=== PATIENT | male | born 1935 | race Caucasian/White ===

== ENCOUNTER → 2016-05-22 | Outpatient (CLI) | payer OTHER, MEDICARE ==
[~2016-05-22] MED LIST: ALL300 PO; APIX1TAB3 PO; ASPEC81 PO; BNC/40 PO; CTP1 PO; DOFE250C PO; FINA5TAB PO; GEMF600T3 PO; LEVO50TA PO; LPT/40 PO; MAGN400T6 PO; METO50TA7 PO; MULT-506 PO; MULTCAP7 PO; PANT1TAB48 PO; POTA10TA PO; TRIA37.5 PO
== END | disposition home or self-care (01) ==
LOC: C.LABFOXMH 09:20
PROVIDERS: ATTEND Internal Medicine
DX: M10.9 Gout, unspecified (principal)

== ENCOUNTER → 2016-05-28 | Outpatient (CLI) | payer OTHER, MEDICARE ==
[2016-05-28 09:21] LABS: BASO % 0.2 %; BASO ABS # 0.01 K/uL (0-0.2); COMPLETE YES; EOS % 2.4 %; IG% 0.3 %; LYMPH % 28.1 %; LYMPH ABS # 1.67 K/uL (1.2-3.4); MEAN CELL VOLUME 96.2 fL (80-100); MEAN CORPUSCULAR HEMOGLOBIN 32.2 pg (25-34); MEAN CORPUSCULAR HGB CONC 33.5 g/dl (32-36); MEAN PLATELET VOLUME 12.3 fL (7.4-10.4); PLATELET COUNT 202 K/uL (130-400); RED BLOOD COUNT 4.47 M/uL (4.7-6.1); WHITE BLOOD COUNT 5.94 K/uL (4.8-10.8)
[2016-05-28 09:27] LABS: ALT/SGPT 21 U/L (12-78); BLOOD UREA NITROGEN 48 mg/dl (7-18); BUN/CREATININE RATIO 21.8 (10-20); CALCIUM 8.7 mg/dl (8.5-10.1); CARBON DIOXIDE 18 mmol/L (21-32); CHLORIDE 112 mmol/L (98-107); GLUCOSE 90 mg/dl (70-99); POTASSIUM 5.8 mmol/L (3.5-5.1); SODIUM 141 mmol/L (136-145)
[2016-05-28 09:38] LABS: ALKALINE PHOSPHATASE 94 U/L (45-117); AST/SGOT 25 U/L (15-37); THYROID STIMULATING HORMONE 0.421 uIu/ml (0.300-4.500)
== END | disposition home or self-care (01) ==
LOC: C.LABFOXMH 08:39
PROVIDERS: ATTEND Nurse Practitioner Family
DX: R53.83 Other fatigue (principal); E03.9 Hypothyroidism, unspecified

== ENCOUNTER → 2016-08-09 | Outpatient (CLI) | payer OTHER, MEDICARE ==
[2016-08-09 08:32] LABS: ALT/SGPT 22 U/L (12-78); BLOOD UREA NITROGEN 42 mg/dl (7-18); BUN/CREATININE RATIO 19.9 (10-20); CALCIUM 8.7 mg/dl (8.5-10.1); CARBON DIOXIDE 25 mmol/L (21-32); CHLORIDE 108 mmol/L (98-107); CHOLESTEROL 151 mg/dl (0-200); GLUCOSE 93 mg/dl (70-99); POTASSIUM 5.1 mmol/L (3.5-5.1); SODIUM 141 mmol/L (136-145); TRIGLYCERIDES 106 mg/dl (0-150); VERY LOW DENSITY LIPOPROT CALC 21 mg/dl
[2016-08-09 08:35] LABS: ALB/GLOB RATIO 1.1 (0.9-2); ALKALINE PHOSPHATASE 101 U/L (45-117); AST/SGOT 21 U/L (15-37); CHOLESTEROL/HDL RATIO 3.1; HDL CHOLESTEROL 49 mg/dl; LDL CHOLESTEROL CALCULATED 81 mg/dl
== END ==
LOC: C.LABFOXMH 07:46
PROVIDERS: ATTEND Internal Medicine
DX: E78.00 Pure hypercholesterolemia, unspecified (principal)

== ENCOUNTER → 2016-09-20 | Outpatient (CLI) | payer OTHER, MEDICARE ==
[2016-09-20 12:40] LABS: HEMATOCRIT 49.8 % (42-52); MEAN CELL VOLUME 97.5 fL (80-100); MEAN CORPUSCULAR HEMOGLOBIN 32.5 pg (25-34); MEAN CORPUSCULAR HGB CONC 33.3 g/dl (32-36); PLATELET COUNT 205 K/uL (130-400); RED BLOOD COUNT 5.11 M/uL (4.7-6.1); WHITE BLOOD COUNT 4.22 K/uL (4.8-10.8)
[2016-09-20 12:48] LABS: URINE APPEARANCE CLEAR (CLEAR); URINE BILIRUBIN NEG (NEG); URINE COLOR YELLOW; URINE NITRITE NEG (NEG); URINE PH 5.5 (4.5-7.5); URINE SPECIFIC GRAVITY 1.017 (1.000-1.030); UROBILINOGEN NEG (NEG)
[2016-09-20 13:01] LABS: MANUAL MICROSCOPIC REQUIRED? NO; REVIEW REQ? NO
[2016-09-20 13:14] LABS: BLOOD UREA NITROGEN 60 mg/dl (7-18); CALCIUM 8.8 mg/dl (8.5-10.1); CARBON DIOXIDE 23 mmol/L (21-32); CHLORIDE 110 mmol/L (98-107); GLUCOSE 98 mg/dl (70-99); SODIUM 140 mmol/L (136-145)
[2016-09-20 13:15] LABS: PHOSPHORUS 4.3 mg/dl (2.5-4.9)
[2016-09-20 13:34] LABS: URINE PROTIEN/CREAT RATIO 1.5 (0-0.2); URINE TOTAL PROTEIN 168.7 mg/dl (0-11.9)
== END | disposition home or self-care (01) ==
LOC: C.LAB1850 11:16
PROVIDERS: ATTEND Internal Medicine Nephrology
DX: I49.3 Ventricular premature depolarization (principal); I12.9 Hypertensive chronic kidney disease with stage 1 through stage 4 chronic kidney disease, or unspecified chronic kidney disease; N18.3 Chronic kidney disease, stage 3 (moderate); R80.9 Proteinuria, unspecified; E55.9 Vitamin D deficiency, unspecified

== ENCOUNTER → 2016-10-09 | Outpatient (CLI) | payer OTHER, MEDICARE ==
[2016-10-09 09:54] LABS: BLOOD UREA NITROGEN 55 mg/dl (7-18); BUN/CREATININE RATIO 24.1 (10-20); CARBON DIOXIDE 22 mmol/L (21-32); CHLORIDE 112 mmol/L (98-107); GLUCOSE 92 mg/dl (70-99); POTASSIUM 5.3 mmol/L (3.5-5.1); SODIUM 142 mmol/L (136-145)
[2016-10-09 09:55] LABS: PHOSPHORUS 3.6 mg/dl (2.5-4.9)
[2016-10-09 10:10] LABS: CALCIUM 8.7 mg/dl (8.5-10.1)
== END | disposition home or self-care (01) ==
LOC: C.LAB1850 08:32
PROVIDERS: ATTEND Internal Medicine Nephrology
DX: N18.3 Chronic kidney disease, stage 3 (moderate) (principal); R80.9 Proteinuria, unspecified; E55.9 Vitamin D deficiency, unspecified; N17.9 Acute kidney failure, unspecified; E87.5 Hyperkalemia; E83.41 Hypermagnesemia

== ENCOUNTER → 2016-11-12 | Outpatient (CLI) | payer OTHER, MEDICARE ==
[2016-11-12 09:47] LABS: HEMATOCRIT 48.1 % (42-52); MEAN CELL VOLUME 97.2 fL (80-100); MEAN CORPUSCULAR HEMOGLOBIN 30.9 pg (25-34); MEAN CORPUSCULAR HGB CONC 31.8 g/dl (32-36); MEAN PLATELET VOLUME 11.5 fL (7.4-10.4); PLATELET COUNT 178 K/uL (130-400); RED BLOOD COUNT 4.95 M/uL (4.7-6.1); WHITE BLOOD COUNT 4.87 K/uL (4.8-10.8)
[2016-11-12 10:00] LABS: BLOOD UREA NITROGEN 27 mg/dl (7-18); BUN/CREATININE RATIO 13.3 (10-20); CALCIUM 8.8 mg/dl (8.5-10.1); CARBON DIOXIDE 27 mmol/L (21-32); CHLORIDE 110 mmol/L (98-107); GLUCOSE 96 mg/dl (70-99); PHOSPHORUS 3.2 mg/dl (2.5-4.9); POTASSIUM 4.5 mmol/L (3.5-5.1); SODIUM 144 mmol/L (136-145)
== END | disposition home or self-care (01) ==
LOC: C.LAB1850 07:33
PROVIDERS: ATTEND Internal Medicine Nephrology
DX: I12.9 Hypertensive chronic kidney disease with stage 1 through stage 4 chronic kidney disease, or unspecified chronic kidney disease (principal); N18.3 Chronic kidney disease, stage 3 (moderate); R80.9 Proteinuria, unspecified; E55.9 Vitamin D deficiency, unspecified; E83.41 Hypermagnesemia

== ENCOUNTER → 2017-05-22 | Outpatient (CLI) | payer OTHER, MEDICARE ==
[~2017-05-22] MED LIST changes: +PANT1TAB3 PO; -PANT1TAB48 PO
[2017-05-22 12:19] LABS: HEMATOCRIT 49.1 % (42-52); HEMOGLOBIN 16.2 g/dL (14.0-18.0); MEAN CELL VOLUME 95.5 fL (80-100); MEAN CORPUSCULAR HEMOGLOBIN 31.5 pg (25-34); MEAN PLATELET VOLUME 12.1 fL (7.4-10.4); PLATELET COUNT 159 K/uL (130-400); RED CELL DISTRIBUTION WIDTH CV 13.8 % (11.5-14.5); RED CELL DISTRIBUTION WIDTH SD 48.1 fL (36.4-46.3); WHITE BLOOD COUNT 6.38 K/uL (4.8-10.8)
[2017-05-22 13:44] LABS: ALBUMIN 3.2 gm/dl (3.4-5.0); ALT/SGPT 50 U/L (12-78); AST/SGOT 29 U/L (15-37); BLOOD UREA NITROGEN 44 mg/dl (7-18); CALCIUM 8.5 mg/dl (8.5-10.1); CARBON DIOXIDE 27 mmol/L (21-32); CHOLESTEROL 146 mg/dl (0-200); GLUCOSE 94 mg/dl (70-99); POTASSIUM 3.9 mmol/L (3.5-5.1); SODIUM 138 mmol/L (136-145)
[2017-05-22 13:55] LABS: ALKALINE PHOSPHATASE 96 U/L (45-117); LDL CHOLESTEROL CALCULATED 65 mg/dl; TOTAL PROTEIN 6.6 gm/dl (6.4-8.2)
== END | disposition home or self-care (01) ==
LOC: C.LAB1850 09:40
PROVIDERS: ATTEND Internal Medicine Nephrology
DX: E03.9 Hypothyroidism, unspecified (principal); E78.5 Hyperlipidemia, unspecified; I10 Essential (primary) hypertension; R80.9 Proteinuria, unspecified; E55.9 Vitamin D deficiency, unspecified; N17.9 Acute kidney failure, unspecified

== ENCOUNTER 2017-12-05 15:26 | Inpatient (IN) | payer OTHER, MEDICARE ==
[~2017-12-05] VITALS: Ht 172.7 cm; Wt 73.6 kg
[~2017-12-05 15:26] MED LIST changes: -GEMF600T3 PO; +GEMF600T5 PO; -METO50TA7 PO; +METO50TA8 PO
[2017-12-05] MEDS ORDERED: FENTANYL CITRATE INJ 50 MCG/1 ML 2 ML VIAL IV STA (15:38)
[2017-12-05 15:57] LABS: BASO % 0.2 %; BASO ABS # 0.01 K/uL (0-0.2); EOS % 2.8 %; EOS ABS # 0.17 K/uL (0-0.5); HEMATOCRIT 46.6 % (42-52); HEMOGLOBIN 15.7 g/dL (14.0-18.0); IG# 0.01 K/uL (0.00-0.02); LYMPH % 18.3 %; LYMPH ABS # 1.11 K/uL (1.2-3.4); MEAN CELL VOLUME 93.2 fL (80-100); MEAN CORPUSCULAR HEMOGLOBIN 31.4 pg (25-34); MEAN CORPUSCULAR HGB CONC 33.7 g/dl (32-36); MEAN PLATELET VOLUME 11.4 fL (7.4-10.4); MONO % 7.3 %; MONO ABS # 0.44 K/uL (0.11-0.59); NEUT % 71.2 %; NEUT ABS # 4.31 K/uL (1.4-6.5); PLATELET COUNT 145 K/uL (130-400); RED CELL DISTRIBUTION WIDTH CV 14.7 % (11.5-14.5); RED CELL DISTRIBUTION WIDTH SD 49.3 fL (36.4-46.3); WHITE BLOOD COUNT 6.05 K/uL (4.8-10.8)
--- NOTE | 2017-12-05 16:06 | DIAGNOSTIC IMAGING REPORT ---
CHEST ONE VIEW PORTABLE CLINICAL HISTORY: cp dyspnea COMPARISON STUDY: 02/21/2015 FINDINGS: The bones soft tissues and hemidiaphragms are normal. The cardiomediastinal silhouette is normal. The lungs are clear. The pulmonary vasculature is normal. Prominent bipolar cardiac pacemaker. IMPRESSION: Negative chest. The above report was generated using voice recognition software. It may contain grammatical, syntax or spelling errors. Electronically signed by: David Sánchez M.D. 12/05/2017 4:04 PM Dictated Date/Time: 12/05/2017 4:04 PM
[2017-12-05 16:13] LABS: CALCIUM 8.5 mg/dl (8.5-10.1); CREATININE 2.56 mg/dl (0.60-1.40); POTASSIUM 4.9 mmol/L (3.5-5.1)
[2017-12-05 16:52] LABS: INR 1.1 (0.9-1.1); PTT PATIENT 30.7 SECONDS (21.0-31.0)
--- NOTE | 2017-12-05 17:25 | EMERGENCY ROOM VISIT NOTE ---
History Report prepared by Aisha: Nash Longoria Under the Supervision of: Dr. Tiago Calvillo M.D. First contact with patient: 15:30 Chief Complaint: CHEST PAIN Stated Complaint: CHEST PAIN History of Present Illness The patient is a 82 year old male who presents to the Emergency Room with complaints of chest pressure beginning this past week. Nursing staff report that the patient is currently a resident at [facility]. They note that the patient has an upcoming stress test scheduled. The patient reports that he has had pressure in his chest this past week. He states that it worsened today while picking up 2 liter bottles at the grocery store about 1 hour ago at 2:30 PM. He states that he took an aspirin but was not given nitroglycerin and states he is not allowed to take it. He rates his current level of severity of chest pressure is 2/10. He denies associated shortness of breath, diaphoresis, lightheadedness, fever, or cough. He reports that his symptoms are worsened with exertion, noting walking in particular. The patient reports that he was woken at 4:30 AM today due to discomfort. He states that he is not on Viagra or similar medications but states that he cannot have nitroglycerin due to an interaction with 1 of his other meds. Source of History: patient, nursing staff Onset: this past week Position: chest Symptom Intensity: currently 2/10 Quality: pressure Modifying Factors (Worsening): exertion Associated Symptoms: No fevers, No diaphoresis, No cough, No SOB Review of Systems See HPI for pertinent positives & negatives. A total of 10 systems reviewed and were otherwise negative. Past Medical & Surgical Medical Problems: (1) AC MYOCARDIAL INFARCT,UNSPEC SITE,SUBSEQ EPISODE (2) AUTO IMPLANTABLE CARDIAC DEFIBRILLATOR IN SITU (3) BACTERIAL INFECTION DUE TO STAPHYLOCOCCUS AUREUS (4) CORONARY ATHEROSCLEROSIS OF [place] CORONARY VESSEL (5) HYPERLIPIDEMIA NEC/NOS (6) PAROX VENTRIC TACHYCARD (7) PERCUTANEOUS TRANSLUM CORON ANGIOPLASTY STATUS Family History No pertinent family history Social History Smoking Status: Never Smoker Marital Status: Housing Status: assisted living Occupation Status: retired Allergies Coded Allergies: Penicillins (Verified Allergy, Intermediate, HIVES. CAN TAKE CEFAZOLIN PER DR. LUCERO, 04/01/16) Peanut (Verified Allergy, Mild, SPOT SWELLING OF TONGUE, 04/01/16) Shrimp (Verified Allergy, Mild, WHOLE SWELLING OF TONGUE, 04/01/16) Ciprofloxacin (Unverified Allergy, Unknown, RASH, 04/01/16) Nitrofurantoin (Verified Allergy, Unknown, VOMITING, 04/01/16) Sulfamethoxazole w/Trimethoprim (Verified Allergy, Unknown, NAUSEA, ) Coffee (Verified Adverse Reaction, Mild, VERTIGO, 04/01/16) Corticosteroids (Verified Adverse Reaction, Mild, VOMITING, 04/01/16) Hydrocortisone (Verified Adverse Reaction, Mild, VOMITING, 04/01/16) Nitrates, Organic (Verified Adverse Reaction, Mild, VOMITING, 04/01/16) Quinolones (Verified Adverse Reaction, Mild, VOMITING, 04/01/16) Tetracycline (Verified Adverse Reaction, Mild, VOMITING, 04/01/16) Uncoded Allergies: BANDAIDS (Allergy, Unknown, ., 03/18/16) Physical Exam Vital Signs Date Time Temp Pulse Resp B/P (MAP) Pulse Ox O2 Delivery O2 Flow Rate FiO2 12/05/17 17:12 69 16 164/95 95 Room Air 12/05/17 16:25 75 12/05/17 15:32 97 Room Air 12/05/17 15:32 99 Room Air 12/05/17 15:32 36.6 67 18 153/94 97 Room Air Physical Exam Constitutional: Vital signs reviewed. Eyes: Pupils are equal round reactive to light. Conjunctiva are noninjected. ENT: Pharynx is clear without erythema or exudate. Mucous membranes are moist. Neck supple without meningeal signs. Respiratory: Clear to auscultation bilaterally. Breath sounds are equal bilaterally. Cardiovascular: Regular rate and rhythm. No rubs or gallops. GI: Soft, nondistended and nontender. Bowel sounds are present. Musculoskeletal: No peripheral edema. No lower extremity tenderness. Integumentary: No cyanosis. Neurological: The patient is awake and alert. No focal deficits. Psychiatric: Normal affect. Medical Decision & Procedures ER Provider Diagnostic Interpretation: Radiology results as stated below per my review and the radiologist's interpretation: CHEST ONE VIEW PORTABLE CLINICAL HISTORY: cp dyspnea COMPARISON STUDY: 02/21/2015 FINDINGS: The bones soft tissues and hemidiaphragms are normal. The cardiomediastinal silhouette is normal. The lungs are clear. The pulmonary vasculature is normal. Prominent bipolar cardiac pacemaker. IMPRESSION: Negative chest. The above report was generated using voice recognition software. It may contain grammatical, syntax or spelling errors. Electronically signed by: David Sánchez M.D. 12/05/2017 4:04 PM Laboratory Results 12/05/17 15:42 Red Blood Count 5.00, Mean Corpuscular Volume 93.2, Mean Corpuscular Hemoglobin 31.4, Mean Corpuscular Hemoglobin Concent 33.7, Mean Platelet Volume 11.4, Neutrophils (%) (Auto) 71.2, Lymphocytes (%) (Auto) 18.3, Monocytes (%) (Auto) 7.3, Eosinophils (%) (Auto) 2.8, Basophils (%) (Auto) 0.2, Neutrophils # (Auto) 4.31, Lymphocytes # (Auto) 1.11, Monocytes # (Auto) 0.44, Eosinophils # (Auto) 0.17, Basophils # (Auto) 0.01 12/05/17 15:42 Test 12/05/17 15:42 12/05/17 15:54 12/05/17 16:35 White Blood Count 6.05 K/uL (4.8-10.8) Red Blood Count 5.00 M/uL (4.7-6.1) Hemoglobin 15.7 g/dL (14.0-18.0) Hematocrit 46.6 % (42-52) Mean Corpuscular Volume 93.2 fL (80-100) Mean Corpuscular Hemoglobin 31.4 pg (25-34) Mean Corpuscular Hemoglobin Concent 33.7 g/dl (32-36) Platelet Count 145 K/uL (130-400) Mean Platelet Volume 11.4 fL (7.4-10.4) Neutrophils (%) (Auto) 71.2 % Lymphocytes (%) (Auto) 18.3 % Monocytes (%) (Auto) 7.3 % Eosinophils (%) (Auto) 2.8 % Basophils (%) (Auto) 0.2 % Neutrophils # (Auto) 4.31 K/uL (1.4-6.5) Lymphocytes # (Auto) 1.11 K/uL (1.2-3.4) Monocytes # (Auto) 0.44 K/uL (0.11-0.59) Eosinophils # (Auto) 0.17 K/uL (0-0.5) Basophils # (Auto) 0.01 K/uL (0-0.2) RDW Standard Deviation 49.3 fL (36.4-46.3) RDW Coefficient of Variation 14.7 % (11.5-14.5) Immature Granulocyte % (Auto) 0.2 % Immature Granulocyte # (Auto) 0.01 K/uL (0.00-0.02) Anion Gap 6.0 mmol/L (3-11) Est Creatinine Clear Calc Drug Dose 21.9 ml/min Estimated GFR () 26.1 Estimated GFR (Non- 22.6 BUN/Creatinine Ratio 20.8 (10-20) Calcium Level 8.5 mg/dl (8.5-10.1) Bedside Troponin I < 0.030 ng/ml (0-0.045) Prothrombin Time 11.1 SECONDS (9.0-12.0) Prothromb Time International Ratio 1.1 (0.9-1.1) Activated Partial Thromboplast Time 30.7 SECONDS (21.0-31.0) Partial Thromboplastin Ratio 1.2 Laboratory results as reviewed by me. Medications Administered Medications (Trade) Dose Ordered Sig/Lor Route Start Time Stop Time Status Last Admin Dose Admin Fentanyl Citrate (Fentanyl Inj) 50 mcg NOW STAT IV 12/05/17 15:38 12/05/17 15:39 DC 12/05/17 16:17 50 MCG ECG Per My Interpretation Indication: chest pain Rate (beats per minute): 60 Rhythm: other (Atrial paced rhythm) Findings: other (No ST elevation. No PVCs.) ED Course 153: The patient was evaluated in room A10. A complete history and physical exam was performed. 153: Ordered Fentanyl 50 mcg IV 1625: I updated with the patient. He states that his chest pain is relieved, but he feels woozy from the fentanyl he received. 1635: I spoke with Dr. Chaparro - [facility]ist. He will reevaluate the patient for hospitalization. Medical Decision This is a 89-year-old male who presents with exertional chest pain. Differential diagnosis includes unstable angina, HI, pneumonia, GERD, pleurisy. I did perform a limited focused review of portions of the patient's old chart on the electronic medical record. The patient has had no recent pertinent visits to this hospital. I did evaluate the patient as noted above. IV access was established. The patient was placed on a continuous postal clerk. I did order and personally review the patient's 12-lead EKG and chest x-ray as described above. This twelve-lead EKG demonstrates a paced rhythm. Chest x-ray does not show signs of pneumonia. I did order and review the patient's blood work as noted in the electronic medical record. Troponin is negative. His creatinine is at baseline. I did treat patient with fentanyl IV because of his concern for interactions with nitroglycerin. I did reassess the patient. He is feeling much better and his chest pain is resolved. I did recommend hospitalization for repeat cardiac enzymes and further evaluation. I did discuss case with hospitalist and high risk case manager. Medication Reconcilliation Current Medication List: was personally reviewed by me Blood Pressure Screening Patient's blood pressure: Elevated blood pressure Blood pressure disposition: Referred to PCP Consults Time Called: 1626 Consulting Physician: Dr. Krysta Downing [facility]ist Returned Call: [address] Krysta Downing [facility]ist. He will reevaluate the patient for hospitalization. Impression Primary Impression: Exertional chest pain Scribe Attestation The scribe's documentation has been prepared under my direct and personally reviewed by me in its entirety. I confirm that the note above accurately reflects all work, treatment, procedures, and medical decision making performed by me. Departure Information Dispostion Being Evaluated By Hospitalist Referrals Ky Morel M.D. (PCP) Patient Instructions My [facility]
[2017-12-05] MEDS ORDERED: DOFE250C PO (17:29)
[2017-12-05] MEDS ORDERED: CTP/1 PO (17:29)
[2017-12-05] MEDS ORDERED: PANT40TA PO (17:29)
[2017-12-05] MEDS ORDERED: MULT-506 PO (17:29)
[2017-12-05] MEDS ORDERED: MUPIOIN4 NAE ×2 (17:29)
[2017-12-05] MEDS ORDERED: ELQ25 PO (17:29)
[2017-12-05] MEDS ORDERED: ALL300 PO (17:29)
[2017-12-05] MEDS ORDERED: ATOR-24 PO (17:29)
[2017-12-05] MEDS ORDERED: LOSA1TAB38 PO (17:29)
[2017-12-05] MEDS ORDERED: FINA5TAB PO (17:29)
[2017-12-05] MEDS ORDERED: TRIA37.5 PO (17:29)
[2017-12-05] MEDS ORDERED: ERGO500037 PO (17:29)
[2017-12-05] MEDS ORDERED: TRIATAB3 PO (17:29)
[2017-12-05] MEDS ORDERED: ASPI81TA28 PO (17:29)
[2017-12-05] MEDS ORDERED: ESCI10TA17 PO (17:29)
[2017-12-05] MEDS ORDERED: METO50TA8 PO (17:29)
[2017-12-05] MEDS ORDERED: LEVO50TA6 PO (17:29)
[2017-12-05] MEDS ORDERED: ACETAMINOPHEN 325 MG TAB PO PRN (18:00)
[2017-12-05] MEDS ORDERED: ONDANSETRON INJ 2 MG/ML 2 ML VIAL IV PRN (18:00)
[2017-12-05] MEDS ORDERED: POLYETHYLENE (MIRALAX) 17 GM PACK PO PRN (18:00)
[2017-12-05] MEDS ORDERED: MAGNESIUM HYDROXIDE SUSP 30 ML UDC PO PRN (18:00)
[2017-12-05] MEDS ORDERED: ALUMINUM/MAGNESIUM/SIMETH (MAALOX MAX) 30 ML UDC PO PRN (18:00)
--- NOTE | 2017-12-05 18:17 | History and Physical ---
History & Physical Date & Time of Service: Dec 05, 2017 at 18:14 Chief Complaint: Chest Pain Primary Care Physician: Ky Morel M.D. History of Present Illness Source: patient, clinic records, hospital records, snf This is an 82 y/o male with a history of CAD s/p stent, CA, HTN, HLD, PAF, hypothyroidism, gout, Matias's esophagus, and RAHEEL who presented to the ED on 12/05 with worsening chest pain. The patient states he has been having exertional chest pain for the last few weeks that has been getting progressively worse. He states that he has also developed dyspnea on exertion but denies any shortness of breath at rest. He states in the last week, the pain has gotten noticeably worse and now occurs sometimes at rest. He states he woke up from sleep this morning around 0430 with a 5/10 sharp left chest pain, which is the worst chest pain he has had. He took an aspirin, and it felt better. He currently denies any chest pain. He denies any other associated symptoms with the pain. He feels generally more weak and fatigued in the last week. The patient has a history of CA in 2006, and [place] [facility] [place]. The patient denies fevers, chills, sweats, palpitations, claudication, cough, wheezing, nausea, vomiting, abdominal pain, dysuria, hematuria, urinary retention, paralysis, weakness, numbness and tingling. 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 Replaced 2015 d/t battery Family History Breast cancer Hypertension Stroke Social History Smoking Status: Never Smoker Smokeless Tobacco Use: No Alcohol Use: none Drug Use: none Marital Status: Housing status: lives with significant other, other (independent living at [facility]) Occupational Status: retired Immunizations History of Influenza Vaccine: Yes Influenza Vaccine Date: Feb 02, 2010 History of Tetanus Vaccine?: Yes History of Pneumococcal: Yes Pneumococcal Date: Feb 03, 2008 History of Hepatitis B Vaccine: No Allergies Coded Allergies: Penicillins (Verified Allergy, Intermediate, HIVES. CAN TAKE CEFAZOLIN PER DR. LUCERO, 12/05/17) Peanut (Verified Allergy, Mild, SPOT SWELLING OF TONGUE, 12/05/17) Shrimp (Verified Allergy, Mild, WHOLE SWELLING OF TONGUE, 12/05/17) Ciprofloxacin (Unverified Allergy, Unknown, RASH, 12/05/17) Nitrofurantoin (Verified Allergy, Unknown, VOMITING, 12/05/17) Sulfamethoxazole w/Trimethoprim (Verified Allergy, Unknown, NAUSEA, 12/05/17 ) Coffee (Verified Adverse Reaction, Mild, VERTIGO, 12/05/17) Corticosteroids (Verified Adverse Reaction, Mild, VOMITING, 12/05/17) Hydrocortisone (Verified Adverse Reaction, Mild, VOMITING, 12/05/17) Nitrates, Organic (Verified Adverse Reaction, Mild, VOMITING, 12/05/17) Quinolones (Verified Adverse Reaction, Mild, VOMITING, 12/05/17) Tetracycline (Verified Adverse Reaction, Mild, VOMITING, 12/05/17) Uncoded Allergies: BANDAIDS (Allergy, Unknown, ., 03/18/16) Home Medications Scheduled Allopurinol (Allopurinol), 300 MG PO DAILY Apixaban (Eliquis), 2.5 MG PO BID Aspirin (Aspirin Ec), 81 MG PO DAILY Atorvastatin (Lipitor), 40 MG PO DAILY Clonidine Hcl (Catapres), 0.5 TAB PO TID Ergocalciferol (Vitamin D 04474 Unit), 50,000 UNIT PO MONTHLY Escitalopram (Lexapro), 5 MG PO DAILY Finasteride (Proscar), 5 MG PO DAILY Levothyroxine Sodium (Levothyroxine Sodium), 50 MCG PO DAILY Losartan Potassium (Cozaar), 100 MG PO DAILY Metoprolol Succ (Toprol Xl) (Toprol-Xl), 50 MG PO BID Multivitamin (Multivitamin), 1 TAB PO DAILY Mupirocin Calcium (Bactroban Nasal), 1 APPLN EDGAR DAILY Pantoprazole (Protonix), 40 MG PO DAILY Triamterene/Hctz (Triamterene/Hctz 37.5-25MG), 0.5 TAB PO BID Scheduled PRN Triamterene/Hctz (Dyazide 37.5MG/25MG), 1 CAP PO DAILY PRN for EDEMA Review of Systems Constitutional: +Weak and fatigued. No fever, No chills, No sweats Eyes: No worsening of vision, No eye pain, No diplopia ENT: No hearing loss, No nasal symptoms, No trouble swallowing Respiratory: No cough, No wheezing, No shortness of breath at rest Cardiovascular: +Chest pain at rest and exertion. MALIN. No claudication, No palpitations Abdomen: No pain, No nausea, No vomiting Musculoskeletal: No joint pain, No muscle pain, No swelling Genitourinary - Male: No dysuria, No urinary retention, No hematuria Neurologic: No paralysis, No weakness, No numbness/tingling Integumentary: No rash, No itch, No color change Physical Exam Vital Signs Date Time Temp Pulse Resp B/P (MAP) Pulse Ox O2 Delivery O2 Flow Rate FiO2 12/05/17 17:12 69 16 164/95 95 Room Air 12/05/17 16:25 75 12/05/17 15:32 97 Room Air 12/05/17 15:32 99 Room Air 12/05/17 15:32 36.6 67 18 153/94 97 Room Air General appearance: Well-developed, well-nourished, no apparent distress Head: Normocephalic, atraumatic Eyes: Normal inspection, PERRL, EOMI ENT: Normal ENT inspection, hearing grossly normal, pharynx normal Neck: Supple, no JVD, trachea midline Respiratory/Chest: +Pacemaker right chest. Previous pacemaker scar left chest. Lungs clear to auscultation, normal breath sounds, no respiratory distress Cardiovascular: Regular rate & rhythm, no gallop, no murmur Abdomen/GI: Normal bowel sounds, non-tender, soft Extremities/Musculoskeletal: Normal inspection, no calf tenderness, no pedal edema Neurological/Psych: Alert, normal mood/affect, oriented x 3 Skin: Normal color, warm/dry, no rash Diagnostics Laboratory Results Results Past 24 Hours Test 12/05/17 15:42 12/05/17 15:54 12/05/17 16:35 Range/Units White Blood Count 6.05 4.8-10.8 K/uL Red Blood Count 5.00 4.7-6.1 M/uL Hemoglobin 15.7 14.0-18.0 g/dL Hematocrit 46.6 42-52 % Mean Corpuscular Volume 93.2 80-100 fL Mean Corpuscular Hemoglobin 31.4 25-34 pg Mean Corpuscular Hemoglobin Concent 33.7 32-36 g/dl Platelet Count 145 130-400 K/uL Mean Platelet Volume 11.4 7.4-10.4 fL Neutrophils (%) (Auto) 71.2 % Lymphocytes (%) (Auto) 18.3 % Monocytes (%) (Auto) 7.3 % Eosinophils (%) (Auto) 2.8 % Basophils (%) (Auto) 0.2 % Neutrophils # (Auto) 4.31 1.4-6.5 K/uL Lymphocytes # (Auto) 1.11 1.2-3.4 K/uL Monocytes # (Auto) 0.44 0.11-0.59 K/uL Eosinophils # (Auto) 0.17 0-0.5 K/uL Basophils # (Auto) 0.01 0-0.2 K/uL RDW Standard Deviation 49.3 36.4-46.3 fL RDW Coefficient of Variation 14.7 11.5-14.5 % Immature Granulocyte % (Auto) 0.2 % Immature Granulocyte # (Auto) 0.01 0.00-0.02 K/uL Sodium Level 137 136-145 mmol/L Potassium Level 4.9 3.5-5.1 mmol/L Chloride Level 106 98-107 mmol/L Carbon Dioxide Level 25 21-32 mmol/L Anion Gap 6.0 3-11 mmol/L Blood Urea Nitrogen 53 7-18 mg/dl Creatinine 2.56 0.60-1.40 mg/dl Est Creatinine Clear Calc Drug Dose 21.9 ml/min Estimated GFR () 26.1 Estimated GFR (Non- 22.6 BUN/Creatinine Ratio 20.8 10-20 Random Glucose 88 70-99 mg/dl Calcium Level 8.5 8.5-10.1 mg/dl Bedside Troponin I < 0.030 0-0.045 ng/ml Prothrombin Time 11.1 9.0-12.0 SECONDS Prothromb Time International Ratio 1.1 0.9-1.1 Activated Partial Thromboplast Time 30.7 21.0-31.0 SECONDS Partial Thromboplastin Ratio 1.2 Diagnostic Radiology Reviewed the following studies and agree with interpretation as follows: CHEST ONE VIEW PORTABLE CLINICAL HISTORY: cp dyspnea COMPARISON STUDY: 02/21/2015 FINDINGS: The bones soft tissues and hemidiaphragms are normal. The cardiomediastinal silhouette is normal. The lungs are clear. The pulmonary vasculature is normal. Prominent bipolar cardiac pacemaker. IMPRESSION: Negative chest. EKG Reviewed EKG and agree with interpretation as follows: 60 bpm, atrial paced rhythm, TWI inferior leads Impression Assessment and Plan 82 y/o male with a history of CAD s/p stent, CA, HTN, HLD, PAF, hypothyroidism, gout, Matias's esophagus, and RAHEEL who presented to the ED on 12/05 with worsening chest pain. Pt afebrile, VSS on arrival. EKG negative for ST elevation, possible TWI in inferior leads. Troponin negative. CXR no acute disease. Creatinine 2.56. Pt currently pain free. Chest pain, possible unstable angina, ACS r/o -Admit to telemetry for observation -Trend troponin q8h x 3, first trop negative -EKG q am and prn chest pain -Pt has outpatient stress test scheduled for 12/09 -Recent echo done 11/27 shows EF 50-55%. Basal inferior wall hypokinesis. Grade I diastolic dysfunction. Left atrium mildly dilated. Mild mitral regurgitation. Moderate tricuspid regurgitation. RVSP elevated at 30-40 mmHg. 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 -Creatinine 2.56 on admission, baseline 2.0-2.3 -Hold losartan, Dyazide for now -NSS at 75 cc/hr x 2L CAD, h/o CA, HTN, HLD--stable -Hold losartan due to ELIZABETH as above -Continue Toprol XL 50 mg PO BID, clonidine 0.05 mg PO TID, Lipitor 40 mg PO qd -Cover with hydralazine 10 mg IV q6h prn SBP >180 PAF--stable, currently paced -Continue Toprol, Eliquis 2.5 mg PO BID Hypothyroidism -Continue Synthroid 50 mcg PO qd Gout -Hold allopurinol for now Matias's esophagus -Continue Protonix 40 mg PO qd BPH -Continue Proscar 5 mg PO qd DVT prophylaxis -Hansa -ARIANNA brennan and SCDs Code Status -Level V, DO NOT RESUSCITATE Resuscitation Status VTE Prophylaxis Will order VTE Prophylaxis: Yes
[2017-12-05] MEDS ORDERED: HydrALAZINE HCL 20 MG/ML VIAL IV. PRN (18:45)
[2017-12-05 19:40] VITALS: BP 188/84; PULSE 84; TEMP 36.7; O2SAT 95; Ht 172.7 cm; Wt 73.6 kg
[2017-12-05] MEDS: SODIUM CHLORIDE 0.9% 1000ML 1,000 ML IV SCH (20:45)
[2017-12-05] MEDS ORDERED: IV FLUIDS COMPLETED PRN (21:00)
[2017-12-05] MEDS: APIXABAN 2.5 MG TAB PO SCH (21:21)
[2017-12-05] MEDS: METOPROLOL SUCC 50MG EXT REL TAB PO SCH (21:21)
[2017-12-05] MEDS: CLONIDINE HCL 0.1 MG TAB PO SCH (21:22)
[2017-12-05 23:25] VITALS: PULSE 57; O2SAT 97
[2017-12-06] VITALS (7 sets, daily range): BP systolic 99–173; BP diastolic 56–93; PULSE 44–62; TEMP 36.3–36.9; O2SAT 93–98
[2017-12-06] MEDS: LEVOTHYROXINE 50 MCG TAB PO SCH (06:03)
[2017-12-06 08:00] LABS: HEMATOCRIT 44.7 % (42-52); MEAN CELL VOLUME 93.3 fL (80-100); MEAN CORPUSCULAR HEMOGLOBIN 31.3 pg (25-34); MEAN CORPUSCULAR HGB CONC 33.6 g/dl (32-36); MEAN PLATELET VOLUME 11.6 fL (7.4-10.4); PLATELET COUNT 141 K/uL (130-400); RED CELL DISTRIBUTION WIDTH CV 14.6 % (11.5-14.5); RED CELL DISTRIBUTION WIDTH SD 49.4 fL (36.4-46.3); WHITE BLOOD COUNT 5.94 K/uL (4.8-10.8)
[2017-12-06 08:39] LABS: CALCIUM 8.5 mg/dl (8.5-10.1); CREATININE 2.53 mg/dl (0.60-1.40); POTASSIUM 4.8 mmol/L (3.5-5.1)
[2017-12-06] MEDS ORDERED: ALLOPURINOL 300 MG TAB PO SCH (09:00)
[2017-12-06] MEDS: SODIUM CHLORIDE 0.9% 1000ML 1,000 ML IV SCH (09:20)
[2017-12-06] MEDS: ESCITALOPRAM OXALATE 10 MG TAB PO SCH (10:00)
[2017-12-06] MEDS ORDERED: NURSING VERBAL MED ORDER ONE (10:00)
[2017-12-06] MEDS: ATORVASTATIN 40 MG TAB PO SCH (10:00)
[2017-12-06] MEDS: FINASTERIDE 5 MG TAB PO SCH (10:01)
[2017-12-06] MEDS: PANTOprazole SOD 40 MG TAB PO SCH (10:01)
[2017-12-06] MEDS: METOPROLOL SUCC 50MG EXT REL TAB PO SCH ×2 (10:01→20:28)
[2017-12-06] MEDS: MULTIVITAMIN TAB PO SCH (10:01)
[2017-12-06] MEDS: APIXABAN 2.5 MG TAB PO SCH ×2 (10:01→20:24)
[2017-12-06] MEDS: ASPIRIN 81 MG ECTAB PO SCH (10:01)
[2017-12-06] MEDS: CLONIDINE HCL 0.1 MG TAB PO SCH ×3 (10:01→20:24)
--- NOTE | 2017-12-06 10:07 | Cardiology Consultation ---
Cardiology Consultation Date of Consultation: Dec 06, 2017. Requesting Physician: Dr. Haskins Reason for Consultation: Chest pain Pt evaluation today including: conversation w/ patient, conversation w/ family , physical exam, lab review, review of studies, review of inpatient medication list History of Present Illness This is a 82-year-old man with complex past cardiac history including coronary artery disease (status post IWMI and RCA stent I believe at [facility] in 2006), he had an ICD implantation on the left side which required extraction followed by reimplantation on the right side in 2006 (after lead infection). That device needed replacement due to battery depletion which was performed on 10/26/2015 using the original leads. He has long-standing paroxysmal atrial fibrillation. He is on Tikosyn for paroxysmal atrial fibrillation, he is generally unaware of the arrhythmia but we have been monitoring for it. He has continued to have episodes on monitoring but nothing that he has felt. Due to increased frequency and duration of the arrhythmia we did start Eliquis on 03/20/2015. He then developed more recently (around the summer 2017) some dyspnea on exertion and at his visit November 26, 2017 was noted to have very frequent ventricular ectopy. Pacemaker evaluation did not detect arrhythmia since was quite slow but he was having runs of a ventricular rhythm at a rate of about 110 bpm. He was relatively unaware of it (he had no palpitations) but it was worrisome. I had him walk around the hallway, after sitting down the rhythm was no longer present. He did not seem to have much trouble with exertion walking around the hallway. At that time he is not having exertional chest discomfort. I therefore placed a Holter monitor which showed very frequent ventricular ectopy but nothing rapid, and an echocardiogram which showed mild left ventricular dysfunction which appeared relatively stable. He presents now with chest discomfort. We have been evaluating dyspnea on exertion, which we thought might be arrhythmic in nature, but he now reports that he has been having exertional chest tightness as well and then developed rest chest discomfort. The most severe episode he had was a very sharp discomfort in his chest which occurred while lifting up bottles in the grocery store, but this only lasted about a minute. After admission during the night he had several episodes of substernal chest discomfort lasting minutes and resolving. He does not have palpitations but has continued to have his arrhythmia. He was scheduled for a stress test coming week, that was to be a stress echo. Today he is continuing to have episodes of chest discomfort, these occurred during the night and were relatively brief but worrisome. Cardiac enzymes have been negative. Past Medical/Surgical History (1) CORONARY ATHEROSCLEROSIS OF [place] CORONARY VESSEL (2) HYPERLIPIDEMIA NEC/NOS (3) PAROX VENTRIC TACHYCARD (4) PERCUTANEOUS TRANSLUM CORON ANGIOPLASTY STATUS Family History Breast cancer Hypertension Stroke Social History Smoking Status: Never Smoker History of Alcohol Use: No Review of Systems Constitutional: No fever, No weight loss, No weakness Respiratory: No cough, No wheezing, No shortness of breath, No dyspnea on exertion Cardiac: + see HPI, + chest pain, No orthopnea, No PND, No edema, No palpitations Abdomen: No pain, No nausea, No vomiting, No diarrhea, No GI bleeding Male : No urinary frequency, No nocturia more than once/night, No slowing stream, No sexual dysfunction Neurologic: No paralysis, No weakness, No numbness/tingling, No balance problems Heme: No abnormal bleeding/bruising, No clotting problems Endo: No fatigue Skin: No problem reported All Other Systems: Reviewed and Negative Allergies Coded Allergies: Penicillins (Verified Allergy, Intermediate, HIVES. CAN TAKE CEFAZOLIN PER DR. LUCERO, 12/05/17) Peanut (Verified Allergy, Mild, SPOT SWELLING OF TONGUE, 12/05/17) Shrimp (Verified Allergy, Mild, WHOLE SWELLING OF TONGUE, 12/05/17) Ciprofloxacin (Unverified Allergy, Unknown, RASH, 12/05/17) Nitrofurantoin (Verified Allergy, Unknown, VOMITING, 12/05/17) Sulfamethoxazole w/Trimethoprim (Verified Allergy, Unknown, NAUSEA, 12/05/17 ) Coffee (Verified Adverse Reaction, Mild, VERTIGO, 12/05/17) Corticosteroids (Verified Adverse Reaction, Mild, VOMITING, 12/05/17) Hydrocortisone (Verified Adverse Reaction, Mild, VOMITING, 12/05/17) Nitrates, Organic (Verified Adverse Reaction, Mild, VOMITING, 12/05/17) Quinolones (Verified Adverse Reaction, Mild, VOMITING, 12/05/17) Tetracycline (Verified Adverse Reaction, Mild, VOMITING, 12/05/17) Uncoded Allergies: BANDAIDS (Allergy, Unknown, ., 03/18/16) Medications Current Inpatient Medications Medications (Trade) Dose Ordered Sig/Lor Route Start Time Stop Time Status Last Admin Dose Admin Acetaminophen (Tylenol Tab) 650 mg Q4H PRN PO 12/05/17 18:00 01/04/18 17:59 Al Hydrox/Mg Hydrox/Simethicone (Maalox Max Susp) 15 ml Q4H PRN PO 12/05/17 18:00 01/04/18 17:59 Magnesium Hydroxide (Milk Of Magnesia Susp) 30 ml Q12H PRN PO 12/05/17 18:00 01/04/18 17:59 Ondansetron HCl (Zofran Inj) 4 mg Q6H PRN IV 12/05/17 18:00 01/04/18 17:59 Polyethylene (Miralax Powder Packet) 17 gm DAILY PRN PO 12/05/17 18:00 01/04/18 17:59 Apixaban (Eliquis Tab) 2.5 mg BID PO 12/05/17 21:00 01/04/18 20:59 12/05/17 21:21 2.5 MG Aspirin (Ecotrin Tab) 81 mg DAILY PO 12/06/17 09:00 01/05/18 08:59 Atorvastatin Calcium (Lipitor Tab) 40 mg DAILY PO 12/06/17 09:00 01/05/18 08:59 Clonidine HCl (Catapres Tab) 0.05 mg TID PO 12/05/17 21:00 01/04/18 20:59 12/05/17 21:22 0.05 MG Escitalopram Oxalate (Lexapro Tab) 5 mg DAILY PO 12/06/17 09:00 01/05/18 08:59 Finasteride (Proscar Tab) 5 mg DAILY PO 12/06/17 09:00 01/05/18 08:59 Levothyroxine Sodium (Synthroid Tab) 50 mcg DAILYBB PO 12/06/17 06:00 01/05/18 06:59 12/06/17 06:03 50 MCG Metoprolol Succinate (Toprol Xl Tab) 50 mg BID PO 12/05/17 21:00 01/04/18 20:59 12/05/17 21:21 50 MG Multivitamins (Multivitamin Tab) 1 tab DAILY PO 12/06/17 09:00 01/05/18 08:59 Pantoprazole Sodium (Protonix Tab) 40 mg DAILY PO 12/06/17 09:00 01/05/18 08:59 Hydralazine HCl (HydrALAZINE INJ) 10 mg Q6H PRN IV. 12/05/17 18:45 01/04/18 18:44 Sodium Chloride 1,000 ml @ 75 mls/hr [id number] IV 12/05/17 20:00 12/06/17 22:39 12/05/17 20:45 75 MLS/HR Miscellaneous (Iv Fluids Completed) 1 ea PRN PRN N/A 12/05/17 21:00 12/05/18 20:59 Miscellaneous Information (Nursing Verbal Med Order) 1 ea ONE ONCE N/A 12/06/17 10:00 12/06/17 10:01 UNV Physical Exam Vital Signs Past 12 Hours Date Time Temp Pulse Resp B/P (MAP) Pulse Ox O2 Delivery O2 Flow Rate FiO2 12/06/17 06:57 36.5 52 16 160/83 (108) 97 Room Air 12/06/17 03:45 36.9 62 16 167/93 (117) 98 BiPAP 12/06/17 00:33 36.5 46 18 173/84 (113) 98 12/06/17 00:00 Room Air 12/05/17 23:25 57 97 Constitutional: General Apperance: heathly-appearing Level of Distress: NAD Psychiatric: Mental Status: active & alert Head: normocephalic Eyes: EOM: EOMI ENMT: normal ENT inspection, hearing grossly normal Neck: supple, no masses Lungs: Respiratory effort: no dyspnea, good air movement Auscultation: breath sounds normal, no wheezing Cardiovascular: Heart Auscultation: RRR, no murmurs, no rubs, no gallops Peripheral Pulses: Bruits: none appreciated Abdomen: Bowel Sounds: normal Inspection & Palpation: soft, no tenderness, guarding & rebound, no masses Musculoskeletal: normal strength (5/5 throughout) Extremities: no edema Neurologic: Cranial Nerves: grossly intact Sensation: grossly intact Data Laboratory Results: Last 24 Hours Test 12/05/17 15:42 12/05/17 15:54 12/05/17 16:35 12/06/17 00:14 White Blood Count 6.05 K/uL Red Blood Count 5.00 M/uL Hemoglobin 15.7 g/dL Hematocrit 46.6 % Mean Corpuscular Volume 93.2 fL Mean Corpuscular Hemoglobin 31.4 pg Mean Corpuscular Hemoglobin Concent 33.7 g/dl Platelet Count 145 K/uL Mean Platelet Volume 11.4 fL Neutrophils (%) (Auto) 71.2 % Lymphocytes (%) (Auto) 18.3 % Monocytes (%) (Auto) 7.3 % Eosinophils (%) (Auto) 2.8 % Basophils (%) (Auto) 0.2 % Neutrophils # (Auto) 4.31 K/uL Lymphocytes # (Auto) 1.11 K/uL Monocytes # (Auto) 0.44 K/uL Eosinophils # (Auto) 0.17 K/uL Basophils # (Auto) 0.01 K/uL RDW Standard Deviation 49.3 fL RDW Coefficient of Variation 14.7 % Immature Granulocyte % (Auto) 0.2 % Immature Granulocyte # (Auto) 0.01 K/uL Sodium Level 137 mmol/L Potassium Level 4.9 mmol/L Chloride Level 106 mmol/L Carbon Dioxide Level 25 mmol/L Anion Gap 6.0 mmol/L Blood Urea Nitrogen 53 mg/dl Creatinine 2.56 mg/dl Est Creatinine Clear Calc Drug Dose 21.9 ml/min Estimated GFR () 26.1 Estimated GFR (Non- 22.6 BUN/Creatinine Ratio 20.8 Random Glucose 88 mg/dl Calcium Level 8.5 mg/dl Bedside Troponin I < 0.030 ng/ml Prothrombin Time 11.1 SECONDS Prothromb Time International Ratio 1.1 Activated Partial Thromboplast Time 30.7 SECONDS Partial Thromboplastin Ratio 1.2 Troponin I < 0.015 ng/ml Test 12/06/17 07:50 White Blood Count 5.94 K/uL Red Blood Count 4.79 M/uL Hemoglobin 15.0 g/dL Hematocrit 44.7 % Mean Corpuscular Volume 93.3 fL Mean Corpuscular Hemoglobin 31.3 pg Mean Corpuscular Hemoglobin Concent 33.6 g/dl RDW Standard Deviation 49.4 fL RDW Coefficient of Variation 14.6 % Platelet Count 141 K/uL Mean Platelet Volume 11.6 fL Sodium Level 140 mmol/L Potassium Level 4.8 mmol/L Chloride Level 108 mmol/L Carbon Dioxide Level 26 mmol/L Anion Gap 5.0 mmol/L Blood Urea Nitrogen 50 mg/dl Creatinine 2.53 mg/dl Est Creatinine Clear Calc Drug Dose 22.1 ml/min Estimated GFR () 26.5 Estimated GFR (Non- 22.9 BUN/Creatinine Ratio 19.8 Random Glucose 88 mg/dl Calcium Level 8.5 mg/dl Troponin I < 0.015 ng/ml Triglycerides Level 187 mg/dl Cholesterol Level 146 mg/dl HDL Cholesterol 33 mg/dl LDL Cholesterol, Calculated 76 mg/dl VLDL Cholesterol, Calculated 37 mg/dl Cholesterol/HDL Ratio 4.4 Imaging: Chest x-ray is unremarkable EKG: Sinus rhythm with frequent PVCs Telemetry reviewed: Sinus rhythm with very frequent ventricular ectopy Assessment & Plan #1. Chest discomfort: We have been following him in the office for dyspnea on exertion but he has also developed an arrhythmia which could be part of the issue, however he tells me that he has also been having exertional chest discomfort. He is little bit vague about that, the worst episode he had was chest pain but was involved with lifting heavy bottles, and that only lasted about a minute and that may have been a different cause but it could be related. He did of the discomfort during the night after admission. His enzymes are negative, his electrocardiogram does not show acute injury. With his history of known coronary artery disease, uncertain cause of his recent dyspnea on exertion, recent onset of ventricular arrhythmias of uncertain cause as well as now exertional and rest chest discomfort I think we should proceed to catheterization and not stress testing. He is agreeable to stay in the hospital until Friday for a catheterization. #2. Paroxysmal atrial fibrillation: He has had occasional episodes of atrial fibrillation and was on Tikosyn, however with the ventricular ectopy I advised him to discontinue that. #3. Anticoagulation: He should remain on anticoagulation, he is on reduced dose Eliquis and should continue it over the long run. #4. Wide-complex tachycardia: He continues to have some episodes of this wide- complex tachycardia and is unclear whether he has symptoms related to it or not. We do need to continue to observe this rhythm but I have not specifically addressed it, ablation is possible but perhaps not indicated unless it is causing his symptoms. #5. Dyspnea on exertion: His dyspnea on exertion could be due to his ventricular arrhythmia, although I'm not sure it correlates very well, or could be an anginal equivalent. By echocardiography he has stable mild left ventricular dysfunction which does not explain it. #6. Chronic kidney disease: He has chronic kidney disease with a creatinine that runs in the mid twos, that appears stable this admission and is probably not too high risk for diagnostic catheterization. Thank you for allowing me to participate in his care.
[2017-12-06] MEDS: NITROGLYCERIN 2% OINTMENT 30GM TUBE EXT SCH ×3 (11:14→22:04)
--- NOTE | 2017-12-06 11:39 | Hospitalist Progress Note ---
Hospitalist Progress Note Date of Service Dec 06, 2017. Subjective Pt evaluation today including: conversation w/ patient, conversation w/ family ( at bedside), physical exam, chart review, lab review, review of inpatient medication list Pain: None PO Intake: Tolerating PO diet Voiding: no voiding problems Patient reports feeling well. He states he did have some intermittent chest pain last night but this has since resolved. He denies any palpitations or shortness of breath. The patient denies fevers, chills, sweats, palpitations, claudication, cough, wheezing, shortness of breath, nausea, vomiting, abdominal pain, dysuria, hematuria, urinary retention, paralysis, weakness, numbness and tingling. Additional Comments: See HPI for pertinent positives and negatives. All other systems reviewed and negative. Objective Vital Signs Date Time Temp Pulse Resp B/P (MAP) Pulse Ox O2 Delivery O2 Flow Rate FiO2 12/06/17 06:57 36.5 52 16 160/83 (108) 97 Room Air 12/06/17 03:45 36.9 62 16 167/93 (117) 98 BiPAP 12/06/17 00:33 36.5 46 18 173/84 (113) 98 12/06/17 00:00 Room Air 12/05/17 23:25 57 97 12/05/17 19:40 36.7 84 18 188/84 95 Room Air 12/05/17 19:04 63 18 173/103 98 Room Air 12/05/17 17:12 69 16 164/95 95 Room Air 12/05/17 16:25 75 12/05/17 15:32 97 Room Air 12/05/17 15:32 99 Room Air 12/05/17 15:32 36.6 67 18 153/94 97 Room Air Physical Exam Notes: General appearance: Well-developed, well-nourished, no apparent distress Head: Normocephalic, atraumatic Eyes: Normal inspection, PERRL, EOMI ENT: Normal ENT inspection, hearing grossly normal, pharynx normal Neck: Supple, no JVD, trachea midline Respiratory/Chest: +Pacemaker right chest. Previous pacemaker scar left chest. Lungs clear to auscultation, normal breath sounds, no respiratory distress Cardiovascular: Regular rate & rhythm, no gallop, no murmur Abdomen/GI: Normal bowel sounds, non-tender, soft Extremities/Musculoskeletal: Normal inspection, no calf tenderness, no pedal edema Neurological/Psych: Alert, normal mood/affect, oriented x 3 Skin: Normal color, warm/dry, no rash Laboratory Results Last 24 Hours Test 12/05/17 15:42 12/05/17 15:54 12/05/17 16:35 12/06/17 00:14 White Blood Count 6.05 K/uL Red Blood Count 5.00 M/uL Hemoglobin 15.7 g/dL Hematocrit 46.6 % Mean Corpuscular Volume 93.2 fL Mean Corpuscular Hemoglobin 31.4 pg Mean Corpuscular Hemoglobin Concent 33.7 g/dl Platelet Count 145 K/uL Mean Platelet Volume 11.4 fL Neutrophils (%) (Auto) 71.2 % Lymphocytes (%) (Auto) 18.3 % Monocytes (%) (Auto) 7.3 % Eosinophils (%) (Auto) 2.8 % Basophils (%) (Auto) 0.2 % Neutrophils # (Auto) 4.31 K/uL Lymphocytes # (Auto) 1.11 K/uL Monocytes # (Auto) 0.44 K/uL Eosinophils # (Auto) 0.17 K/uL Basophils # (Auto) 0.01 K/uL RDW Standard Deviation 49.3 fL RDW Coefficient of Variation 14.7 % Immature Granulocyte % (Auto) 0.2 % Immature Granulocyte # (Auto) 0.01 K/uL Sodium Level 137 mmol/L Potassium Level 4.9 mmol/L Chloride Level 106 mmol/L Carbon Dioxide Level 25 mmol/L Anion Gap 6.0 mmol/L Blood Urea Nitrogen 53 mg/dl Creatinine 2.56 mg/dl Est Creatinine Clear Calc Drug Dose 21.9 ml/min Estimated GFR () 26.1 Estimated GFR (Non- 22.6 BUN/Creatinine Ratio 20.8 Random Glucose 88 mg/dl Calcium Level 8.5 mg/dl Bedside Troponin I < 0.030 ng/ml Prothrombin Time 11.1 SECONDS Prothromb Time International Ratio 1.1 Activated Partial Thromboplast Time 30.7 SECONDS Partial Thromboplastin Ratio 1.2 Troponin I < 0.015 ng/ml Test 12/06/17 07:50 White Blood Count 5.94 K/uL Red Blood Count 4.79 M/uL Hemoglobin 15.0 g/dL Hematocrit 44.7 % Mean Corpuscular Volume 93.3 fL Mean Corpuscular Hemoglobin 31.3 pg Mean Corpuscular Hemoglobin Concent 33.6 g/dl RDW Standard Deviation 49.4 fL RDW Coefficient of Variation 14.6 % Platelet Count 141 K/uL Mean Platelet Volume 11.6 fL Sodium Level 140 mmol/L Potassium Level 4.8 mmol/L Chloride Level 108 mmol/L Carbon Dioxide Level 26 mmol/L Anion Gap 5.0 mmol/L Blood Urea Nitrogen 50 mg/dl Creatinine 2.53 mg/dl Est Creatinine Clear Calc Drug Dose 22.1 ml/min Estimated GFR () 26.5 Estimated GFR (Non- 22.9 BUN/Creatinine Ratio 19.8 Random Glucose 88 mg/dl Calcium Level 8.5 mg/dl Troponin I < 0.015 ng/ml Triglycerides Level 187 mg/dl Cholesterol Level 146 mg/dl HDL Cholesterol 33 mg/dl LDL Cholesterol, Calculated 76 mg/dl VLDL Cholesterol, Calculated 37 mg/dl Cholesterol/HDL Ratio 4.4 Assessment and Plan 82 y/o male with a history of CAD s/p stent, [place], HTN, HLD, PAF, hypothyroidism, gout, Matias's esophagus, and RAHEEL who presented to the ED on 12/05 with worsening chest pain. Pt afebrile, VSS on arrival. EKG negative for ST elevation, possible TWI in inferior leads. Troponin negative. CXR no acute disease. Creatinine 2.56. Pt currently pain free. Chest pain, possible unstable angina, ACS r/o--improving -Admit to telemetry, changed from obs to full admission. Pt in paced rhythm overnight, at times in a-fib -Troponin negative x 3 -EKG q am and prn chest pain -Recent echo done 11/27 shows EF 50-55%. Basal inferior wall hypokinesis. Grade I diastolic dysfunction. Left atrium mildly dilated. Mild mitral regurgitation. Moderate tricuspid regurgitation. RVSP elevated at 30-40 mmHg. -Consult cardiology, appreciate recs: Will opt for cardiac cath rather than stress testing. Plan for cath on Friday. -Continue ASA, Toprol, Lipitor -Nitro paste q6h per cardiology. 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 May have new baseline CAD, h/o [place], HTN, HLD--stable -Hold losartan due to ELIZABETH as above -Continue Toprol XL 50 mg PO BID, clonidine 0.05 mg PO TID, Lipitor 40 mg PO qd -Cover with hydralazine 10 mg IV q6h prn SBP >180 PAF--stable, currently paced -Continue Toprol, Eliquis 2.5 mg PO BID Hypothyroidism -Continue Synthroid 50 mcg PO qd Gout -Hold allopurinol for now Matias's esophagus -Continue Protonix 40 mg PO qd BPH -Continue Proscar 5 mg PO qd DVT prophylaxis -Eliquis -ARIANNA brennan and SCDs Code Status -Level V, DO NOT RESUSCITATE Dispo -Change to full admit, will observe on tele until cardiac cath scheduled Friday
[2017-12-07] VITALS (7 sets, daily range): BP systolic 115–158; BP diastolic 66–87; PULSE 47–85; TEMP 36.3–36.9; O2SAT 94–97
[2017-12-07] MEDS: LEVOTHYROXINE 50 MCG TAB PO SCH (05:42)
[2017-12-07] MEDS: NITROGLYCERIN 2% OINTMENT 30GM TUBE EXT SCH ×4 (05:42→22:28)
[2017-12-07 06:48] LABS: HEMATOCRIT 43.6 % (42-52); HEMOGLOBIN 14.5 g/dL (14.0-18.0); MEAN CELL VOLUME 93.8 fL (80-100); MEAN CORPUSCULAR HEMOGLOBIN 31.2 pg (25-34); MEAN CORPUSCULAR HGB CONC 33.3 g/dl (32-36); MEAN PLATELET VOLUME 11.6 fL (7.4-10.4); PLATELET COUNT 136 K/uL (130-400); RED CELL DISTRIBUTION WIDTH CV 14.4 % (11.5-14.5); RED CELL DISTRIBUTION WIDTH SD 48.7 fL (36.4-46.3); WHITE BLOOD COUNT 7.59 K/uL (4.8-10.8)
[2017-12-07 07:15] LABS: CALCIUM 8.1 mg/dl (8.5-10.1); CREATININE 2.56 mg/dl (0.60-1.40); POTASSIUM 4.4 mmol/L (3.5-5.1)
[2017-12-07] MEDS: ESCITALOPRAM OXALATE 10 MG TAB PO SCH (09:01)
[2017-12-07] MEDS: CLONIDINE HCL 0.1 MG TAB PO SCH ×3 (09:01→20:19)
[2017-12-07] MEDS: MULTIVITAMIN TAB PO SCH (09:01)
[2017-12-07] MEDS: ASPIRIN 81 MG ECTAB PO SCH (09:01)
[2017-12-07] MEDS: METOPROLOL SUCC 50MG EXT REL TAB PO SCH ×2 (09:01→20:19)
[2017-12-07] MEDS: FINASTERIDE 5 MG TAB PO SCH (09:01)
[2017-12-07] MEDS: PANTOprazole SOD 40 MG TAB PO SCH (09:01)
[2017-12-07] MEDS: ATORVASTATIN 40 MG TAB PO SCH (09:01)
--- NOTE | 2017-12-07 09:14 | Hospitalist Progress Note ---
Hospitalist Progress Note Date of Service Dec 07, 2017. Subjective Pt evaluation today including: conversation w/ patient, physical exam, chart review, lab review, review of studies, review of inpatient medication list Pain: None PO Intake: Tolerating PO diet Voiding: no voiding problems Patient reports feeling well currently. He states he did have some intermittent sharp chest pains overnight but denies any chest pain at this time. He states he at times develops tingling in his hand with the chest pain and the tingling resolves with the pain. He does complain of dyspnea on exertion with even the slightest activity, but denies SOB at rest. The patient denies fevers, chills, sweats, palpitations, claudication, cough, wheezing, nausea, vomiting, abdominal pain, dysuria, hematuria, urinary retention, paralysis, weakness. Additional Comments: See HPI for pertinent positives and negatives. All other systems reviewed and negative. Objective Vital Signs Date Time Temp Pulse Resp B/P (MAP) Pulse Ox O2 Delivery O2 Flow Rate FiO2 12/07/17 07:10 36.5 50 18 158/84 (108) 94 CPAP 12/07/17 05:00 36.5 85 18 152/79 (103) 96 CPAP 12/06/17 23:48 36.5 48 18 108/56 (73) 94 CPAP 12/06/17 22:28 44 97 12/06/17 20:00 Room Air 12/06/17 15:01 36.6 54 19 99/62 (74) 93 Room Air 12/06/17 11:50 36.3 52 18 148/89 (108) 96 Room Air Physical Exam Notes: General appearance: Well-developed, well-nourished, no apparent distress Head: Normocephalic, atraumatic Eyes: Normal inspection, PERRL, EOMI ENT: Normal ENT inspection, hearing grossly normal, pharynx normal Neck: Supple, no JVD, trachea midline Respiratory/Chest: +Pacemaker right chest. Previous pacemaker scar left chest. Lungs clear to auscultation, normal breath sounds, no respiratory distress Cardiovascular: Regular rate & rhythm, no gallop, no murmur Abdomen/GI: Normal bowel sounds, non-tender, soft Extremities/Musculoskeletal: Normal inspection, no calf tenderness, no pedal edema Neurological/Psych: Alert, normal mood/affect, oriented x 3 Skin: Normal color, warm/dry, no rash Laboratory Results Last 24 Hours Test 12/07/17 06:23 White Blood Count 7.59 K/uL Red Blood Count 4.65 M/uL Hemoglobin 14.5 g/dL Hematocrit 43.6 % Mean Corpuscular Volume 93.8 fL Mean Corpuscular Hemoglobin 31.2 pg Mean Corpuscular Hemoglobin Concent 33.3 g/dl RDW Standard Deviation 48.7 fL RDW Coefficient of Variation 14.4 % Platelet Count 136 K/uL Mean Platelet Volume 11.6 fL Sodium Level 139 mmol/L Potassium Level 4.4 mmol/L Chloride Level 107 mmol/L Carbon Dioxide Level 26 mmol/L Anion Gap 5.0 mmol/L Blood Urea Nitrogen 57 mg/dl Creatinine 2.56 mg/dl Est Creatinine Clear Calc Drug Dose 21.9 ml/min Estimated GFR () 26.1 Estimated GFR (Non- 22.6 BUN/Creatinine Ratio 22.4 Random Glucose 91 mg/dl Calcium Level 8.1 mg/dl Assessment and Plan 82 y/o male with a history of CAD s/p stent, [place], HTN, HLD, PAF, hypothyroidism, gout, Matias's esophagus, and RAHEEL who presented to the ED on 12/05 with worsening chest pain. Pt afebrile, VSS on arrival. EKG negative for ST elevation, possible TWI in inferior leads. Troponin negative. CXR no acute disease. Creatinine 2.56. Pt currently pain free. Chest pain, possible unstable angina, ACS r/o--improving -Admit to telemetry, changed from obs to full admission. Pt in paced rhythm overnight, at times in a-fib -Troponin negative x 3 -EKG q am and prn chest pain -Recent echo done 11/27 shows EF 50-55%. Basal inferior wall hypokinesis. Grade I diastolic dysfunction. Left atrium mildly dilated. Mild mitral regurgitation. Moderate tricuspid regurgitation. RVSP elevated at 30-40 mmHg. -Consult cardiology, appreciate recs: Will opt for cardiac cath rather than stress testing. Plan for cath on Friday. -Continue ASA, Toprol, Lipitor -Nitro paste q6h per cardiology. Pt states he was told nitro interacts with one of his meds, but he does not appear to be on such a med per his list [id number]. Pt tolerating nitro Possible ELIZABETH on CKD stage III-IV -Creatinine 2.56 on 12/07, stable from previous. May represent new baseline/CKD stage IV -Baseline creatinine had been 2.0-2.3 -Hold losartan, Dyazide, allopurinol -Received NSS at 75 cc/hr x 2L -Will need IVF post cath due to dye CAD, h/o [place], HTN, HLD--stable -Hold losartan due to ELIZABETH as above -Continue Toprol XL 50 mg PO BID, clonidine 0.05 mg PO TID, Lipitor 40 mg PO qd -Cover with hydralazine 10 mg IV q6h prn SBP >180 PAF--stable, currently paced -Continue Toprol -Hold Eliquis for cath tomorrow Hypothyroidism -Continue Synthroid 50 mcg PO qd Gout -Hold allopurinol for now Matias's esophagus -Continue Protonix 40 mg PO qd BPH -Continue Proscar 5 mg PO qd DVT prophylaxis -Hold chemical ppx for cath tomorrow -ARIANNA brennan and Luz Code Status -Level V, DO NOT RESUSCITATE Dispo -Change to full admit, will observe on tele until cardiac cath scheduled Friday
--- NOTE | 2017-12-07 12:56 | Cardiology Follow-Up ---
Subjective Date of Service: Dec 07, 2017. Pt evaluation today including: conversation w/ patient, conversation w/ family , physical exam, lab review, review of inpatient medication list History of Present Illness This is a 82-year-old man with complex past cardiac history including coronary artery disease (status post IWMI and RCA stent I believe at [facility] in 2006), he had an ICD implantation on the left side which required extraction followed by reimplantation on the right side in 2006 (after lead infection). That device needed replacement due to battery depletion which was performed on 10/26/2015 using the original leads. He has long-standing paroxysmal atrial fibrillation. He is on Tikosyn for paroxysmal atrial fibrillation, he is generally unaware of the arrhythmia but we have been monitoring for it. He has continued to have episodes on monitoring but nothing that he has felt. Due to increased frequency and duration of the arrhythmia we did start Eliquis on 03/20/2015. He then developed more recently (around the summer 2017) some dyspnea on exertion and at his visit November 26, 2017 was noted to have very frequent ventricular ectopy. Pacemaker evaluation did not detect arrhythmia since was quite slow but he was having runs of a ventricular rhythm at a rate of about 110 bpm. He was relatively unaware of it (he had no palpitations) but it was worrisome. I had him walk around the hallway, after sitting down the rhythm was no longer present. He did not seem to have much trouble with exertion walking around the hallway. At that time he is not having exertional chest discomfort. I therefore placed a Holter monitor which showed very frequent ventricular ectopy but nothing rapid, and an echocardiogram which showed mild left ventricular dysfunction which appeared relatively stable. He presents now with chest discomfort. We have been evaluating dyspnea on exertion, which we thought might be arrhythmic in nature, but he now reports that he has been having exertional chest tightness as well and then developed rest chest discomfort. The most severe episode he had was a very sharp discomfort in his chest which occurred while lifting up bottles in the grocery store, but this only lasted about a minute. After admission during the night he had several episodes of substernal chest discomfort lasting minutes and resolving. He does not have palpitations but has continued to have his arrhythmia. He was scheduled for a stress test coming week, that was to be a stress echo. With ongoing intermittent chest discomfort I added nitroglycerin to his regimen yesterday. Today he is feeling better, but seem to have any more chest discomfort with addition of nitroglycerin. Cardiac enzymes were negative but he did not have one today. Social History Smoking Status: Never Smoker History of Alcohol Use: No Review of Systems Respiratory: No cough, No wheezing, No shortness of breath, No dyspnea on exertion Cardiac: + see HPI, + chest pain, No orthopnea, No PND, No edema, No palpitations Medications Cardiovascular: Item Value Date Time Nitroglycerin 0.5 inch 12/06/17 1015 (Nitroglycerin Q6H/EXT 12/07/17 0542 2% Oint) Aspirin 81 mg 12/06/17 0900 (Ecotrin Tab) DAILY/PO 12/07/17 09 Atorvastatin 40 mg 12/06/17 0900 Calcium DAILY/PO 12/07/17 09 (Lipitor Tab) Clonidine HCl 0.05 mg 12/05/17 2100 (Catapres Tab) TID/PO 12/07/17 09 Metoprolol 50 mg 12/05/17 2100 Succinate BID/PO 12/07/17 09 (Toprol Xl Tab) Objective Vital Signs Past 12 Hours Date Time Temp Pulse Resp B/P (MAP) Pulse Ox O2 Delivery O2 Flow Rate FiO2 12/07/17 12:00 36.9 55 16 115/66 (82) 97 Room Air 12/07/17 08:00 Room Air 12/07/17 07:10 36.5 50 18 158/84 (108) 94 CPAP 12/07/17 05:00 36.5 85 18 152/79 (103) 96 CPAP Last Recorded Weight-Kilograms: 72.600 Physical Exam Constitutional: General Apperance: heathly-appearing Level of Distress: NAD Lungs: Respiratory effort: no dyspnea, good air movement Auscultation: breath sounds normal, no wheezing Cardiovascular: Heart Auscultation: RRR, no murmurs, no rubs, no gallops Peripheral Pulses: Bruits: none appreciated Extremities: no edema Data Laboratory Results: Last 24 Hours Test 12/07/17 06:23 White Blood Count 7.59 K/uL Red Blood Count 4.65 M/uL Hemoglobin 14.5 g/dL Hematocrit 43.6 % Mean Corpuscular Volume 93.8 fL Mean Corpuscular Hemoglobin 31.2 pg Mean Corpuscular Hemoglobin Concent 33.3 g/dl RDW Standard Deviation 48.7 fL RDW Coefficient of Variation 14.4 % Platelet Count 136 K/uL Mean Platelet Volume 11.6 fL Sodium Level 139 mmol/L Potassium Level 4.4 mmol/L Chloride Level 107 mmol/L Carbon Dioxide Level 26 mmol/L Anion Gap 5.0 mmol/L Blood Urea Nitrogen 57 mg/dl Creatinine 2.56 mg/dl Est Creatinine Clear Calc Drug Dose 21.9 ml/min Estimated GFR () 26.1 Estimated GFR (Non- 22.6 BUN/Creatinine Ratio 22.4 Random Glucose 91 mg/dl Calcium Level 8.1 mg/dl Telemetry reviewed: Predominantly sinus rhythm with frequent ventricular premature beats Assessment and Plan #1. Chest discomfort: We have been following him in the office for dyspnea on exertion but he has also developed an arrhythmia which could be part of the issue, however he tells me that he has also been having exertional chest discomfort. He is little bit vague about that, the worst episode he had was chest pain but was involved with lifting heavy bottles, and that only lasted about a minute and that may have been a different cause but it could be related. He did of the discomfort during the night after admission which seems improved with topical nitroglycerin. His enzymes are negative, his electrocardiogram does not show acute injury. With his history of known coronary artery disease, uncertain cause of his recent dyspnea on exertion, recent onset of ventricular arrhythmias of uncertain cause as well as now exertional and rest chest discomfort I think we should proceed to catheterization and not stress testing. He is agreeable to stay in the hospital for a catheterization which I will schedule for tomorrow. #2. Paroxysmal atrial fibrillation: He has had occasional episodes of atrial fibrillation and was on Tikosyn, however with the ventricular ectopy I advised him to discontinue that and he is currently not on it. #3. Anticoagulation: He should remain on anticoagulation over long-run, he is on reduced dose Eliquis and should continue it over the long run but I agree with discontinuing it now in preparation for catheterization.. #4. Wide-complex tachycardia: He continues to have some episodes of this wide- complex tachycardia and is unclear whether he has symptoms related to it or not. We do need to continue to observe this rhythm but I have not specifically addressed it, ablation is possible but perhaps not indicated unless it is causing his symptoms. #5. Dyspnea on exertion: His dyspnea on exertion could be due to his ventricular arrhythmia, although I'm not sure it correlates very well, or could be an anginal equivalent. By echocardiography he has stable mild left ventricular dysfunction which does not explain it. #6. Chronic kidney disease: He has chronic kidney disease with a creatinine that runs in the mid twos, that appears stable this admission and is probably not too high risk for diagnostic catheterization. Thank you for allowing me to participate in his care.
[2017-12-08] VITALS (13 sets, daily range): BP systolic 128–167; BP diastolic 63–92; PULSE 53–92; TEMP 36.3–36.8; O2SAT 92–97
[2017-12-08] MEDS: NITROGLYCERIN 2% OINTMENT 30GM TUBE EXT SCH ×3 (04:36→17:03)
[2017-12-08] MEDS: LEVOTHYROXINE 50 MCG TAB PO SCH (05:50)
[2017-12-08 07:16] LABS: HEMATOCRIT 43.8 % (42-52); HEMOGLOBIN 14.6 g/dL (14.0-18.0); MEAN CELL VOLUME 93.4 fL (80-100); MEAN CORPUSCULAR HEMOGLOBIN 31.1 pg (25-34); MEAN CORPUSCULAR HGB CONC 33.3 g/dl (32-36); MEAN PLATELET VOLUME 11.9 fL (7.4-10.4); NUCLEATED RED BLOOD CELL ABS 0.02 K/uL (0-0); PLATELET COUNT 134 K/uL (130-400); RED CELL DISTRIBUTION WIDTH CV 14.6 % (11.5-14.5); WHITE BLOOD COUNT 6.33 K/uL (4.8-10.8)
[2017-12-08 07:49] LABS: CALCIUM 8.1 mg/dl (8.5-10.1); CREATININE 2.5 mg/dl (0.60-1.40); POTASSIUM 4.4 mmol/L (3.5-5.1)
[2017-12-08] MEDS: CLONIDINE HCL 0.1 MG TAB PO SCH ×3 (07:52→20:20)
[2017-12-08] MEDS: METOPROLOL SUCC 50MG EXT REL TAB PO SCH ×2 (07:52→20:24)
[2017-12-08] MEDS: PANTOprazole SOD 40 MG TAB PO SCH (07:52)
[2017-12-08] MEDS: ATORVASTATIN 40 MG TAB PO SCH (07:52)
[2017-12-08] MEDS: MULTIVITAMIN TAB PO SCH (07:52)
[2017-12-08] MEDS: ASPIRIN 81 MG ECTAB PO SCH (07:53)
[2017-12-08] MEDS: FINASTERIDE 5 MG TAB PO SCH (07:53)
[2017-12-08] MEDS: ESCITALOPRAM OXALATE 10 MG TAB PO SCH (07:53)
[2017-12-08] MEDS ORDERED: SODIUM CHLORIDE 0.9% 1000ML 1,000 ML IV SCH (09:00)
[2017-12-08] MEDS: SODIUM CHLORIDE 0.9% 1000ML 1,000 ML IV SCH ×2 (10:40→18:44)
--- NOTE | 2017-12-08 13:43 | Pre Sedation Assessment ---
Pre Sedation Assessment General Date of Sedation: Dec 08, 2017. Vital Signs Past 12 Hours Date Time Temp Pulse Resp B/P (MAP) Pulse Ox O2 Delivery O2 Flow Rate FiO2 12/08/17 12:34 36.8 64 18 150/87 (108) 92 12/08/17 08:04 Room Air 12/08/17 06:51 36.5 53 18 155/86 (109) 95 CPAP 12/08/17 04:32 167/92 (117) 12/08/17 04:20 36.5 92 18 95 CPAP Review Cardiovascular: regular rate, rhythm Lungs: lungs clear Pre-Sedation Airway Assessment Smoking Status: Never Smoker Oral Cavity: WNL Mallampati Classification: Class III ASA Classification: Class III NPO Status Date of Last Intake of Fluids: Dec 07, 2017 Time of Last Intake of Fluids: 18:00 Date of Last Intake of Solids: Dec 07, 2017 Time of Last Intake of Solids: 18:00 Procedure Planning Contraindications for Sedation: None Current Medications Reviewed: Yes Notes The planned sedation has been discussed with the patient. Informed Consent was obtained. I have identified the patient, determined the appropriateness of sedation and have assessed the patient immediately prior to the procedure. All medicine(s) and interventions are by my order.
[2017-12-08] MEDS ORDERED: FENTANYL CITRATE INJ 50 MCG/1 ML 2 ML VIAL ONE (13:53)
[2017-12-08] MEDS ORDERED: NiCARDipine HCL INJ 2.5 MG/ML 10 ML AMP ONE (13:53)
[2017-12-08] MEDS ORDERED: HEPARIN SOD (PORCINE) 1000 UNIT/ML 10 ML VIAL ONE (13:53)
[2017-12-08] MEDS ORDERED: MIDAZOLAM HCL 1 MG/ML 2ML VIAL ONE (13:53)
[2017-12-08] MEDS ORDERED: NITROGLYCERIN/D5W 100MCG/ML 20ML SYR ONE (13:53)
--- NOTE | 2017-12-08 14:09 | Hospitalist Progress Note ---
Hospitalist Progress Note Date of Service Dec 08, 2017. (Gemma Marti ., KAROLINA) Subjective Pt evaluation today including: conversation w/ patient, physical exam, chart review, lab review, review of studies, review of inpatient medication list Voiding: no voiding problems Mr. Vivas did have chest pain over the night that woke him up from sleep. He mainly has chest pain with exertion which does make him sob but no diaphoresis or nausea. He does get lightheaded and experiences palpitations with the chest pain. The pain is stabbing and is on one or the other side of his chest but does not radiate ROS Constitutional: no chills, aches, sweats or fever Respiratory: no sob,cough, sputum, or wheezing Cardiac: see HPI GI: no abdominal pain, nausea, vomiting, diarrhea or constipation : no dysuria or hesitancy Extremities: no joint pain or weakness Skin: no rash All other systems reviewed and negative (Gemma Marti CRNP) Medications Medications Administered Medications (Trade) Dose Ordered Sig/Lor Route Start Time Stop Time Status Last Admin Dose Admin Fentanyl Citrate (Fentanyl Inj) 50 mcg NOW STAT IV 12/05/17 15:38 12/05/17 15:39 DC 12/05/17 16:17 50 MCG Apixaban (Eliquis Tab) 2.5 mg BID PO 12/05/17 21:00 01/04/18 20:59 Future Hold 12/06/17 20:24 2.5 MG Aspirin (Ecotrin Tab) 81 mg DAILY PO 12/06/17 09:00 01/05/18 08:59 12/08/17 07:53 81 MG Atorvastatin Calcium (Lipitor Tab) 40 mg DAILY PO 12/06/17 09:00 01/05/18 08:59 12/08/17 07:52 40 MG Clonidine HCl (Catapres Tab) 0.05 mg TID PO 12/05/17 21:00 01/04/18 20:59 12/08/17 07:52 0.05 MG Escitalopram Oxalate (Lexapro Tab) 5 mg DAILY PO 12/06/17 09:00 01/05/18 08:59 12/08/17 07:53 5 MG Finasteride (Proscar Tab) 5 mg DAILY PO 12/06/17 09:00 9/3/18 08:59 12/08/17 07:53 5 MG Levothyroxine Sodium (Synthroid Tab) 50 mcg DAILYBB PO 12/06/17 06:00 01/05/18 06:59 12/08/17 05:50 50 MCG Metoprolol Succinate (Toprol Xl Tab) 50 mg BID PO 12/05/17 21:00 01/04/18 20:59 12/08/17 07:52 50 MG Multivitamins (Multivitamin Tab) 1 tab DAILY PO 12/06/17 09:00 01/05/18 08:59 12/08/17 07:52 1 TAB Pantoprazole Sodium (Protonix Tab) 40 mg DAILY PO 12/06/17 09:00 01/05/18 08:59 12/08/17 07:52 40 MG Sodium Chloride 1,000 ml @ 75 mls/hr [id number] IV 12/05/17 20:00 12/06/17 22:39 DC 12/05/17 20:45 75 MLS/HR Nitroglycerin (Nitroglycerin 2% Oint) 0.5 inch Q6H EXT 12/06/17 10:15 01/05/18 10:14 12/08/17 10:31 0.5 INCH Sodium Chloride 1,000 ml @ 75 mls/hr [id number] IV 12/08/17 09:00 01/07/18 08:59 12/08/17 08:59 75 MLS/HR Sodium Chloride 1,000 ml @ 150 mls/hr [id number] IV 12/08/17 10:30 01/07/18 10:29 12/08/17 10:40 150 MLS/HR (Gemma Marti, KAROLINA) Objective Vital Signs Date Time Temp Pulse Resp B/P (MAP) Pulse Ox O2 Delivery O2 Flow Rate FiO2 12/08/17 12:34 36.8 64 18 150/87 (108) 92 12/08/17 08:04 Room Air 12/08/17 06:51 36.5 53 18 155/86 (109) 95 CPAP 12/08/17 04:32 167/92 (117) 12/08/17 04:20 36.5 92 18 95 CPAP 12/07/17 22:04 59 96 12/07/17 20:00 Room Air 12/07/17 19:53 36.5 47 20 144/74 (97) 96 Room Air 12/07/17 16:03 36.3 53 20 153/87 (109) 96 Room Air (Gemma Marti CRNP) Physical Exam Notes: General: no distress Eyes: normal inspection, PERLL Respiratory: chest non tender, clear to auscultation, normal breath sounds, no respiratory distress, no accessory muscle use Cardiac: regular rate and rhythm, no rub or gallop, no murmur, no edema, no jvd GI/: active bowel sounds, no abd pain or tenderness, soft, non distended Extremities: normal range of motion, normal strength, non tender Neuro/Psych: alert and oriented x 3, normal mood and affect Skin: normal color, dry (Gemma Marti CRNP) Laboratory Results Last 24 Hours Test 12/08/17 06:48 White Blood Count 6.33 K/uL Red Blood Count 4.69 M/uL Hemoglobin 14.6 g/dL Hematocrit 43.8 % Mean Corpuscular Volume 93.4 fL Mean Corpuscular Hemoglobin 31.1 pg Mean Corpuscular Hemoglobin Concent 33.3 g/dl RDW Standard Deviation 49.0 fL RDW Coefficient of Variation 14.6 % Platelet Count 134 K/uL Mean Platelet Volume 11.9 fL Nucleated RBC Absolute Count (auto) 0.02 K/uL Nucleated Red Blood Cells % 0.3 % Sodium Level 137 mmol/L Potassium Level 4.4 mmol/L Chloride Level 107 mmol/L Carbon Dioxide Level 25 mmol/L Anion Gap 5.0 mmol/L Blood Urea Nitrogen 54 mg/dl Creatinine 2.50 mg/dl Est Creatinine Clear Calc Drug Dose 22.4 ml/min Estimated GFR () 26.9 Estimated GFR (Non- 23.2 BUN/Creatinine Ratio 21.4 Random Glucose 91 mg/dl Calcium Level 8.1 mg/dl (Gemma Marti CRNP) Assessment and Plan 82 y/o male here for chest pain Chest pain, possible unstable angina, ACS r/o--improving -Troponin negative x 3 -EKG q am and prn chest pain -Recent echo done 11/27 shows EF 50-55%. Basal inferior wall hypokinesis. Grade I diastolic dysfunction. Left atrium mildly dilated. Mild mitral regurgitation. Moderate tricuspid regurgitation. RVSP elevated at 30-40 mmHg. -Consult cardiology, appreciate recs: Will opt for cardiac cath rather than stress testing. Plan for cath today -Continue ASA, Toprol, Lipitor -Nitro paste q6h per cardiology - tolerating well CKD stage III-IV -Creatinine 2.5, stable from previous. May represent new baseline/CKD stage IV -Baseline creatinine had been 2.0-2.3 -Hold losartan, Dyazide, allopurinol - Gentle IVF in preparation for cath - NSS @ 75 ml/hr CAD, h/o OK, HTN, HLD--stable -Hold losartan as above -Continue Toprol XL 50 mg PO BID, clonidine 0.05 mg PO TID, Lipitor 40 mg PO qd -Cover with hydralazine 10 mg IV q6h prn SBP >180 PAF--stable, currently paced -Continue Toprol -Hold Eliquis for cath - restart post cath Hypothyroidism -Continue Synthroid 50 mcg PO qd Gout -continue to hold allopurinol for now Matias's esophagus -Continue Protonix 40 mg PO qd BPH -Continue Proscar 5 mg PO qd DVT prophylaxis -Hold chemical ppx for cath today - restart Eliquis post cath -ARIANNA brennan and SCDs Code Status -Level V, DO NOT RESUSCITATE (Gemma Marti ., RU[employer]OUND[employer] MIXER) DOCUMENT REVIEW ATTORNEY Physician Supervision Note: I discussed with Gemma Marti NP and agree with findings and plan as documented in the note. Any exceptions or clarifications are listed here: None Patient lives heart cath with no significant occlusions were moderate coronary disease seen. Recommendations for wood floor layer to maximize medical therapy and if symptoms persist consider perfusion imaging. Will change to long-acting nitrate from nitroglycerin ointment until his symptoms are clinically with ambulation in the unit Documented By: Tiago Fuller (Tiago Fuller M.D.)
--- NOTE | 2017-12-08 15:09 | Post Sedation Assessment ---
Post Sedation Assessment General Date of Sedation Dec 08, 2017. Vital Signs: Vital Signs Past 12 Hours Date Time Temp Pulse Resp B/P (MAP) Pulse Ox O2 Delivery O2 Flow Rate FiO2 12/08/17 14:50 Room Air 12/08/17 14:44 60 16 143/86 (105) 97 Room Air 12/08/17 12:34 36.8 64 18 150/87 (108) 92 12/08/17 08:04 Room Air 12/08/17 06:51 36.5 53 18 155/86 (109) 95 CPAP 12/08/17 04:32 167/92 (117) 12/08/17 04:20 36.5 92 18 95 CPAP Post Procedure Recovery Score Activity: (2) Moves 4 extremities * Respiration: (2) Deep breath/cough Circulation: (2) +/-20% PreAnes Value Consciousness: (2) Fully Awake Oxygen Saturation: (2) > 92% On Room Air Post Anesthesia Score: 10 Discharge Sedation Level of Care: Fast Track Phase II Post Sedation Plan On clinical assessment, the patient appears to have tolerated the sedation without complications. Patient is recovering as anticipated. Patient will continue to be monitored by nursing and may be discharged when sedation discharge criteria are met per below protocol. Upon Completions of procedure and additional 15 minutes continue every 5 minute vital signs and the P.A.R. score; then discharge to a Phase I or Fast Track to Phase II per the following guidelines: * Discharge Patient to appropriate Phase II area if PAR is 8 or greater or return to pre- procedure baseline. The post - procedure orders will be as directed. * If PAR score is less than 8 or not return to pre-procedure baseline then patient will follow Phase I monitoring till PAR is reached for Phase II. The Phase I may be done in procedure room or may call to secure a Phase I area. * If naloxone or flumazenil are used for reversal, hold in Phase I for an additional 60 -120 minutes before discharge to Phase II. Please call the Sedation Physician to re-evaluate and complete post-note for discharge to Phase II area. Do NOT discharge from procedure sedation or Phase 1 until post- sedation evaluation note is complete by procedure /sedation MD Sedation Discharge Instructions to be given to the patient at discharge to home.
--- NOTE | 2017-12-08 15:09 | Cardiac Catheterization ---
Procedure Note Procedure Date Dec 08, 2017. Pre-Procedure Diagnosis Angina AUC Score 7 Post-Procedure Diagnosis Moderate CAD (Moderate to severe CAD) Procedure(s) Performed Coronary Angiography, Left Heart Cath Land Use Planner Dr. Cai Reducer(s) Carlos Estimated Blood Loss < 25 ml Medication(s) Fentanyl, Heparin, Nicardipine, Versed, Lidocaine 1% Summary of Findings Coronary angiography: 1. Left main coronary artery: Calcifications noted within the LMCA. Distal LM CA 20%. 2. Left anterior descending: The LAD is a medium to large caliber vessel proximally and then continues on as a medium caliber vessel. Proximal LAD is calcified. Long stenotic proximal LAD 60-70% involving the ostium of D1, D2, and D3. Distal LAD 50-70% stenosis at the bifurcation of D4. HOLLIE 3 flow. D3 proximal 100%. Distal D3 fills via [id number] collaterals. 3. Circumflex: The circumflex is a large caliber vessel. Mid circumflex 40-50% . Distal circumflex 20-30%. Small OM1. Medium caliber OM2 with proximal 30-40 %. Small to medium OM3. 4. Right coronary artery: The RCA is dominant. Large caliber RCA. Proximal RCA 40-50%. Mid RCA stent with 30-40% in stent restenoses. Distal RCA 50% near the ostium of PDA and PL. Mid PDA 60-70%. HOLLIE 3 flow. Left heart catheterization: 1. Left ventriculography was not performed. 2. No aortic stenosis. 3. Normal LVEDP; 12 mm of mercury. Sedation start time: 2:12 p.m. Sedation end time: 2:44 p.m. Procedural details: 1. Coronary angiography was performed via the right radial artery without known complication. 2. 6 Pakistani JL 3.5 diagnostic catheter used to selectively engage the LMCA. 3. 6 Pakistani 3DRC diagnostic catheter used to selectively engage the RCA. Impression: 1. Moderate to severe CAD involving the LAD and PDA. 2. Occluded D3, fills distally via [id number] collaterals. 3. Otherwise, nonobstructive CAD. 4. Normal LVEDP. 5. No significant aortic stenosis. Plan: 1. Optimize medical therapy. 2. Consider noninvasive ischemic evaluation. 3. If he continues to have symptoms concerning for angina, could consider further invasive evaluation. No further invasive evaluation was performed today to help conserve contrast given his underlying renal disease. Hemodynamics Rest Ao: 152/77 Final Ao: 162/85 LV: 161/9/12 Recommendations Medical therapy and/or Counseling Specimens None Radiation Exposure (mGy) 1022 mGy. Fluoro time 8.5 min Contrast (mls) 45 ml visipaque Procedural Complication(s) None Disposition PCU ACC Data Cardiac Status Clinical evaluation leading to the procedure CAD Presntation: Stable angina Anginal Classification: CCS III Heart Failure: No Cardiogenic Shock w/in 24Hrs: No Cardiac Arrest w/in 24Hrs: No Imaging studies past 6 months: Yes (echo) Stress studies past 6 months: No Standard Exercise Stress Test: No Stress Echocardiogram: No Stress Testing w/SPECT MPI: No Cardiac CTA: No Coronary Anatomy Dominant: Right Left Main (% Stenosis): Distal (20%) LAD (% Stenosis): Proximal (60-70%), Distal (50-70%) D1 (% Stenosis): Normal D2 (% Stenosis): Normal D3 (% Stenosis): Proximal (100%. Fills via left to left collaterals.) Circumflex (% Stenosis): Mid (40-50%), Distal (20-30%) OM1 (% Stenosis): Normal OM2 (% Stenosis): Proximal (30-40%) OM3 (% Stenosis): Normal RCA (% Stenosis): Proximal (40-50%), Mid (in-stent 30-40% restenosis), Distal ( 50%) R PDA (% Stenosis): Mid (60-70%) R PL1 (% Stenosis): Normal Left Ventricular Angiography EF (%): n/a Diagnostic Physician's Name: Curt Cai MD Status: Elective Closure Device Percutaneous Entry Location: Radial Closure Device: Radial Band Recommendations: Medical therapy and/or Counseling
[2017-12-08] MEDS ORDERED: SODIUM CHLORIDE 0.9% 1000ML 250 ML IV PRN (15:10)
--- NOTE | 2017-12-08 15:10 | Consultant Recommendations ---
Parimutuel Cashier Recommendations Date of Service Dec 08, 2017. Parimutuel Cashier Recommendations ACTIVITY RECOMMENDATIONS: Excess manipulation of the wrist should be avoided for the next 24-48 hours. * No lifting over 2 pounds (approximately a 1/2 gallon of milk) with the utilized arm for 24 hours. * No strenuous activity such as bowling or tennis for 3 days. * Keep the site of the procedure covered with a bandage for 24 hours. *You may shower the day after the procedure. Do not take a tub bath or submerge the puncture site in water for the next 3 days. *Do not operate any motorized equipment for 3 days. SPECIAL CARE INSTRUCTIONS: The site may be slightly bruised and sore following your procedure. Should any of the following occur, contact the Dr. who performed your procedure. 1. Redness/inflammation, swelling, chills, or fever, or colored drainage at procedure site within 3-7 days after your procedure. 2. Coldness, discoloration, ongoing numbness, severe pain, or swelling. Expect mild tingling of hand and tenderness at the puncture site for up to three days. If this persists beyond three days, or other symptoms develop, notify the Dr. who performed your procedure. BLEEDING: If the procedure site on your wrist begins to bleed, do not panic 1. Place 1 or 2 fingers firmly just slightly above the insertion site to stop the bleeding. You may be able to feel your pulse as you hold pressure. 2. Lift your finger after 5 minutes to see if the bleeding has stopped. 3. Once the bleeding has stopped, gently wipe the wrist area clean with a bandage. * If the bleeding from your wrist does not stop after 10 minutes, or if there is a large amount of bleeding or spurting, call 911 (do not drive yourself to the hospital). SKIN IRRITATION: * You may experience some redness and/or swelling in the area where radiation was administered. If any skin irritation occurs, please contact your family physician. FOLLOW UP VISIT: Keep any scheduled doctor appointments.
[2017-12-09] VITALS (9 sets, daily range): BP systolic 122–159; BP diastolic 71–93; PULSE 57–86; TEMP 36.3–37; O2SAT 93–97
[2017-12-09] MEDS: LEVOTHYROXINE 50 MCG TAB PO SCH (05:51)
[2017-12-09 08:08] LABS: HEMOGLOBIN 15.1 g/dL (14.0-18.0); MEAN CELL VOLUME 93.6 fL (80-100); MEAN CORPUSCULAR HEMOGLOBIN 32.1 pg (25-34); MEAN CORPUSCULAR HGB CONC 34.3 g/dl (32-36); MEAN PLATELET VOLUME 11.8 fL (7.4-10.4); PLATELET COUNT 142 K/uL (130-400); RED CELL DISTRIBUTION WIDTH CV 14.4 % (11.5-14.5); WHITE BLOOD COUNT 6.66 K/uL (4.8-10.8)
[2017-12-09 08:29] LABS: CALCIUM 8.2 mg/dl (8.5-10.1); CREATININE 2.42 mg/dl (0.60-1.40)
[2017-12-09] MEDS: ASPIRIN 81 MG ECTAB PO SCH (09:11)
[2017-12-09] MEDS: CLONIDINE HCL 0.1 MG TAB PO SCH ×3 (09:11→21:27)
[2017-12-09] MEDS: METOPROLOL SUCC 50MG EXT REL TAB PO SCH ×2 (09:12→21:26)
[2017-12-09] MEDS: PANTOprazole SOD 40 MG TAB PO SCH (09:12)
[2017-12-09] MEDS: ESCITALOPRAM OXALATE 10 MG TAB PO SCH (09:12)
[2017-12-09] MEDS: ATORVASTATIN 40 MG TAB PO SCH (09:12)
[2017-12-09] MEDS: FINASTERIDE 5 MG TAB PO SCH (09:12)
[2017-12-09] MEDS: MULTIVITAMIN TAB PO SCH (09:12)
[2017-12-09] MEDS: NITROGLYCERIN 0.4 MG/HR PATCH TD SCH (09:13)
--- NOTE | 2017-12-09 13:01 | Hospitalist Progress Note ---
Hospitalist Progress Note Date of Service Dec 09, 2017. (Gemma Marti ., KAROLINA) Subjective Pt evaluation today including: conversation w/ patient, physical exam, chart review, lab review, review of inpatient medication list Voiding: no voiding problems Mr. Vivas continues to have symptoms intermittently of chest pain both at rest and with exertion. He is also sob at times. He is currently without symptoms, sitting bedside. ROS Constitutional: no chills, aches, sweats or fever Respiratory: no cough, sputum, or wheezing Cardiac: see HPI GI: no abdominal pain, nausea, vomiting, diarrhea or constipation : no dysuria or hesitancy Extremities: no joint pain or weakness Skin: no rash All other systems reviewed and negative (Gemma Marti CRNP) Medications Medications Administered Medications (Trade) Dose Ordered Sig/Lor Route Start Time Stop Time Status Last Admin Dose Admin Fentanyl Citrate (Fentanyl Inj) 50 mcg NOW STAT IV 12/05/17 15:38 12/05/17 15:39 DC 12/05/17 16:17 50 MCG Apixaban (Eliquis Tab) 2.5 mg BID PO 12/05/17 21:00 01/04/18 20:59 Future Hold 12/06/17 20:24 2.5 MG Aspirin (Ecotrin Tab) 81 mg DAILY PO 12/06/17 09:00 01/05/18 08:59 12/09/17 09:11 81 MG Atorvastatin Calcium (Lipitor Tab) 40 mg DAILY PO 12/06/17 09:00 01/05/18 08:59 12/09/17 09:12 40 MG Clonidine HCl (Catapres Tab) 0.05 mg TID PO 12/05/17 21:00 01/04/18 20:59 12/09/17 09:11 0.05 MG Escitalopram Oxalate (Lexapro Tab) 5 mg DAILY PO 12/06/17 09:00 01/05/18 08:59 12/09/17 09:12 5 MG Finasteride (Proscar Tab) 5 mg DAILY PO 12/06/17 09:00 01/05/18 08:59 12/09/17 09:12 5 MG Levothyroxine Sodium (Synthroid Tab) 50 mcg DAILYBB PO 12/06/17 06:00 01/05/18 06:59 12/09/17 05:51 50 MCG Metoprolol Succinate (Toprol Xl Tab) 50 mg BID PO 12/05/17 21:00 01/04/18 20:59 12/09/17 09:12 50 MG Multivitamins (Multivitamin Tab) 1 tab DAILY PO 12/06/17 09:00 01/05/18 08:59 12/09/17 09:12 1 TAB Pantoprazole Sodium (Protonix Tab) 40 mg DAILY PO 12/06/17 09:00 01/05/18 08:59 12/09/17 09:12 40 MG Sodium Chloride 1,000 ml @ 75 mls/hr [id number] IV 12/05/17 20:00 12/06/17 22:39 DC 12/05/17 20:45 75 MLS/HR Nitroglycerin (Nitroglycerin 2% Oint) 0.5 inch Q6H EXT 12/06/17 10:15 12/08/17 19:07 DC 12/08/17 17:03 0.5 INCH Sodium Chloride 1,000 ml @ 75 mls/hr [id number] IV 12/08/17 09:00 12/08/17 15:12 DC 12/08/17 08:59 75 MLS/HR Sodium Chloride 1,000 ml @ 150 mls/hr [id number] IV 12/08/17 10:30 12/08/17 19:00 DC 12/08/17 18:44 150 MLS/HR Nitroglycerin (Nitro-Dur 0.4 Mg/Hr Patch) 1 patch QAM TD 12/09/17 09:00 01/08/18 08:59 12/09/17 09:13 1 PATCH (Gemma Marti CRNP) Objective Vital Signs Date Time Temp Pulse Resp B/P (MAP) Pulse Ox O2 Delivery O2 Flow Rate FiO2 12/09/17 11:34 36.8 57 18 156/91 (112) 97 12/09/17 06:23 36.8 60 18 149/75 (99) 96 CPAP 12/09/17 04:42 60 95 12/09/17 02:37 36.5 60 18 150/86 (107) 96 CPAP 12/09/17 02:03 77 93 12/08/17 23:26 36.6 63 16 156/86 (109) 96 CPAP 12/08/17 22:06 74 94 12/08/17 20:05 36.3 60 18 146/84 (104) 96 Room Air 12/08/17 20:00 Room Air 12/08/17 17:00 70 128/76 (93) 12/08/17 16:20 36.8 73 18 145/63 (90) 97 Room Air 12/08/17 15:54 36.6 61 20 139/81 (100) 95 Room Air 12/08/17 15:53 74 135/66 (89) 97 Room Air 12/08/17 15:35 36.8 66 18 142/78 (99) 96 Room Air 12/08/17 15:23 36.8 62 18 138/80 (99) 96 Room Air 12/08/17 15:01 67 16 144/88 (106) 96 Room Air 12/08/17 14:50 Room Air 12/08/17 14:44 60 16 143/86 (105) 97 Room Air (eGmma Marti CRNP) Physical Exam Notes: General: no distress Eyes: normal inspection, PERLL Respiratory: chest non tender, clear to auscultation, normal breath sounds, no respiratory distress, no accessory muscle use Cardiac: regular rate and rhythm, no rub or gallop, no murmur, no edema, no jvd GI/: active bowel sounds, no abd pain or tenderness, soft, non distended Extremities: normal range of motion, normal strength, non tender Neuro/Psych: alert and oriented x 3, normal mood and affect Skin: normal color, dry (Gemma Marti CRNP) Laboratory Results Last 24 Hours Test 12/09/17 07:45 12/09/17 07:46 Sodium Level 140 mmol/L Potassium Level 4.0 mmol/L Chloride Level 107 mmol/L Carbon Dioxide Level 25 mmol/L Anion Gap 8.0 mmol/L Blood Urea Nitrogen 50 mg/dl Creatinine 2.42 mg/dl Est Creatinine Clear Calc Drug Dose 23.2 ml/min Estimated GFR () 28.0 Estimated GFR (Non- 24.1 BUN/Creatinine Ratio 20.7 Random Glucose 81 mg/dl Calcium Level 8.2 mg/dl White Blood Count 6.66 K/uL Red Blood Count 4.70 M/uL Hemoglobin 15.1 g/dL Hematocrit 44.0 % Mean Corpuscular Volume 93.6 fL Mean Corpuscular Hemoglobin 32.1 pg Mean Corpuscular Hemoglobin Concent 34.3 g/dl RDW Standard Deviation 49.0 fL RDW Coefficient of Variation 14.4 % Platelet Count 142 K/uL Mean Platelet Volume 11.8 fL (Gemma Marti CRNP) Assessment and Plan 82 y/o male here for chest pain Chest pain, possible unstable angina, ACS r/o--improving -Troponin negative x 3 -EKG q am and prn chest pain -Recent echo done 11/27 shows EF 50-55%. Basal inferior wall hypokinesis. Grade I diastolic dysfunction. Left atrium mildly dilated. Mild mitral regurgitation. Moderate tricuspid regurgitation. RVSP elevated at 30-40 mmHg. -Consult cardiology - status post diagnostic cath yesterday, will have nuclear stress and possible stenting after -Continue ASA, Toprol, Lipitor -Nitro paste q6h per cardiology - tolerating well CKD stage III-IV -Creatinine 2.42, stable from previous. May represent new baseline/CKD stage IV -Baseline creatinine had been 2.0-2.3 - Hold losartan, Dyazide, allopurinol CAD, h/o MS, HTN, HLD--stable -Hold losartan as above -Continue Toprol XL 50 mg PO BID, clonidine 0.05 mg PO TID, Lipitor 40 mg PO qd -Cover with hydralazine 10 mg IV q6h prn SBP >180 PAF--stable, currently paced -Continue Toprol -Hold Eliquis for cath - restart post cath Hypothyroidism -Continue Synthroid 50 mcg PO qd Gout -continue to hold allopurinol for now Matias's esophagus -Continue Protonix 40 mg PO qd BPH -Continue Proscar 5 mg PO qd DVT prophylaxis -Continue to hold Eliquis for possible stenting tomorrow -ARIANNA brennan and SCDs Code Status -Level V, DO NOT RESUSCITATE (Gemma Marti CRNP) ALLIGATOR TRAPPER Physician Supervision Note: I interviewed and examined the patient. Discussed with Gemma Marti ALLIGATOR TRAPPER and agree with findings and plan as documented in the note. Any exceptions or clarifications are listed here: None Medical management was pursued however claims customer service representative consider doing perfusion testing to see if is any at risk myocardium this will be scheduled to be done over the next 1-2 days Documented By: Tiago Fuller (Tiago Fuller M.D.)
--- NOTE | 2017-12-09 15:39 | Cardiology Follow-Up ---
Subjective Date of Service: Dec 09, 2017. Pt evaluation today including: conversation w/ patient, physical exam, lab review, review of studies, review of inpatient medication list, conversation w/ attending History of Present Illness This is a 82-year-old man with complex past cardiac history including coronary artery disease (status post IWMI and RCA stent I believe at [facility] in 2006), he had an ICD implantation on the left side which required extraction followed by reimplantation on the right side in 2006 (after lead infection). That device needed replacement due to battery depletion which was performed on 10/26/2015 using the original leads. He has long-standing paroxysmal atrial fibrillation. He is on Tikosyn for paroxysmal atrial fibrillation, he is generally unaware of the arrhythmia but we have been monitoring for it. He has continued to have episodes on monitoring but nothing that he has felt. Due to increased frequency and duration of the arrhythmia we did start Eliquis on 03/20/2015. He then developed more recently (around the summer 2017) some dyspnea on exertion and at his visit November 26, 2017 was noted to have very frequent ventricular ectopy. Pacemaker evaluation did not detect arrhythmia since was quite slow but he was having runs of a ventricular rhythm at a rate of about 110 bpm. He was relatively unaware of it (he had no palpitations) but it was worrisome. I had him walk around the hallway, after sitting down the rhythm was no longer present. He did not seem to have much trouble with exertion walking around the hallway. At that time he is not having exertional chest discomfort. I therefore placed a Holter monitor which showed very frequent ventricular ectopy but nothing rapid, and an echocardiogram which showed mild left ventricular dysfunction which appeared relatively stable. He presents now with chest discomfort. We have been evaluating dyspnea on exertion, which we thought might be arrhythmic in nature, but he now reports that he has been having exertional chest tightness as well and then developed rest chest discomfort. The most severe episode he had was a very sharp discomfort in his chest which occurred while lifting up bottles in the grocery store, but this only lasted about a minute. After admission during the night he had several episodes of substernal chest discomfort lasting minutes and resolving. He does not have palpitations but has continued to have his arrhythmia. He was scheduled for a stress test coming week, that was to be a stress echo. With ongoing uncertainty as to the cause of his chest discomfort a catheterization was performed on December 08, 2017. That showed some disease, but nothing critical to explain resting angina. The lesions that he does have are of uncertain significance but could perhaps explain his dyspnea on exertion. He has not had any palpitations, not been aware of his arrhythmia. Social History Smoking Status: Never Smoker History of Alcohol Use: No Review of Systems Respiratory: No cough, No wheezing, No shortness of breath, No dyspnea on exertion Cardiac: + see HPI, + chest pain, No orthopnea, No PND, No edema, No palpitations Medications Cardiovascular: Item Value Date Time Miscellaneous 1 ea 12/09/172099 (Remove DAILY@21/N/A Nitro-Dur Patch) Nitroglycerin 1 patch 12/09/17899 (Nitro-Dur 0.4 QAM/TD 12/09/17 0913 Mg/Hr Patch) Aspirin 81 mg 12/06/17899 (Ecotrin Tab) DAILY/PO 12/09/17 0911 Atorvastatin 40 mg 12/06/17899 Calcium DAILY/PO 12/09/17911 (Lipitor Tab) Clonidine HCl 0.05 mg 12/05/172099 (Catapres Tab) TID/PO 12/09/17 1421 Metoprolol 50 mg 12/05/17 2100 Succinate BID/PO 12/09/17911 (Toprol Xl Tab) Objective Vital Signs Past 12 Hours Date Time Temp Pulse Resp B/P (MAP) Pulse Ox O2 Delivery O2 Flow Rate FiO2 12/09/17 15:13 37.0 86 18 146/83 (104) 95 12/09/17 11:34 36.8 57 18 156/91 (112) 97 12/09/17 08:00 Room Air 12/09/17 06:23 36.8 60 18 149/75 (99) 96 CPAP 12/09/17 04:42 60 95 Last Recorded Weight-Kilograms: 73.500 Intake & Output 8-Hour Column 12/09/17 12/10/17 12/10/17 16:00 00:00 08:00 Intake Total 475 ml Output Total 600 ml Balance -125 ml 24-Hour Column 12/10/17 08:00 Intake Total 475 ml Output Total 600 ml Balance -125 ml Physical Exam Constitutional: General Apperance: heathly-appearing Level of Distress: NAD Lungs: Respiratory effort: no dyspnea, good air movement Auscultation: breath sounds normal, no wheezing Cardiovascular: Heart Auscultation: RRR, no murmurs, no rubs, no gallops Peripheral Pulses: Bruits: none appreciated Extremities: no edema Data Laboratory Results: Last 24 Hours Test 12/09/17 07:45 12/09/17 07:46 Sodium Level 140 mmol/L Potassium Level 4.0 mmol/L Chloride Level 107 mmol/L Carbon Dioxide Level 25 mmol/L Anion Gap 8.0 mmol/L Blood Urea Nitrogen 50 mg/dl Creatinine 2.42 mg/dl Est Creatinine Clear Calc Drug Dose 23.2 ml/min Estimated GFR () 28.0 Estimated GFR (Non- 24.1 BUN/Creatinine Ratio 20.7 Random Glucose 81 mg/dl Calcium Level 8.2 mg/dl White Blood Count 6.66 K/uL Red Blood Count 4.70 M/uL Hemoglobin 15.1 g/dL Hematocrit 44.0 % Mean Corpuscular Volume 93.6 fL Mean Corpuscular Hemoglobin 32.1 pg Mean Corpuscular Hemoglobin Concent 34.3 g/dl RDW Standard Deviation 49.0 fL RDW Coefficient of Variation 14.4 % Platelet Count 142 K/uL Mean Platelet Volume 11.8 fL Telemetry reviewed: Sinus rhythm with premature ventricular beats, sometimes quite frequent. Frequent atrial pacing. Assessment and Plan #1. Chest discomfort: He continues to have intermittent rest chest pain, his description is suggestive of angina however this really does not fit with his coronary angiogram. I suspect this chest pain is noncardiac in nature. #2. Paroxysmal atrial fibrillation: He has had occasional episodes of atrial fibrillation and was on Tikosyn, however with the ventricular ectopy I advised him to discontinue that. He has had no further atrial fibrillation. #3. Anticoagulation: He should remain on anticoagulatio over the long run, however until we decide whether he will need an intervention I would hold it. #4. Wide-complex tachycardia: He continues to have some episodes of this wide- complex tachycardia and is unclear whether he has symptoms related to it or not. We do need to continue to observe this rhythm but I have not specifically addressed it, ablation is possible but perhaps not indicated unless it is causing his symptoms. #5. Dyspnea on exertion: His dyspnea on exertion could be due to his ventricular arrhythmia, although I'm not sure it correlates very well, or could be an anginal equivalent. By echocardiography he has stable mild left ventricular dysfunction which does not explain it. This is an anginal equivalent it could be due to stenosis of his LAD or PDA. I am going to arrange a nuclear stress test (I would like to do it as a treadmill so I can tell whether his symptoms are rhythm related). Significant ischemia may help identify a cause of these symptoms. Conference #6. Chronic kidney disease: He has chronic kidney disease with a creatinine that runs in the mid twos, his creatinine did not change with his catheterization yesterday. Thank you for allowing me to participate in his care.
[2017-12-10] VITALS (8 sets, daily range): BP systolic 131–161; BP diastolic 74–90; PULSE 59–95; TEMP 36.3–36.8; O2SAT 92–98
[2017-12-10] MEDS: LEVOTHYROXINE 50 MCG TAB PO SCH (06:14)
[2017-12-10] MEDS: ESCITALOPRAM OXALATE 10 MG TAB PO SCH (08:02)
[2017-12-10] MEDS: CLONIDINE HCL 0.1 MG TAB PO SCH ×3 (08:03→20:38)
[2017-12-10] MEDS: FINASTERIDE 5 MG TAB PO SCH (08:03)
[2017-12-10] MEDS: ATORVASTATIN 40 MG TAB PO SCH (08:03)
[2017-12-10] MEDS: PANTOprazole SOD 40 MG TAB PO SCH (08:03)
[2017-12-10] MEDS: ASPIRIN 81 MG ECTAB PO SCH (08:04)
[2017-12-10 08:43] LABS: CALCIUM 8.2 mg/dl (8.5-10.1); CREATININE 2.48 mg/dl (0.60-1.40); POTASSIUM 4.1 mmol/L (3.5-5.1)
[2017-12-10] MEDS: NITROGLYCERIN 0.4 MG/HR PATCH TD SCH (09:00)
[2017-12-10] MEDS: MULTIVITAMIN TAB PO SCH (09:00)
[2017-12-10] MEDS: METOPROLOL SUCC 50MG EXT REL TAB PO SCH ×2 (09:00→20:38)
--- NOTE | 2017-12-10 12:25 | Hospitalist Progress Note ---
Hospitalist Progress Note Date of Service Dec 10, 2017. (Gemma Marti CRNP) Subjective Pt evaluation today including: conversation w/ patient, physical exam, chart review, lab review, review of inpatient medication list Voiding: no voiding problems Mr. Vivas did have two episodes of chest pain while at rest over the night. No other associated symptoms. NPO for nuc stress today ROS Constitutional: no chills, aches, sweats or fever Respiratory: no sob,cough, sputum, or wheezing Cardiac: no palpitations, edema, orthopnea or lightheadedness GI: no abdominal pain, nausea, vomiting, diarrhea or constipation : no dysuria or hesitancy Extremities: no joint pain or weakness Skin: no rash All other systems reviewed and negative (Gemma Marti CRNP) Medications Medications Administered Medications (Trade) Dose Ordered Sig/Lor Route Start Time Stop Time Status Last Admin Dose Admin Fentanyl Citrate (Fentanyl Inj) 50 mcg NOW STAT IV 12/05/17 15:38 12/05/17 15:39 DC 12/05/17 16:17 50 MCG Apixaban (Eliquis Tab) 2.5 mg BID PO 12/05/17 21:00 01/04/18 20:59 Future Hold 12/06/17 20:24 2.5 MG Aspirin (Ecotrin Tab) 81 mg DAILY PO 12/06/17 09:00 01/05/18 08:59 12/10/17 08:04 81 MG Atorvastatin Calcium (Lipitor Tab) 40 mg DAILY PO 12/06/17 09:00 01/05/18 08:59 12/10/17 08:03 40 MG Clonidine HCl (Catapres Tab) 0.05 mg TID PO 12/05/17 21:00 01/04/18 20:59 12/10/17 08:03 0.05 MG Escitalopram Oxalate (Lexapro Tab) 5 mg DAILY PO 12/06/17 09:00 01/05/18 08:59 12/10/17 08:02 5 MG Finasteride (Proscar Tab) 5 mg DAILY PO 12/06/17 09:00 01/05/18 08:59 12/10/17 08:03 5 MG Levothyroxine Sodium (Synthroid Tab) 50 mcg DAILYBB PO 12/06/17 06:00 01/05/18 06:59 12/10/17 06:14 50 MCG Metoprolol Succinate (Toprol Xl Tab) 50 mg BID PO 12/05/17 21:00 01/04/18 20:59 12/09/17 21:26 50 MG Multivitamins (Multivitamin Tab) 1 tab DAILY PO 12/06/17 09:00 01/05/18 08:59 12/09/17 09:12 1 TAB Pantoprazole Sodium (Protonix Tab) 40 mg DAILY PO 12/06/17 09:00 01/05/18 08:59 12/10/17 08:03 40 MG Sodium Chloride 1,000 ml @ 75 mls/hr [id number] IV 12/05/17 20:00 12/06/17 22:39 DC 12/05/17 20:45 75 MLS/HR Nitroglycerin (Nitroglycerin 2% Oint) 0.5 inch Q6H EXT 12/06/17 10:15 12/08/17 19:07 DC 12/08/17 17:03 0.5 INCH Sodium Chloride 1,000 ml @ 75 mls/hr [id number] IV 12/08/17 09:00 12/08/17 15:12 DC 12/08/17 08:59 75 MLS/HR Sodium Chloride 1,000 ml @ 150 mls/hr [id number] IV 12/08/17 10:30 12/08/17 19:00 DC 12/08/17 18:44 150 MLS/HR Nitroglycerin (Nitro-Dur 0.4 Mg/Hr Patch) 1 patch QAM TD 12/09/17 09:00 01/08/18 08:59 12/09/17 09:13 1 PATCH Miscellaneous (Remove Nitro-Dur Patch) 1 ea DAILY@21 N/A 12/09/17 21:00 01/08/18 20:59 12/09/17 21:27 1 EA (Gemma Marti CRNP) Objective Vital Signs Date Time Temp Pulse Resp B/P (MAP) Pulse Ox O2 Delivery O2 Flow Rate FiO2 12/10/17 11:38 36.4 63 19 160/88 (112) 96 Room Air 12/10/17 08:00 Room Air 12/10/17 07:05 36.8 59 18 159/90 (113) 97 CPAP 12/10/17 05:12 63 94 12/10/17 03:49 36.8 62 18 138/74 (95) 96 Room Air 12/10/17 02:38 74 92 12/10/17 00:01 CPAP 12/09/17 23:09 36.5 73 18 159/93 (115) 97 CPAP 12/09/17 22:31 83 96 12/09/17 19:32 36.3 82 18 122/71 (88) 96 Room Air 12/09/17 17:27 Room Air 12/09/17 15:13 37.0 86 18 146/83 (104) 95 (Gemma aMrti CRNP) Physical Exam Notes: General: no distress Eyes: normal inspection, PERLL Respiratory: chest non tender, clear to auscultation, normal breath sounds, no respiratory distress, no accessory muscle use Cardiac: regular rate and rhythm, no rub or gallop, no murmur, no edema, no jvd GI/: active bowel sounds, no abd pain or tenderness, soft, non distended Extremities: normal range of motion, normal strength, non tender Neuro/Psych: alert and oriented x 3, normal mood and affect Skin: normal color, dry (Gemma Marti CRNP) Laboratory Results Last 24 Hours Test 12/10/17 07:54 Sodium Level 139 mmol/L Potassium Level 4.1 mmol/L Chloride Level 107 mmol/L Carbon Dioxide Level 26 mmol/L Anion Gap 6.0 mmol/L Blood Urea Nitrogen 53 mg/dl Creatinine 2.48 mg/dl Est Creatinine Clear Calc Drug Dose 22.6 ml/min Estimated GFR () 27.2 Estimated GFR (Non- 23.4 BUN/Creatinine Ratio 21.2 Random Glucose 88 mg/dl Calcium Level 8.2 mg/dl (Gemma Marti CRNP) Assessment and Plan 82 y/o male here for chest pain Chest pain, possible unstable angina, ACS r/o--improving -Troponin negative x 3 -EKG q am and prn chest pain -Recent echo done 11/27 shows EF 50-55%. Basal inferior wall hypokinesis. Grade I diastolic dysfunction. Left atrium mildly dilated. Mild mitral regurgitation. Moderate tricuspid regurgitation. RVSP elevated at 30-40 mmHg. -Consult cardiology - status post diagnostic cath 12/08, will have nuclear stress and possible stenting after -Continue ASA, Toprol, Lipitor -Nitro paste q6h changed to Nitro-dur patch CKD stage III-IV -Creatinine 2.48, stable from previous. May represent new baseline/CKD stage IV -Baseline creatinine had been 2.0-2.3 - Hold losartan, Dyazide, allopurinol CAD, h/o DC, HTN, HLD--stable -Hold losartan as above -Continue Toprol XL 50 mg PO BID, clonidine 0.05 mg PO TID, Lipitor 40 mg PO qd -Cover with hydralazine 10 mg IV q6h prn SBP >180 PAF--stable, currently paced -Continue Toprol -Hold Eliquis for possible intervention after stress Hypothyroidism -Continue Synthroid 50 mcg PO qd Gout -continue to hold allopurinol for now Matias's esophagus -Continue Protonix 40 mg PO qd BPH -Continue Proscar 5 mg PO qd DVT prophylaxis -Continue to hold Eliquis for possible stenting -ARIANNA hose and SCDs Code Status -Level V, DO NOT RESUSCITATE (Gemma Marti, KAROLINA) KENNEL HELPER Physician Supervision Note: I discussed with Gemma Marti KENNEL HELPER and agree with findings and plan as documented in the note. Any exceptions or clarifications are listed here: None Patient completing perfusion study to determine if there is any ischemia Documented By: Tiago Fuller (Tiago Fuller M.D.)
--- NOTE | 2017-12-10 17:55 | Cardiology Follow-Up ---
Subjective Date of Service: Dec 10, 2017. Pt evaluation today including: conversation w/ patient, physical exam, lab review, review of studies, review of inpatient medication list History of Present Illness This is a 82-year-old man with complex past cardiac history including coronary artery disease (status post IWMI and RCA stent I believe at [facility] in 2006), he had an ICD implantation on the left side which required extraction followed by reimplantation on the right side in 2006 (after lead infection). That device needed replacement due to battery depletion which was performed on 10/26/2015 using the original leads. He has long-standing paroxysmal atrial fibrillation. He is on Tikosyn for paroxysmal atrial fibrillation, he is generally unaware of the arrhythmia but we have been monitoring for it. He has continued to have episodes on monitoring but nothing that he has felt. Due to increased frequency and duration of the arrhythmia we did start Eliquis on 03/20/2015. He then developed more recently (around the summer 2017) some dyspnea on exertion and at his visit November 26, 2017 was noted to have very frequent ventricular ectopy. Pacemaker evaluation did not detect arrhythmia since was quite slow but he was having runs of a ventricular rhythm at a rate of about 110 bpm. He was relatively unaware of it (he had no palpitations) but it was worrisome. I had him walk around the hallway, after sitting down the rhythm was no longer present. He did not seem to have much trouble with exertion walking around the hallway. At that time he is not having exertional chest discomfort. I therefore placed a Holter monitor which showed very frequent ventricular ectopy but nothing rapid, and an echocardiogram which showed mild left ventricular dysfunction which appeared relatively stable. He presents now with chest discomfort. We have been evaluating dyspnea on exertion, which we thought might be arrhythmic in nature, but he now reports that he has been having exertional chest tightness as well and then developed rest chest discomfort. The most severe episode he had was a very sharp discomfort in his chest which occurred while lifting up bottles in the grocery store, but this only lasted about a minute. After admission during the night he had several episodes of substernal chest discomfort lasting minutes and resolving. He does not have palpitations but has continued to have his arrhythmia. He was scheduled for a stress test coming week, that was to be a stress echo. With ongoing uncertainty as to the cause of his chest discomfort a catheterization was performed on December 08, 2017. That showed some disease, but nothing critical to explain resting angina. The lesions that he does have are of uncertain significance but could perhaps explain his dyspnea on exertion. He is therefore in the midst of a nuclear stress test to see whether he has active ischemia. This morning he was feeling relatively well, he did have some fleeting discomfort during the night and noted that his blood pressure was up from holding his blood pressure medications. Social History Smoking Status: Never Smoker History of Alcohol Use: No Review of Systems Respiratory: No cough, No wheezing, No shortness of breath, No dyspnea on exertion Cardiac: + see HPI, + chest pain, No orthopnea, No PND, No edema, No palpitations Medications Cardiovascular: Item Value Date Time Nitroglycerin 1 patch 12/09/17 0900 (Nitro-Dur 0.4 QAM/TD Mg/Hr Patch) Aspirin 81 mg 12/06/17 0900 (Ecotrin Tab) DAILY/PO 12/10/17 0804 Atorvastatin 40 mg 12/06/17 0900 Calcium DAILY/PO 12/10/17 0803 (Lipitor Tab) Clonidine HCl 0.05 mg 12/05/17 2100 (Catapres Tab) TID/PO 12/10/17 1423 Metoprolol 50 mg 12/05/17 2100 Succinate BID/PO (Toprol Xl Tab) Hydralazine HCl 10 mg 12/05/17 1845 (HydrALAZINE INJ) Q6H PRN/IV. Objective Vital Signs Past 12 Hours Date Time Temp Pulse Resp B/P (MAP) Pulse Ox O2 Delivery O2 Flow Rate FiO2 12/10/17 16:02 36.5 62 20 160/81 (107) 98 Room Air 12/10/17 16:00 Room Air 12/10/17 14:21 36.3 95 16 161/86 (111) 96 Room Air 12/10/17 11:38 36.4 63 19 160/88 (112) 96 Room Air 12/10/17 08:00 Room Air 12/10/17 07:05 36.8 59 18 159/90 (113) 97 CPAP Last Recorded Weight-Kilograms: 75.100 Physical Exam Constitutional: General Apperance: heathly-appearing Level of Distress: NAD Lungs: Respiratory effort: no dyspnea, good air movement Auscultation: breath sounds normal, no wheezing Cardiovascular: Heart Auscultation: RRR, no murmurs, no rubs, no gallops Peripheral Pulses: Bruits: none appreciated Extremities: no edema Data Laboratory Results: Last 24 Hours Test 12/10/17 07:54 Sodium Level 139 mmol/L Potassium Level 4.1 mmol/L Chloride Level 107 mmol/L Carbon Dioxide Level 26 mmol/L Anion Gap 6.0 mmol/L Blood Urea Nitrogen 53 mg/dl Creatinine 2.48 mg/dl Est Creatinine Clear Calc Drug Dose 22.6 ml/min Estimated GFR () 27.2 Estimated GFR (Non- 23.4 BUN/Creatinine Ratio 21.2 Random Glucose 88 mg/dl Calcium Level 8.2 mg/dl Telemetry reviewed: Sinus rhythm, frequent premature ventricular beats Assessment and Plan #1. Chest discomfort: He continues to have intermittent rest chest pain, his description is suggestive of angina however this really does not fit with his coronary angiogram. I suspect this chest pain is noncardiac in nature. #2. Paroxysmal atrial fibrillation: He has had occasional episodes of atrial fibrillation and was on Tikosyn, however with the ventricular ectopy I advised him to discontinue that. He has had no further atrial fibrillation. #3. Anticoagulation: He should remain on anticoagulation over the long run, however until we decide whether he will need an intervention I would hold it. #4. Wide-complex tachycardia: He continues to have some episodes of this wide- complex tachycardia and is unclear whether he has symptoms related to it or not. We do need to continue to observe this rhythm but I have not specifically addressed it, ablation is possible but perhaps not indicated unless it is causing his symptoms. #5. Dyspnea on exertion: His dyspnea on exertion could be due to his ventricular arrhythmia, although I'm not sure it correlates very well, or could be an anginal equivalent. By echocardiography he has stable mild left ventricular dysfunction which does not explain it. This is an anginal equivalent it could be due to stenosis of his LAD or PDA. A nuclear stress test is in process. Significant ischemia may help identify a cause of these symptoms. #6. Chronic kidney disease: He has chronic kidney disease with a creatinine that runs in the mid twos, his creatinine did not change with his catheterization. Thank you for allowing me to participate in his care.
--- NOTE | 2017-12-10 23:31 | Myocardial Perfusion Study ---
Myocardial Perfusion Study Rpt Myocardial Perfusion Study Rpt Date of Service Two day study spanning 12/09/2017 and 12/10/2017. Myocardial Perfusion Study Rpt Procedure: 1. Myocardial perfusion study performed in multiple views/images 2. Exercise treadmill stress ECG Indications: 1. Chest pain 2. CAD 3. Dyspnea with exertion Consent: Informed written consent was obtained prior to the procedure. Ordering physician: Dr. Funes Procedural details: For the stress portion of the study, 23.1 mCi of technetium 99m Cardiolite, injected at 1:15 p.m. on 12/10/2017. Fifteen minutes following the injection, imaging of the heart was performed in multiple projections. For the rest portion of the study, 23.6 mCi technetium 99m Cardiolite was injected intravenously at 12:15 p.m. on 12/09/2017. 1 hour following the injection, imaging of the heart was performed in the same projections. Exercise stress ECG: Via standard Akash protocol, patient exercised a total of 2 minutes and 50 seconds, attaining 3 METS. Exercise was terminated secondary to weak legs, dyspnea, and near-syncope. In recovery, he developed tingling hands and chest discomfort. The chest discomfort spontaneously resolve quickly. Resting ECG demonstrated: Sinus rhythm with PVCs. Nonspecific T-wave abnormality. 75 bpm. Maximum heart rate: 105 bpm Resting blood pressure: 164/84 mmHg Maximum blood pressure: 198/80 mmHg Maximal, age-predicted heart rate: 75 % Significant ST changes: None Arrhythmia: Frequent PVCs Symptoms: Dyspnea, leg weakness, near syncope, tingling hands, and chest discomfort Findings: Rotating raw imaging demonstrated no significant lung uptake. There is no significant motion artifact. Heart size appeared normal. Myocardial perfusion demonstrated a small area of mildly reduced uptake involving the basal inferior , basal inferoseptal, basal inferolateral wall segments which appeared to be fixed in post stress and rest imaging, with minimal reversibility involving the basal inferoseptum. Ejection fraction: 40 % Wall motion: Mild global hypokinesis. No significant transient ischemic dilation. Impression: 1. Abnormal myocardial perfusion study suggesting small RCA infarct with ashtyn- infarct ischemia involving the basal inferoseptum. 2. Nondiagnostic exercise ECG as target heart rate was not attained. 3. Poor exercise tolerance. 4. Mildly to moderately reduced left ventricular systolic function. EF 40% with mild global hypokinesis. Gated images may have been difficult secondary to frequent ectopy. 5. Exertional dyspnea, leg weakness, hand tingling, near-syncope, and chest discomfort were reported. 6. Exercise was performed without morning dose of beta-veronica therapy. 7. Appropriate blood pressure response to exercise.
[2017-12-11] VITALS: BP 156/85; PULSE 64; TEMP 36.7; O2SAT 98
[2017-12-11 04:33] VITALS: BP 169/94; PULSE 60; TEMP 36.6; O2SAT 97
[2017-12-11] MEDS: LEVOTHYROXINE 50 MCG TAB PO SCH (06:18)
[2017-12-11 07:28] VITALS: PULSE 67; O2SAT 97
[2017-12-11 07:46] VITALS: BP 173/90; PULSE 67; TEMP 36.6; O2SAT 97
[2017-12-11] MEDS: ATORVASTATIN 40 MG TAB PO SCH (08:15)
[2017-12-11] MEDS: METOPROLOL SUCC 50MG EXT REL TAB PO SCH (08:15)
[2017-12-11] MEDS: PANTOprazole SOD 40 MG TAB PO SCH (08:15)
[2017-12-11] MEDS: MULTIVITAMIN TAB PO SCH (08:15)
[2017-12-11] MEDS: CLONIDINE HCL 0.1 MG TAB PO SCH (08:16)
[2017-12-11] MEDS: ESCITALOPRAM OXALATE 10 MG TAB PO SCH (08:16)
[2017-12-11] MEDS: ASPIRIN 81 MG ECTAB PO SCH (08:16)
[2017-12-11] MEDS: FINASTERIDE 5 MG TAB PO SCH (08:17)
[2017-12-11 09:00] LABS: CALCIUM 8.2 mg/dl (8.5-10.1); CREATININE 2.29 mg/dl (0.60-1.40)
[2017-12-11] MEDS ORDERED: TRIAMTERENE/HCTZ 37.5/25MG CAP PO ONE (10:30)
[2017-12-11] MEDS ORDERED: LOSARTAN POTASSIUM 50 MG TAB PO ONE (10:30)
--- NOTE | 2017-12-11 10:59 | Discharge Instructions ---
Discharge Instructions Date of Service Dec 11, 2017. Admission Reason for Admission: Chest Pain Discharge Discharge Diagnosis / Problem: Chest pain Discharge Goals Goal(s): Diagnostic testing Activity Recommendations Activity Limitations: resume your previous activity Exercise/Sports Limitations: gradually increase as tolerated . Instructions / Follow-Up Instructions / Follow-Up Please follow up with your primary care provider within about a week. Current Hospital Diet Patient's current hospital diet: AHA Diet (Heart Healthy) Discharge Diet Recommended Diet: AHA Diet (Heart Healthy) Procedures Procedures Performed: Myocardial perfusion study Heart catheterization Chest Xray Pending Studies Studies pending at discharge: no Laboratory Results Lipid Panel Test 12/06/17 07:50 Range/Units Triglycerides Level 187 H 0-150 mg/dl Cholesterol Level 146 0-200 mg/dl HDL Cholesterol 33 mg/dl Cholesterol/HDL Ratio 4.4 LDL Cholesterol, Calculated 76 mg/dl Medical Emergencies . Who to Call and When: Medical Emergencies: If at any time you feel your situation is an emergency, please call 911 immediately. . Non-Emergent Contact Non-Emergency issues call your: Primary Care Provider Call Non-Emergent contact if: you have any medication questions . . "Provider Documentation" section prepared by Gemma Marti. . [employer] Recommendations [employer] Recommendations: ACTIVITY RECOMMENDATIONS: Excess manipulation of the wrist should be avoided for the next 24-48 hours. * No lifting over 2 pounds (approximately a 1/2 gallon of milk) with the utilized arm for 24 hours. * No strenuous activity such as bowling or tennis for 3 days. * Keep the site of the procedure covered with a bandage for 24 hours. *You may shower the day after the procedure. Do not take a tub bath or submerge the puncture site in water for the next 3 days. *Do not operate any motorized equipment for 3 days. SPECIAL CARE INSTRUCTIONS: The site may be slightly bruised and sore following your procedure. Should any of the following occur, contact the DrRoyer who performed your procedure. 1. Redness/inflammation, swelling, chills, or fever, or colored drainage at procedure site within 3-7 days after your procedure. 2. Coldness, discoloration, ongoing numbness, severe pain, or swelling. Expect mild tingling of hand and tenderness at the puncture site for up to three days. If this persists beyond three days, or other symptoms develop, notify the Dr. who performed your procedure. BLEEDING: If the procedure site on your wrist begins to bleed, do not panic 1. Place 1 or 2 fingers firmly just slightly above the insertion site to stop the bleeding. You may be able to feel your pulse as you hold pressure. 2. Lift your finger after 5 minutes to see if the bleeding has stopped. 3. Once the bleeding has stopped, gently wipe the wrist area clean with a bandage. * If the bleeding from your wrist does not stop after 10 minutes, or if there is a large amount of bleeding or spurting, call 911 ([address] drive yourself to the hospital). SKIN IRRITATION: * You may experience some redness and/or swelling in the area where radiation was administered. If any skin irritation occurs, please contact your family physician. FOLLOW UP VISIT: Keep any scheduled doctor appointments.
--- NOTE | 2017-12-11 11:04 | Discharge Summary ---
Discharge Summary Date of Service Dec 11, 2017. Discharge Summary Admission Date: Dec 06, 2017 at 11:33 Discharge Date: Dec 11, 2017 Discharge Disposition: Personal care Principal Diagnosis: chest pain Problems/Secondary Diagnoses: CKD stage III-IV, CAD, h/o VA, HTN, HLD, PAF, Hypothyroidism, Gout, Matias's esophagus, BPH Immunizations: Have You Had Influenza Vaccine: Yes Influenza Vaccine Date: Feb 02, 2010 History of Tetanus Vaccine?: Yes History of Pneumococcal: Yes Pneumococcal Date: Feb 03, 2008 History of Hepatitis B Vaccine: No Procedures: Myocardial Perfusion Study Rpt Date of Service Two day study spanning 12/09/2017 and 12/10/2017. Myocardial Perfusion Study Rpt Procedure: 1. Myocardial perfusion study performed in multiple views/images 2. Exercise treadmill stress ECG Indications: 1. Chest pain 2. CAD 3. Dyspnea with exertion Consent: Informed written consent was obtained prior to the procedure. Ordering physician: Dr. Funes Procedural details: For the stress portion of the study, 23.1 mCi of technetium 99m Cardiolite, injected at 1:15 p.m. on 12/10/2017. Fifteen minutes following the injection, imaging of the heart was performed in multiple projections. For the rest portion of the study, 23.6 mCi technetium 99m Cardiolite was injected intravenously at 12:15 p.m. on 12/09/2017. 1 hour following the injection, imaging of the heart was performed in the same projections. Exercise stress ECG: Via standard Akash protocol, patient exercised a total of 2 minutes and 50 seconds, attaining 3 METS. Exercise was terminated secondary to weak legs, dyspnea, and near-syncope. In recovery, he developed tingling hands and chest discomfort. The chest discomfort spontaneously resolve quickly. Resting ECG demonstrated: Sinus rhythm with PVCs. Nonspecific T-wave abnormality. 75 bpm. Maximum heart rate: 105 bpm Resting blood pressure: 164/84 mmHg Maximum blood pressure: 198/80 mmHg Maximal, age-predicted heart rate: 75 % Significant ST changes: None Arrhythmia: Frequent PVCs Symptoms: Dyspnea, leg weakness, near syncope, tingling hands, and chest discomfort Findings: Rotating raw imaging demonstrated no significant lung uptake. There is no significant motion artifact. Heart size appeared normal. Myocardial perfusion demonstrated a small area of mildly reduced uptake involving the basal inferior , basal inferoseptal, basal inferolateral wall segments which appeared to be fixed in post stress and rest imaging, with minimal reversibility involving the basal inferoseptum. Ejection fraction: 40 % Wall motion: Mild global hypokinesis. No significant transient ischemic dilation. Impression: 1. Abnormal myocardial perfusion study suggesting small RCA infarct with ashtyn- infarct ischemia involving the basal inferoseptum. 2. Nondiagnostic exercise ECG as target heart rate was not attained. 3. Poor exercise tolerance. 4. Mildly to moderately reduced left ventricular systolic function. EF 40% with mild global hypokinesis. Gated images may have been difficult secondary to frequent ectopy. 5. Exertional dyspnea, leg weakness, hand tingling, near-syncope, and chest discomfort were reported. 6. Exercise was performed without morning dose of beta-veronica therapy. 7. Appropriate blood pressure response to exercise. Procedure Date Dec 08, 2017. Pre-Procedure Diagnosis Angina AUC Score 7 Post-Procedure Diagnosis Moderate CAD (Moderate to severe CAD) Procedure(s) Performed Coronary Angiography, Left Heart Cath [employer] Manager Dr. Cai Trust Manager Assistant(s) Carlos Estimated Blood Loss < 25 ml Medication(s) Fentanyl, Heparin, Nicardipine, Versed, Lidocaine 1% Summary of Findings Coronary angiography: 1. Left main coronary artery: Calcifications noted within the LMCA. Distal LM CA 20%. 2. Left anterior descending: The LAD is a medium to large caliber vessel proximally and then continues on as a medium caliber vessel. Proximal LAD is calcified. Long stenotic proximal LAD 60-70% involving the ostium of D1, D2, and D3. Distal LAD 50-70% stenosis at the bifurcation of D4. HOLLIE 3 flow. D3 proximal 100%. Distal D3 fills via [id number] collaterals. 3. Circumflex: The circumflex is a large caliber vessel. Mid circumflex 40-50% . Distal circumflex 20-30%. Small OM1. Medium caliber OM2 with proximal 30-40 %. Small to medium OM3. 4. Right coronary artery: The RCA is dominant. Large caliber RCA. Proximal RCA 40-50%. Mid RCA stent with 30-40% in stent restenoses. Distal RCA 50% near the ostium of PDA and PL. Mid PDA 60-70%. HOLLIE 3 flow. Left heart catheterization: 1. Left ventriculography was not performed. 2. No aortic stenosis. 3. Normal LVEDP; 12 mm of mercury. Sedation start time: 2:12 p.m. Sedation end time: 2:44 p.m. Procedural details: 1. Coronary angiography was performed via the right radial artery without known complication. 2. 6 [place] JL 3.5 diagnostic catheter used to selectively engage the LMCA. 3. 6 [place] 3DRC diagnostic catheter used to selectively engage the RCA. Impression: 1. Moderate to severe CAD involving the LAD and PDA. 2. Occluded D3, fills distally via [id number] collaterals. 3. Otherwise, nonobstructive CAD. 4. Normal LVEDP. 5. No significant aortic stenosis. Plan: 1. Optimize medical therapy. 2. Consider noninvasive ischemic evaluation. 3. If he continues to have symptoms concerning for angina, could consider further invasive evaluation. No further invasive evaluation was performed today to help conserve contrast given his underlying renal disease. Hemodynamics Rest Ao: 152/77 Final Ao: 162/85 LV: 161/9/12 Recommendations Medical therapy and/or Counseling Specimens None Radiation Exposure (mGy) 1022 mGy. Fluoro time 8.5 min Contrast (mls) 45 ml visipaque Procedural Complication(s) None Disposition PCU ACC Data Cardiac Status Clinical evaluation leading to the procedure CAD Presntation: Stable angina Anginal Classification: CCS III Heart Failure: No Cardiogenic Shock w/in 24Hrs: No Cardiac Arrest w/in 24Hrs: No Imaging studies past 6 months: Yes (echo) Stress studies past 6 months: No Standard Exercise Stress Test: No Stress Echocardiogram: No Stress Testing w/SPECT MPI: No Cardiac CTA: No Coronary Anatomy Dominant: Right Left Main (% Stenosis): Distal (20%) LAD (% Stenosis): Proximal (60-70%), Distal (50-70%) D1 (% Stenosis): Normal D2 (% Stenosis): Normal D3 (% Stenosis): Proximal (100%. Fills via left to left collaterals.) Circumflex (% Stenosis): Mid (40-50%), Distal (20-30%) OM1 (% Stenosis): Normal OM2 (% Stenosis): Proximal (30-40%) OM3 (% Stenosis): Normal RCA (% Stenosis): Proximal (40-50%), Mid (in-stent 30-40% restenosis), Distal ( 50%) R PDA (% Stenosis): Mid (60-70%) R PL1 (% Stenosis): Normal Left Ventricular Angiography EF (%): n/a Diagnostic Physician's Name: Curt Cai MD Status: Elective Closure Device Percutaneous Entry Location: Radial Closure Device: Radial Band Recommendations: Medical therapy and/or Counseling <Electronically signed by Curt Cai M.D.> Signed: 12/08/17 1232 Consultations: Dr. Blanco from cardiology Medication Reconciliation Continued Medications: Allopurinol (Allopurinol) 300 Mg Tab 300 MG PO DAILY Apixaban (Eliquis) 2.5 Mg Tab 2.5 MG PO BID Aspirin (Aspirin Ec) 81 Mg Tab 81 MG PO DAILY Atorvastatin (Lipitor) 40 Mg Tab 40 MG PO DAILY Clonidine Hcl (Catapres) 0.1 Mg Tab 0.5 TAB PO TID Ergocalciferol (Vitamin D 11972 Unit) 50,000 Unit Cap 32850 UNIT PO MONTHLY Escitalopram (Lexapro) 10 Mg Tab 5 MG PO DAILY HALF OF A 10 MG TABLET DAILY Finasteride (Proscar) 5 Mg Tab 5 MG PO DAILY Levothyroxine Sodium (Levothyroxine Sodium) 50 Mcg Tab 50 MCG PO DAILY Losartan Potassium (Cozaar) 100 Mg Tab 100 MG PO DAILY Metoprolol Succ (Toprol Xl) (Toprol-Xl) 50 Mg Tabcr 50 MG PO BID Multivitamin (Multivitamin) Tab 1 TAB PO DAILY Mupirocin Calcium (Bactroban Nasal) 2 % Oin 1 APPLN EDGAR DAILY Pantoprazole (Protonix) 40 Mg Tab 40 MG PO DAILY Triamterene/Hctz (Dyazide 37.5MG/25MG) Cap 1 CAP PO DAILY PRN for EDEMA Triamterene/Hctz (Triamterene/Hctz 37.5-25MG) 1 Tab Tab 0.5 TAB PO BID Discharge Exam ROS Constitutional: no chills, aches, sweats or fever Respiratory: no sob,cough, sputum, or wheezing Cardiac: no chest pain, palpitations, edema, orthopnea or lightheadedness GI: no abdominal pain, nausea, vomiting, diarrhea or constipation : no dysuria or hesitancy Extremities: bilateral leg weakness with exertion - patient says this is ongoing for 30 years or so. He had an extensive workup including muscle biopsies when it initially started happening. He does note some worsening over the last few months. He denies any back pain or numbness and tingling. Skin: no rash All other systems reviewed and negative General: no distress Eyes: normal inspection, PERLL Respiratory: chest non tender, clear to auscultation, normal breath sounds, no respiratory distress, no accessory muscle use Cardiac: regular rate and rhythm, no rub or gallop, no murmur, no edema, no jvd , palpable bilateral pedal pulses GI/: active bowel sounds, no abd pain or tenderness, soft, non distended Extremities: normal range of motion, normal strength, non tender Neuro/Psych: alert and oriented x 3, normal mood and affect Skin: normal color, dry Hospital Course This is an 82 y/o male with a history of CAD s/p stent, VA, HTN, HLD, PAF, hypothyroidism, gout, Matias's esophagus, and RAHEEL who presented to the ED on 12/05 with worsening chest pain. The patient had been having exertional chest pain for the last few weeks that has been getting progressively worse. He had also developed dyspnea on exertion but denied any shortness of breath at rest. He stated in the last week, the pain had gotten noticeably worse and now occurs sometimes at rest. He stated he woke up from sleep the morning of arrival around 0430 with a 5/10 sharp left chest pain, which is the worst chest pain he has had. He took an aspirin, and it felt better. He denied any other associated symptoms with the pain. The patient has a history of VA in 2006, and he had an RCA stent placed at [facility] [place] [facility] at that time. Chest pain -Troponin negative x 3 -Recent echo done 11/27 shows EF 50-55%. Basal inferior wall hypokinesis. Grade I diastolic dysfunction. Left atrium mildly dilated. Mild mitral regurgitation. Moderate tricuspid regurgitation. RVSP elevated at 30-40 mmHg. -Consult cardiology - status post diagnostic cath 12/08, nuclear stress test as above. Dr. Blanco did not feel there was any indication for stenting and discussed with patient and also felt patient was ok for discharge from a cardiac stand point -Continue ASA, Toprol, Lipitor - initially nitro dur patch but will discontinue as it does not seem to be having much effect CKD stage III-IV -Creatinine 2.29 -Baseline creatinine had been 2.0-2.3 - restart losartan, Dyazide, allopurinol CAD, h/o VA, HTN, HLD--stable -Continue Toprol XL 50 mg PO BID, clonidine 0.05 mg PO TID, Lipitor 40 mg PO qd , losartan -Cover with hydralazine 10 mg IV q6h prn SBP >180 PAF--stable, currently paced -Continue Toprol -restart Eliquis as no indication for procedure Hypothyroidism -Continue Synthroid 50 mcg PO qd Gout - restart allopurinol Matias's esophagus -Continue Protonix 40 mg PO qd BPH -Continue Proscar 5 mg PO qd 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 Any exceptions or clarifications are listed here: None This patient was cleared by cardiology for discharge to home with close outpatient follow-up does not feel that his initial discomfort is cardiac related at this time Documented By: Tiago Fuller Total Time Spent: Greater than 30 minutes This includes examination of the patient, discharge planning, medication reconciliation, and communication with other providers. Discharge Instructions Please refer to the electronic Patient Visit Report (Discharge Instructions) for additional information. Follow-Up [facility] Cardiology December 20 PCP within a week Additional Copies To Ladarius Martínez
[2017-12-11 11:40] VITALS: BP 147/72; PULSE 58; TEMP 36.4; O2SAT 97
[2017-12-11 12:05] VITALS: BP 147/72; PULSE 58; TEMP 36.4; O2SAT 97
--- NOTE | 2017-12-11 21:35 | Cardiology Follow-Up ---
Subjective Date of Service: Dec 11, 2017. History of Present Illness This is a 82-year-old man with complex past cardiac history including coronary artery disease (status post IWMI and RCA stent I believe at [facility] in 2006), he had an ICD implantation on the left side which required extraction followed by reimplantation on the right side in 2006 (after lead infection). That device needed replacement due to battery depletion which was performed on 10/26/2015 using the original leads. He has long-standing paroxysmal atrial fibrillation. He is on Tikosyn for paroxysmal atrial fibrillation, he is generally unaware of the arrhythmia but we have been monitoring for it. He has continued to have episodes on monitoring but nothing that he has felt. Due to increased frequency and duration of the arrhythmia we did start Eliquis on 03/20/2015. He then developed more recently (around the summer 2017) some dyspnea on exertion and at his visit November 26, 2017 was noted to have very frequent ventricular ectopy. Pacemaker evaluation did not detect arrhythmia since was quite slow but he was having runs of a ventricular rhythm at a rate of about 110 bpm. He was relatively unaware of it (he had no palpitations) but it was worrisome. I had him walk around the hallway, after sitting down the rhythm was no longer present. He did not seem to have much trouble with exertion walking around the hallway. At that time he is not having exertional chest discomfort. I therefore placed a Holter monitor which showed very frequent ventricular ectopy but nothing rapid, and an echocardiogram which showed mild left ventricular dysfunction which appeared relatively stable. He presents now with chest discomfort. We have been evaluating dyspnea on exertion, which we thought might be arrhythmic in nature, but he now reports that he has been having exertional chest tightness as well and then developed rest chest discomfort. The most severe episode he had was a very sharp discomfort in his chest which occurred while lifting up bottles in the grocery store, but this only lasted about a minute. After admission during the night he had several episodes of substernal chest discomfort lasting minutes and resolving. He does not have palpitations but has continued to have his arrhythmia. He was scheduled for a stress test coming week, that was to be a stress echo. With ongoing uncertainty as to the cause of his chest discomfort a catheterization was performed on December 08, 2017. That showed some disease, but nothing critical to explain resting angina. The lesions that he does have are of uncertain significance but could perhaps explain his dyspnea on exertion. He is therefore in the midst of a nuclear stress test to see whether he has active ischemia. This morning he was feeling relatively well, he did have some fleeting discomfort during the night and noted that his blood pressure was up from holding his blood pressure medications. Social History Smoking Status: Never Smoker History of Alcohol Use: No Review of Systems Respiratory: No cough, No wheezing, No shortness of breath, No dyspnea on exertion Cardiac: + see HPI, + chest pain, No orthopnea, No PND, No edema, No palpitations Objective Vital Signs Past 12 Hours Date Time Temp Pulse Resp B/P (MAP) Pulse Ox O2 Delivery O2 Flow Rate FiO2 12/11/17 12:05 36.4 58 18 97 Room Air 12/11/17 11:40 36.4 58 18 147/72 (97) 97 Room Air Last Recorded Weight-Kilograms: 73.600 Physical Exam Constitutional: General Apperance: heathly-appearing Level of Distress: NAD Lungs: Respiratory effort: no dyspnea, good air movement Auscultation: breath sounds normal, no wheezing Cardiovascular: Heart Auscultation: RRR, no murmurs, no rubs, no gallops Peripheral Pulses: Bruits: none appreciated Extremities: no edema Data Laboratory Results: Last 24 Hours Test 12/11/17 07:54 Sodium Level 139 mmol/L Potassium Level 4.0 mmol/L Chloride Level 109 mmol/L Carbon Dioxide Level 24 mmol/L Anion Gap 6.0 mmol/L Blood Urea Nitrogen 53 mg/dl Creatinine 2.29 mg/dl Est Creatinine Clear Calc Drug Dose 24.5 ml/min Estimated GFR () 29.9 Estimated GFR (Non- 25.8 BUN/Creatinine Ratio 23.3 Random Glucose 94 mg/dl Calcium Level 8.2 mg/dl Imaging: EKG: Telemetry reviewed: Assessment and Plan #1. Chest discomfort: He continues to have intermittent rest chest pain, his description is suggestive of angina however this really does not fit with his coronary angiogram. I suspect this chest pain is noncardiac in nature. #2. Paroxysmal atrial fibrillation: He has had occasional episodes of atrial fibrillation and was on Tikosyn, however with the ventricular ectopy I advised him to discontinue that. He has had no further atrial fibrillation. #3. Anticoagulation: He should remain on anticoagulation over the long run, however until we decide whether he will need an intervention I would hold it. #4. Wide-complex tachycardia: He continues to have some episodes of this wide- complex tachycardia and is unclear whether he has symptoms related to it or not. We do need to continue to observe this rhythm but I have not specifically addressed it, ablation is possible but perhaps not indicated unless it is causing his symptoms. #5. Dyspnea on exertion: His dyspnea on exertion could be due to his ventricular arrhythmia, although I'm not sure it correlates very well, or could be an anginal equivalent. By echocardiography he has stable mild left ventricular dysfunction which does not explain it. This is an anginal equivalent it could be due to stenosis of his LAD or PDA. A nuclear stress test is in process. Significant ischemia may help identify a cause of these symptoms. #6. Chronic kidney disease: He has chronic kidney disease with a creatinine that runs in the mid twos, his creatinine did not change with his catheterization. Thank you for allowing me to participate in his care.
[2017-12-12] MEDS ORDERED: LOSARTAN POTASSIUM 50 MG TAB PO SCH (09:00)
[2017-12-12] MEDS ORDERED: TRIAMTERENE/HCTZ 37.5/25MG CAP PO PRN (09:00)
== END 2017-12-11 12:45 | DRG 287 ==
LOC: EDBD 15:26 → C.EDA 15:27 → C.2T 18:08 → ENRESERV 18:58 → C.2T 12-06 01:03 → OBSVTOIN 12-06 11:33
PROVIDERS: ADMIT Hospitalist; ATTEND Nurse Practitioner Family
PROC: B211YZZ Fluoroscopy of Multiple Coronary Arteries using Other Contrast (ICD-10-PCS; principal; 2017-12-08 14:04)
PROC: 4A023N7 Measurement of Cardiac Sampling and Pressure, Left Heart, Percutaneous Approach (ICD-10-PCS; principal; 2017-12-08 14:04)
DX: R07.89 Other chest pain (principal); N17.9 Acute kidney failure, unspecified; I12.9 Hypertensive chronic kidney disease with stage 1 through stage 4 chronic kidney disease, or unspecified chronic kidney disease; N18.4 Chronic kidney disease, stage 4 (severe); I25.10 Atherosclerotic heart disease of native coronary artery without angina pectoris; I25.2 Old myocardial infarction; E78.5 Hyperlipidemia, unspecified; I48.0 Paroxysmal atrial fibrillation; E03.9 Hypothyroidism, unspecified; G47.33 Obstructive sleep apnea (adult) (pediatric); M10.9 Gout, unspecified; N40.0 Benign prostatic hyperplasia without lower urinary tract symptoms; Z66 Do not resuscitate; Z79.02 Long term (current) use of antithrombotics/antiplatelets; Z79.82 Long term (current) use of aspirin; Z79.899 Other long term (current) drug therapy; Z95.0 Presence of cardiac pacemaker; Z95.5 Presence of coronary angioplasty implant and graft; Z88.0 Allergy status to penicillin

== ENCOUNTER 2019-03-10 17:12 | Inpatient (IN) ==
[2019-03-10] MEDS ORDERED: ONDANSETRON INJ 2 MG/ML 2 ML VIAL IV STA (17:30)
[2019-03-10] MEDS ORDERED: SODIUM CHLORIDE 0.9% 1000ML 1,000 ML IV SCH (17:30)
--- NOTE | 2019-03-10 17:58 | XRay Report ---
XR chest 1V portable HISTORY: 83 years-old Male weakness acute weakness COMPARISON: Chest radiographs 12/22/2018 TECHNIQUE: Portable AP view of the chest FINDINGS: Cardiac silhouette is mildly enlarged, unchanged. Right pectoral pacer/ICD redemonstrated with leads appearing intact. There is no pneumothorax. There is suggestion of bilateral trace pleural effusions. Minimal bibasilar opacities. No overt pulmonary edema. Degenerative changes of the shoulders and spi ne. IMPRESSION: 1. Mild cardiomegaly without acute process. 2. Trace pleural effusions with right greater than left bibasilar opacities suggestive of atelectasis . The above report was generated using voice recognition software. It may contain grammatical, syntax o r spelling errors. Electronically signed by: Bang Murphy M.D. 03/10/2019 5:57 PM
[2019-03-10 18:02] LABS: Basophils # (auto) 0.01 K/uL (0-0.2); Basophils % (auto) 0.1 %; Eosinophils # (auto) 0.11 K/uL (0-0.5); Eosinophils % (auto) 1.6 %; Hematocrit (blood only) 48.3 % (42-52); Hemoglobin 15.9 g/dL (14.0-18.0); Immature Granulocytes # (auto) 0.02 K/uL (0.00-0.02); Immature Granulocytes % (auto) 0.3 %; Lymphocytes % (auto) 14.9 %; Mean Corpuscular Hemoglobin 31.5 pg (25-34); Mean Corpuscular Hgb Conc 32.9 g/dL (32-36); Mean Corpuscular Volume 95.6 fL (80-100); Mean Platelet Volume 11.6 fL (7.4-10.4); Monocytes % (auto) 8.9 %; Neutrophils # (auto) 4.97 K/uL (1.4-6.5); Neutrophils % (auto) 74.2 %; Platelet Count 133 K/uL (130-400); RDW Standard Deviation 55.6 fL (36.4-46.3); Red Blood Count 5.05 M/uL (4.7-6.1); White Blood Count 6.71 K/uL (4.8-10.8)
[2019-03-10 18:18] LABS: Albumin Level 2.8 gm/dl (3.4-5.0); BUN Creatinine Ratio 17.6 (10-20); Est GFR (African American) 23.9; Est GFR (Non-African American) 20.6; Potassium 3.9 mmol/L (3.5-5.1)
[2019-03-10 18:29] LABS: Albumin Globulin Ratio 0.8 (0.9-2); Bilirubin,Total 0.9 mg/dl (0.2-1); Creatine Kinase MB 3.5 ng/ml (0.5-3.6); Globulin 3.5 gm/dl (2.5-4.0); Thyroid Stimulating Hormone 1.37 uIu/ml (0.300-4.500); Total Protein 6.3 gm/dl (6.4-8.2); Troponin I 0.036 ng/ml (0-0.045)
--- NOTE | 2019-03-10 20:40 | Emergency Department Note ---
Entered by Lluvia Swan acting as a scribe for History of Present Illness General Chief complaint: Nausea Stated complaint: NAUSEA Time Seen by Provider: 03/10/19 17:18 Source: patient History of Present Illness Provider complaint: Vomiting Onset (ago): hour(s) 1 Location: abdomen Relieved By: + none Exacerbated By: + none Associated symptoms: + nausea/vomiting and + other (Lightheaded); no chest pain The patient is a 83 year old male who presents to the Emergency Room with complaints of vomiting that began 1 hour ago while he was working out. The patient states the symptoms are not relieved nor exacerbated by anything specific. The patient reports experiencing nausea and lightheadedness but denies any chest pain. The patient mentioned that he just finished cardiac rehab last week for a heart attack he had in September. Home Medications Home Medications Medication Instructions Recorded Confirmed Type Eliquis 2.5 mg PO BID 09/17/18 03/10/19 History levothyroxine 50 mcg PO QAM 09/17/18 03/10/19 History metoprolol succinate 200 mg PO QAM 09/17/18 03/10/19 History multivitamin 1 tab PO QAM 09/17/18 03/10/19 History clopidogrel 75 mg PO QAM #30 tab 09/25/18 03/10/19 Rx tamsulosin 0.4 mg PO HS #30 cap 09/25/18 03/10/19 Rx isosorbide mononitrate ER 30 mg 30 mg PO DAILY 12/09/18 03/10/19 History tablet,extended release 24 hr sacubitril 24 mg-valsartan 26 mg 1 tab PO BID 12/09/18 03/10/19 History tablet allopurinol 100 mg tablet 100 mg PO DAILY 12/30/18 03/10/19 History atorvastatin 80 mg tablet 80 mg PO DAILY 12/30/18 03/10/19 History escitalopram 5 mg tablet 5 mg PO DAILY 12/30/18 03/10/19 History magnesium oxide 400 mg (241.3 mg 400 mg PO DAILY tab 12/30/18 03/10/19 History magnesium) tablet torsemide 10 mg tablet 15 mg PO DAILY tab 12/30/18 03/10/19 History vit C,T-Rh-vhbpy-lutein-zeaxan 1 cap PO BID 12/30/18 03/10/19 History ergocalciferol (vitamin D2) 50,000 50,000 unit PO MONTHLY #3 cap 02/19/19 03/10/19 Rx unit capsule Allergies Allergy/AdvReac Type Severity Reaction Status Date / Time Penicillins Allergy Intermediate HIVES. CAN Verified 02/10/19 10:[address] LUCERO peanut Allergy Mild SPOT Verified 02/10/19 10:59 SWELLING OF TONGUE shrimp Allergy Mild WHOLE Verified 02/10/19 10:59 SWELLING OF TONGUE Bactrim Allergy Unknown NAUSEA Verified 12/05/17 17:29 Cipro Allergy Unknown RASH Unverified 12/05/17 17:29 ciprofloxacin Allergy Unknown RASH Unverified 02/10/19 10:59 nitrofurantoin Allergy Unknown VOMITING Verified 02/10/19 10:59 sulfamethoxazole Allergy Unknown NAUSEA Verified 02/10/19 10:59 trimethoprim Allergy Unknown NAUSEA Verified 02/10/19 10:59 coffee (Coffea arabica) AdvReac Mild VERTIGO Verified 02/10/19 10:59 Corticosteroids AdvReac Mild VOMITING Verified 02/10/19 10:59 (Glucocorticoids) hydrocortisone AdvReac Mild VOMITING Verified 02/10/19 10:59 Nitrate Analogues AdvReac Mild VOMITING Verified 02/10/19 10:59 Quinolones AdvReac Mild VOMITING Verified 02/10/19 10:59 tetracycline AdvReac Mild VOMITING Verified 02/10/19 10:59 BANDAIDS Allergy Unknown . Uncoded 02/10/19 10:59 Past Med/Surg History Medical History Vitamin D deficiency SNHL (sensorineural hearing loss) Prurigo nodularis Proteinuria (Chronic) Preop examination Obstructive sleep apnea Neoplasm of uncertain behavior of skin Hypermagnesemia Hyperkalemia Hiatal hernia Gout, joint Gastroesophageal reflux Folliculitis Dyspnea on exertion Chronic anticoagulation Cellulitis of arm (Chronic) Matias's esophagus Arthralgia of multiple sites Actinic keratosis Chronic kidney disease, stage IV (severe) (Chronic) Biventricular ICD (implantable cardioverter-defibrillator) in place Gout BPH (benign prostatic hyperplasia) (Chronic) Hypertension (Chronic) Paroxysmal atrial fibrillation Cardiomyopathy (Chronic) CAD (coronary artery disease), [place] coronary artery History of pacemaker Hyperlipidemia Hypertension Myocardial infarction Surgical History S/P percutaneous transluminal angioplasty (SEATING [employer]TAIN) with stent placement 2007 - RCA 09/18/2018 - 2 EBONY to LAD History of coronary artery stent placement Family History Unknown Heart disease Hypertension Social History Preferred Language: Macedonian Communication Ability: Effective City Administrator Required: No Beliefs That Will Affect Care: None Current Living Situation: Other Current Living Situation Comment: [facility]- Independent living current occupation: retired Feels Safe at Home: Yes Smoking Status: Never smoker Second Hand Exposure: No ; Hx Alcohol Use: No Hx Substance Use: No Review of Systems See HPI for pertinent positives & negatives. and A total of 10 systems reviewed and were otherwise negative Physical Exam Vital Signs Vital Signs - 24 hr 03/11/19 23:39 03/12/19 03:44 03/12/19 07:10 Temperature 36.4 C L 36.4 C L 36.4 C L Temperature Source Oral Oral Oral Pulse Rate Pulse Rate [Apical] 81 86 Pulse Rate [Finger] 88 Respiratory Rate 17 17 19 Respiratory Effort / Characteristics Respiratory Depth Respiratory Pattern Blood Pressure [Left Arm] 126/99 117/87 Blood Pressure [Right Arm] 145/109 H Blood Pressure Mean [Left Arm] 108 97 Blood Pressure Mean [Right Arm] 121 Blood Pressure Position [Left Arm] Lying Lying Blood Pressure Position [Right Arm] Sitting Pulse Oximetry 94 92 97 Oxygen Delivery Method Room Air Room Air Room Air 03/12/19 08:00 03/12/19 08:12 Temperature Temperature Source Pulse Rate 87 Pulse Rate [Apical] Pulse Rate [Finger] 88 Respiratory Rate Respiratory Effort / Characteristics Non-Labored Spontaneous Respiratory Depth Normal Respiratory Pattern Regular Blood Pressure [Left Arm] 135/99 Blood Pressure [Right Arm] Blood Pressure Mean [Left Arm] 111 Blood Pressure Mean [Right Arm] Blood Pressure Position [Left Arm] Blood Pressure Position [Right Arm] Pulse Oximetry Oxygen Delivery Method Room Air GENERAL: Awake, alert, well-appearing, in no acute distress HENT: Normocephalic, atraumatic. Oropharynx unremarkable. EYES: Normal conjunctiva. Sclera non-icteric. NECK: Supple. No nuchal rigidity. FROM. No JVD. RESPIRATORY: Clear to auscultation. CARDIAC: Regular rate, normal rhythm. Extremities warm and well perfused. Pulses equal. ABDOMEN: Soft, non-distended. No tenderness to palpation. No rebound or guarding. No masses. RECTAL: Deferred. MUSCULOSKELETAL: Chest examination reveals no tenderness. The back is symmetrical on inspection without obvious abnormality. There is no CVA tenderness to palpation. No joint edema. LOWER EXTREMITIES: Calves are equal size bilaterally and non-tender. No edema. No discoloration. NEURO: Normal sensorium. No sensory or motor deficits noted. SKIN: No rash or jaundice noted. Course 1720: Past medical records reviewed. The patient was evaluated in room A12B. A complete history and physical exam was performed. Administered Medications Discontinued Medications Allopurinol (Zyloprim) 100 mg PO DAILY UCHE Stop: 04/10/19 08:59 Last Admin: 03/12/19 08:15 Dose: 100 mg Documented by: [id number] Admin: 03/11/19 07:54 Dose: 100 mg Documented by: [id number] Apixaban (Eliquis) 2.5 mg PO BID UCHE Stop: 04/09/19 21:02 Last Admin: 03/12/19 08:14 Dose: 2.5 mg Documented by: [id number] Admin: 03/11/19 20:18 Dose: 2.5 mg Documented by: [id number] Admin: 03/11/19 07:51 Dose: 2.5 mg Documented by: [id number] Admin: 03/10/19 22:10 Dose: 2.5 mg Documented by: [id number] Atorvastatin Calcium (Lipitor) 80 mg PO DAILY UCHE Stop: 04/10/19 08:59 Last Admin: 03/12/19 08:15 Dose: 80 mg Documented by: [id number] Admin: 03/11/19 07:54 Dose: 80 mg Documented by: [id number] Clopidogrel Bisulfate (Plavix) 75 mg PO QAM UCHE Stop: 04/10/19 08:59 Last Admin: 03/12/19 08:15 Dose: 75 mg Documented by: [id number] Admin: 03/11/19 07:53 Dose: 75 mg Documented by: [id number] Escitalopram Oxalate (Lexapro Tab) 5 mg PO DAILY UCHE Stop: 04/10/19 08:59 Last Admin: 03/12/19 08:14 Dose: 5 mg Documented by: [id number] Admin: 03/11/19 07:54 Dose: 5 mg Documented by: [id number] Sodium Chloride (Nss 1000ml) 1,000 mls @ 999 mls/hr IV .[id number] UCHE Stop: 03/10/19 18:30 Last Infusion: 03/10/19 19:03 Dose: 0 mls/hr Documented by: [id number] Admin: 03/10/19 17:59 Dose: 999 mls/hr Documented by: [id number] Sodium Chloride (Nss 1000ml) 1,000 mls @ 80 mls/hr IV .[id number] UCHE Stop: 04/10/19 00:44 Last Admin: 03/12/19 09:08 Dose: Not Given Documented by: [id number] Infusion: 03/12/19 07:30 Dose: 0 mls/hr Documented by: [id number] Admin: 03/11/19 20:17 Dose: 80 mls/hr Documented by: [id number] Infusion: 03/11/19 20:17 Dose: 80 mls/hr Documented by: [id number] Infusion: 03/11/19 09:30 Dose: 80 mls/hr Documented by: [id number] Admin: 03/11/19 09:30 Dose: 125 mls/hr Documented by: [id number] Infusion: 03/11/19 09:30 Dose: 125 mls/hr Documented by: [id number] Admin: 03/11/19 01:46 Dose: 125 mls/hr Documented by: [id number] Isosorbide Mononitrate (Imdur Extended Rel) 30 mg PO DAILY UCHE Stop: 04/10/19 08:59 Last Admin: 03/12/19 08:14 Dose: 30 mg Documented by: [id number] Admin: 03/11/19 07:55 Dose: 30 mg Documented by: [id number] Levothyroxine Sodium (Synthroid) 50 mcg PO DAILYBB UCHE Stop: 04/10/19 06:29 Last Admin: 03/12/19 06:13 Dose: 50 mcg Documented by: [id number] Admin: 03/11/19 06:18 Dose: 50 mcg Documented by: [id number] Magnesium Oxide (Mag-Ox) 400 mg PO DAILY UCHE Stop: 04/10/19 08:59 Last Admin: 03/12/19 08:14 Dose: 400 mg Documented by: [id number] Admin: 03/11/19 07:53 Dose: 400 mg Documented by: [id number] Metoprolol Succinate (Toprol Xl) 200 mg PO QAM UCHE Stop: 04/10/19 08:59 Last Admin: 03/12/19 08:15 Dose: 200 mg Documented by: [id number] Admin: 03/11/19 07:55 Dose: 200 mg Documented by: [id number] Multivitamins (Multivitamin Tab) 1 tab PO QAM UCHE Stop: 04/10/19 08:59 Last Admin: 03/12/19 08:15 Dose: 1 tab Documented by: [id number] Admin: 03/11/19 07:52 Dose: 1 tab Documented by: [id number] Multivitamins/Minerals (Multivitamin W/ Minerals Tab) 1 tab PO DAILY UCHE Stop: 04/10/19 08:59 Last Admin: 03/12/19 08:15 Dose: 1 tab Documented by: [id number] Admin: 03/11/19 07:51 Dose: 1 tab Documented by: [id number] Ondansetron HCl (Zofran) 4 mg IV NOW STA Stop: 03/10/19 17:31 Last Admin: 03/10/19 17:59 Dose: 4 mg Documented by: [id number] Pantoprazole Sodium (Protonix) 40 mg PO QAM UCHE Stop: 04/10/19 08:59 Last Admin: 03/11/19 07:53 Dose: 40 mg Documented by: [id number] Sacubitril/Valsartan (Entresto 24/26mg) 1 tab PO BID UCHE Stop: 04/10/19 08:59 Last Admin: 03/12/19 08:13 Dose: 1 tab Documented by: [id number] Admin: 03/11/19 20:18 Dose: 1 tab Documented by: [id number] Admin: 03/11/19 07:52 Dose: 1 tab Documented by: [id number] Tamsulosin HCl (Flomax) 0.4 mg PO HS UCHE Stop: 04/09/19 21:02 Last Admin: 03/11/19 20:18 Dose: 0.4 mg Documented by: [id number] Admin: 03/10/19 22:10 Dose: 0.4 mg Documented by: [id number] Torsemide (Demadex) 15 mg PO DAILY UCHE Stop: 04/10/19 08:59 Last Admin: 03/12/19 08:14 Dose: 15 mg Documented by: [id number] Admin: 03/11/19 08:09 Dose: Not Given Documented by: [id number] Medical Decision Making Differential Diagnosis Differential Diagnosis includes but is not limited to dehydration, stroke, an emia, hypoglycemia, hyponatremia, hypernatremia, urinary tract infection, pneumonia, bronchitis, sepsis, gastroenteritis, additional abdominal pathology, metabolic abnormalities and infections. Medical Records Attestation: I reviewed the patient's medical records. Home Medications Current Medication List: was personally reviewed by me Laboratory Data Attestation: I reviewed the patient's lab results. Result diagrams: 03/11/19 02:16 03/12/19 05:55 Lab Results 03/10/19 03/10/19 03/10/19 Range/Units 17:49 17:49 19:03 WBC 6.71 (4.8-10.8) K/uL RBC 5.05 (4.7-6.1) M/uL Hgb 15.9 (14.0-18.0) g/dL Hct 48.3 (42-52) % MCV 95.6 (80-100) fL MCH 31.5 (25-34) pg MCHC 32.9 (32-36) g/dL RDW Std Deviation 55.6 H (36.4-46.3) fL RDW Coeff of Shelly 16.0 H (11.5-14.5) % Plt Count 133 (130-400) K/uL MPV 11.6 H (7.4-10.4) fL Immature Gran % (Auto) 0.3 % Neut % (Auto) 74.2 % Lymph % (Auto) 14.9 % [place] % (Auto) 8.9 % Eos % (Auto) 1.6 % Baso % (Auto) 0.1 % Immature Gran # (Auto) 0.02 (0.00-0.02) K/uL Neut # (Auto) 4.97 (1.4-6.5) K/uL Lymph # (Auto) 1.00 L (1.2-3.4) K/uL [place] # (Auto) 0.60 H (0.11-0.59) K/uL Eos # (Auto) 0.11 (0-0.5) K/uL Baso # (Auto) 0.01 (0-0.2) K/uL Sodium 141 (136-145) mmol/L Potassium 3.9 (3.5-5.1) mmol/L Chloride 106 (98-107) mmol/L Carbon Dioxide 28 (21-32) mmol/L Anion Gap 7.0 (3-11) BUN 48 H (7-18) mg/dl Creatinine 2.74 H (0.6-1.4) mg/dl Est Cr Clr Drug Dosing 20.0 ml/min Est GFR ( Amer) 23.9 Est GFR (Non-Af Amer) 20.6 BUN/Creatinine Ratio 17.6 (10-20) Glucose 97 (70-99) mg/dl Calcium 9.0 (8.5-10.1) mg/dl Magnesium (1.8-2.4) mg/dl Total Bilirubin 0.9 (0.2-1) mg/dl AST 46 H (15-37) U/L ALT 105 H (12-78) U/L Alkaline Phosphatase 147 H (45-117) U/L Total Creatine Kinase 145 (39-308) U/L CK-MB (CK-2) 3.5 (0.5-3.6) ng/ml CK/CKMB % Calc 2.4 (0-3.0) Troponin I 0.036 0.034 (0-0.045) ng/ml NT-Pro-B Natriuret Pep (0-1800) pg/ml Total Protein 6.3 L (6.4-8.2) gm/dl Albumin 2.8 L (3.4-5.0) gm/dl Globulin 3.5 (2.5-4.0) gm/dl Albumin/Globulin Ratio 0.8 L (0.9-2) Triglycerides (0-150) mg/dl Cholesterol (0-200) mg/dl LDL Cholesterol, Calc mg/dl VLDL Cholesterol, Calc mg/dl HDL Cholesterol mg/dl Cholesterol/HDL Ratio TSH 1.370 (0.300-4.500) uIu/ml Urine Color Urine Appearance (Clear) Urine pH (4.5-7.5) Ur Specific [place] (1.000-1.030) Urine Protein (Negative) Urine Glucose (UA) (Negative) Urine Ketones (Negative) Urine Blood (Negative) Urine Nitrite (Negative) Urine Bilirubin (Negative) Urine Urobilinogen (Negative) Ur Leukocyte Esterase (Negative) Urine WBC (Auto) (0-5) /hpf Urine RBC (Auto) (0-4) /hpf U Hyaline Cast (Auto) (0-5) /lpf U Epithel Cells (Auto) (0-5) /lpf Urine Bacteria (Auto) (Negative) 03/11/19 03/11/19 03/11/19 Range/Units 00:15 02:16 02:16 WBC 5.38 (4.8-10.8) K/uL RBC 4.83 (4.7-6.1) M/uL Hgb 15.4 (14.0-18.0) g/dL Hct 46.3 (42-52) % MCV 95.9 (80-100) fL MCH 31.9 (25-34) pg MCHC 33.3 (32-36) g/dL RDW Std Deviation 55.9 H (36.4-46.3) fL RDW Coeff of Shelly 16.0 H (11.5-14.5) % Plt Count 114 L (130-400) K/uL MPV 11.9 H (7.4-10.4) fL Immature Gran % (Auto) % Neut % (Auto) % Lymph % (Auto) % [place] % (Auto) % Eos % (Auto) % Baso % (Auto) % Immature Gran # (Auto) (0.00-0.02) K/uL Neut # (Auto) (1.4-6.5) K/uL Lymph # (Auto) (1.2-3.4) K/uL [place] # (Auto) (0.11-0.59) K/uL Eos # (Auto) (0-0.5) K/uL Baso # (Auto) (0-0.2) K/uL Sodium 140 (136-145) mmol/L Potassium 4.0 (3.5-5.1) mmol/L Chloride 108 H (98-107) mmol/L Carbon Dioxide 26 (21-32) mmol/L Anion Gap 6.0 (3-11) BUN 44 H (7-18) mg/dl Creatinine 2.41 H D (0.6-1.4) mg/dl Est Cr Clr Drug Dosing 22.1 ml/min Est GFR ( Amer) 27.9 Est GFR (Non-Af Amer) 24.1 BUN/Creatinine Ratio 18.4 (10-20) Glucose 97 (70-99) mg/dl Calcium 8.3 L (8.5-10.1) mg/dl Magnesium (1.8-2.4) mg/dl Total Bilirubin (0.2-1) mg/dl AST (15-37) U/L ALT (12-78) U/L Alkaline Phosphatase (45-117) U/L Total Creatine Kinase (39-308) U/L CK-MB (CK-2) (0.5-3.6) ng/ml CK/CKMB % Calc (0-3.0) Troponin I 0.022 (0-0.045) ng/ml NT-Pro-B Natriuret Pep (0-1800) pg/ml Total Protein (6.4-8.2) gm/dl Albumin (3.4-5.0) gm/dl Globulin (2.5-4.0) gm/dl Albumin/Globulin Ratio (0.9-2) Triglycerides (0-150) mg/dl Cholesterol (0-200) mg/dl LDL Cholesterol, Calc mg/dl VLDL Cholesterol, Calc mg/dl HDL Cholesterol mg/dl Cholesterol/HDL Ratio TSH (0.300-4.500) uIu/ml Urine Color Yellow Urine Appearance Clear (Clear) Urine pH 6.5 (4.5-7.5) Ur Specific [place] 1.013 (1.000-1.030) Urine Protein 3+ H (Negative) Urine Glucose (UA) Negative (Negative) Urine Ketones Negative (Negative) Urine Blood Trace H (Negative) Urine Nitrite Negative (Negative) Urine Bilirubin Negative (Negative) Urine Urobilinogen Negative (Negative) Ur Leukocyte Esterase Negative (Negative) Urine WBC (Auto) 1-5 (0-5) /hpf Urine RBC (Auto) 0-4 (0-4) /hpf U Hyaline Cast (Auto) 5-10 H (0-5) /lpf U Epithel Cells (Auto) 5-10 H (0-5) /lpf Urine Bacteria (Auto) Negative (Negative) 03/11/19 03/11/19 03/12/19 Range/Units 10:04 14:08 05:55 WBC (4.8-10.8) K/uL RBC (4.7-6.1) M/uL Hgb (14.0-18.0) g/dL Hct (42-52) % MCV (80-100) fL MCH (25-34) pg MCHC (32-36) g/dL RDW Std Deviation (36.4-46.3) fL RDW Coeff of Shelly (11.5-14.5) % Plt Count (130-400) K/uL MPV (7.4-10.4) fL Immature Gran % (Auto) % Neut % (Auto) % Lymph % (Auto) % [place] % (Auto) % Eos % (Auto) % Baso % (Auto) % Immature Gran # (Auto) (0.00-0.02) K/uL Neut # (Auto) (1.4-6.5) K/uL Lymph # (Auto) (1.2-3.4) K/uL [place] # (Auto) (0.11-0.59) K/uL Eos # (Auto) (0-0.5) K/uL Baso # (Auto) (0-0.2) K/uL Sodium 143 (136-145) mmol/L Potassium 4.5 (3.5-5.1) mmol/L Chloride 112 H (98-107) mmol/L Carbon Dioxide 27 (21-32) mmol/L Anion Gap 4.0 (3-11) BUN 41 H (7-18) mg/dl Creatinine 2.40 H (0.6-1.4) mg/dl Est Cr Clr Drug Dosing 22.2 ml/min Est GFR ( Amer) 28.1 Est GFR (Non-Af Amer) 24.2 BUN/Creatinine Ratio 17.3 (10-20) Glucose 80 (70-99) mg/dl Calcium 8.0 L (8.5-10.1) mg/dl Magnesium 1.8 (1.8-2.4) mg/dl Total Bilirubin 0.9 (0.2-1) mg/dl AST 32 (15-37) U/L ALT 75 (12-78) U/L Alkaline Phosphatase 123 H (45-117) U/L Total Creatine Kinase (39-308) U/L CK-MB (CK-2) (0.5-3.6) ng/ml CK/CKMB % Calc (0-3.0) Troponin I 0.016 (0-0.045) ng/ml NT-Pro-B Natriuret Pep 6277 H (0-1800) pg/ml Total Protein 5.3 L (6.4-8.2) gm/dl Albumin 2.2 L (3.4-5.0) gm/dl Globulin 3.1 (2.5-4.0) gm/dl Albumin/Globulin Ratio 0.7 L (0.9-2) Triglycerides 117 (0-150) mg/dl Cholesterol 92 (0-200) mg/dl LDL Cholesterol, Calc 38 mg/dl VLDL Cholesterol, Calc 23 mg/dl HDL Cholesterol 31 mg/dl Cholesterol/HDL Ratio 3 TSH (0.300-4.500) uIu/ml Urine Color Urine Appearance (Clear) Urine pH (4.5-7.5) Ur Specific [place] (1.000-1.030) Urine Protein (Negative) Urine Glucose (UA) (Negative) Urine Ketones (Negative) Urine Blood (Negative) Urine Nitrite (Negative) Urine Bilirubin (Negative) Urine Urobilinogen (Negative) Ur Leukocyte Esterase (Negative) Urine WBC (Auto) (0-5) /hpf Urine RBC (Auto) (0-4) /hpf U Hyaline Cast (Auto) (0-5) /lpf U Epithel Cells (Auto) (0-5) /lpf Urine Bacteria (Auto) (Negative) Imaging Data Radiologist's Impression: Radiology results as stated below per my review and the radiologist's interpretation: XR chest 1V portable HISTORY: 83 years-old Male weakness acute weakness COMPARISON: Chest radiographs 12/22/2018 TECHNIQUE: Portable AP view of the chest FINDINGS: Cardiac silhouette is mildly enlarged, unchanged. Right pectoral pacer/ICD redemonstrated with leads appearing intact. There is no pneumothorax. There is suggestion of bilateral trace pleural effusions. Minimal bibasilar opacities. No overt pulmonary edema. Degenerative changes of the shoulders and spine. IMPRESSION: 1. Mild cardiomegaly without acute process. 2. Trace pleural effusions with right greater than left bibasilar opacities suggestive of atelectasis. The above report was generated using voice recognition software. It may contain grammatical, syntax or spelling errors. Electronically signed by: Bang Murphy M.D. 03/10/2019 5:57 PM ECG Data Attestation: I personally reviewed and interpreted this ECG as follows: Indication: + other (Nausea) Rate (beats per minute): 88 Rhythm: + atrial flutter (3-1 AV Conduction) ECG Intervals/blocks: + Prolonged QT ECG ST segments: + Normal ST segments ECG Findings: + Other (QTC 469) Comparison ECG Date: from (10/09/2018) Change: no significant change Blood Pressure Blood Pressure Findings: Elevated blood pressure Blood Pressure Disposition: Referred to patients primary care provider MDM Narrative This is an 83-year-old male who presents emergency department complaining of vomiting during cardiac rehab today. Patient recently had stents placed. His EKG and serial troponins were performed here in the emergency department. I gave the patient the option of going home however he would like to be admitted. He was given normal saline bolus as well as Zofran. Repeat examination revealed improvement in the patient's symptoms. Patient was in agreement with the treatment plan. I did discuss the case with the hospitalist service who agreed to admit the patient. Impression & Plan Vomiting, Vasovagal near syncope, Coronary artery disease Discharge Plan Visit Data *Final* Discharge Date/Time: 03/10/19 20:50 Chief Complaint: Nausea Stated Complaint: NAUSEA ED Provider: Donell Barnes Discharge Problem: Vomiting, Vasovagal near syncope, Coronary artery disease Patient Disposition: Admitted As Inpatient Condition: Good Discharge Instructions Interventions: ED Discharge Assessment Last Done: 03/10/19 20:50 The scribe's documentation has been prepared under my direction and personally reviewed by me in its entirety. I confirm that the note above accurately reflects all work, treatment, procedures, and medical decision making performed by me.
[2019-03-10] MEDS ORDERED: ACETAMINOPHEN 325 MG TAB PO PRN (21:03)
[2019-03-10] MEDS ORDERED: ONDANSETRON INJ 2 MG/ML 2 ML VIAL IV PRN (21:03)
[2019-03-10] MEDS ORDERED: NITROGLYCERIN SL 0.4 MG/TAB TAB SL PRN (21:03)
[2019-03-10] MEDS ORDERED: CEROVITE ADV FORMULA TAB PO SCH (21:03)
--- NOTE | 2019-03-10 21:15 | History & Physical Report ---
Date of Service March 10, 2019 Assessment & Plan (1) Vasovagal near syncope: OBS alarm security or surveillance monitor serial trops orthostatic vitals (2) CAD (coronary artery disease), [place] coronary artery: continue Plavix. (3) Paroxysmal atrial fibrillation: Continue Eliquis and metoprolol. (4) Hypertension: Continue sacubitril (5) Chronic kidney disease, stage IV (severe): baseline creat appears to be 2.4. He is 2.7 at this time. I will give IVF overnight and re-check in the am. (6) Gastroesophageal reflux: Continue pantoprazole. (7) Hypothyroidism: Continue levothyroxine (8) Dyslipidemia: Continue atorvastatin (9) BPH (benign prostatic hyperplasia): (10) Gout: Continue allopurinol. History of Present Illness 83 y/o male presented to the ED with episode of lightheadedness and vomiting that occurred while he was working out. He did not lose consciousness but felt that he was close. He did not have any chest pain or SOB. No cough, F/C, diarrhea, or recent illness. He had completed cardiac rehab the previous week, which he has been doing since hospital discharge in September 2018 due to [place]. As I saw the patient he is feeling back to baseline. No lightheadedness or nausea. In fact he is hungry. Primary Care Provider: Mauricio Durand Allergies Allergy/AdvReac Type Severity Reaction Status Date / Time Penicillins Allergy Intermediate HIVES. CAN Verified 02/10/19 10:[address] LUCERO peanut Allergy Mild SPOT Verified 02/10/19 10:59 SWELLING OF TONGUE shrimp Allergy Mild WHOLE Verified 02/10/19 10:59 SWELLING OF TONGUE Bactrim Allergy Unknown NAUSEA Verified 12/05/17 17:29 Cipro Allergy Unknown RASH Unverified 12/05/17 17:29 ciprofloxacin Allergy Unknown RASH Unverified 02/10/19 10:59 nitrofurantoin Allergy Unknown VOMITING Verified 02/10/19 10:59 sulfamethoxazole Allergy Unknown NAUSEA Verified 02/10/19 10:59 trimethoprim Allergy Unknown NAUSEA Verified 02/10/19 10:59 coffee (Coffea arabica) AdvReac Mild VERTIGO Verified 02/10/19 10:59 Corticosteroids AdvReac Mild VOMITING Verified 02/10/19 10:59 (Glucocorticoids) hydrocortisone AdvReac Mild VOMITING Verified 02/10/19 10:59 Nitrate Analogues AdvReac Mild VOMITING Verified 02/10/19 10:59 Quinolones AdvReac Mild VOMITING Verified 02/10/19 10:59 tetracycline AdvReac Mild VOMITING Verified 02/10/19 10:59 BANDAIDS Allergy Unknown . Uncoded 02/10/19 10:59 Home Medications Home Medications Medication Instructions Recorded Confirmed Type Eliquis 2.5 mg PO BID 09/17/18 03/10/19 History levothyroxine 50 mcg PO QAM 09/17/18 03/10/19 History metoprolol succinate 200 mg PO QAM 09/17/18 03/10/19 History multivitamin 1 tab PO QAM 09/17/18 03/10/19 History pantoprazole 40 mg PO QAM 09/17/18 03/10/19 History clopidogrel 75 mg PO QAM #30 tab 09/25/18 03/10/19 Rx tamsulosin 0.4 mg PO HS #30 cap 09/25/18 03/10/19 Rx isosorbide mononitrate ER 30 mg 30 mg PO DAILY 12/09/18 03/10/19 History tablet,extended release 24 hr sacubitril 24 mg-valsartan 26 mg 1 tab PO BID 12/09/18 03/10/19 History tablet allopurinol 100 mg tablet 100 mg PO DAILY 12/30/18 03/10/19 History atorvastatin 80 mg tablet 80 mg PO DAILY 12/30/18 03/10/19 History escitalopram 5 mg tablet 5 mg PO DAILY 12/30/18 03/10/19 History magnesium oxide 400 mg (241.3 mg 400 mg PO DAILY tab 12/30/18 03/10/19 History magnesium) tablet torsemide 10 mg tablet 15 mg PO DAILY tab 12/30/18 03/10/19 History vit C,Y-Qt-fkkqj-lutein-zeaxan 1 cap PO BID 12/30/18 03/10/19 History ergocalciferol (vitamin D2) 50,000 50,000 unit PO MONTHLY #3 cap 02/19/19 03/10/19 Rx unit capsule Past Med/Surg History Medical History Vitamin D deficiency SNHL (sensorineural hearing loss) Prurigo nodularis Proteinuria (Chronic) Preop examination Obstructive sleep apnea Neoplasm of uncertain behavior of skin Hypermagnesemia Hyperkalemia Hiatal hernia Gout, joint Gastroesophageal reflux Folliculitis Dyspnea on exertion Chronic anticoagulation Cellulitis of arm (Chronic) Matias's esophagus Arthralgia of multiple sites Actinic keratosis Chronic kidney disease, stage IV (severe) (Chronic) Biventricular ICD (implantable cardioverter-defibrillator) in place Gout BPH (benign prostatic hyperplasia) (Chronic) Hypertension (Chronic) Paroxysmal atrial fibrillation Cardiomyopathy (Chronic) CAD (coronary artery disease), [place] coronary artery History of pacemaker Hyperlipidemia Hypertension Myocardial infarction Surgical History S/P percutaneous 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) with stent 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 2006 - RCA 09/18/2018 - 2 EBONY to LAD History of coronary artery stent placement Family History Unknown Heart disease Hypertension Social History Preferred Language: Estonian Communication Ability: Effective Agricultural Services Director Required: No Beliefs That Will Affect Care: None Current Living Situation: Other Current Living Situation Comment: [facility]- Independent living current occupation: retired Other Information That Helps Us Care for You: No Feels Safe at Home: Yes Safety Concerns: Feels Safe At This Time Smoking Status: Never smoker Second Hand Exposure: No ; Hx Alcohol Use: No Hx Substance Use: No Review of Systems Review of Systems: Constitutional- no fever; no weight loss Eyes- no acute visual changes ENT- no sinus drainage; no pharyngitis Pulmonary- no cough, no wheezing, no shortness of breath Cardiac- no chest pain, no palpitations, no orthopnea, no dependent edema GI- As in HPI - no dysuria, no hematuria Musculoskeletal- no arthralgias, no myalgias Derm- no rashes, no new skin lesions. Hematologic- no unusual bruising, no unusual bleeding Lymphatics- no adenopathy Endocrine- no polyuria or polydipsia; no heat or cold intolerance Neuro- no headaches, no focal neurologic symptoms Psych- no anxiety, no depression Physical Exam Physical Exam: General- adult male , NAD Head- atraumatic Eyes- PERRL, EOMI, anicteric ENT- oropharynx clear Neck- supple, no JVD, no adenopathy, no thyromegaly. Lungs- CTA b/l no R/R/W Heart- regular rhythm; no murmur, no gallop, no rub appreciated Abdomen- normal bowel sounds, soft, nontender. Extremities- no pretibial edema, no calf tenderness; peripheral pulses intact Neuro- alert, oriented x 3; PERRL, EOMI; no facial palsy; superintendent sales II-XII intact, Non-focal. Skin- warm & dry Results & Data Vital Signs (Past 12 Hours) Vital Signs Temp Pulse Resp BP Pulse Ox 03/10/19 20:00 85 12 137/99 95 03/10/19 19:01 88 19 95 03/10/19 19:00 88 12 122/88 97 03/10/19 18:50 86 15 92 03/10/19 18:40 89 15 93 03/10/19 18:30 88 18 95 03/10/19 18:20 85 17 92 03/10/19 18:10 85 16 91 03/10/19 18:00 84 12 122/87 94 03/10/19 17:50 88 20 97 03/10/19 17:40 91 H 16 97 03/10/19 17:35 36.4 C L 82 20 135/87 98 03/10/19 17:30 91 H 13 99 03/10/19 17:23 87 12 99 03/10/19 17:19 87 13 135/97 100 Laboratory Results Laboratory Results WBC 6.71 K/uL (4.8-10.8) 03/10/19 17:49 RBC 5.05 M/uL (4.7-6.1) 03/10/19 17:49 Hgb 15.9 g/dL (14.0-18.0) 03/10/19 17:49 Hct 48.3 % (42-52) 03/10/19 17:49 MCV 95.6 fL (80-100) 03/10/19 17:49 MCH 31.5 pg (25-34) 03/10/19 17:49 MCHC 32.9 g/dL (32-36) 03/10/19 17:49 RDW Std Deviation 55.6 fL (36.4-46.3) H 03/10/19 17:49 RDW Coeff of Shelly 16.0 % (11.5-14.5) H 03/10/19 17:49 Plt Count 133 K/uL (130-400) 03/10/19 17:49 MPV 11.6 fL (7.4-10.4) H 03/10/19 17:49 Immature Gran % (Auto) 0.3 % 03/10/19 17:49 Neut % (Auto) 74.2 % 03/10/19 17:49 Lymph % (Auto) 14.9 % 03/10/19 17:49 Atlantic % (Auto) 8.9 % 03/10/19 17:49 Eos % (Auto) 1.6 % 03/10/19 17:49 Baso % (Auto) 0.1 % 03/10/19 17:49 Immature Gran # (Auto) 0.02 K/uL (0.00-0.02) 03/10/19 17:49 Neut # (Auto) 4.97 K/uL (1.4-6.5) 03/10/19 17:49 Lymph # (Auto) 1.00 K/uL (1.2-3.4) L 03/10/19 17:49 Atlantic # (Auto) 0.60 K/uL (0.11-0.59) H 03/10/19 17:49 Eos # (Auto) 0.11 K/uL (0-0.5) 03/10/19 17:49 Baso # (Auto) 0.01 K/uL (0-0.2) 03/10/19 17:49 Sodium 141 mmol/L (136-145) 03/10/19 17:49 Potassium 3.9 mmol/L (3.5-5.1) 03/10/19 17:49 Chloride 106 mmol/L (98-107) 03/10/19 17:49 Carbon Dioxide 28 mmol/L (21-32) 03/10/19 17:49 Anion Gap 7.0 (3-11) 03/10/19 17:49 BUN 48 mg/dl (7-18) H 03/10/19 17:49 Creatinine 2.74 mg/dl (0.6-1.4) H 03/10/19 17:49 Est Cr Clr Drug Dosing 20.0 ml/min 03/10/19 17:49 Est GFR ( Amer) 23.9 03/10/19 17:49 Est GFR (Non-Af Amer) 20.6 03/10/19 17:49 BUN/Creatinine Ratio 17.6 (10-20) 03/10/19 17:49 Glucose 97 mg/dl (70-99) 03/10/19 17:49 Calcium 9.0 mg/dl (8.5-10.1) 03/10/19 17:49 Total Bilirubin 0.9 mg/dl (0.2-1) 03/10/19 17:49 AST 46 U/L (15-37) H 03/10/19 17:49 ALT 105 U/L (12-78) H 03/10/19 17:49 Alkaline Phosphatase 147 U/L (45-117) H 03/10/19 17:49 Total Creatine Kinase 145 U/L (39-308) 03/10/19 17:49 CK-MB (CK-2) 3.5 ng/ml (0.5-3.6) 03/10/19 17:49 CK/CKMB % Calc 2.4 (0-3.0) 03/10/19 17:49 Troponin I 0.034 ng/ml (0-0.045) 03/10/19 19:03 Total Protein 6.3 gm/dl (6.4-8.2) L 03/10/19 17:49 Albumin 2.8 gm/dl (3.4-5.0) L 03/10/19 17:49 Globulin 3.5 gm/dl (2.5-4.0) 03/10/19 17:49 Albumin/Globulin Ratio 0.8 (0.9-2) L 03/10/19 17:49 TSH 1.370 uIu/ml (0.300-4.500) 03/10/19 17:49 Code Status & VTE Plan VTE Prophylaxis Plan VTE Prophylaxis will be ordered: Yes PG Care Time/CCT Total # of Minutes Spent Total Time Spent: 60 Total Time Spent with Patient: Total time spent is greater than 50% in coordination of care (as documented) at patient's floor/unit and/or counseling patient:
[2019-03-10] MEDS: APIXABAN 2.5 MG TAB PO SCH (22:10)
[2019-03-10] MEDS: TAMSULOSIN HCL 0.4 MG CAP PO SCH (22:10)
[2019-03-11 00:34] LABS: Appearance Urine Clear (Clear); Bacteria Urine Automated Negative (Negative); Bilirubin Urine Negative (Negative); Blood Urine Trace (Negative); Color Urine Yellow; Glucose Urine UA Negative (Negative); Ketones Urine Negative (Negative); Leukocyte Esterase Urine Negative (Negative); Nitrite Urine Negative (Negative); Protein Urine 3+ (Negative); RBC Urine Automated 0-4 /hpf (0-4); Specific Gravity Urine 1.013 (1.000-1.030); Urobilinogen Urine Negative (Negative); pH Urine 6.5 (4.5-7.5)
[2019-03-11] MEDS: SODIUM CHLORIDE 0.9% 1000ML 1,000 ML IV SCH ×3 (01:46→20:17)
[2019-03-11 02:29] LABS: Hematocrit (blood only) 46.3 % (42-52); Hemoglobin 15.4 g/dL (14.0-18.0); Mean Corpuscular Hemoglobin 31.9 pg (25-34); Mean Corpuscular Hgb Conc 33.3 g/dL (32-36); Mean Corpuscular Volume 95.9 fL (80-100); Mean Platelet Volume 11.9 fL (7.4-10.4); Platelet Count 114 K/uL (130-400); RDW Standard Deviation 55.9 fL (36.4-46.3); Red Blood Count 4.83 M/uL (4.7-6.1); White Blood Count 5.38 K/uL (4.8-10.8)
[2019-03-11 02:46] LABS: BUN Creatinine Ratio 18.4 (10-20); Calcium 8.3 mg/dl (8.5-10.1); Creatinine Clr Calc Pharmacy 22.1 ml/min; Est GFR (African American) 27.9; Est GFR (Non-African American) 24.1
[2019-03-11 02:50] LABS: Troponin I 0.022 ng/ml (0-0.045)
[2019-03-11] MEDS: LEVOTHYROXINE SODIUM 50 MCG TABLET PO SCH (06:18)
[2019-03-11] MEDS: CEROVITE ADV FORMULA TAB PO SCH (07:51)
[2019-03-11] MEDS: APIXABAN 2.5 MG TAB PO SCH ×2 (07:51→20:18)
[2019-03-11] MEDS: MULTIVITAMIN TAB PO SCH (07:52)
[2019-03-11] MEDS: SACUBITRIL-VALSARTAN 24-26 MG TAB PO SCH ×2 (07:52→20:18)
[2019-03-11] MEDS: TORSEMIDE 10 MG TAB PO SCH ×2 (07:52→08:09)
[2019-03-11] MEDS: CLOPIDOGREL BISULFATE 75 MG TAB PO SCH (07:53)
[2019-03-11] MEDS: MAGNESIUM OXIDE 400 MG TAB PO SCH (07:53)
[2019-03-11] MEDS: ATORVASTATIN 40 MG TAB PO SCH (07:54)
[2019-03-11] MEDS: ALLOPURINOL 100 MG TAB PO SCH (07:54)
[2019-03-11] MEDS: ESCITALOPRAM OXALATE 10 MG TAB PO SCH (07:54)
[2019-03-11] MEDS: METOPROLOL SUCC 50MG EXT REL TAB PO SCH (07:55)
[2019-03-11] MEDS: ISOSORBIDE MONO EXTENDED REL 30 MG TABCR PO SCH (07:55)
[2019-03-11] MEDS ORDERED: PANTOprazole 40 MG TAB PO SCH (09:00)
--- NOTE | 2019-03-11 14:00 | Hospitalist Progress Note ---
Date of Service March 11, 2019 Assessment & Plan (1) Vasovagal near syncope: Admit to in PCU on telemetry for near syncope continue telemetry monitor telemetry monitor serial trops negative orthostatic vitals Awaiting for [employer] event marketing representative to interrogate patient's pacemaker. Continue Eliquis for anticoagulation and DVT prophylaxis. Consider consulting cardiology Patient is full code (2) CAD (coronary artery disease), upper [place] coronary artery: continue Plavix. (3) Paroxysmal atrial fibrillation: Continue Eliquis and metoprolol. (4) Hypertension: Continue sacubitril, hold torsemide 15mg tablet p.o. daily to acute to chronic kidney insufficiency. Continue metoprolol succinate 200 mg p.o. every morning. Continue isosorbide mononitrate 30 mg tablet extended release p.o. daily. (5) Chronic kidney disease, stage IV (severe): Acute to chronic CKD stage IV. Baseline creatinine appears to be 2.4. He is 2.7 at this time. Patient advised to hold Protonix for several days. Patient would need to discuss with his on site coordinator and inside sales account executive about continuation of Protonix in the light of having moderately-severely decreased kidney function. Continue with gentle fluid hydration normal saline at 80 cc/h for 1 L. Pending BNP. Watch for volume overload. Avoid nephrotoxic agents (6) Gastroesophageal reflux: Hold pantoprazole due to moderately-severely decreased kidney function. (7) Hypothyroidism: Continue levothyroxine, TSH normal. (8) Dyslipidemia: Continue atorvastatin (9) BPH (benign prostatic hyperplasia): Stable, tamsulosin 0.4 mg p.o. nightly Present on Admission?: Yes (10) Gout: Continue allopurinol. (11) Coronary artery disease: Continue clopidogrel 75 mg p.o. every morning Present on Admission?: Yes (12) Congestive heart failure: Patient has systolic congestive heart failure. Does not appear to be volume overloaded. Patient appears to be dry. Strict in and out Daily weight Holding torsemide today due to acute chronic kidney insufficiency and will restart tomorrow. Watch for volume overload. Monitor electrolytes. Magnesium pending and BNP pending. Present on Admission?: Yes Subjective Patient seen and examined at the bedside. Patient does not complain of nausea and vomiting diarrhea more and he is afebrile. Patient reports not having any chest pain. Patient is a resident of [facility]. He reports that yesterday during his exercise program he started to feel nausea and vomited once after which he was brought by EMS to the emergency room. Patient just recently completed cardiac rehabilitation for NSTEMI myocardial infarction. Patient was concerned that he has it again. Patient is status post coronary artery disease RCA PCI in 2006 and has cardiomyopathy with a dual-chamber ICD [employer]. The event marketing representative of [employer] is on his way to inte rrogate patient pacemaker. It was noted yesterday that patient was in a flutter upon arrival to the hospital. Serial troponin were done and all of which are negative. Patient reports no chest pain at this time. Patient denies fever chills, abdominal pain frequency urgency. Patient takes all of his meds. On February 03 patient had echocardiogram done which showed mild to moderately reduced left ventricular systolic function. With mild to moderate global hypokinesis of the left ventricle. Ejection fraction 35 to 40%. There is a mild to moderate mitral regurgitation. And the right ventricular systolic pressure is elevated to 30 to 40 mmHg. When study compared to November 27, 2017 it was visible diminishing left ventricular systolic function. Review of Systems Review of Systems: All systems reviewed & are unremarkable except as noted in HPI & below Physical Exam Constitutional: WD/WN, vitals as above well developed Eyes: PERRL, conjunctivae normal, anicteric sclerae ENMT: external ear and nose normal, oropharynx normal Neck: trachea midline, no thyromegaly Respiratory: normal respiratory effort, lungs clear to auscultation Cardiovascular: Heart Sounds: normal S1, normal S2 and + murmur Palpation: + palpable S3 Vessels: dorsalis pedis pulses present Gastrointestinal (Abdomen): normal bowel sounds, soft, nontender, no hepatosplenomegaly Musculoskeletal: no cyanosis or clubbing, extremities motor strength 5/5 Skin: no rashes, warm and dry Neurologic: patellar DTR's 2+ bilat, sensation intact Genitourinary: no testicular masses, no penis abnormality Lymphatic: no cervical or axillary lymphadenopathy Results & Data Vital Signs (Past 12 Hours) Vital Signs Temp Pulse Pulse Resp BP Pulse Ox 03/11/19 11:45 36.6 C 88 30 H 129/90 95 03/11/19 08:00 90 03/11/19 04:24 36.6 C 86 17 128/86 90 03/11/19 02:16 87 PG Care Time/CCT Total # of Minutes Spent Total Time Spent with Patient: Total time spent is greater than 50% in coordination of care (as documented) at patient's floor/unit and/or counseling patient:
[2019-03-11] MEDS: TAMSULOSIN HCL 0.4 MG CAP PO SCH (20:18)
[2019-03-12] MEDS: LEVOTHYROXINE SODIUM 50 MCG TABLET PO SCH (06:13)
[2019-03-12 06:49] LABS: Albumin Level 2.2 gm/dl (3.4-5.0); BUN Creatinine Ratio 17.3 (10-20); Creatinine Clr Calc Pharmacy 22.2 ml/min; Est GFR (African American) 28.1; Est GFR (Non-African American) 24.2; Magnesium 1.8 mg/dl (1.8-2.4); Potassium 4.5 mmol/L (3.5-5.1)
[2019-03-12 06:54] LABS: Albumin Globulin Ratio 0.7 (0.9-2); Bilirubin,Total 0.9 mg/dl (0.2-1); Globulin 3.1 gm/dl (2.5-4.0); Total Protein 5.3 gm/dl (6.4-8.2)
[2019-03-12] MEDS: SACUBITRIL-VALSARTAN 24-26 MG TAB PO SCH (08:13)
[2019-03-12] MEDS: MAGNESIUM OXIDE 400 MG TAB PO SCH (08:14)
[2019-03-12] MEDS: APIXABAN 2.5 MG TAB PO SCH (08:14)
[2019-03-12] MEDS: ISOSORBIDE MONO EXTENDED REL 30 MG TABCR PO SCH (08:14)
[2019-03-12] MEDS: TORSEMIDE 10 MG TAB PO SCH (08:14)
[2019-03-12] MEDS: ESCITALOPRAM OXALATE 10 MG TAB PO SCH (08:14)
[2019-03-12] MEDS: ATORVASTATIN 40 MG TAB PO SCH (08:15)
[2019-03-12] MEDS: CLOPIDOGREL BISULFATE 75 MG TAB PO SCH (08:15)
[2019-03-12] MEDS: MULTIVITAMIN TAB PO SCH (08:15)
[2019-03-12] MEDS: CEROVITE ADV FORMULA TAB PO SCH (08:15)
[2019-03-12] MEDS: METOPROLOL SUCC 50MG EXT REL TAB PO SCH (08:15)
[2019-03-12] MEDS: ALLOPURINOL 100 MG TAB PO SCH (08:15)
[2019-03-12] MEDS: SODIUM CHLORIDE 0.9% 1000ML 1,000 ML IV SCH (09:08)
--- NOTE | 2019-03-12 13:02 | Hospitalist Progress Note ---
Date of Service March 12, 2019 Assessment & Plan (1) Vasovagal near syncope: Pt is requesting to be discharged home. He is doing much better today. His pacemaker was interrogated and there were no issues found there. Continue Eliquis for anticoagulation -ARoyer gomes's Patient will follow up with miner helper early next week and office machine technician -next week. Pt agrees. Patient is full code (2) CAD (coronary artery disease), k[place] coronary artery: continue Plavix. (3) Paroxysmal atrial fibrillation: Continue Eliquis and metoprolol. (4) Hypertension: Continue sacubitril, torsemide 15mg tablet p.o. daily to acute to chronic kidney insufficiency. Continue metoprolol succinate 200 mg p.o. every morning. Continue isosorbide mononitrate 30 mg tablet extended release p.o. daily. (5) Chronic kidney disease, stage IV (severe): Acute to chronic CKD stage IV. Patient is back to his baseline creatinine of 2.4 . Patient would need to discuss with his roving inspector and office machine technician about continuation of Protonix in the light of having moderately-severely decreased kidney function. Good p.o. intake. IV fluids discontinued BNP chronically elevated 6277, but better in comparison to 7396 from 12/22/2018. Continues euvolemic Avoid nephrotoxic agents (6) Gastroesophageal reflux: Hold pantoprazole due to moderately-severely decreased kidney function. Patient is recommended to discuss continuation of this medication with his office machine technician and GI. While patient renal function is not solely decreased because of pantoprazole it could be considered as a contributing factor. (7) Hypothyroidism: Continue levothyroxine, TSH normal. (8) Dyslipidemia: Continue atorvastatin (9) BPH (benign prostatic hyperplasia): Stable, tamsulosin 0.4 mg p.o. nightly (10) Gout: Continue allopurinol. (11) Coronary artery disease: Continue clopidogrel 75 mg p.o. every morning (12) Congestive heart failure: Patient has systolic congestive heart failure. Does not appear to be volume overloaded. Patient appears to be dry. Strict in and out Daily weight Continue torsemide home dose Watch for volume overload. Monitor electrolytes. Subjective Patient seen and examined at the bedside. Patient feels much better today. He reports no chest pain no shortness of breath no episodes of syncope or near syncope. He is pacemaker was interrogated yesterday and no issues were found. The case was discussed with Dr. Schwarz and he will see the patient early next week in his office as well. Patient is afebrile. He states he wants to go back to his [facility] assisted living. He is also going to follow-up with Dr. Gonsalez office machine technician next week as well. Follow-up with PCP within a 7 days. Patient supposed to continue his current medical treatment. Only medication that is going to be on hold at this point is pantoprazole due to patient decreased renal function. Patient was encouraged to discuss pantoprazole with Dr. Gonsalez. Patient denies fever chills, abdominal pain frequency urgency. Review of Systems Review of Systems: All systems reviewed & are unremarkable except as noted in HPI & below Physical Exam Constitutional: WD/WN, vitals as above well developed Eyes: PERRL, conjunctivae normal, anicteric sclerae ENMT: external ear and nose normal, oropharynx normal Neck: trachea midline, no thyromegaly Respiratory: normal respiratory effort, lungs clear to auscultation Cardiovascular: Heart Sounds: normal S1, normal S2 and + murmur Palpation: + palpable S3 Vessels: dorsalis pedis pulses present Gastrointestinal (Abdomen): normal bowel sounds, soft, nontender, no hepatosplenomegaly Musculoskeletal: no cyanosis or clubbing, extremities motor strength 5/5 Skin: no rashes, warm and dry Neurologic: patellar DTR's 2+ bilat, sensation intact Genitourinary: no testicular masses, no penis abnormality Lymphatic: no cervical or axillary lymphadenopathy Results & Data Vital Signs (Past 12 Hours) Vital Signs Temp Pulse Pulse Pulse Resp BP BP 03/12/19 11:21 36.3 C L 88 18 138/101 H 128/106 H 03/12/19 08:12 88 135/99 03/12/19 08:00 87 03/12/19 07:10 36.4 C L 88 19 145/109 H 03/12/19 03:44 36.4 C L 86 17 117/87 Pulse Ox 03/12/19 11:21 94 03/12/19 08:12 03/12/19 08:00 03/12/19 07:10 97 03/12/19 03:44 92 PG Care Time/CCT Total # of Minutes Spent Total Time Spent with Patient: Total time spent is greater than 50% in coordination of care (as documented) at patient's floor/unit and/or counseling patient:
--- NOTE | 2019-03-12 13:16 | Discharge Summary ---
Date of Service March 12, 2019 Admission HPI Per Admitting Provider 83 y/o male presented to the ED with episode of lightheadedness and vomiting that occurred while he was working out. He did not lose consciousness but felt that he was close. He did not have any chest pain or SOB. No cough, F/C, diarrhea, or recent illness. He had completed cardiac rehab the previous week, which he has been doing since hospital discharge in September 2018 due to OK. As I saw the patient he is feeling back to baseline. No lightheadedness or nausea. In fact he is hungry. Primary Care Provider: Mauricio [facility] Admission Exam Per Admitting Provider General- adult male , NAD Head- atraumatic Eyes- PERRL, EOMI, anicteric ENT- oropharynx clear Neck- supple, no JVD, no adenopathy, no thyromegaly. Lungs- CTA b/l no R/R/W Heart- regular rhythm; no murmur, no gallop, no rub appreciated Abdomen- normal bowel sounds, soft, nontender. Extremities- no pretibial edema, no calf tenderness; peripheral pulses intact Neuro- alert, oriented x 3; PERRL, EOMI; no facial palsy; kennel helper II-XII intact, Non-focal. Skin- warm & dry Principal Diagnosis near syncope Discharge Exam Constitutional WD/WN, vitals as above well developed Eyes PERRL, conjunctivae normal, anicteric sclerae ENMT external ear and nose normal, oropharynx normal Neck trachea midline, no thyromegaly Respiratory normal respiratory effort, lungs clear to auscultation Cardiovascular Heart Sounds: normal S1, normal S2 and + murmur Palpation: + palpable S3 Vessels: dorsalis pedis pulses present Gastrointestinal (Abdomen) normal bowel sounds, soft, nontender, no hepatosplenomegaly Musculoskeletal no cyanosis or clubbing, extremities motor strength 5/5 Skin no rashes, warm and dry Neurologic patellar DTR's 2+ bilat, sensation intact Genitourinary no testicular masses, no penis abnormality Lymphatic no cervical or axillary lymphadenopathy Discharge Data Allergies Allergy/AdvReac Type Severity Reaction Status Date / Time Penicillins Allergy Intermediate HIVES. CAN Verified 02/10/19 10:[address] LUCERO peanut Allergy Mild SPOT Verified 02/10/19 10:59 SWELLING OF TONGUE shrimp Allergy Mild WHOLE Verified 02/10/19 10:59 SWELLING OF TONGUE Bactrim Allergy Unknown NAUSEA Verified 12/05/17 17:29 Cipro Allergy Unknown RASH Unverified 12/05/17 17:29 ciprofloxacin Allergy Unknown RASH Unverified 02/10/19 10:59 nitrofurantoin Allergy Unknown VOMITING Verified 02/10/19 10:59 sulfamethoxazole Allergy Unknown NAUSEA Verified 02/10/19 10:59 trimethoprim Allergy Unknown NAUSEA Verified 02/10/19 10:59 coffee (Coffea arabica) AdvReac Mild VERTIGO Verified 02/10/19 10:59 Corticosteroids AdvReac Mild VOMITING Verified 02/10/19 10:59 (Glucocorticoids) hydrocortisone AdvReac Mild VOMITING Verified 02/10/19 10:59 Nitrate Analogues AdvReac Mild VOMITING Verified 02/10/19 10:59 Quinolones AdvReac Mild VOMITING Verified 02/10/19 10:59 tetracycline AdvReac Mild VOMITING Verified 02/10/19 10:59 BANDAIDS Allergy Unknown . Uncoded 02/10/19 10:59 Consultations 03/10/19 19:38 ED Decision to Admit Stat Hospital Course (1) Vasovagal near syncope: Pt is requesting to be discharged home. He is doing much better today. His pacemaker was interrogated and there were no issues found there. Continue Eliquis for anticoagulation -ARoyer gomes's Patient will follow up with delivery recruiter early next week and tobacco classer -next week. Pt agrees. Patient is full code (2) CAD (coronary artery disease), [place] coronary artery: continue Plavix. (3) Paroxysmal atrial fibrillation: Continue Eliquis and metoprolol. (4) Hypertension: Continue sacubitril, torsemide 15mg tablet p.o. daily to acute to chronic kidney insufficiency. Continue metoprolol succinate 200 mg p.o. every morning. Continue isosorbide mononitrate 30 mg tablet extended release p.o. daily. (5) Chronic kidney disease, stage IV (severe): Acute to chronic CKD stage IV. Patient is back to his baseline creatinine of 2.4 . Patient would need to discuss with his tile inspector and tobacco classer about continuation of Protonix in the light of having moderately-severely decreased kidney function. Good p.o. intake. IV fluids discontinued BNP chronically elevated 6277, but better in comparison to 7396 from 12/22/2018. Continues euvolemic Avoid nephrotoxic agents (6) Gastroesophageal reflux: Hold pantoprazole due to moderately-severely decreased kidney function. Patient is recommended to discuss continuation of this medication with his tobacco classer and GI. While patient renal function is not solely decreased because of pantoprazole it could be considered as a contributing factor. (7) Hypothyroidism: Continue levothyroxine, TSH normal. (8) Dyslipidemia: Continue atorvastatin (9) BPH (benign prostatic hyperplasia): Stable, tamsulosin 0.4 mg p.o. nightly (10) Gout: Continue allopurinol. (11) Coronary artery disease: Continue clopidogrel 75 mg p.o. every morning (12) Congestive heart failure: Patient has systolic congestive heart failure. Does not appear to be volume overloaded. Patient appears to be dry. Strict in and out Daily weight Continue torsemide home dose Watch for volume overload. Monitor electrolytes. Total Time Total Time Spent Total Time Spent (In Minutes): none Discharge Plan Discharge Items Patient Disposition: Home - Self-Care Reason For Visit: NEAR SYNCOPE WHILE AT CARDIAC REHAB Discharge Diagnosis: Vasovagal reflex Condition on Discharge: Good Health Concerns: progressive kidney function decline Activity: As commented below Lifting: Gradually increase as tolerated Non-emergency contact: Primary Care Provider, Organic Chemist and Artistic Associate Call non-emergency contact if: you have any medication questions, your symptoms worsen, your pain is not controlled, your pain is worsening, your pain is unusual for you, your pain is concerning for you, you have a fever and your temperature is above 101 Follow-up/Referrals: Mauricio Durand [Primary Care Provider] - Ky Morel MD [Family Provider] - (Please, follow up with Dr. Morel. *A nurse from his office will call you to arrange the appointment. If you have any questions, call his office at [phone].) Diet: Heart Healthy and Low Sodium (2gm) Fluids: 1200ml (5 cups) Addtl Attending Provider Instructions: Please follow up with your PCP next week Follow up with cardiology early next week-Dr. Funes Follow up with nephrology next week- We are holding your Pantoprazole. Please discuss with your tobacco classer weather or not he recommends continuation of medication or not. Pending Studies at Discharge: No Stand-Alone Forms: My [facility], Smoking Cessation Medications and DC Order Prescriptions: Continued ergocalciferol (vitamin D2) [Vitamin D2] 50,000 unit capsule 50,000 unit PO MONTHLY Qty: 3 RF: 1 Entresto 24-26 mg tablet 1 tab PO BID RF: 0 isosorbide mononitrate 30 mg tablet extended release 24 hr 30 mg PO DAILY RF: 0 torsemide 10 mg tablet 15 mg PO DAILY RF: 0 allopurinol 100 mg tablet 100 mg PO DAILY RF: 0 atorvastatin 80 mg tablet 80 mg PO DAILY RF: 0 escitalopram oxalate 5 mg tablet 5 mg PO DAILY RF: 0 magnesium oxide [MagOx] 400 mg (241.3 mg magnesium) tablet 400 mg PO DAILY RF: 0 vit C,D-Za-azwnf-lutein-zeaxan 1 cap PO BID RF: 0 metoprolol succinate 200 mg tablet extended release 24 hr 200 mg PO QAM RF: 0 levothyroxine 50 mcg tablet 50 mcg PO QAM RF: 0 Eliquis 2.5 mg tablet 2.5 mg PO BID RF: 0 multivitamin Tablet 1 tab PO QAM RF: 0 clopidogrel 75 mg Tablet 75 mg PO QAM Qty: 30 RF: 0 tamsulosin 0.4 mg Capsule 0.4 mg PO HS Qty: 30 RF: 0 Discontinued pantoprazole 40 mg tablet,delayed release (DR/EC) 40 mg PO QAM RF: 0 Discharge Orders: Discharge Order (Routine); Ordered 03/12/19 Ordered By: Dusty Mcguire Admission Data Admit Date/Time: 03/12/19 08:46 Attending Provider: Dusty Mcguire Admit Provider: Prabhakar Foster Primary Care Provider: Mauricio Durand Other Providers: Prabhakar Foster
== END 2019-03-12 16:20 | DRG 312 ==
LOC: 2E 17:12 → ED 17:12 → SUATTDRO 20:02 → 2E 20:50

== ENCOUNTER 2019-06-22 15:06 | Inpatient (IN) ==
[2019-06-22] MEDS ORDERED: ALBUT/IPRATROP 3MG/0.5MG NEB 3 ML VIAL NEB STA (15:10)
--- NOTE | 2019-06-22 15:24 | XRay Report ---
SINGLE VIEW CHEST CLINICAL HISTORY: Sepsis. FINDINGS: An AP, portable, upright chest radiograph is compared to study dated 03/10/2019. A 2-lead ca rdiac AICD is unchanged in position and partially obscures the right lower chest. The heart is enlarg ed noting atherosclerotic calcification of the thoracic aorta. There is pulmonary vascular congestion . There are small pleural effusions with bibasilar consolidation. No pneumothorax is seen. The skelet al structures are osteopenic. The bony thorax is grossly intact. IMPRESSION: 1. Cardiomegaly and AICD with evidence of congestive failure. 2. Layering pleural effusions with bibasilar consolidation. This likely represents atelectasis. Clini al correlation will be required. ACT 112: Negative or not required by law. Electronically signed by: Isaiah Jay M.D. 06/22/2019 3:22 PM
--- NOTE | 2019-06-22 16:04 | Emergency Department Note ---
Entered by Mehdi Santoro acting as a scribe for Shivam Corona DO History of Present Illness General Chief complaint: Shortness of Breath/Dyspnea Stated complaint: SOB Time Seen by Provider: 06/22/19 15:07 Source: patient and EMS History of Present Illness Onset (ago): day(s) ( few days ago) Location: chest Pain Consistency: + constant Quality: + other (SOB) Associated symptoms: + other (Positive for nausea and vomiting. Negative for fever, CP, leg swelling, abdominal distention, and abdominal pain.) The patient is an 83 year old male who presents to the emergency department with complaints of constant SOB beginning a few days ago. Per EMS, the patient is from [facility]. He states that the patient has been SOB for a few days. He notes that the patient was diagnosed with pneumonia, and he reports that the patient started Rocephin last night. He states that the patient was hypoxic when EMS arrived. The patient also complains of nausea and vomiting earlier today. He denies any fever, CP, leg swelling, abdominal distention, and abdominal pain. He notes that he has not taken any Tylenol. Home Medications Home Medications Medication Instructions Recorded Confirmed Type Eliquis 2.5 mg PO BID 09/17/18 06/22/19 History levothyroxine 50 mcg PO QAM 09/17/18 06/22/19 History metoprolol succinate 200 mg PO QAM 09/17/18 06/22/19 History clopidogrel 75 mg PO QAM #30 tab 09/25/18 06/22/19 Rx isosorbide mononitrate 30 mg 60 mg PO HS 12/09/18 06/22/19 History tablet,extended release 24 hr allopurinol 100 mg tablet 100 mg PO QAM 12/30/18 06/22/19 History magnesium oxide 400 mg (241.3 mg 400 mg PO QAM tab 12/30/18 06/22/19 History magnesium) tablet acetaminophen 325 mg tablet 650 mg PO Q4H PRN tab MDD 3000 MG 03/22/19 06/22/19 History APAP/24 HOURS Benefiber Clear SF (dextrin) 1 g PO BID 05/14/19 06/22/19 History docusate sodium [Colace] 100 mg PO QAM 05/14/19 06/22/19 History magnesium hydroxide [Milk of 30 ml PO Q48H PRN 05/14/19 06/22/19 History Magnesia] ondansetron HCl 4 mg tablet 4 mg PO Q6H PRN 05/27/19 06/22/19 History CPAP Machine #1 ea 06/14/19 06/17/19 Rx atorvastatin 80 mg tablet 20 mg PO QAM tab 06/14/19 06/22/19 History escitalopram oxalate 5 mg tablet 2.5 mg PO QAM 06/17/19 06/22/19 History sodium chloride 0.65 % nasal spray 1 sprays INTRANASAL DIRECTED PRN 06/17/19 06/22/19 History aerosol triamcinolone acetonide 0.1 % 1 appln TOP Q12H PRN 06/17/19 06/22/19 History topical cream bisacodyl [Dulcolax (bisacodyl)] 10 mg NJ Q48H PRN 06/22/19 06/22/19 History mirtazapine 7.5 mg PO HS 06/22/19 06/22/19 History oxymetazoline [Afrin Sinus 2 spray INTRANASAL DIRECTED PRN 06/22/19 06/22/19 History (oxymetazoline)] sacubitril-valsartan [Entresto] 1 tab PO BID 06/22/19 06/22/19 History sodium chloride-aloe vera [Adel 1 spray INTRANASAL TID PRN 06/22/19 06/22/19 History Saline Gel] sodium phosphates [Fleet Enema] 118 ml NJ Q72H PRN 06/22/19 06/22/19 History Allergies Allergy/AdvReac Type Severity Reaction Status Date / Time Penicillins Allergy Intermediate HIVES. CAN Verified 06/17/19 13:[address] LUCERO peanut Allergy Mild SPOT Verified 06/17/19 13:35 SWELLING OF TONGUE shrimp Allergy Mild WHOLE Verified 06/17/19 13:35 SWELLING OF TONGUE Bactrim Allergy Unknown NAUSEA Verified 12/05/17 17:29 Cipro Allergy Unknown RASH Unverified 12/05/17 17:29 ciprofloxacin Allergy Unknown RASH Verified 06/17/19 13:35 nitrofurantoin Allergy Unknown VOMITING Verified 06/17/19 13:35 sulfamethoxazole Allergy Unknown NAUSEA Verified 06/17/19 13:35 trimethoprim Allergy Unknown NAUSEA Verified 06/17/19 13:35 coffee (Coffea arabica) AdvReac Mild VERTIGO Verified 06/17/19 13:35 Corticosteroids AdvReac Mild VOMITING Verified 06/17/19 13:35 (Glucocorticoids) hydrocortisone AdvReac Mild VOMITING Verified 06/17/19 13:35 Nitrate Analogues AdvReac Mild VOMITING Verified 06/17/19 13:35 Quinolones AdvReac Mild VOMITING Verified 06/17/19 13:35 tetracycline AdvReac Mild VOMITING Verified 06/17/19 13:35 BANDAIDS Allergy Unknown . 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 Pulmonary HTN Syncope Surgical History (Updated 06/14/19 @ 11:16 by Sumaya Bagley PA-C) Biventricular ICD (implantable cardioverter-defibrillator) in place History of cholecystectomy History of pacemaker History of transurethral resection of prostate S/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 and A total of 10 systems reviewed and were otherwise negative Physical Exam Vital Signs Vital Signs - 24 hr 06/22/19 15:12 06/22/19 15:15 06/22/19 15:35 Temperature 36.3 C L Temperature Source Oral Pulse Rate 82 85 Pulse Rate [Apical] 80 Pulse Rate from SpO2 Sensor 85 Respiratory Rate 20 18 18 Respiratory Effort / Characteristics Spontaneous Blood Pressure 130/95 130/95 Blood Pressure Mean 113 106 Pulse Oximetry 91 92 91 Oxygen Delivery Method Room Air Room Air Sepsis Recent Fever Within 48 Hours No Sepsis New/Unexplained Change in Mental Status No Sepsis Action Taken by Nursing No Action Required 06/22/19 16:31 06/22/19 16:37 06/22/19 16:38 Temperature Temperature Source Pulse Rate 79 Pulse Rate [Apical] Pulse Rate from SpO2 Sensor 82 Respiratory Rate 15 Respiratory Effort / Characteristics Blood Pressure 157/99 H Blood Pressure Mean 109 Pulse Oximetry 92 92 91 Oxygen Delivery Method Room Air Room Air Room Air Sepsis Recent Fever Within 48 Hours Sepsis New/Unexplained Change in Mental Status Sepsis Action Taken by Nursing 06/22/19 17:00 06/22/19 17:30 06/22/19 18:00 Temperature Temperature Source Pulse Rate 89 84 74 Pulse Rate [Apical] Pulse Rate from SpO2 Sensor 83 81 Respiratory Rate 18 19 17 Respiratory Effort / Characteristics Blood Pressure 124/98 122/93 122/97 Blood Pressure Mean 109 98 110 Pulse Oximetry 91 91 99 Oxygen Delivery Method Room Air Sepsis Recent Fever Within 48 Hours Sepsis New/Unexplained Change in Mental Status Sepsis Action Taken by Nursing 06/22/19 18:30 06/22/19 18:31 Temperature Temperature Source Pulse Rate 87 78 Pulse Rate [Apical] Pulse Rate from SpO2 Sensor 91 H 79 Respiratory Rate 18 9 L Respiratory Effort / Characteristics Blood Pressure 124/105 H Blood Pressure Mean 109 Pulse Oximetry 97 98 Oxygen Delivery Method Sepsis Recent Fever Within 48 Hours Sepsis New/Unexplained Change in Mental Status Sepsis Action Taken by Nursing GENERAL: The patient is awake and alert. He is somewhat anxious appearing but overall comfortable. EYES: The conjunctivae are clear. The pupils are round and reactive. EARS, NOSE, MOUTH AND THROAT: The nose is without any evidence of any deformity. Mucous membranes are moist. Tongue is midline. NECK: The neck is nontender and supple. RESPIRATORY: Diminished breath sounds are noted at the right base. There is no tachypnea or conversational dyspnea. CARDIOVASCULAR: Regular rate and rhythm noted there no murmurs rubs or gallops normal S1 normal S2. GASTROINTESTINAL: The abdomen is soft. Abdomen is nontender. MUSCULOSKELETAL/EXTREMITIES: There is no evidence of gross deformity full range of motion is noted in the hips and shoulders. SKIN: Pedal edema was noted bilaterally. NEUROLOGIC: Patient is awake alert and oriented x3. Course Course 1509: The patient was evaluated in room B2. A complete history and physical exam was performed. 164: I reevaluated and updated the patient. 1653: Upon reevaluation, the patient is stable. I discussed the findings and the treatment plan with the patient. He expresses agreement and understanding. I spoke with Dr. Sheehan of the [facility]. The patient will be evaluated for further management. Consultations Consultation #1: I reviewed the patient's case with Dr. Sheehan - Hospitalist, [facility] – [place], [place]. The patient will evaluate the patient for further management. Time: 16:53 Administered Medications Discontinued Medications Albuterol (Duoneb) 3 ml NEB NOW STA Stop: 06/22/19 15:11 Last Admin: 06/22/19 15:35 Dose: 3 ml Documented by: [id number] Ceftriaxone Sodium (Rocephin) 1,000 mg in 50 mls @ 100 mls/hr IV NOW STA Stop: 06/22/19 17:06 Last Infusion: 06/22/19 17:27 Dose: 0 mls/hr Documented by: [id number] Admin: 06/22/19 16:57 Dose: 100 mls/hr Documented by: [id number] Sodium Chloride (Nss 1000ml) 500 mls @ 999 mls/hr IV .Q31M ONE Stop: 06/22/19 17:23 Last Infusion: 06/22/19 17:28 Dose: 0 mls/hr Documented by: [id number] Admin: 06/22/19 16:57 Dose: 999 mls/hr Documented by: [id number] Medical Decision Making Differential Diagnosis Differential diagnoses includes but is not limited to pneumonia, bronchitis, COPD/Asthma exacerbation, pneumothorax, pulmonary embolism, congestive heart failure, acute coronary syndrome Medical Records Attestation: I reviewed the patient's medical records. Home Medications Current Medication List: was personally reviewed by me Laboratory Data Attestation: I reviewed the patient's lab results. Result diagrams: 06/22/19 16:07 06/22/19 16:07 Lab Results 06/22/19 06/22/19 06/22/19 Range/Units 15:45 16:07 16:07 WBC 6.08 (4.8-10.8) K/uL RBC 4.69 L (4.7-6.1) M/uL Hgb 15.1 (14.0-18.0) g/dL Hct 46.0 (42-52) % MCV 98.1 (80-100) fL MCH 32.2 (25-34) pg MCHC 32.8 (32-36) g/dL RDW Std Deviation 63.5 H (36.4-46.3) fL RDW Coeff of Shelly 19.0 H (11.5-14.5) % Plt Count 199 (130-400) K/uL MPV 11.5 H (7.4-10.4) fL Immature Gran % (Auto) 0.2 % Neut % (Auto) 61.7 % Lymph % (Auto) 26.8 % Lyon % (Auto) 9.7 % Eos % (Auto) 1.3 % Baso % (Auto) 0.3 % Immature Gran # (Auto) 0.01 (0.00-0.02) K/uL Neut # (Auto) 3.75 (1.4-6.5) K/uL Lymph # (Auto) 1.63 (1.2-3.4) K/uL Lyon # (Auto) 0.59 (0.11-0.59) K/uL Eos # (Auto) 0.08 (0-0.5) K/uL Baso # (Auto) 0.02 (0-0.2) K/uL Absolute Nucleated RBC 0.17 H (0-0) K/uL Nucleated RBC % (auto) 2.7 % Polychromasia 1+ Anisocytosis Present Ovalocytes 1+ Echinocytes 2+ PT 12.7 H (9.0-12.0) Seconds INR 1.3 H (0.9-1.1) APTT 26.7 (21.0-31.0) Seconds PTT Ratio 1.0 VBG pH (7.36-7.41) VBG pCO2 (38-50) mmHg VBG pO2 mmHg VBG HCO3 mmol/L VBG O2 Saturation % VBG Base Excess mEq/L Barometric Pressure mm/Hg Sodium (136-145) mmol/L Potassium (3.5-5.1) mmol/L Chloride (98-107) mmol/L Carbon Dioxide (21-32) mmol/L Anion Gap (3-11) BUN (7-18) mg/dl Creatinine (0.6-1.4) mg/dl Est Cr Clr Drug Dosing Est GFR ( Amer) Est GFR (Non-Af Amer) BUN/Creatinine Ratio (10-20) Glucose (70-99) mg/dl Lactate (0.4-2.0) mmol/L Calcium (8.5-10.1) mg/dl Magnesium (1.8-2.4) mg/dl Total Bilirubin (0.2-1) mg/dl AST (15-37) U/L ALT (12-78) U/L Alkaline Phosphatase (45-117) U/L Troponin I (0-0.045) ng/ml NT-Pro-B Natriuret Pep (0-1800) pg/ml Total Protein (6.4-8.2) gm/dl Albumin (3.4-5.0) gm/dl Globulin (2.5-4.0) gm/dl Albumin/Globulin Ratio (0.9-2) Procalcitonin (0-0.5) ng/ml Influenza Type A (PCR) Neg for Influ A (Neg) Influenza Type B (PCR) Neg for Influ B (Neg) 06/22/19 06/22/19 06/22/19 Range/Units 16:07 16:07 16:07 WBC (4.8-10.8) K/uL RBC (4.7-6.1) M/uL Hgb (14.0-18.0) g/dL Hct (42-52) % MCV (80-100) fL MCH (25-34) pg MCHC (32-36) g/dL RDW Std Deviation (36.4-46.3) fL RDW Coeff of Shelly (11.5-14.5) % Plt Count (130-400) K/uL MPV (7.4-10.4) fL Immature Gran % (Auto) % Neut % (Auto) % Lymph % (Auto) % Lyon % (Auto) % Eos % (Auto) % Baso % (Auto) % Immature Gran # (Auto) (0.00-0.02) K/uL Neut # (Auto) (1.4-6.5) K/uL Lymph # (Auto) (1.2-3.4) K/uL Lyon # (Auto) (0.11-0.59) K/uL Eos # (Auto) (0-0.5) K/uL Baso # (Auto) (0-0.2) K/uL Absolute Nucleated RBC (0-0) K/uL Nucleated RBC % (auto) % Polychromasia Anisocytosis Ovalocytes Echinocytes PT (9.0-12.0) Seconds INR (0.9-1.1) APTT (21.0-31.0) Seconds PTT Ratio VBG pH (7.36-7.41) VBG pCO2 (38-50) mmHg VBG pO2 mmHg VBG HCO3 mmol/L VBG O2 Saturation % VBG Base Excess mEq/L Barometric Pressure mm/Hg Sodium 138 (136-145) mmol/L Potassium 5.2 H D (3.5-5.1) mmol/L Chloride 101 (98-107) mmol/L Carbon Dioxide 30 (21-32) mmol/L Anion Gap 7.0 (3-11) BUN 65 H (7-18) mg/dl Creatinine 3.03 H D (0.6-1.4) mg/dl Est Cr Clr Drug Dosing Not Reportable Est GFR ( Amer) 21.2 Est GFR (Non-Af Amer) 18.3 BUN/Creatinine Ratio 21.6 H (10-20) Glucose 122 H (70-99) mg/dl Lactate 3.1 H* (0.4-2.0) mmol/L Calcium 9.2 (8.5-10.1) mg/dl Magnesium 2.8 H (1.8-2.4) mg/dl Total Bilirubin 0.6 (0.2-1) mg/dl AST 48 H (15-37) U/L ALT 100 H (12-78) U/L Alkaline Phosphatase 215 H (45-117) U/L Troponin I 0.037 (0-0.045) ng/ml NT-Pro-B Natriuret Pep (0-1800) pg/ml Total Protein 6.6 (6.4-8.2) gm/dl Albumin 2.1 L (3.4-5.0) gm/dl Globulin 4.5 H (2.5-4.0) gm/dl Albumin/Globulin Ratio 0.5 L (0.9-2) Procalcitonin 0.27 (0-0.5) ng/ml Influenza Type A (PCR) (Neg) Influenza Type B (PCR) (Neg) 06/22/19 06/22/19 06/22/19 Range/Units 16:07 17:02 18:00 WBC (4.8-10.8) K/uL RBC (4.7-6.1) M/uL Hgb (14.0-18.0) g/dL Hct (42-52) % MCV (80-100) fL MCH (25-34) pg MCHC (32-36) g/dL RDW Std Deviation (36.4-46.3) fL RDW Coeff of Shelly (11.5-14.5) % Plt Count (130-400) K/uL MPV (7.4-10.4) fL Immature Gran % (Auto) % Neut % (Auto) % Lymph % (Auto) % Lyon % (Auto) % Eos % (Auto) % Baso % (Auto) % Immature Gran # (Auto) (0.00-0.02) K/uL Neut # (Auto) (1.4-6.5) K/uL Lymph # (Auto) (1.2-3.4) K/uL Lyon # (Auto) (0.11-0.59) K/uL Eos # (Auto) (0-0.5) K/uL Baso # (Auto) (0-0.2) K/uL Absolute Nucleated RBC (0-0) K/uL Nucleated RBC % (auto) % Polychromasia Anisocytosis Ovalocytes Echinocytes PT (9.0-12.0) Seconds INR (0.9-1.1) APTT (21.0-31.0) Seconds PTT Ratio VBG pH 7.33 L (7.36-7.41) VBG pCO2 60 H (38-50) mmHg VBG pO2 21 mmHg VBG HCO3 31 mmol/L VBG O2 Saturation < 60.0 % VBG Base Excess 2.7 mEq/L Barometric Pressure 731.4 mm/Hg Sodium (136-145) mmol/L Potassium (3.5-5.1) mmol/L Chloride (98-107) mmol/L Carbon Dioxide (21-32) mmol/L Anion Gap (3-11) BUN (7-18) mg/dl Creatinine (0.6-1.4) mg/dl Est Cr Clr Drug Dosing Est GFR ( Amer) Est GFR (Non-Af Amer) BUN/Creatinine Ratio (10-20) Glucose (70-99) mg/dl Lactate 3.5 H* (0.4-2.0) mmol/L Calcium (8.5-10.1) mg/dl Magnesium (1.8-2.4) mg/dl Total Bilirubin (0.2-1) mg/dl AST (15-37) U/L ALT (12-78) U/L Alkaline Phosphatase (45-117) U/L Troponin I (0-0.045) ng/ml NT-Pro-B Natriuret Pep 01545 H (0-1800) pg/ml Total Protein (6.4-8.2) gm/dl Albumin (3.4-5.0) gm/dl Globulin (2.5-4.0) gm/dl Albumin/Globulin Ratio (0.9-2) Procalcitonin (0-0.5) ng/ml Influenza Type A (PCR) (Neg) Influenza Type B (PCR) (Neg) Imaging Data Radiologist's Impression: Radiology results as stated below per my review and the radiologist's interpretation: SINGLE VIEW CHEST FINDINGS: An AP, portable, upright chest radiograph is compared to study dated 03/10/2019. A 2-lead cardiac AICD is unchanged in position and partially obscures the right lower chest. The heart is enlarged noting atherosclerotic calcification of the thoracic aorta. There is pulmonary vascular congestion. There are small pleural effusions with bibasilar consolidation. No pneumothorax is seen. The skeletal structures are osteopenic. The bony thorax is grossly intact. IMPRESSION: 1. Cardiomegaly and AICD with evidence of congestive failure. 2. Layering pleural effusions with bibasilar consolidation. This likely represents atelectasis. Clinical correlation will be required. ACT 112: Negative or not required by law. Electronically signed by: Isaiah Jay M.D. 06/22/2019 3:22 PM ECG Data Attestation: I personally reviewed and interpreted this ECG as follows: Indication: + SOB/dyspnea Rate (beats per minute): 81 Rhythm: + atrial fibrillation ECG Intervals/blocks: + Right Bundle branch block ECG Findings: + PVCs Comparison ECG Date: from (03/11/2019) Change: no significant change Additional Comments: Paced beats noted. Blood Pressure Blood Pressure Findings: Elevated blood pressure Blood Pressure Disposition: further management by hospitalist SUPA Narrative The patient is an 83-year-old male who presented to the emergency department for difficulty breathing. Currently the patient does take Eliquis for irregular heartbeat. The patient did have hypoxia which was borderline in the emergency department. He does not normally wear oxygen. He has been having problems with epistaxis. The patient's outpatient provider did start the patient on IM antibiotics for presumed pneumonia noted on chest x-ray however it is difficult to determine if this is truly an infectious process versus volume overload. The patient was found to have a bump in his creatinine compared to previous. I discussed the patient's laboratory and radiographic studies with him. He was treated with IV antibiotics. I discussed his case with the on-call [facility] hospitalist group. They have agreed to evaluate the patient in the emergency department for further management and disposition. I do feel the patient may require further inpatient work-up to determine the true cause of his difficulty breathing. Impression & Plan Pneumonia, Acute kidney injury, Pleural effusion Discharge Plan Visit Data Chief Complaint: Shortness of Breath/Dyspnea Stated Complaint: SOB ED Provider: Shivam Corona Discharge Problem: Pneumonia, Acute kidney injury, Pleural effusion Patient Disposition: Being Evaluated by Hospitalist Forms Stand Alone Forms: [facility] Prescriptions Prescriptions: No Action acetaminophen 325 mg tablet 650 mg PO Q4H MDD 3000 MG APAP/24 HOURS PRN (Reason: Fever Or Pain) RF: 0 ondansetron HCl [Zofran] 4 mg tablet 4 mg PO Q6H PRN (Reason: Nausea) RF: 0 sodium chloride [Saline Nasal Mist] 0.65 % aerosol,spray 1 sprays intranasal DIRECTED PRN (Reason: Dry Mucosa) RF: 0 triamcinolone acetonide 0.1 % cream 1 appln TOP Q12H PRN (Reason: Rash) RF: 0 isosorbide mononitrate 30 mg tablet extended release 24 hr 60 mg PO HS RF: 0 allopurinol 100 mg tablet 100 mg PO QAM RF: 0 magnesium oxide [MagOx] 400 mg (241.3 mg magnesium) tablet 400 mg PO QAM RF: 0 atorvastatin 80 mg tablet 20 mg PO QAM RF: 0 escitalopram oxalate 5 mg tablet 2.5 mg PO QAM RF: 0 (DME) CPAP Machine Misc See Rx Instructions .ROUTE .MEDSUPPLY Qty: 1 RF: 0 metoprolol succinate 200 mg tablet extended release 24 hr 200 mg PO QAM RF: 0 levothyroxine 50 mcg tablet 50 mcg PO QAM RF: 0 Eliquis 2.5 mg tablet 2.5 mg PO BID RF: 0 clopidogrel 75 mg Tablet 75 mg PO QAM Qty: 30 RF: 0 magnesium hydroxide [Milk of Magnesia] 400 mg/5 mL Suspension 30 ml PO Q48H PRN (Reason: Constipation) RF: 0 docusate sodium [Colace] 100 mg Capsule 100 mg PO QAM RF: 0 Benefiber Clear SF (dextrin) 3 gram/3.5 gram Powder In Packet 1 g PO BID RF: 0 oxymetazoline [Afrin Sinus (oxymetazoline)] 0.05 % [place],Non-Aerosol 2 spray INTRANASAL DIRECTED PRN (Reason: Nose Bleed(s)) RF: 0 mirtazapine 7.5 mg tablet 7.5 mg PO HS RF: 0 Adel Saline Gel [place],Non-Aerosol 1 spray INTRANASAL TID PRN (Reason: Nasal Dryness) RF: 0 Entresto 24-26 mg tablet 1 tab PO BID RF: 0 bisacodyl [Dulcolax (bisacodyl)] 10 mg Suppository 10 mg NJ Q48H PRN (Reason: Constipation) RF: 0 Fleet Enema 19-7 gram/118 mL Enema 118 ml NJ Q72H PRN (Reason: Constipation) RF: 0 Referrals Referrals: Mauricio Durand [Primary Care Provider] - Discharge Problem: Pneumonia Qualifiers: Pneumonia type: due to unspecified organism Laterality: right Lung location: lower lobe of lung Qualified Code(s): J18.9 - Pneumonia, unspecified organism The scribe's documentation has been prepared under my direction and personally reviewed by me in its entirety. I confirm that the note above accurately reflects all work, treatment, procedures, and medical decision making performed by me.
[2019-06-22 16:18] LABS: Basophils # (auto) 0.02 K/uL (0-0.2); Basophils % (auto) 0.3 %; Eosinophils # (auto) 0.08 K/uL (0-0.5); Eosinophils % (auto) 1.3 %; Hemoglobin 15.1 g/dL (14.0-18.0); Immature Granulocytes # (auto) 0.01 K/uL (0.00-0.02); Immature Granulocytes % (auto) 0.2 %; Lymphocytes # (auto) 1.63 K/uL (1.2-3.4); Lymphocytes % (auto) 26.8 %; Mean Corpuscular Hemoglobin 32.2 pg (25-34); Mean Corpuscular Hgb Conc 32.8 g/dL (32-36); Mean Corpuscular Volume 98.1 fL (80-100); Mean Platelet Volume 11.5 fL (7.4-10.4); Monocytes # (auto) 0.59 K/uL (0.11-0.59); Monocytes % (auto) 9.7 %; Neutrophils # (auto) 3.75 K/uL (1.4-6.5); Neutrophils % (auto) 61.7 %; Nucleated RBC # (auto) 0.17 K/uL (0-0); Nucleated RBC % (auto) 2.7 %; Platelet Count 199 K/uL (130-400); RDW Standard Deviation 63.5 fL (36.4-46.3); Red Blood Count 4.69 M/uL (4.7-6.1); White Blood Count 6.08 K/uL (4.8-10.8)
[2019-06-22 16:32] LABS: INR 1.3 (0.9-1.1); Partial Thromboplastin Time 26.7 Seconds (21.0-31.0); Prothrombin Time 12.7 Seconds (9.0-12.0)
[2019-06-22 16:36] LABS: Albumin Level 2.1 gm/dl (3.4-5.0); BUN Creatinine Ratio 21.6 (10-20); Blood Urea Nitrogen 65 mg/dl (7-18); Calcium 9.2 mg/dl (8.5-10.1); Carbon Dioxide 30 mmol/L (21-32); Chloride 101 mmol/L (98-107); Est GFR (African American) 21.2; Est GFR (Non-African American) 18.3; Glucose 122 mg/dl (70-99); Magnesium 2.8 mg/dl (1.8-2.4); Potassium 5.2 mmol/L (3.5-5.1); Sodium 138 mmol/L (136-145)
[2019-06-22] MEDS ORDERED: cefTRIAXone SODIUM 1,000 MG/50 ML BAG IV STA (16:37)
[2019-06-22 16:39] LABS: Influenza A virus by PCR Neg for Influ A (Neg); Influenza B virus by PCR Neg for Influ B (Neg)
[2019-06-22 16:46] LABS: Alanine Aminotransferase 100 U/L (12-78); Albumin Globulin Ratio 0.5 (0.9-2); Alkaline Phosphatase 215 U/L (45-117); Aspartate Aminotransferase 48 U/L (15-37); Bilirubin,Total 0.6 mg/dl (0.2-1); Globulin 4.5 gm/dl (2.5-4.0); Total Protein 6.6 gm/dl (6.4-8.2); Troponin I 0.037 ng/ml (0-0.045)
[2019-06-22] MEDS ORDERED: SODIUM CHLORIDE 0.9% 1000ML 500 ML IV ONE (16:53)
[2019-06-22 16:57] LABS: Anisocytosis Present; Echinocytes 2+; Ovalocytes 1+; Polychromasia 1+
[2019-06-22 17:19] LABS: Base Excess VBG 2.7 mEq/L; HCO3 VBG 31 mmol/L; PCO2 VBG 60 mmHg (38-50); PO2 VBG 21 mmHg; pH VBG 7.33 (7.36-7.41)
[2019-06-22 17:21] LABS: Oxygen Saturation VBG < 60.0 %
[2019-06-22] MEDS ORDERED: SODIUM CHLORIDE 0.65% NA SOLN 45 ML (OCEAN) PRN (19:56)
[2019-06-22] MEDS ORDERED: MAGNESIUM HYDROXIDE SUSP 30 ML UDC PO PRN (19:56)
[2019-06-22] MEDS ORDERED: bisacodyL 10 MG SUPP PR PRN (19:56)
[2019-06-22] MEDS ORDERED: SOD PHOSPHATE/SOD BIPHOSPHATE ENEMA 132 ML BTL PR PRN (19:56)
[2019-06-22] MEDS ORDERED: SODIUM CHLORIDE ALOE VERA INTNAS PRN (19:56)
[2019-06-22] MEDS ORDERED: [UNRECOGNIZED DRUG - OTHER] INTNAS PRN (19:56)
[2019-06-22] MEDS ORDERED: ACETAMINOPHEN 325 MG TAB PO PRN (19:56)
[2019-06-22] MEDS ORDERED: TRIAMCINOLONE ACET 0.1% CR 15 GM TUBE TOP PRN (19:56)
[2019-06-22] MEDS ORDERED: WHEAT DEXTRIN PO SCH (21:00)
[2019-06-22] MEDS: ALBUMIN 25% 50 ML IV SCH ×2 (21:06→21:53)
[2019-06-22] MEDS: APIXABAN 2.5 MG TAB PO SCH (21:20)
[2019-06-22] MEDS: MIRTAZAPINE TAB 15 MG TAB PO SCH (21:49)
[2019-06-22] MEDS: ISOSORBIDE MONO EXTENDED REL 60 MG TABCR PO SCH (21:49)
[2019-06-22] MEDS: SACUBITRIL-VALSARTAN 24-26 MG TAB PO SCH (21:49)
--- NOTE | 2019-06-22 22:10 | History & Physical Report ---
Date of Service June 22, 2019 Assessment & Plan (1) Pneumonia: 83-year-old male with multiple medical problems presenting with ill feeling, nausea, vomiting prior to arrival. Now resolved. He is afebrile, hemodynamically stable, nontoxic in appearance. Chest x-ray with bilateral pleural effusions, possible bibasilar consolidations. -Admit to medical floor with telemetry monitoring Empirically antibiotics for possible CAPceftriaxone and doxycycline -Repeat chest x-ray in a.m. -Supplemental oxygen as needed Present on Admission?: Yes (2) Congestive heart failure: Patient with CAD status post inferior wall OH, ischemic cardiomyopathy status post dual-chamber AICD placement. 2D echocardiogram performed on 02/03/2019 with mild to moderate reduction in EF, global hypokinesis of the LV with EF =35 to 40%. Also with moderate MR, moderate TR. Patient appears to be intravascularly depleted at present. He has laboratory evidence of hypoperfusion to include elevated lactate of 3.1 and increase in BUN/creatinine. Also with mild abnormalities of liver studies. Patient also with some evidence of decompensated failure to include bilateral pleural effusions and elevated proBNP. Volume status difficult to ascertain. Administer albumin x2 bottles -repeat labs and lactate after albumin given Continue heart failure medications, Entresto, metoprolol, Imdur Chest x-ray in a.m. 2D echo in a.m. Present on Admission?: Yes (3) Acute kidney injury: Patient with CKD, has mild elevation of BUN and creatinine today. Possibly secondary to volume depletion and hypoperfusion. He received normal saline x500 mL in the ER. Administering 25% albumin x2 bottles as above. -Continue to monitor BUN/creatinine/electrolytes/urine output Avoid nephrotoxic agents Renal dosing were needed Present on Admission?: Yes (4) Pleural effusion: Patient with bilateral pleural effusions. Presently with no respiratory distress at present. Repeat chest x-ray in the morning Continue to monitor respiratory status -Consider thoracic surgery evaluation Present on Admission?: Yes (5) Epistaxis: Patient with bloody nose prior to arrival. Has mild nosebleed now. He is applying pressure with the tissue. No airway compromise. Hold Eliquis If epistaxis continues will place nasal tamponade device -Continue to monitor CBC (6) Hypothyroidism: Chronic. Stable. Continue Synthroid Present on Admission?: Yes (7) Dyslipidemia: Chronic. Stable. Continue atorvastatin Present on Admission?: Yes (8) Coronary artery disease: Patient with longstanding history of CAD status post multiple stents. Ischemic cardiomyopathy, biventricular AICD in place. Presently denies chest pain. Troponin is detectable although below the upper limit of normal. Patient has baseline detectable troponin. EKG with no acute ischemic changes, atrial flutter is present Continue Plavix, atorvastatin Continue Entresto Present on Admission?: Yes (9) Gout: . Stable. Continue allopurinol Present on Admission?: Yes (10) Hypertension: Blood pressure stable Continue metoprolol Continue Entresto Continue to monitor Present on Admission?: Yes (11) Paroxysmal atrial fibrillation: Patient presently in atrial flutter with variable AV block. Rate controlled at 89 bpm. Uncertain if patient's atrial flutter is contributing to his overall symptoms. He did not tolerate atrial fibrillation in the past and presented with dizziness and presyncope. Holding Eliquis due to epistaxis as above Continue metoprolol Present on Admission?: Yes (12) Cardiomyopathy: As above, fluid status difficult to evaluate. Clinically appears dry and shows laboratory evidence of hypoperfusion. Doubt that this picture represents cardiogenic shock. Patient's EF =40% and recent echo Check 2D echo Albumin as above with repeat labs following Continue heart failure meds Present on Admission?: Yes History of Present Illness Chief Complaint: nausea Primary Care Provider: [facility] L[facility]pez Vivas is an 83yo C male presenting with nausea and feeling ill. He has history significant for CAD with inferior OH in 2006, subsequent NSTEMI with stent placement, ICM, HLP. He reports feeling sick for the last 3 months with chronic nausea. He was started on Amiodarone in March due to symptomatic AF. His nausea was thought to be secondary to his Amiodarone. Medication subsequently discontinued with improvement in nausea. Last night he had severe nausea with dry heaving from 03:00 - 05:00. He also had a bloody nose and some SOB. He denies cough/palpitations/CP. Denies fevers/chills/sweats. He reports feeling quite ill now. Er Course: Ceftriaxone, Albuterol, NSS x 500mL Allergies Allergy/AdvReac Type Severity Reaction Status Date / Time Penicillins Allergy Intermediate HIVES. CAN Verified 06/17/19 13:[address] LUCERO peanut Allergy Mild SPOT Verified 06/17/19 13:35 SWELLING OF TONGUE shrimp Allergy Mild WHOLE Verified 06/17/19 13:35 SWELLING OF TONGUE Bactrim Allergy Unknown NAUSEA Verified 12/05/17 17:29 Cipro Allergy Unknown RASH Unverified 12/05/17 17:29 ciprofloxacin Allergy Unknown RASH Verified 06/17/19 13:35 nitrofurantoin Allergy Unknown VOMITING Verified 06/17/19 13:35 sulfamethoxazole Allergy Unknown NAUSEA Verified 06/17/19 13:35 trimethoprim Allergy Unknown NAUSEA Verified 06/17/19 13:35 coffee (Coffea arabica) AdvReac Mild VERTIGO Verified 06/17/19 13:35 Corticosteroids AdvReac Mild VOMITING Verified 06/17/19 13:35 (Glucocorticoids) hydrocortisone AdvReac Mild VOMITING Verified 06/17/19 13:35 Nitrate Analogues AdvReac Mild VOMITING Verified 06/17/19 13:35 Quinolones AdvReac Mild VOMITING Verified 06/17/19 13:35 tetracycline AdvReac Mild VOMITING Verified 06/17/19 13:35 BANDAIDS Allergy Unknown . Uncoded 06/17/19 13:35 Home Medications Home Medications Medication Instructions Recorded Confirmed Type Eliquis 2.5 mg PO BID 09/17/18 06/22/19 History levothyroxine 50 mcg PO QAM 09/17/18 06/22/19 History metoprolol succinate 200 mg PO QAM 09/17/18 06/22/19 History clopidogrel 75 mg PO QAM #30 tab 09/25/18 06/22/19 Rx isosorbide mononitrate 30 mg 60 mg PO HS 12/09/18 06/22/19 History tablet,extended release 24 hr allopurinol 100 mg tablet 100 mg PO QAM 12/30/18 06/22/19 History magnesium oxide 400 mg (241.3 mg 400 mg PO QAM tab 12/30/18 06/22/19 History magnesium) tablet acetaminophen 325 mg tablet 650 mg PO Q4H PRN tab MDD 3000 MG 03/22/19 06/22/19 History APAP/24 HOURS Benefiber Clear SF (dextrin) 1 g PO BID 05/14/19 06/22/19 History docusate sodium [Colace] 100 mg PO QAM 05/14/19 06/22/19 History magnesium hydroxide [Milk of 30 ml PO Q48H PRN 05/14/19 06/22/19 History Magnesia] ondansetron HCl 4 mg tablet 4 mg PO Q6H PRN 05/27/19 06/22/19 History CPAP Machine #1 ea 06/14/19 06/17/19 Rx atorvastatin 80 mg tablet 20 mg PO QAM tab 06/14/19 06/22/19 History escitalopram oxalate 5 mg tablet 2.5 mg PO QAM 06/17/19 06/22/19 History sodium chloride 0.65 % nasal spray 1 sprays INTRANASAL DIRECTED PRN 06/17/19 06/22/19 History aerosol triamcinolone acetonide 0.1 % 1 appln TOP Q12H PRN 06/17/19 06/22/19 History topical cream bisacodyl [Dulcolax (bisacodyl)] 10 mg ND Q48H PRN 06/22/19 06/22/19 History mirtazapine 7.5 mg PO HS 06/22/19 06/22/19 History oxymetazoline [Afrin Sinus 2 spray INTRANASAL DIRECTED PRN 06/22/19 06/22/19 History (oxymetazoline)] sacubitril-valsartan [Entresto] 1 tab PO BID 06/22/19 06/22/19 History sodium chloride-aloe vera [[place] 1 spray INTRANASAL TID PRN 06/22/19 06/22/19 History Saline Gel] sodium phosphates [Fleet Enema] 118 ml ND Q72H PRN 06/22/19 06/22/19 History Past Med/Surg History Medical History (Updated 06/22/19 @ 22:34 by Concetta Sheehan DO) Acute coronary syndrome Acute kidney injury Cellulitis of arm (Inactive) Epistaxis Essential tremor Folliculitis History of migraine Hyperlipidemia Macular degeneration Major depressive disorder Myocardial infarction 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 Pulmonary HTN Syncope Surgical History (Updated 06/14/19 @ 11:16 by Sumaya Bagley PA-C) Biventricular ICD (implantable cardioverter-defibrillator) in place History of cholecystectomy History of pacemaker History of transurethral resection of prostate S/P percutaneous transluminal angioplasty ([employer]) with stent placement 2006 - RCA 09/18/2018 - 2 EBONY to LAD Social History Preferred Language: Lithuanian Communication Ability: Effective 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 Beliefs That Will Affect Care: None Current Living Situation: [facility] Current Living Situation Comment: [facility] current occupation: retired Other Information That Helps Us Care for You: No Feels Safe at Home: Yes Safety Concerns: Feels Safe At This Time Smoking Status: Never smoker Second Hand Exposure: No ; Hx Alcohol Use: No Hx Substance Use: No Review of Systems Review of Systems: All systems reviewed & are unremarkable except as noted in HPI & below Physical Exam Physical Exam: General: patient resting comfortably, NAD, non-toxic in appearance, AA&O x 4 Skin: warm, dry, intact, no rashes or lesions HEENT: NC/AT, PERRL, EOMI, anicteric sclera, conjunctiva without injection, external ear normal to inspection and nontender, nares patent, moist mucus membranes, dentition intact, no oropharyngeal lesions, neck supple, trachea midline, no LAD, no thyromegaly, no JVD Heart: +S1/S2, irregularly irregular, 3/6 AILYN at 2nd right ICS, no rubs/gallops Lungs: equal air entry bilaterally, no rales/rhonchi/wheezes Abd: +BS, soft, NT/ND, no masses/organomegaly/ascites Ext: cool, 2+ pulses in UE/LE bilaterally, no clubbing/cyanosis or edema Neuro: nonfocal, patient AA&O x 4, speech intact, no facial droop, moving all extremities on command with equal strength 5/5 Results & Data Vital Signs (Past 12 Hours) Vital Signs Temp Pulse Pulse Resp BP Pulse Ox 06/22/19 21:22 34.8 C L 92 H 20 95 06/22/19 18:31 78 9 L 98 06/22/19 18:30 87 18 124/105 H 97 06/22/19 18:00 74 17 122/97 99 06/22/19 17:30 84 19 122/93 91 06/22/19 17:00 89 18 124/98 91 06/22/19 16:38 91 06/22/19 16:37 92 06/22/19 16:31 79 15 157/99 H 92 06/22/19 15:35 80 18 91 06/22/19 15:15 36.3 C L 85 18 130/95 92 06/22/19 15:12 82 20 130/95 91 Laboratory Results Lab Results 06/22/19 06/22/19 06/22/19 Range/Units 15:45 16:07 16:07 WBC 6.08 (4.8-10.8) K/uL RBC 4.69 L (4.7-6.1) M/uL Hgb 15.1 (14.0-18.0) g/dL Hct 46.0 (42-52) % MCV 98.1 (80-100) fL MCH 32.2 (25-34) pg MCHC 32.8 (32-36) g/dL RDW Std Deviation 63.5 H (36.4-46.3) fL RDW Coeff of Shelly 19.0 H (11.5-14.5) % Plt Count 199 (130-400) K/uL MPV 11.5 H (7.4-10.4) fL Immature Gran % (Auto) 0.2 % Neut % (Auto) 61.7 % Lymph % (Auto) 26.8 % [place] % (Auto) 9.7 % Eos % (Auto) 1.3 % Baso % (Auto) 0.3 % Immature Gran # (Auto) 0.01 (0.00-0.02) K/uL Neut # (Auto) 3.75 (1.4-6.5) K/uL Lymph # (Auto) 1.63 (1.2-3.4) K/uL [place] # (Auto) 0.59 (0.11-0.59) K/uL Eos # (Auto) 0.08 (0-0.5) K/uL Baso # (Auto) 0.02 (0-0.2) K/uL Absolute Nucleated RBC 0.17 H (0-0) K/uL Nucleated RBC % (auto) 2.7 % Polychromasia 1+ Anisocytosis Present Ovalocytes 1+ Echinocytes 2+ PT 12.7 H (9.0-12.0) Seconds INR 1.3 H (0.9-1.1) APTT 26.7 (21.0-31.0) Seconds PTT Ratio 1.0 VBG pH (7.36-7.41) VBG pCO2 (38-50) mmHg VBG pO2 mmHg VBG HCO3 mmol/L VBG O2 Saturation % VBG Base Excess mEq/L Barometric Pressure mm/Hg Sodium (136-145) mmol/L Potassium (3.5-5.1) mmol/L Chloride (98-107) mmol/L Carbon Dioxide (21-32) mmol/L Anion Gap (3-11) BUN (7-18) mg/dl Creatinine (0.6-1.4) mg/dl Est Cr Clr Drug Dosing Est GFR ( Amer) Est GFR (Non-Af Amer) BUN/Creatinine Ratio (10-20) Glucose (70-99) mg/dl Lactate (0.4-2.0) mmol/L Calcium (8.5-10.1) mg/dl Magnesium (1.8-2.4) mg/dl Total Bilirubin (0.2-1) mg/dl AST (15-37) U/L ALT (12-78) U/L Alkaline Phosphatase (45-117) U/L Troponin I (0-0.045) ng/ml NT-Pro-B Natriuret Pep (0-1800) pg/ml Total Protein (6.4-8.2) gm/dl Albumin (3.4-5.0) gm/dl Globulin (2.5-4.0) gm/dl Albumin/Globulin Ratio (0.9-2) Procalcitonin (0-0.5) ng/ml Influenza Type A (PCR) Neg for Influ A (Neg) Influenza Type B (PCR) Neg for Influ B (Neg) 06/22/19 06/22/19 06/22/19 Range/Units 16:07 16:07 16:07 WBC (4.8-10.8) K/uL RBC (4.7-6.1) M/uL Hgb (14.0-18.0) g/dL Hct (42-52) % MCV (80-100) fL MCH (25-34) pg MCHC (32-36) g/dL RDW Std Deviation (36.4-46.3) fL RDW Coeff of Shelly (11.5-14.5) % Plt Count (130-400) K/uL MPV (7.4-10.4) fL Immature Gran % (Auto) % Neut % (Auto) % Lymph % (Auto) % [place] % (Auto) % Eos % (Auto) % Baso % (Auto) % Immature Gran # (Auto) (0.00-0.02) K/uL Neut # (Auto) (1.4-6.5) K/uL Lymph # (Auto) (1.2-3.4) K/uL [place] # (Auto) (0.11-0.59) K/uL Eos # (Auto) (0-0.5) K/uL Baso # (Auto) (0-0.2) K/uL Absolute Nucleated RBC (0-0) K/uL Nucleated RBC % (auto) % Polychromasia Anisocytosis Ovalocytes Echinocytes PT (9.0-12.0) Seconds INR (0.9-1.1) APTT (21.0-31.0) Seconds PTT Ratio VBG pH (7.36-7.41) VBG pCO2 (38-50) mmHg VBG pO2 mmHg VBG HCO3 mmol/L VBG O2 Saturation % VBG Base Excess mEq/L Barometric Pressure mm/Hg Sodium 138 (136-145) mmol/L Potassium 5.2 H D (3.5-5.1) mmol/L Chloride 101 (98-107) mmol/L Carbon Dioxide 30 (21-32) mmol/L Anion Gap 7.0 (3-11) BUN 65 H (7-18) mg/dl Creatinine 3.03 H D (0.6-1.4) mg/dl Est Cr Clr Drug Dosing Not Reportable Est GFR ( Amer) 21.2 Est GFR (Non-Af Amer) 18.3 BUN/Creatinine Ratio 21.6 H (10-20) Glucose 122 H (70-99) mg/dl Lactate 3.1 H* (0.4-2.0) mmol/L Calcium 9.2 (8.5-10.1) mg/dl Magnesium 2.8 H (1.8-2.4) mg/dl Total Bilirubin 0.6 (0.2-1) mg/dl AST 48 H (15-37) U/L ALT 100 H (12-78) U/L Alkaline Phosphatase 215 H (45-117) U/L Troponin I 0.037 (0-0.045) ng/ml NT-Pro-B Natriuret Pep (0-1800) pg/ml Total Protein 6.6 (6.4-8.2) gm/dl Albumin 2.1 L (3.4-5.0) gm/dl Globulin 4.5 H (2.5-4.0) gm/dl Albumin/Globulin Ratio 0.5 L (0.9-2) Procalcitonin 0.27 (0-0.5) ng/ml Influenza Type A (PCR) (Neg) Influenza Type B (PCR) (Neg) 06/22/19 06/22/19 06/22/19 Range/Units 16:07 17:02 18:00 WBC (4.8-10.8) K/uL RBC (4.7-6.1) M/uL Hgb (14.0-18.0) g/dL Hct (42-52) % MCV (80-100) fL MCH (25-34) pg MCHC (32-36) g/dL RDW Std Deviation (36.4-46.3) fL RDW Coeff of Shelly (11.5-14.5) % Plt Count (130-400) K/uL MPV (7.4-10.4) fL Immature Gran % (Auto) % Neut % (Auto) % Lymph % (Auto) % [place] % (Auto) % Eos % (Auto) % Baso % (Auto) % Immature Gran # (Auto) (0.00-0.02) K/uL Neut # (Auto) (1.4-6.5) K/uL Lymph # (Auto) (1.2-3.4) K/uL [place] # (Auto) (0.11-0.59) K/uL Eos # (Auto) (0-0.5) K/uL Baso # (Auto) (0-0.2) K/uL Absolute Nucleated RBC (0-0) K/uL Nucleated RBC % (auto) % Polychromasia Anisocytosis Ovalocytes Echinocytes PT (9.0-12.0) Seconds INR (0.9-1.1) APTT (21.0-31.0) Seconds PTT Ratio VBG pH 7.33 L (7.36-7.41) VBG pCO2 60 H (38-50) mmHg VBG pO2 21 mmHg VBG HCO3 31 mmol/L VBG O2 Saturation < 60.0 % VBG Base Excess 2.7 mEq/L Barometric Pressure 731.4 mm/Hg Sodium (136-145) mmol/L Potassium (3.5-5.1) mmol/L Chloride (98-107) mmol/L Carbon Dioxide (21-32) mmol/L Anion Gap (3-11) BUN (7-18) mg/dl Creatinine (0.6-1.4) mg/dl Est Cr Clr Drug Dosing Est GFR ( Amer) Est GFR (Non-Af Amer) BUN/Creatinine Ratio (10-20) Glucose (70-99) mg/dl Lactate 3.5 H* (0.4-2.0) mmol/L Calcium (8.5-10.1) mg/dl Magnesium (1.8-2.4) mg/dl Total Bilirubin (0.2-1) mg/dl AST (15-37) U/L ALT (12-78) U/L Alkaline Phosphatase (45-117) U/L Troponin I (0-0.045) ng/ml NT-Pro-B Natriuret Pep 36450 H (0-1800) pg/ml Total Protein (6.4-8.2) gm/dl Albumin (3.4-5.0) gm/dl Globulin (2.5-4.0) gm/dl Albumin/Globulin Ratio (0.9-2) Procalcitonin (0-0.5) ng/ml Influenza Type A (PCR) (Neg) Influenza Type B (PCR) (Neg) Diagnostic Findings SINGLE VIEW CHEST CLINICAL HISTORY: Sepsis. FINDINGS: An AP, portable, upright chest radiograph is compared to study dated 03/10/2019. A 2-lead cardiac AICD is unchanged in position and partially obscures the right lower chest. The heart is enlarged noting atherosclerotic calcification of the thoracic aorta. There is pulmonary vascular congestion. There are small pleural effusions with bibasilar consolidation. No pneumothorax is seen. The skeletal structures are osteopenic. The bony thorax is grossly intact. IMPRESSION: 1. Cardiomegaly and AICD with evidence of congestive failure. 2. Layering pleural effusions with bibasilar consolidation. This likely represents atelectasis. Clinical correlation will be required. ACT 112: Negative or not required by law. Electronically signed by: Isaiah Jay M.D. 06/22/2019 3:22 PM Dictated: 06/22/19 1521 Transcribed: 06/22/19 1521 ECG Additional Comments: Study shows atrial flutter at rate of 81 bpm with variable AV block, left axis deviation, QRS = 146, QTc = 525, right bundle branch block present. No acute ischemic changes Code Status & VTE Plan Code Status DNR/DNI per discussion with patient VTE Prophylaxis Plan VTE Prophylaxis will be ordered: Yes PG Care Time/CCT Total # of Minutes Spent Total Time Spent with Patient: Total time spent is greater than 50% in coordination of care (as documented) at patient's floor/unit and/or counseling patient: Coding Level of Care Code 19608 Initial Inpt Care Lvl 3 Diagnoses Pneumonia J18.9 Laterality: right Lung location: lower lobe of lung Pneumonia type: due to unspecified organism Congestive heart failure I50.23 Heart failure type: systolic Heart failure chronicity: acute on chronic Acute kidney injury N17.9 Pleural effusion J90 Epistaxis R04.0 Hypothyroidism E03.9 Hypothyroidism type: unspecified Dyslipidemia E78.5 Coronary artery disease I25.10 Associated angina: angina presence unspecified Coronary Disease-Associated Artery/Lesion type: unspecified vessel or lesion type [place] vs. transplanted heart: unspecified whether [place] or transplanted heart Gout M10.9 Gout site: unspecified site Gout etiology: unspecified cause Chronicity: unspecified Hypertension I10 Hypertension type: essential hypertension Paroxysmal atrial fibrillation I48.0 Cardiomyopathy I25.5 Cardiomyopathy type: ischemic (1) Hypothyroidism Hypothyroidism type: unspecified Qualified Code(s): E03.9 - Hypothyroidism, unspecified (2) Coronary artery disease Associated angina: angina presence unspecified Coronary Disease-Associated Artery/Lesion type: unspecified vessel or lesion type [place] vs. transplanted heart: unspecified whether [place] or transplanted heart Qualified Code(s): I25.10 - Atherosclerotic heart disease of [place] coronary artery without angina pectoris (3) Congestive heart failure Heart failure type: systolic Heart failure chronicity: acute on chronic Qualified Code(s): I50.23 - Acute on chronic systolic (congestive) heart failure (4) Gout Gout site: unspecified site Gout etiology: unspecified cause Chronicity: unspecified Qualified Code(s): M10.9 - Gout, unspecified (5) Hypertension Hypertension type: essential hypertension Qualified Code(s): I10 - Essential (primary) hypertension (6) Cardiomyopathy Cardiomyopathy type: ischemic Qualified Code(s): I25.5 - Ischemic cardiomyopathy (7) Pneumonia Laterality: right Lung location: lower lobe of lung Pneumonia type: due to unspecified organism Qualified Code(s): J18.9 - Pneumonia, unspecified organism
--- NOTE | 2019-06-22 22:21 | Electrocardiogram Report ---
Test Reason : Blood Pressure : / mmHG Vent. Rate : 081 BPM Atrial Rate : 197 BPM P-R Int : 000 ms QRS Dur : 146 ms QT Int : 452 ms P-R-T Axes : 000 -39 -19 degrees QTc Int : 525 ms Atrial flutter with variable A-V block Left axis deviation Right bundle branch block Possible Septal infarct , age undetermined Inferior infarct Abnormal ECG When compared with ECG of 11-MAR-2019 14:44, Right bundle branch block is now Present Confirmed by Curt Cai ([id number]) on 06/22/2019 10:21:38 PM Referred By: Confirmed By:Curt Cai
[2019-06-22 22:26] LABS: BUN Creatinine Ratio 21.5 (10-20); Calcium 9.3 mg/dl (8.5-10.1); Creatinine Clr Calc Pharmacy 17.6 ml/min; Est GFR (African American) 21.2; Est GFR (Non-African American) 18.3; Potassium 5.3 mmol/L (3.5-5.1)
[2019-06-22] MEDS ORDERED: SODIUM CHLORIDE 0.9% 500 ML IV SCH (22:45)
[2019-06-22] MEDS: DOXYCYCLINE HYCLATE 100 MG in DEXTROSE 5% 100 ML IV SCH (22:56)
[2019-06-23] MEDS: LEVOTHYROXINE SODIUM 50 MCG TABLET PO SCH (06:15)
--- NOTE | 2019-06-23 08:06 | XRay Report ---
XR chest 2V PA/lateral CLINICAL HISTORY: 83 years-old Male presenting with PNA. TECHNIQUE: PA and lateral views of the chest were obtained. COMPARISON: 06/22/2019. FINDINGS: Right subclavian implanted cardiac defibrillator with leads to the right atrium and right ventricular apex. Atherosclerosis of the aortic arch. Cardiac silhouette enlarged. Mild pulmonary vascular promi nence. Extensive bibasilar opacities with limited aeration of the lung bases. Small to moderate bilat eral pleural effusions. No pneumothorax. Degenerative changes of the thoracic spine. Cholecystectomy clips noted. IMPRESSION: 1. Extensive bibasilar opacities, slightly decreased from prior exam. Underlying infection or aspira tion not excluded though this could represent extensive atelectasis 2. Layering bilateral pleural effusions. 3. Cardiomegaly with volume overload. ACT 112: Negative or not required by law. Electronically signed by: Ted Leon M.D. 06/23/2019 8:04 AM
[2019-06-23] MEDS: DOXYCYCLINE HYCLATE 100 MG in DEXTROSE 5% 100 ML IV SCH ×2 (08:37→21:27)
[2019-06-23] MEDS: SACUBITRIL-VALSARTAN 24-26 MG TAB PO SCH ×2 (08:38→21:29)
[2019-06-23] MEDS: allopurinoL 100 MG TAB PO SCH (08:38)
[2019-06-23] MEDS: ATORVASTATIN 20 MG TAB PO SCH (08:38)
[2019-06-23] MEDS: DOCUSATE SODIUM 100 MG CAP PO SCH (08:39)
[2019-06-23] MEDS: ESCITALOPRAM OXALATE ORAL SOLN 5 MG/5 ML PO SCH (08:39)
[2019-06-23] MEDS: METOPROLOL SUCC 50MG EXT REL TAB PO SCH (08:39)
[2019-06-23] MEDS: CLOPIDOGREL BISULFATE 75 MG TAB PO SCH (08:39)
[2019-06-23] MEDS: MAGNESIUM OXIDE 400 MG TAB PO SCH (08:40)
[2019-06-23] MEDS: APIXABAN 2.5 MG TAB PO SCH (08:43)
[2019-06-23 08:57] LABS: Hematocrit (blood only) 44.4 % (42-52); Hemoglobin 14.6 g/dL (14.0-18.0); Mean Corpuscular Hemoglobin 32.4 pg (25-34); Mean Corpuscular Hgb Conc 32.9 g/dL (32-36); Mean Corpuscular Volume 98.4 fL (80-100); Mean Platelet Volume 11.6 fL (7.4-10.4); Nucleated RBC # (auto) 0.23 K/uL (0-0); Nucleated RBC % (auto) 3.7 %; Platelet Count 181 K/uL (130-400); RDW Coefficient of Variation 19.1 % (11.5-14.5); Red Blood Count 4.51 M/uL (4.7-6.1)
[2019-06-23 09:24] LABS: BUN Creatinine Ratio 23.1 (10-20); Calcium 8.7 mg/dl (8.5-10.1); Creatinine Clr Calc Pharmacy 17.8 ml/min; Est GFR (African American) 21.5; Est GFR (Non-African American) 18.6; Potassium 5.2 mmol/L (3.5-5.1)
--- NOTE | 2019-06-23 10:25 | XCELERA ---
[id number] \\[id number]\[id number]
--- NOTE | 2019-06-23 10:40 | Cardiology Consultation ---
Date of Consultation June 23, 2019 Assessment & Plan (1) Paroxysmal atrial flutter: (2) Paroxysmal atrial fibrillation: (3) Cardiomyopathy: (4) Cardiac defibrillator in place: (5) CAD (coronary artery disease), [place] coronary artery: (6) Congestive heart failure: Mr. Vivas is an 83-year-old male with a history of CAD s/p Inferior [place]/RCA Stent 2006, Ischemic Cardiomyopathy s/p Dual Chamber AICD Placement (initial placement complicated by lead infection), Hypertension, Dyslipidemia, Paroxysmal Atrial Fibrillation, Paroxysmal Ventricular Tachycardia, CKD, and an NSTEMI 09/17/2018 s/p EBONY x 2 in Proximal to Mid LAD which was complicated by Reduced LV Systolic Function (LVEF is now 35% to 40% Echo 02/03/2019) -- who was admitted with SOB, MALIN, and a 6 pound weight gain consistent with CHF with a Pro-BNP > 28,000 pg/ml and pleural effusions / pulmonary edema. Patient's defibrillator was interrogated by a [employer] account development representative on 03/10/2019 -- who told the patient that he is always in atrial fibrillation now. Patient was seen by me on 03/22/2019 and continued to have heart failure symptoms and his LV systolic function had decreased -- and the only new variable was the presence of atrial flutter and atrial fibrillation. Therefore I started him on on Amiodarone for his atrial fibrillation/atrial flutter. Repeat EKG done by Mauricio Durand showed he was back in regular rhythm / AV sequentially paced rhythm as of 06/11/2019. Patient continued to have problems with persistent nausea, vomiting, and poor appetite from 03/10/2019 through the first week of June 2019. During the course of GI symptoms -- several of his medications were discontinued including Amiodarone, Entresto, and his Torsemide. There is some question as to whether or not the Amiodarone was contributing N/V -- as patient's GI symptoms pre-dated the use of Amiodarone and patient also had esophageal candidiasis demonstrated on his EGD. Patient is currently in Atrial Flutter with variable AV conduction (V-rates in the 80's and 90's on telemetry) and has evidence of CHF on physical exam, CXR, and laboratories. Patient does not tolerate A-Fib or A-Flutter despite his V- rate being controlled. Recommend the following: -- IV Lasix 80 mg x 1 dose. -- Toprol XL 200 mg daily. -- Entresto 24-26 mg b.i.d.. -- Imdur 60 mg daily. -- Eliquis 2.5 mg b.i.d.. -- Consider restarting Amiodarone vs upgrading to a Bi-V AICD +/- AV Node ablation. I will discuss with Dr. Funes. -- Monitor daily BMP. -- Monitor I&O's and body weights. We will continue to follow. Supervising Physician Co-Signing Physician Notes Andriy Funes MD Patient seen and examined. Case reviewed with Slava Carter. Agree with above, he has a lot of reasons to feel poorly and I agree with restarting his heart f ailure medications in hopes of improving his left ventricular function. We may also need to address his arrhythmia, that would require medications and conversion or potentially AV block and device upgrade. Either is associated with some potential difficulty. History of Present Illness Attending Physician: Андрей Bradley MD History of Present Illness Mr. Vivas is an 83-year-old male with a history of CAD s/p Inferior [place]/RCA Stent 2006, Ischemic Cardiomyopathy s/p Dual Chamber AICD Placement (initial placement complicated by lead infection), Hypertension, Dyslipidemia, Paroxysmal Atrial Fibrillation, Paroxysmal Ventricular Tachycardia, CKD, and an NSTEMI 09/17/2018 s/p EBONY x 2 in Proximal to Mid LAD which was complicated by Reduced LV Systolic Function (LVEF is now 35% to 40% Echo 02/03/2019). Following his NSTEMI in September 2018 -- patient was doing quite well from a cardiac standpoint, he participated in Cardiac Rehab through March 2019, and his exercise tolerance was gradually improving as well. On 03/10/2019 patient was exercising at Cardiac Rehab he developed Nausea and Vomiting followed by Lightheadedness/Near Syncope. This appeared to have been an episode of Vasovagal Near-Syncope due to his underlying nausea and vomiting. His device w as interrogated by a [employer] account development representative 03/10/2019 and patient did NOT have any evidence of device malfunction, ventricular arrhythmias, nor did he receive any therapies from his AICD -- but he was told that "he was always in atrial fibrillation at that point". His EKG showed Atrial Flutter. Please note that there are a couple of rhythm strips that show an atrially paced rhythm as l ate as March 01, 2019. He also had atrially paced rhythms and normal sinus rhythms back in September 2018. Patient had ongoing A-Fib and A-Flutter, ongoing heart failure symptoms, and decreased LV systolic function and has not returned to his [place] baseline since the first week of March 2019 -- and the only variable was the presence of atrial flutter and atrial fibrillation. I saw the patient on 03/22/2019 at which time he was still in atrial flutter and still quite symptomatic. Therefore I started him on Amiodarone 03/22/2019 for his atrial fibrillation/atrial flutter. Repeat EKG done by Mauricio Durand showed he was back in regular rhythm / AV sequentially paced rhythm as of 06/11/2019. Unfortunately, patient continued to have problems with persistent nausea, vomiting, and poor appetite from 03/10/2019 through the first week of June 2019. During the course of GI symptoms -- several of his medications were discontinued including Amiodarone, Entresto, and his diuretic. There is some question as to whether or not the Amiodarone was contributing N/V -- as patient's GI symptoms pre-dated the use of Amiodarone. He was seen by Dr. Naidu for GI evaluation of his N/V in May 2019 and underwent an EGD which was consistent with esophageal candidiasis and a large hiatal hernia. Patient states that 3 to 4 days prior to admission he developed MAILN followed by SOB with minimal activity. He has gained approximately 6 pounds over the past week which likely represents fluid retention, although he may be adding some body mass since his N/V are better and he is eating more. He specifically denies any exertional chest pain, heaviness, tightness, pressure, discomfort, or any angina pectoris. He denies any palpitations, syncope, or any further near syncope. He has not had any discharges from his defibrillator. Allergies Allergy/AdvReac Type Severity Reaction Status Date / Time Penicillins Allergy Intermediate HIVES. CAN Verified 06/17/19 13:[address] LUCERO peanut Allergy Mild SPOT Verified 06/17/19 13:35 SWELLING OF TONGUE shrimp Allergy Mild WHOLE Verified 06/17/19 13:35 SWELLING OF TONGUE Bactrim Allergy Unknown NAUSEA Verified 12/05/17 17:29 Cipro Allergy Unknown RASH Unverified 12/05/17 17:29 ciprofloxacin Allergy Unknown RASH Verified 06/17/19 13:35 coffee (Coffea arabica) AdvReac Mild VERTIGO Verified 06/17/19 13:35 Corticosteroids AdvReac Mild VOMITING Verified 06/17/19 13:35 (Glucocorticoids) hydrocortisone AdvReac Mild VOMITING Verified 06/17/19 13:35 Nitrate Analogues AdvReac Mild VOMITING Verified 06/17/19 13:35 Quinolones AdvReac Mild VOMITING Verified 06/17/19 13:35 tetracycline AdvReac Mild VOMITING Verified 06/17/19 13:35 nitrofurantoin AdvReac Unknown VOMITING Verified 06/23/19 11:00 sulfamethoxazole AdvReac Unknown NAUSEA Verified 06/23/19 11:00 trimethoprim AdvReac Unknown NAUSEA Verified 06/23/19 11:00 BANDAIDS Allergy Unknown . Uncoded 06/17/19 13:35 Home Medications Home Medications Medication Instructions Recorded Confirmed Type Eliquis 2.5 mg PO BID 09/17/18 06/22/19 History levothyroxine 50 mcg PO QAM 09/17/18 06/22/19 History metoprolol succinate 200 mg PO QAM 09/17/18 06/22/19 History clopidogrel 75 mg PO QAM #30 tab 09/25/18 06/22/19 Rx isosorbide mononitrate 30 mg 60 mg PO HS 12/09/18 06/22/19 History tablet,extended release 24 hr allopurinol 100 mg tablet 100 mg PO QAM 12/30/18 06/22/19 History magnesium oxide 400 mg (241.3 mg 400 mg PO QAM tab 12/30/18 06/22/19 History magnesium) tablet acetaminophen 325 mg tablet 650 mg PO Q4H PRN tab MDD 3000 MG 03/22/19 06/22/19 History APAP/24 HOURS Benefiber Clear SF (dextrin) 1 g PO BID 05/14/19 06/22/19 History docusate sodium [Colace] 100 mg PO QAM 05/14/19 06/22/19 History magnesium hydroxide [Milk of 30 ml PO Q48H PRN 05/14/19 06/22/19 History Magnesia] ondansetron HCl 4 mg tablet 4 mg PO Q6H PRN 05/27/19 06/22/19 History CPAP Machine #1 ea 06/14/19 06/17/19 Rx atorvastatin 80 mg tablet 20 mg PO QAM tab 06/14/19 06/22/19 History escitalopram oxalate 5 mg tablet 2.5 mg PO QAM 06/17/19 06/22/19 History sodium chloride 0.65 % nasal spray 1 sprays INTRANASAL DIRECTED PRN 06/17/19 06/22/19 History aerosol triamcinolone acetonide 0.1 % 1 appln TOP Q12H PRN 06/17/19 06/22/19 History topical cream bisacodyl [Dulcolax (bisacodyl)] 10 mg [place] Q48H PRN 06/22/19 06/22/19 History mirtazapine 7.5 mg PO HS 06/22/19 06/22/19 History oxymetazoline [Afrin Sinus 2 spray INTRANASAL DIRECTED PRN 06/22/19 06/22/19 History (oxymetazoline)] sacubitril-valsartan [Entresto] 1 tab PO BID 06/22/19 06/22/19 History sodium chloride-aloe vera [[place] 1 spray INTRANASAL TID PRN 06/22/19 06/22/19 History Saline Gel] sodium phosphates [Fleet Enema] 118 ml [place] Q72H PRN 06/22/19 06/22/19 History Patient History Medical History Acute coronary syndrome Acute kidney injury Cellulitis of arm (Inactive) Epistaxis Essential tremor Folliculitis History of migraine Hyperlipidemia Macular degeneration Major depressive disorder Myocardial infarction 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 Pulmonary HTN Syncope Surgical History Biventricular ICD (implantable cardioverter-defibrillator) in place History of cholecystectomy History of pacemaker History of transurethral resection of prostate S/P percutaneous transluminal angioplasty ([employer]) with stent placement 2006 - RCA 09/18/2018 - 2 EBONY to LAD Family History Unknown Heart disease Hypertension Social History Preferred Language: Peruvian Communication Ability: Effective Service Officer Required: No Beliefs That Will Affect Care: None marital status: / Current Living Situation: Intermediate Current Living Situation Comment: [facility] current occupation: retired Other Information That Helps Us Care for You: No Feels Safe at Home: Yes Safety Concerns: Feels Safe At This Time Smoking Status: Never smoker Second Hand Exposure: No ; Hx Alcohol Use: No Hx Substance Use: No Physical Exam Physical Exam: GENERAL: Patient in no acute distress. HEENT: Head is atraumatic, normocephalic. EOM's intact. Facies symmetric. No perioral cyanosis. NECK: No JVD. JVP is mildly elevated. Carotid upstrokes are + 2 bilaterally. No bruits are noted. CHEST/LUNGS: Absent breath sounds in bilateral bases. CVS: S1 and S2 are slightly irregular with a grade 2/6 apical holosystolic murmur. No obvious diastolic murmurs. No gallops or rubs. PMI is nondisplaced. No lifts, heaves, or thrills. No abdominal aortic or renal bruits. ABDOMINAL EXAM: Bowel sounds are present. No masses, organomegaly, or tenderness. EXTREMITIES: No clubbing or cyanosis. No edema. Intact posterior tibial and radial pulses bilaterally. NEUROLOGIC EXAM: Patient is awake, alert, and oriented. Pleasant and cooperative. Answers questions appropriately. Speech is clear. Results & Data ([facility]) Vital Signs (Past 12 Hours) Vital Signs Temp Pulse Pulse Pulse Resp BP Pulse Ox 06/23/19 08:57 85 06/23/19 07:31 36.7 C 84 18 113/75 94 06/23/19 04:00 36.4 C L 92 H 18 133/96 95 06/23/19 02:09 36.5 C 78 22 114/81 92 06/22/19 23:51 76 06/22/19 23:00 36.3 C L 77 20 132/97 92 Laboratory Results Laboratory Results - last 24 hr 06/22/19 06/22/19 06/22/19 15:45 16:07 16:07 WBC 6.08 RBC 4.69 L Hgb 15.1 Hct 46.0 MCV 98.1 MCH 32.2 MCHC 32.8 RDW Std Deviation 63.5 H RDW Coeff of Shelly 19.0 H Plt Count 199 MPV 11.5 H Immature Gran % (Auto) 0.2 Neut % (Auto) 61.7 Lymph % (Auto) 26.8 [place]acken % (Auto) 9.7 Eos % (Auto) 1.3 Baso % (Auto) 0.3 Immature Gran # (Auto) 0.01 Neut # (Auto) 3.75 Lymph # (Auto) 1.63 Bracken # (Auto) 0.59 Eos # (Auto) 0.08 Baso # (Auto) 0.02 Absolute Nucleated RBC 0.17 H Nucleated RBC % (auto) 2.7 Polychromasia 1+ Anisocytosis Present Ovalocytes 1+ Echinocytes 2+ PT 12.7 H INR 1.3 H APTT 26.7 PTT Ratio 1.0 VBG pH VBG pCO2 VBG pO2 VBG HCO3 VBG O2 Saturation VBG Base Excess Barometric Pressure Sodium Potassium Chloride Carbon Dioxide Anion Gap BUN Creatinine Est Cr Clr Drug Dosing Est GFR ( Amer) Est GFR (Non-Af Amer) BUN/Creatinine Ratio Glucose Lactate Calcium Magnesium Total Bilirubin AST ALT Alkaline Phosphatase Troponin I NT-Pro-B Natriuret Pep Total Protein Albumin Globulin Albumin/Globulin Ratio Procalcitonin Nasal Screen MRSA (PCR) Influenza Type A (PCR) Neg for Influ A Influenza Type B (PCR) Neg for Influ B 06/22/19 06/22/19 06/22/19 16:07 16:07 16:07 WBC RBC Hgb Hct MCV MCH MCHC RDW Std Deviation RDW Coeff of Shelly Plt Count MPV Immature Gran % (Auto) Neut % (Auto) Lymph % (Auto) [place] % (Auto) Eos % (Auto) Baso % (Auto) Immature Gran # (Auto) Neut # (Auto) Lymph # (Auto) [place]ack[place] # (Auto) Eos # (Auto) Baso # (Auto) Absolute Nucleated RBC Nucleated RBC % (auto) Polychromasia Anisocytosis Ovalocytes Echinocytes PT INR APTT PTT Ratio VBG pH VBG pCO2 VBG pO2 VBG HCO3 VBG O2 Saturation VBG Base Excess Barometric Pressure Sodium 138 Potassium 5.2 H D Chloride 101 Carbon Dioxide 30 Anion Gap 7.0 BUN 65 H Creatinine 3.03 H D Est Cr Clr Drug Dosing Not Reportable Est GFR ( Amer) 21.2 Est GFR (Non-Af Amer) 18.3 BUN/Creatinine Ratio 21.6 H Glucose 122 H Lactate 3.1 H* Calcium 9.2 Magnesium 2.8 H Total Bilirubin 0.6 AST 48 H ALT 100 H Alkaline Phosphatase 215 H Troponin I 0.037 NT-Pro-B Natriuret Pep Total Protein 6.6 Albumin 2.1 L Globulin 4.5 H Albumin/Globulin Ratio 0.5 L Procalcitonin 0.27 Nasal Screen MRSA (PCR) Influenza Type A (PCR) Influenza Type B (PCR) 06/22/19 06/22/19 06/22/19 16:07 17:02 18:00 WBC RBC Hgb Hct MCV MCH MCHC RDW Std Deviation RDW Coeff of Shelly Plt Count MPV Immature Gran % (Auto) Neut % (Auto) Lymph % (Auto) [place]ack[place] % (Auto) Eos % (Auto) Baso % (Auto) Immature Gran # (Auto) Neut # (Auto) Lymph # (Auto) [place] # (Auto) Eos # (Auto) Baso # (Auto) Absolute Nucleated RBC Nucleated RBC % (auto) Polychromasia Anisocytosis Ovalocytes Echinocytes PT INR APTT PTT Ratio VBG pH 7.33 L VBG pCO2 60 H VBG pO2 21 VBG HCO3 31 VBG O2 Saturation < 60.0 VBG Base Excess 2.7 Barometric Pressure 731.4 Sodium Potassium Chloride Carbon Dioxide Anion Gap BUN Creatinine Est Cr Clr Drug Dosing Est GFR ( Amer) Est GFR (Non-Af Amer) BUN/Creatinine Ratio Glucose Lactate 3.5 H* Calcium Magnesium Total Bilirubin AST ALT Alkaline Phosphatase Troponin I NT-Pro-B Natriuret Pep 60692 H Total Protein Albumin Globulin Albumin/Globulin Ratio Procalcitonin Nasal Screen MRSA (PCR) Influenza Type A (PCR) Influenza Type B (PCR) 06/22/19 06/22/19 06/23/19 22:02 Unknown 01:13 WBC RBC Hgb Hct MCV MCH MCHC RDW Std Deviation RDW Coeff of Shelly Plt Count MPV Immature Gran % (Auto) Neut % (Auto) Lymph % (Auto) [place] % (Auto) Eos % (Auto) Baso % (Auto) Immature Gran # (Auto) Neut # (Auto) Lymph # (Auto) [place] # (Auto) Eos # (Auto) Baso # (Auto) Absolute Nucleated RBC Nucleated RBC % (auto) Polychromasia Anisocytosis Ovalocytes Echinocytes PT INR APTT PTT Ratio VBG pH VBG pCO2 VBG pO2 VBG HCO3 VBG O2 Saturation VBG Base Excess Barometric Pressure Sodium 137 Potassium 5.3 H Chloride 101 Carbon Dioxide 29 Anion Gap 7.0 BUN 65 H Creatinine 3.03 H Est Cr Clr Drug Dosing 17.6 Est GFR ( Amer) 21.2 Est GFR (Non-Af Amer) 18.3 BUN/Creatinine Ratio 21.5 H Glucose 107 H Lactate 2.9 H* Calcium 9.3 Magnesium Total Bilirubin AST ALT Alkaline Phosphatase Troponin I NT-Pro-B Natriuret Pep Total Protein Albumin Globulin Albumin/Globulin Ratio Procalcitonin Nasal Screen MRSA (PCR) Negative Influenza Type A (PCR) Influenza Type B (PCR) 06/23/19 06/23/19 08:32 08:32 WBC 6.20 RBC 4.51 L Hgb 14.6 Hct 44.4 MCV 98.4 MCH 32.4 MCHC 32.9 RDW Std Deviation 64.0 H RDW Coeff of Shelly 19.1 H Plt Count 181 MPV 11.6 H Immature Gran % (Auto) Neut % (Auto) Lymph % (Auto) [place] % (Auto) Eos % (Auto) Baso % (Auto) Immature Gran # (Auto) Neut # (Auto) Lymph # (Auto) [place] # (Auto) Eos # (Auto) Baso # (Auto) Absolute Nucleated RBC 0.23 H Nucleated RBC % (auto) 3.7 Polychromasia Anisocytosis Ovalocytes Echinocytes PT INR APTT PTT Ratio VBG pH VBG pCO2 VBG pO2 VBG HCO3 VBG O2 Saturation VBG Base Excess Barometric Pressure Sodium 138 Potassium 5.2 H Chloride 104 Carbon Dioxide 28 Anion Gap 6.0 BUN 69 H Creatinine 2.99 H Est Cr Clr Drug Dosing 17.8 Est GFR ( Amer) 21.5 Est GFR (Non-Af Amer) 18.6 BUN/Creatinine Ratio 23.1 H Glucose 94 Lactate Calcium 8.7 Magnesium Total Bilirubin AST ALT Alkaline Phosphatase Troponin I NT-Pro-B Natriuret Pep Total Protein Albumin Globulin Albumin/Globulin Ratio Procalcitonin Nasal Screen MRSA (PCR) Influenza Type A (PCR) Influenza Type B (PCR) Medications Administered Active Medications Generic Name Dose Route Start Last Admin Trade Name Freq PRN Reason Stop Dose Admin Acetaminophen 650 mg 06/22/19 19:56 Tylenol PO 07/22/19 19:55 Q4H PRN Fever Or Pain Allopurinol 100 mg 06/23/19 09:00 06/23/19 08:38 Zyloprim PO 07/23/19 08:59 100 mg QAM UCHE Administration Apixaban 2.5 mg 06/22/19 21:00 06/23/19 08:43 Eliquis PO 07/22/19 20:59 Not Given BID UCHE Atorvastatin Calcium 20 mg 06/23/19 09:00 06/23/19 08:38 Lipitor PO 07/23/19 08:59 20 mg QAM UCHE Administration Bisacodyl 10 mg 06/22/19 19:56 Dulcolax [place] 07/22/19 19:55 Q48H PRN Constipation Clopidogrel Bisulfate 75 mg 06/23/19 09:00 06/23/19 08:39 Plavix PO 07/23/19 08:59 75 mg QAM UCHE Administration Docusate Sodium 100 mg 06/23/19 09:00 06/23/19 08:39 Colace PO 07/23/19 08:59 100 mg QAM UCHE Administration Escitalopram Oxalate 2.5 mg 06/23/19 09:00 06/23/19 08:39 Lexapro Soln PO 07/23/19 08:59 2.5 mg QAM UCHE Administration Ceftriaxone Sodium 1,000 mg/ 60 mls @ 100 mls/hr 06/23/19 16:00 Dextrose IV 06/29/19 15:59 Q24H [facility] Protocol Doxycycline Hyclate 100 mg/ 110 mls @ 50 mls/hr 06/22/19 21:00 06/23/19 08:37 Dextrose IV 06/29/19 20:59 50 mls/hr BID UCHE Administration Isosorbide Mononitrate 60 mg 06/22/19 21:00 06/22/19 21:49 Imdur Extended Rel PO 07/22/19 20:59 60 mg HS UCHE Administration Levothyroxine Sodium 50 mcg 06/23/19 06:30 06/23/19 06:15 Synthroid PO 07/23/19 06:29 50 mcg DAILYBB [facility] Administration Magnesium Hydroxide 30 ml 06/22/19 19:56 Milk Of Magnesia PO 07/22/19 19:55 Q48H PRN Constipation Magnesium Oxide 400 mg 06/23/19 09:00 06/23/19 08:40 Mag-Ox PO 07/23/19 08:59 400 mg QAM UCHE Administration Metoprolol Succinate 200 mg 06/23/19 09:00 06/23/19 08:39 Toprol Xl PO 07/23/19 08:59 200 mg QAM UCHE Administration Mirtazapine 7.5 mg 06/22/19 21:00 06/22/19 21:49 Remeron PO 07/22/19 20:59 7.5 mg HS UCHE Administration Ondansetron HCl 4 mg 06/22/19 19:56 Zofran IV 07/22/19 19:55 Q6H PRN Nausea Sacubitril/Valsartan 1 tab 06/22/19 21:00 06/23/19 08:38 Entresto 24/26mg PO 07/22/19 20:59 1 tab BID UCHE Administration Sodium Biphosphate/Sodium Phosphate 118 ml 06/22/19 19:56 Fleet Enema [place] 07/22/19 19:55 Q72H PRN Constipation Sodium Chloride 1 sprays 06/22/19 19:56 [place] Nasal NA 07/22/19 19:55 UD PRN Dry Mucosa Triamcinolone Acetonide 1 appln 06/22/19 19:56 Kenalog 0.1% TOP 07/22/19 19:55 Q12H PRN Rash PG Care Time/CCT Total # of Minutes Spent Total Time Spent with Patient: Total time spent is greater than 50% in coordination of care (as documented) at patient's floor/unit and/or counseling patient: Coding Level of Care Code 59128 Initial Inpt Care Lvl 3 Diagnoses Paroxysmal atrial flutter I48.92 Paroxysmal atrial fibrillation I48.0 Cardiomyopathy I25.5 Cardiomyopathy type: ischemic Cardiac defibrillator in place Z95.810 CAD (coronary artery disease), [place] coronary artery I25.10 Congestive heart failure I50.23 Heart failure chronicity: acute on chronic Heart failure type: systolic (1) Congestive heart failure Heart failure chronicity: acute on chronic Heart failure type: systolic Qualified Code(s): I50.23 - Acute on chronic systolic (congestive) heart failure (2) Cardiomyopathy Cardiomyopathy type: ischemic Qualified Code(s): I25.5 - Ischemic cardiomyopathy
[2019-06-23] MEDS ORDERED: FUROSEMIDE 80 MG in SYRINGE 0 ML IV STA (12:01)
--- NOTE | 2019-06-23 13:05 | Hospitalist Progress Note ---
Date of Service June 23, 2019 Assessment & Plan (1) Pneumonia: Chest x-ray with bilateral pleural effusions & extensive bibasilar consolidations. Continue CAP abx ceftriaxone and doxycycline - Supplemental oxygen as needed (2) Congestive heart failure: Acute on chronic systolic CHF, possibly worsened by return to atrial flutter. Echo this admission shows EF 15-20%. - Given Lasix IV x 1 by cardiology -> Monitor I&Os and weights Continue heart failure medications: Entresto, metoprolol, Imdur - Cardiology following - appreciate thoughts -> May consider AV jose ablation and additional pacing. Will discuss with Dr. Funes. (3) Acute kidney injury: Patient with baseline Cr. of ~2.4, though Cr has ranged as high as 4.2 recently. - Presently Cr is 3.0, and has been stable for 2 days. Unclear if this is ELIZABETH vs. new baseline. - Continue to monitor BUN/creatinine/electrolytes/urine output Avoid nephrotoxic agents Renal dosing were needed (4) Paroxysmal atrial fibrillation: Patient presently in atrial flutter with variable AV block. Rate controlled at 89 bpm. He did not tolerate atrial fibrillation in the past and presented with dizziness and presyncope. Holding Eliquis due to epistaxis as above Continue metoprolol - Cardiology consider AVN ablation as above (5) Coronary artery disease: Patient with longstanding history of CAD status post multiple stents. Ischemic cardiomyopathy, biventricular AICD in place. Presently denies chest pain. EKG with no acute ischemic changes, atrial flutter is present. Continue Plavix, atorvastatin Continue Entresto (6) Epistaxis: Patient with bloody nose prior to arrival. No airway compromise. Had anot her bloody nose overnight after dislodging clot by blowing his nose. Hold Eliquis - Continue to monitor CBC (7) Hypertension: Blood pressure stable today at 120/90. Continue metoprolol, Entresto (8) Pleural effusion: Patient with bilateral pleural effusions on CXR. Continue to monitor respiratory status - Consider thoracic surgery evaluation (9) Hypothyroidism: Chronic. Stable. TSH was 1.3 in 03/2019 and had been stable for several priors. Continue Synthroid (10) Dyslipidemia: Chronic. Stable. Continue atorvastatin (11) Gout: No complaints of joint pain. Stable. Continue allopurinol (12) DVT prophylaxis: SCDs - Will hold heparin for epistaxis. Can restart Eliquis as able. Admission and Anticipated Discharge Date Admission Date: June 22, 2019 Subjective Feels better than when he arrived. Less shortness of breath. Reports no fevers/chills, chest pain, abdominal pain, nausea, or vomiting. Physical Exam Constitutional: WD/WN, vitals as above Eyes: EOM intact bilaterally; no conjunctival abnormality ENMT: external ear and nose normal, oropharynx normal Neck: trachea midline, no thyromegaly normal visual inspection Respiratory: normal respiratory effort, lungs clear to auscultation no respiratory distress Cardiovascular: RRR, no murmur, no edema Vessels: no JVD (None seen, but wilson makes assessment difficult) Gastrointestinal (Abdomen): Inspection/Auscultation: abdomen normal to inspection; abdomen not distended Musculoskeletal: no cyanosis or clubbing, extremities motor strength 5/5 Skin: no rashes, warm and dry Neurologic: moves all extremities and awake Psychiatric: Orientation: alert, oriented to person and cooperative Results & Data ([facility]) Vital Signs (Past 12 Hours) Vital Signs Temp Pulse Pulse Pulse Resp BP Pulse Ox 06/23/19 11:47 36.6 C 86 18 121/90 93 06/23/19 08:57 85 06/23/19 07:31 36.7 C 84 18 113/75 94 06/23/19 04:00 36.4 C L 92 H 18 133/96 95 06/23/19 02:09 36.5 C 78 22 114/81 92 PG Care Time/CCT Total # of Minutes Spent Total Time Spent with Patient: Total time spent is greater than 50% in coordination of care (as documented) at patient's floor/unit and/or counseling patient: Coding Level of Care Code 68121 Subseq Hosp Care Lvl 3 Diagnoses Pneumonia J18.9 Laterality: right Lung location: lower lobe of lung Pneumonia type: due to unspecified organism Congestive heart failure I50.23 Heart failure type: systolic Heart failure chronicity: acute on chronic Acute kidney injury N17.9 Paroxysmal atrial fibrillation I48.0 Coronary artery disease I25.10 Associated angina: angina presence unspecified Coronary Disease-Associated Artery/Lesion type: unspecified vessel or lesion type [place] vs. transplanted heart: unspecified whether [place] or transplanted heart Epistaxis R04.0 Hypertension I10 Hypertension type: essential hypertension Pleural effusion J90 Hypothyroidism E03.9 Hypothyroidism type: unspecified Dyslipidemia E78.5 Gout M10.9 Gout site: unspecified site Gout etiology: unspecified cause Chronicity: unspecified DVT prophylaxis Z29.9 (1) Pneumonia Laterality: right Lung location: lower lobe of lung Pneumonia type: due to unspecified organism Qualified Code(s): J18.9 - Pneumonia, unspecified organism (2) Congestive heart failure Heart failure type: systolic Heart failure chronicity: acute on chronic Qualified Code(s): I50.23 - Acute on chronic systolic (congestive) heart failure (3) Hypothyroidism Hypothyroidism type: unspecified Qualified Code(s): E03.9 - Hypothyroidism, unspecified (4) Coronary artery disease Associated angina: angina presence unspecified Coronary Disease-Associated Artery/Lesion type: unspecified vessel or lesion type [place] vs. transplanted heart: unspecified whether [place] or transplanted heart Qualified Code(s): I25.10 - Atherosclerotic heart disease of [place] coronary artery without angina pectoris (5) Gout Gout site: unspecified site Gout etiology: unspecified cause Chronicity: unspecified Qualified Code(s): M10.9 - Gout, unspecified (6) Hypertension Hypertension type: essential hypertension Qualified Code(s): I10 - Essential (primary) hypertension
[2019-06-23] MEDS: cefTRIAXone SODIUM 1,000 MG in DEXTROSE 5% 50 ML IV SCH (15:55)
[2019-06-23] MEDS: ONDANSETRON INJ 2 MG/ML 2 ML VIAL IV PRN (20:07)
[2019-06-23] MEDS: ISOSORBIDE MONO EXTENDED REL 60 MG TABCR PO SCH (21:28)
[2019-06-23] MEDS: MIRTAZAPINE TAB 15 MG TAB PO SCH (21:28)
[2019-06-24 06:15] LABS: Hematocrit (blood only) 45.5 % (42-52); Hemoglobin 14.9 g/dL (14.0-18.0); Mean Corpuscular Hemoglobin 32.2 pg (25-34); Mean Corpuscular Hgb Conc 32.7 g/dL (32-36); Mean Corpuscular Volume 98.3 fL (80-100); Mean Platelet Volume 11.6 fL (7.4-10.4); Nucleated RBC # (auto) 0.16 K/uL (0-0); Nucleated RBC % (auto) 3.1 %; Platelet Count 162 K/uL (130-400); RDW Coefficient of Variation 19.2 % (11.5-14.5); RDW Standard Deviation 64.7 fL (36.4-46.3); Red Blood Count 4.63 M/uL (4.7-6.1); White Blood Count 5.03 K/uL (4.8-10.8)
[2019-06-24] MEDS: LEVOTHYROXINE SODIUM 50 MCG TABLET PO SCH (06:21)
[2019-06-24 07:00] LABS: BUN Creatinine Ratio 21.2 (10-20); Calcium 8.5 mg/dl (8.5-10.1); Creatinine Clr Calc Pharmacy 16.5 ml/min; Est GFR (African American) 19.6; Est GFR (Non-African American) 16.9; Phosphorus 5.5 mg/dl (2.5-4.9)
[2019-06-24] MEDS: SACUBITRIL-VALSARTAN 24-26 MG TAB PO SCH ×2 (08:25→21:15)
[2019-06-24] MEDS: ATORVASTATIN 20 MG TAB PO SCH (08:25)
[2019-06-24] MEDS: DOXYCYCLINE HYCLATE 100 MG in DEXTROSE 5% 100 ML IV SCH ×2 (08:25→21:45)
[2019-06-24] MEDS: DOCUSATE SODIUM 100 MG CAP PO SCH (08:26)
[2019-06-24] MEDS: METOPROLOL SUCC 50MG EXT REL TAB PO SCH (08:26)
[2019-06-24] MEDS: CLOPIDOGREL BISULFATE 75 MG TAB PO SCH (08:26)
[2019-06-24] MEDS: allopurinoL 100 MG TAB PO SCH (08:26)
[2019-06-24] MEDS: ESCITALOPRAM OXALATE ORAL SOLN 5 MG/5 ML PO SCH (08:26)
[2019-06-24] MEDS: MAGNESIUM OXIDE 400 MG TAB PO SCH (08:26)
[2019-06-24 08:37] LABS: Magnesium 2.6 mg/dl (1.8-2.4)
[2019-06-24] MEDS ORDERED: AMIODARONE IV BOLUS / DRIP IV STA (10:31)
[2019-06-24] MEDS ORDERED: STAT IV Infusion **Titration per Protocol STA (10:31)
[2019-06-24] MEDS ORDERED: 0.2 MICRON FILTER SET 1 EA IV ONE (10:45)
[2019-06-24] MEDS ORDERED: AMIODARONE / D5W 150 MG/100 ML BAG IV ONE (10:50)
[2019-06-24] MEDS ORDERED: AMIODARONE / D5W 360 MG/200 ML BAG IV SCH (11:00)
--- NOTE | 2019-06-24 11:28 | Cardiology Progress Note ---
Date of Service June 24, 2019 Assessment & Plan (1) Paroxysmal atrial flutter: (2) Paroxysmal atrial fibrillation: (3) Cardiomyopathy: (4) Cardiac defibrillator in place: (5) CAD (coronary artery disease), [place] coronary artery: (6) Congestive heart failure: Mr. 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 Patient's defibrillator was interrogated by a [employer] commercial pest control representative on 03/10/2019 -- who told the patient that he is always in atrial fibrillation now. Patient was seen by me on 03/22/2019 and continued to have heart failure symptoms and his LV systolic function had decreased -- and the only new variable was the presence of atrial flutter and atrial fibrillation. Therefore I started him on on Amiodarone for his atrial fibrillation/atrial flutter. Repeat EKG done by Mauricio Durand showed he was back in regular rhythm / AV sequentially paced rhythm as of 06/11/2019. Patient continued to have problems with persistent nausea, vomiting, and poor appetite from 03/10/2019 through the first week of June 2019. During the course of GI symptoms -- several of his medications were discontinued including Amiodarone, Entresto, and his Torsemide. There is some question as to whether or not the Amiodarone was contributing N/V -- as patient's GI symptoms pre-dated the use of Amiodarone and patient also had esophageal candidiasis demonstrated on his EGD. Patient is currently in Atrial Flutter with variable AV conduction (V-rates in the 70's and 90's on telemetry) and has evidence of CHF on physical exam, CXR, and laboratories. Patient does not tolerate A-Fib or A-Flutter despite his V- rate being controlled. Patient is subjectively less SOB today. Recommend the following: -- IV Amiodarone with bolus followed by drip. -- Toprol XL 200 mg daily. -- Entresto 24-26 mg b.i.d.. -- Imdur 60 mg daily. -- Eliquis 2.5 mg b.i.d.. -- Upgrade to a Bi-V AICD and AV Node ablation -- probably early next week. -- Monitor daily BMP. -- Monitor I&O's and body weights. We will continue to follow. Dr Funes discussed procedure with patient and Dr. Андрей Bradley. Admission and Anticipated Discharge Date Admission Date: June 22, 2019 Supervising Physician Co-Signing Physician Notes Patient seen and examined with Slava Carter and the primary service. We discussed various options at length, including restarting amiodarone with hopes of converting him to sinus rhythm as well as consideration of upgrade to a biventricular pacemaker coupled with an AV node ablation to regularize the rhythm and improve contractility. It is not clear how much benefit he would derive from biventricular pacing, his rhythm is fairly regular for the most part and he is ventricular pacing infrequently therefore elimination of right ventricular only pacing and regularizing the rhythm may not have a lot of benefit. His intrinsic complexes are right bundle branch block morphology with a QRS duration of slightly less than 150 ms so resynchronization therapy may have some benefit but perhaps not a lot. It may also be difficult to perform the upgrade because of the right-sided location of the device as well as the implant being many years ago and there possibility of a lot of scarring. For the moment therefore we are going to try medical therapy with restarting amiodarone. Subjective Mr. 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 Following his NSTEMI in September 2018 -- patient was doing quite well from a cardiac standpoint, he participated in Cardiac Rehab through March 2019, and his ex ercise tolerance was gradually improving as well. On 03/10/2019 patient was exercising at Cardiac Rehab he developed Nausea and Vomiting followed by Lightheadedness/Near Syncope. This appeared to have been an episode of Vasovagal Near-Syncope due to his underlying nausea and vomiting. His device was interrogated by a [employer] commercial pest control representative 03/10/2019 and patient did NOT have any evidence of device malfunction, ventricular arrhythmias, nor did he receive any therapies from his AICD -- but he was told that "he was always in atrial fibrillation at that point". His EKG showed Atrial Flutter. Please note that there are a couple of rhythm strips that show an atrially paced rhythm as late as March 01, 2019. He also had atrially paced rhythms and normal sinus rhythms back in September 2018. Patient had ongoing A-Fib and A-Flutter, ongoing heart failure symptoms, and decreased LV systolic function and has not returned to his Post [place] baseline since the first week of March 2019 -- and the only variable was the presence of atrial flutter and atrial fibrillation. I saw the patient on 03/22/2019 at which time he was still in atrial flutter and still quite symptomatic. Therefore I started him on Amiodarone 03/22/2019 for his atrial fibrillation/atrial flutter. Repeat EKG done by Mauricio Durand showed he was back in regular rhythm / AV sequentially paced rhythm as of 06/11/2019. Unfortunately, patient continued to have problems with persistent nausea, vomiting, and poor appetite from 03/10/2019 through the first week of June 2019. During the course of GI symptoms -- several of his medications were discontinued including Amiodarone, Entresto, and his diuretic. There is some question as to whether or not the Amiodarone was contributing N/V -- as patient's GI symptoms pre-dated the use of Amiodarone. He was seen by Dr. Naidu for GI evaluation of his N/V in May 2019 and underwent an EGD which was consistent with esophageal candidiasis and a large hiatal hernia. He is being seen in room 251. Patient is feeling less SOB today but did not have any significant urinary output after receiving a single dose of IV Lasix yesterday -- his creatinine has risen. Patient remains in Atrial flutter with rates in the 70's and 80's overnight. Patient has an RBBB with a QRS duration of 146 msec, and he has a very wide QRS on paced beats. No angina pectoris. Physical Exam Physical Exam: GENERAL: Patient in no acute distress. HEENT: Head is atraumatic, normocephalic. EOM's intact. Facies symmetric. No perioral cyanosis. NECK: No JVD. JVP is mildly elevated. Carotid upstrokes are + 2 bilaterally. No bruits are noted. CHEST/LUNGS: Absent breath sounds in bilateral bases. CVS: S1 and S2 are slightly irregular with a grade 2/6 apical holosystolic murmur. No obvious diastolic murmurs. No gallops or rubs. PMI is nondisplaced. No lifts, heaves, or thrills. No abdominal aortic or renal bruits. ABDOMINAL EXAM: Bowel sounds are present. No masses, organomegaly, or tenderness. EXTREMITIES: No clubbing or cyanosis. No edema. Intact posterior tibial and radial pulses bilaterally. NEUROLOGIC EXAM: Patient is awake, alert, and oriented. Pleasant and cooperative. Answers questions appropriately. Speech is clear. Results & Data ([facility]) Vital Signs (Past 12 Hours) Vital Signs Temp Pulse Pulse Resp BP BP Pulse Ox 06/24/19 07:25 36.3 C L 72 18 112/70 91 06/24/19 04:00 36.5 C 81 20 137/93 96 06/24/19 01:49 18 92 06/23/19 23:49 83 Laboratory Results Laboratory Results - last 24 hr 06/24/19 06/24/19 06/24/19 05:52 05:52 07:51 WBC 5.03 RBC 4.63 L Hgb 14.9 Hct 45.5 MCV 98.3 MCH 32.2 MCHC 32.7 RDW Std Deviation 64.7 H RDW Coeff of Shelly 19.2 H Plt Count 162 MPV 11.6 H Absolute Nucleated RBC 0.16 H Nucleated RBC % (auto) 3.1 Sodium 137 Potassium 5.0 Chloride 104 Carbon Dioxide 27 Anion Gap 7.0 BUN 69 H Creatinine 3.23 H Est Cr Clr Drug Dosing 16.5 Est GFR ( Amer) 19.6 Est GFR (Non-Af Amer) 16.9 BUN/Creatinine Ratio 21.2 H Glucose 79 Calcium 8.5 Phosphorus 5.5 H Magnesium 2.6 H Medications Administered Active Medications Generic Name Dose Route Start Last Admin Trade Name Freq PRN Reason Stop Dose Admin Acetaminophen 650 mg 06/22/19 19:56 Tylenol PO 07/22/19 19:55 Q4H PRN Fever Or Pain Allopurinol 100 mg 06/23/19 09:00 06/24/19 08:26 Zyloprim PO 07/23/19 08:59 100 mg QAM UCHE Administration Atorvastatin Calcium 20 mg 06/23/19 09:00 06/24/19 08:25 Lipitor PO 07/23/19 08:59 20 mg QAM UCHE Administration Bisacodyl 10 mg 06/22/19 19:56 Dulcolax VA 07/22/19 19:55 Q48H PRN Constipation Clopidogrel Bisulfate 75 mg 06/23/19 09:00 06/24/19 08:26 Plavix PO 07/23/19 08:59 75 mg QAM UCHE Administration Docusate Sodium 100 mg 06/23/19 09:00 06/24/19 08:26 Colace PO 07/23/19 08:59 100 mg QAM UCHE Administration Escitalopram Oxalate 2.5 mg 06/23/19 09:00 06/24/19 08:26 Lexapro Soln PO 07/23/19 08:59 2.5 mg QAM UCHE Administration Ceftriaxone Sodium 1,000 mg/ 60 mls @ 100 mls/hr 06/23/19 16:00 06/23/19 16:32 Dextrose IV 06/29/19 15:59 Infused Q24H [facility] Infusion Protocol Doxycycline Hyclate 100 mg/ 110 mls @ 50 mls/hr 06/22/19 21:00 06/24/19 10:51 Dextrose IV 06/29/19 20:59 Infused BID [facility] Infusion Amiodarone HCl/Dextrose 360 mg in 200 mls @ 33.3 mls/hr 06/24/19 11:00 06/24/19 11:45 Nexterone / D5w IV 06/24/19 17:00 33.3 mls/hr .Q6H1M [facility] Administration Amiodarone HCl/Dextrose 360 mg in 200 mls @ 16.7 mls/hr 06/24/19 17:00 Nexterone / D5w IV 07/24/19 16:59 .[id number] [facility] Isosorbide Mononitrate 60 mg 06/22/19 21:00 06/23/19 21:28 Imdur Extended Rel PO 07/22/19 20:59 60 mg HS [facility] Administration Levothyroxine Sodium 50 mcg 06/23/19 06:30 06/24/19 06:21 Synthroid PO 07/23/19 06:29 50 mcg DAILYBB [facility] Administration Magnesium Hydroxide 30 ml 06/22/19 19:56 Milk Of Magnesia PO 07/22/19 19:55 Q48H PRN Constipation Magnesium Oxide 400 mg 06/23/19 09:00 06/24/19 08:26 Mag-Ox PO 07/23/19 08:59 400 mg QAM UCHE Administration Metoprolol Succinate 200 mg 06/23/19 09:00 06/24/19 08:26 Toprol Xl PO 07/23/19 08:59 200 mg QAM UCHE Administration Mirtazapine 7.5 mg 06/22/19 21:00 06/23/19 21:28 Remeron PO 07/22/19 20:59 7.5 mg HS UCHE Administration Ondansetron HCl 4 mg 06/22/19 19:56 06/23/19 20:07 Zofran IV 07/22/19 19:55 4 mg Q6H PRN Administration Nausea Sacubitril/Valsartan 1 tab 06/22/19 21:00 06/24/19 08:25 Entresto 24/26mg PO 07/22/19 20:59 1 tab BID UCHE Administration Sodium Biphosphate/Sodium Phosphate 118 ml 06/22/19 19:56 Fleet Enema VA 07/22/19 19:55 Q72H PRN Constipation Sodium Chloride 1 sprays 06/22/19 19:56 [place] Nasal NA 07/22/19 19:55 UD PRN Dry Mucosa Triamcinolone Acetonide 1 appln 06/22/19 19:56 Kenalog 0.1% TOP 07/22/19 19:55 Q12H PRN Rash PG Care Time/CCT Total # of Minutes Spent Total Time Spent with Patient: Total time spent is greater than 50% in coordination of care (as documented) at patient's floor/unit and/or counseling patient: Coding Level of Care Code 27017 Subseq Hosp Care Lvl 3 Diagnoses Paroxysmal atrial flutter I48.92 Paroxysmal atrial fibrillation I48.0 Cardiomyopathy I25.5 Cardiomyopathy type: ischemic Cardiac defibrillator in place Z95.810 CAD (coronary artery disease), [place] coronary artery I25.10 Congestive heart failure I50.23 Heart failure chronicity: acute on chronic Heart failure type: systolic (1) Congestive heart failure Heart failure chronicity: acute on chronic Heart failure type: systolic Qualified Code(s): I50.23 - Acute on chronic systolic (congestive) heart failure (2) Cardiomyopathy Cardiomyopathy type: ischemic Qualified Code(s): I25.5 - Ischemic cardiomyopathy
--- NOTE | 2019-06-24 15:21 | Hospitalist Progress Note ---
Date of Service June 24, 2019 Assessment & Plan (1) Congestive heart failure: Acute on chronic systolic CHF, possibly worsened by return to atrial flutter. Echo this admission shows EF 15-20%. - Given Lasix IV x 1 by cardiology -> Monitor I&Os and weights Continue heart failure medications: Entresto, metoprolol, Imdur - Cardiology following - appreciate thoughts -> Will restart amiodarone; this may get him back into sinus rhythm and help reduce his symptoms. - Defer further diuresis at this time given his bump in Cr (2) Acute kidney injury: Patient with baseline Cr. of ~2.4, though Cr has ranged as high as 4.2 recently. - On admission, Cr was 3.0. - Monitor Cr - Today it is 3.23; likely due to diuretic. (3) Paroxysmal atrial fibrillation: Patient presently in atrial flutter with variable AV block. Rate controlled at 89 bpm. He did not tolerate atrial fibrillation in the past and presented with dizziness and presyncope. Holding Eliquis due to epistaxis as above Continue metoprolol - Cardiology consider AVN ablation as above -> First doing amiodarone gtt over the weekend. (4) Pneumonia: Chest x-ray with bilateral pleural effusions & extensive bibasilar consolidations. Continue CAP abx ceftriaxone and doxycycline - Supplemental oxygen as needed (5) Coronary artery disease: Patient with longstanding history of CAD status post multiple stents. Ischemic cardiomyopathy, biventricular AICD in place. Presently denies chest pain. EKG with no acute ischemic changes, atrial flutter is present. Continue Plavix, atorvastatin Continue Entresto (6) Epistaxis: Patient with bloody nose prior to arrival. No airway compromise. Had another bloody nose overnight after dislodging clot by blowing his nose. Hold Eliquis - Continue to monitor CBC -> Stable today. (7) Hypertension: Blood pressure stable today at 100/70. Continue metoprolol, Entresto (8) Pleural effusion: Patient with bilateral pleural effusions on CXR. Continue to monitor respiratory status (9) Hypothyroidism: Chronic. Stable. TSH was 1.3 in 03/2019 and had been stable for several priors. Continue Synthroid (10) Gout: No complaints of joint pain. Stable. Continue allopurinol (11) DVT prophylaxis: SCDs - Will hold heparin for epistaxis. Can restart Eliquis as able. Admission and Anticipated Discharge Date Admission Date: June 22, 2019 Subjective Doing well today. No bloody nose since yesterday. Less shortness of breath. Reports no fevers/chills, chest pain, abdominal pain, nausea, or vomiting. Physical Exam Constitutional: WD/WN, vitals as above Eyes: EOM intact bilaterally; no conjunctival abnormality ENMT: external ear and nose normal, oropharynx normal Neck: trachea midline, no thyromegaly normal visual inspection Respiratory: normal respiratory effort, lungs clear to auscultation no respiratory distress Cardiovascular: RRR, no murmur, no edema Vessels: no JVD (None seen, but wilson makes assessment difficult) Gastrointestinal (Abdomen): Inspection/Auscultation: abdomen normal to in spection; abdomen not distended Musculoskeletal: no cyanosis or clubbing, extremities motor strength 5/5 Skin: no rashes, warm and dry Neurologic: moves all extremities and awake Psychiatric: Orientation: alert, oriented to person and cooperative Results & Data ([facility]) Vital Signs (Past 12 Hours) Vital Signs Temp Pulse Resp BP BP Pulse Ox Pulse Ox 06/24/19 15:09 36.7 C 70 20 102/67 98 06/24/19 13:54 94 06/24/19 11:33 82 16 133/94 94 06/24/19 07:25 36.3 C L 72 18 112/70 91 06/24/19 04:00 36.5 C 81 20 137/93 96 Pulse Ox 06/24/19 15:09 06/24/19 13:54 88 L 06/24/19 11:33 06/24/19 07:25 06/24/19 04:00 PG Care Time/CCT Total # of Minutes Spent Total Time Spent with Patient: Total time spent is greater than 50% in coordination of care (as documented) at patient's floor/unit and/or counseling patient: Coding Level of Care Code 22758 Subseq Hosp Care Lvl 3 Diagnoses Congestive heart failure I50.23 Heart failure type: systolic Heart failure chronicity: acute on chronic Acute kidney injury N17.9 Paroxysmal atrial fibrillation I48.0 Pneumonia J18.9 Laterality: right Lung location: lower lobe of lung Pneumonia type: due to unspecified organism Coronary artery disease I25.10 Associated angina: angina presence unspecified Coronary Disease-Associated Artery/Lesion type: unspecified vessel or lesion type [place] vs. transplanted heart: unspecified whether [place] or transplanted heart Epistaxis R04.0 Hypertension I10 Hypertension type: essential hypertension Pleural effusion J90 Hypothyroidism E03.9 Hypothyroidism type: unspecified Gout M10.9 Gout site: unspecified site Gout etiology: unspecified cause Chronicity: unspecified DVT prophylaxis Z29.9 (1) Pneumonia Laterality: right Lung location: lower lobe of lung Pneumonia type: due to unspecified organism Qualified Code(s): J18.9 - Pneumonia, unspecified organism (2) Congestive heart failure Heart failure type: systolic Heart failure chronicity: acute on chronic Qualified Code(s): I50.23 - Acute on chronic systolic (congestive) heart failure (3) Coronary artery disease Associated angina: angina presence unspecified Coronary Disease-Associated Artery/Lesion type: unspecified vessel or lesion type [place] vs. transplanted heart: unspecified whether [place] or transplanted heart Qualified Code(s): I25.10 - Atherosclerotic heart disease of [place] coronary artery without angina pectoris (4) Hypertension Hypertension type: essential hypertension Qualified Code(s): I10 - Essential (primary) hypertension (5) Hypothyroidism Hypothyroidism type: unspecified Qualified Code(s): E03.9 - Hypothyroidism, unspecified (6) Gout Gout site: unspecified site Gout etiology: unspecified cause Chronicity: unspecified Qualified Code(s): M10.9 - Gout, unspecified
[2019-06-24] MEDS: cefTRIAXone SODIUM 1,000 MG in DEXTROSE 5% 50 ML IV SCH (16:50)
[2019-06-24] MEDS: AMIODARONE / D5W 360 MG/200 ML BAG IV SCH (17:20)
[2019-06-24] MEDS: MIRTAZAPINE TAB 15 MG TAB PO SCH (21:15)
[2019-06-24] MEDS: ISOSORBIDE MONO EXTENDED REL 60 MG TABCR PO SCH (21:15)
[2019-06-25] MEDS: AMIODARONE / D5W 360 MG/200 ML BAG IV SCH (04:54)
[2019-06-25 05:47] LABS: Hematocrit (blood only) 45.4 % (42-52); Hemoglobin 14.9 g/dL (14.0-18.0); Mean Corpuscular Hemoglobin 32.3 pg (25-34); Mean Corpuscular Hgb Conc 32.8 g/dL (32-36); Mean Corpuscular Volume 98.5 fL (80-100); Mean Platelet Volume 11.5 fL (7.4-10.4); Nucleated RBC # (auto) 0.21 K/uL (0-0); Nucleated RBC % (auto) 3.5 %; Platelet Count 181 K/uL (130-400); RDW Coefficient of Variation 19.3 % (11.5-14.5); RDW Standard Deviation 64.9 fL (36.4-46.3); Red Blood Count 4.61 M/uL (4.7-6.1); White Blood Count 6.06 K/uL (4.8-10.8)
[2019-06-25] MEDS: LEVOTHYROXINE SODIUM 50 MCG TABLET PO SCH (05:49)
[2019-06-25 06:38] LABS: Calcium 8.4 mg/dl (8.5-10.1); Creatinine Clr Calc Pharmacy 14.9 ml/min; Est GFR (African American) 17.4; Phosphorus 5.7 mg/dl (2.5-4.9)
[2019-06-25 07:38] LABS: Magnesium 2.6 mg/dl (1.8-2.4); Potassium 5.2 mmol/L (3.5-5.1)
[2019-06-25] MEDS: SACUBITRIL-VALSARTAN 24-26 MG TAB PO SCH ×2 (09:14→20:22)
[2019-06-25] MEDS: allopurinoL 100 MG TAB PO SCH (09:14)
[2019-06-25] MEDS: CLOPIDOGREL BISULFATE 75 MG TAB PO SCH (09:14)
[2019-06-25] MEDS: DOCUSATE SODIUM 100 MG CAP PO SCH (09:14)
[2019-06-25] MEDS: METOPROLOL SUCC 50MG EXT REL TAB PO SCH (09:14)
[2019-06-25] MEDS: MAGNESIUM OXIDE 400 MG TAB PO SCH (09:14)
[2019-06-25] MEDS: ATORVASTATIN 20 MG TAB PO SCH (09:15)
[2019-06-25] MEDS: ESCITALOPRAM OXALATE ORAL SOLN 5 MG/5 ML PO SCH (09:15)
--- NOTE | 2019-06-25 09:30 | Cardiology Progress Note ---
Date of Service June 25, 2019 Assessment & Plan (1) Cardiomyopathy: He has a severe cardiomyopathy, this admission his echocardiogram from June 23, 2019 shows an ejection fraction of 15 to 20% but a normal left ventricular size. There appears to be global hypokinesis with mild left ventricular hypertrophy. His ejection fraction was 35 to 40% by echocardiography February 03, 2019. 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 The cause is not clear, I do not know that just going into the current atrial arrhythmia at a controlled heart rate would be sufficient to explain this drop in ejection fraction. When he paces he has a wide-complex, but he paces relatively infrequently in this rhythm and his conducted complex have a right bundle branch block pattern with a QRS of less than 150 ms which may not contribute appreciably to his cardiomyopathy. Unfortunately we have not been able to titrate his medications to optimal therapy due to side effects. (2) Congestive heart failure: At the moment he does not seem to be in a lot of heart failure, I think he is compensated and perhaps a little bit dry. (3) Paroxysmal atrial flutter: He is in atrial flutter for the most part (he may have some atrial fibrillation but appears to predominantly be atrial flutter) and although his heart rate is controlled he has not tolerated well in the past. The rate however is well controlled and the rhythm is fairly regular although not completely. I do not know how much benefit he will derive from conversion to sinus rhythm but in the past he did better in sinus rhythm. We had hoped that we could do that with medical therapy using amiodarone but that has failed due to side effects. Sotalol may work although I do not find it it is generally very well tolerated with poor ejection fractions. There is little else we can do to get him back into sinus rhythm. Other options include creation of heart block and an upgrade to a biventricular device, I am not sure how much benefit he would derive from this but it is a consideration. Conversion at this point is problematic since he does not seem to be on an anticoagulant. (4) CAD (coronary artery disease), [place] coronary artery: He has known coronary artery disease, he has had an infarction in the past. His troponin was negative this admission, I do not think he has had a recent ischemic event and his left ventricle has global hypokinesis. I suspect he has not had significant progression of coronary artery disease. (5) Chronic anticoagulation: He will need anticoagulation over the long run, currently I believe it is on hold for epistaxis. This is a problem if we are considering cardioversion, either chemically or by cardioversion. (6) Cardiac defibrillator in place: He has a dual-chamber defibrillator on the right side. This was placed on the right side after he had an infected device on the left removed another institution. The right side implant was some years ago and it may be difficult to gain access on that side although we can tell with a dye injection but he also has renal insufficiency. Additionally a coronary sinus lead placement is difficult from the right. All these are issues with regard to upgrading him to a biventricular device, in addition to which I am not sure how much benefit he would derive since his rhythm is fairly regular and his intrinsically conducted complex have a right bundle pattern with a QRS duration of less than 150 ms. We can consider this, however at this point I am not sure that it is justified. The earliest we can do it is Friday but I am not sure we should do that. Admission and Anticipated Discharge Date Admission Date: June 22, 2019 Subjective This morning he felt well, however this afternoon he evidently developed nausea and feels that is the amiodarone. He did not have symptoms of heart failure such as shortness of breath or orthopnea and he was lying supine in the bed this morning. Physical Exam Physical Exam: Constitutional: Alert, cooperative and in no distress. HEENT: Unremarkable Neck: No jugular venous distention, carotid pulses are irregular but otherwise normal and equal bilaterally without bruits. Pulmonary: Clear to auscultation bilaterally. Cardiac: Irregular rhythm with no murmur, gallop or rub. Abdomen: Soft, nontender with normal bowel sounds. Extremities: No edema. Distal pulses intact. Neurologic: No focal findings. Gait is steady. Skin: No rash, ecchymoses or petechiae. Results & Data ([facility]) Vital Signs (Past 12 Hours) Vital Signs Temp Pulse Pulse Resp BP BP Pulse Ox 06/25/19 07:39 36.5 C 98 H 18 114/82 4 L 06/25/19 03:20 36.3 C L 80 18 116/78 92 06/24/19 23:59 70 06/24/19 23:50 36.3 C L 74 19 102/72 98 Laboratory Results CBC 06/25/19 Range/Units 05:23 WBC 6.06 (4.8-10.8) K/uL RBC 4.61 L (4.7-6.1) M/uL Hgb 14.9 (14.0-18.0) g/dL Hct 45.4 (42-52) % Plt Count 181 (130-400) K/uL Comprehensive Metabolic Panel 06/25/19 06/25/19 Range/Units 05:23 07:10 Sodium 136 (136-145) mmol/L Potassium 5.2 H (3.5-5.1) mmol/L Chloride 101 (98-107) mmol/L Carbon Dioxide 31 (21-32) mmol/L BUN 71 H (7-18) mg/dl Creatinine 3.57 H D (0.6-1.4) mg/dl Glucose 82 (70-99) mg/dl Calcium 8.4 L (8.5-10.1) mg/dl Intake and Output 06/25/19 06/25/19 06/25/19 06:59 14:59 22:59 Intake Total 336.841 / 1353.508 720 / 923.898 203.898 / 923.898 Output Total Balance 335.841 / 1352.508 720 / 923.898 203.898 / 923.898 Intake: IV 336.841 / 758.508 360 / 563.898 203.898 / 563.898 NEXTERONE / D5W 360 mg In 200 226.841 / 226.841 143.898 / 143.898 ml @ 16.7 mls/hr IV .[id number] [facility] Rx#:[id number] Vibramycin 100 mg In D5 100 ml 110 / 220 110 / 110 @ 50 mls/hr IV BID [facility] Rx#: [id number] Lr 250 ml @ 250 mls/hr IV .Q1H 250 / 250 [facility] Rx#:[id number] Rocephin 1,000 mg In D5w 50 ml 60 / 60 @ 100 mls/hr IV Q24H [facility] Rx#: [id number] Oral 0 / 595 360 / 360 Output: # Bowel Movements Other: # Unmeasured Voids 2 Weight 68.4 kg Diagnostic Findings Telemetry: Atrial fibrillation/flutter, rate in the 80 to 100 bpm range. Occasional ventricular pacing. PG Care Time/CCT Total # of Minutes Spent Total Time Spent with Patient: Total time spent is greater than 50% in coordination of care (as documented) at patient's floor/unit and/or counseling patient: Coding Level of Care Code 70232 Subseq Hosp Care Lvl 3 Diagnoses Cardiomyopathy I25.5 Cardiomyopathy type: ischemic Congestive heart failure I50.23 Heart failure type: systolic Heart failure chronicity: acute on chronic Paroxysmal atrial flutter I48.92 CAD (coronary artery disease), [place] coronary artery I25.10 Chronic anticoagulation Z79.[address] Z95.810 (1) Cardiomyopathy Cardiomyopathy type: ischemic Qualified Code(s): I25.5 - Ischemic cardiomyopathy (2) Congestive heart failure Heart failure type: systolic Heart failure chronicity: acute on chronic Qualified Code(s): I50.23 - Acute on chronic systolic (congestive) heart failure
[2019-06-25] MEDS: DOXYCYCLINE HYCLATE 100 MG in DEXTROSE 5% 100 ML IV SCH ×2 (09:34→20:50)
[2019-06-25] MEDS ORDERED: LACTATED RINGER'S 250 ML IV ONE (11:35)
[2019-06-25] MEDS: ONDANSETRON INJ 2 MG/ML 2 ML VIAL IV PRN (12:33)
--- NOTE | 2019-06-25 13:15 | Hospitalist Progress Note ---
Date of Service June 25, 2019 Assessment & Plan (1) Congestive heart failure: Acute on chronic systolic CHF, possibly worsened by return to atrial flutter. Echo this admission shows EF 15-20%. - Given Lasix IV x 1 by cardiology -> Monitor I&Os and weights Continue heart failure medications: Entresto, metoprolol, Imdur - Cardiology following - appreciate thoughts - Gave small bolus on 06/25 for increased Cr -> Still appears euvolemic to mildly dry. (2) Acute kidney injury: Patient with baseline Cr. of ~2.4, though Cr has ranged as high as 4.2 recently. - On admission, Cr was 3.0. - Monitor Cr - Today it is 3.6; likely due to diuretic. (3) Paroxysmal atrial fibrillation: Patient presently in atrial flutter with variable AV block. Rate controlled at 89 bpm. He did not tolerate atrial fibrillation in the past and presented with dizziness and presyncope. Holding Eliquis due to epistaxis as above Continue metoprolol - Cardiology consider AVN ablation as above -> Likely earliest would be Friday. (4) Pneumonia: Chest x-ray with bilateral pleural effusions & extensive bibasilar consolidations. Continue CAP abx ceftriaxone and doxycycline - Supplemental oxygen as needed (5) Coronary artery disease: Patient with longstanding history of CAD status post multiple stents. Ischemic cardiomyopathy, biventricular AICD in place. Presently denies chest pain. EKG with no acute ischemic changes, atrial flutter is present. Continue Plavix, atorvastatin Continue Entresto (6) Epistaxis: Patient with bloody nose prior to arrival. No airway compromise. Had another bloody nose overnight after dislodging clot by blowing his nose. Hold Eliquis - No further epistaxis since 06/23 (7) Hypertension: Blood pressure stable today at 100/70. Continue metoprolol, Entresto (8) Pleural effusion: Patient with bilateral pleural effusions on CXR. Continue to monitor respiratory status (9) Hypothyroidism: Chronic. Stable. TSH was 1.3 in 03/2019 and had been stable for several priors. Continue Synthroid (10) Gout: No complaints of joint pain. Stable. Continue allopurinol (11) DVT prophylaxis: SCDs - Will hold heparin for epistaxis. Can restart Eliquis as able. Admission and Anticipated Discharge Date Admission Date: June 22, 2019 Subjective Doing well today. No real shortness of breath. Reports no fevers/chills, chest pain, shortness of breath, abdominal pain, nausea, or vomiting. Physical Exam Constitutional: WD/WN, vitals as above Eyes: EOM intact bilaterally; no conjunctival abnormality ENMT: external ear and nose normal, oropharynx normal Neck: trachea midline, no thyromegaly normal visual inspection Respiratory: normal respiratory effort, lungs clear to auscultation no respiratory distress Cardiovascular: RRR, no murmur, no edema Vessels: no JVD (None seen, but wilson makes assessment difficult) Gastrointestinal (Abdomen): Inspection/Auscultation: abdomen normal to inspection; abdomen not distended Musculoskeletal: no cyanosis or clubbing, extremities motor strength 5/5 Skin: no rashes, warm and dry Neurologic: moves all extremities and awake Psychiatric: Orientation: alert, oriented to person and cooperative Results & Data ([facility]) Vital Signs (Past 12 Hours) Vital Signs Temp Pulse Resp BP BP Pulse Ox 06/25/19 11:33 36.4 C L 72 18 110/75 97 06/25/19 11:15 91 06/25/19 07:39 36.5 C 98 H 18 114/82 4 L 06/25/19 03:20 36.3 C L 80 18 116/78 92 PG Care Time/CCT Total # of Minutes Spent Total Time Spent with Patient: Total time spent is greater than 50% in coordination of care (as documented) at patient's floor/unit and/or counseling patient: Coding Level of Care Code 84854 Subseq Hosp Care Lvl 3 Diagnoses Congestive heart failure I50.23 Heart failure type: systolic Heart failure chronicity: acute on chronic Acute kidney injury N17.9 Paroxysmal atrial fibrillation I48.0 Pneumonia J18.9 Laterality: right Lung location: lower lobe of lung Pneumonia type: due to unspecified organism Coronary artery disease I25.10 Associated angina: angina presence unspecified Coronary Disease-Associated Artery/Lesion type: unspecified vessel or lesion type [place] vs. transplanted heart: unspecified whether [place] or transplanted heart Epistaxis R04.0 Hypertension I10 Hypertension type: essential hypertension Pleural effusion J90 Hypothyroidism E03.9 Hypothyroidism type: unspecified Gout M10.9 Gout site: unspecified site Gout etiology: unspecified cause Chronicity: unspecified DVT prophylaxis Z29.9 (1) Congestive heart failure Heart failure type: systolic Heart failure chronicity: acute on chronic Qualified Code(s): I50.23 - Acute on chronic systolic (congestive) heart failure (2) Pneumonia Laterality: right Lung location: lower lobe of lung Pneumonia type: due to unspecified organism Qualified Code(s): J18.9 - Pneumonia, unspecified organism (3) Coronary artery disease Associated angina: angina presence unspecified Coronary Disease-Associated Artery/Lesion type: unspecified vessel or lesion type [place] vs. transplanted heart: unspecified whether [place] or transplanted heart Qualified Code(s): I25.10 - Atherosclerotic heart disease of [place] coronary artery without angina pectoris (4) Hypertension Hypertension type: essential hypertension Qualified Code(s): I10 - Essential (primary) hypertension (5) Hypothyroidism Hypothyroidism type: unspecified Qualified Code(s): E03.9 - Hypothyroidism, unspecified (6) Gout Gout site: unspecified site Gout etiology: unspecified cause Chronicity: unspecified Qualified Code(s): M10.9 - Gout, unspecified
[2019-06-25] MEDS: cefTRIAXone SODIUM 1,000 MG in DEXTROSE 5% 50 ML IV SCH (16:56)
[2019-06-25] MEDS: MIRTAZAPINE TAB 15 MG TAB PO SCH (20:22)
[2019-06-25] MEDS: ISOSORBIDE MONO EXTENDED REL 60 MG TABCR PO SCH (20:22)
[2019-06-25] MEDS: SODIUM CHLORIDE 0.65% NA SOLN 45 ML (OCEAN) SCH (20:55)
[2019-06-26] MEDS: LEVOTHYROXINE SODIUM 50 MCG TABLET PO SCH (05:56)
[2019-06-26] MEDS: ESCITALOPRAM OXALATE ORAL SOLN 5 MG/5 ML PO SCH (08:05)
[2019-06-26] MEDS: METOPROLOL SUCC 50MG EXT REL TAB PO SCH (08:05)
[2019-06-26] MEDS: MAGNESIUM OXIDE 400 MG TAB PO SCH (08:05)
[2019-06-26] MEDS: ATORVASTATIN 20 MG TAB PO SCH (08:05)
[2019-06-26] MEDS: SACUBITRIL-VALSARTAN 24-26 MG TAB PO SCH ×2 (08:05→20:55)
[2019-06-26] MEDS: allopurinoL 100 MG TAB PO SCH (08:05)
[2019-06-26] MEDS: CLOPIDOGREL BISULFATE 75 MG TAB PO SCH (08:05)
[2019-06-26] MEDS: DOCUSATE SODIUM 100 MG CAP PO SCH (08:08)
[2019-06-26] MEDS: DOXYCYCLINE HYCLATE 100 MG in DEXTROSE 5% 100 ML IV SCH ×2 (08:08→21:39)
[2019-06-26] MEDS: SODIUM CHLORIDE 0.65% NA SOLN 45 ML (OCEAN) SCH ×2 (08:46→20:56)
[2019-06-26 09:48] LABS: Hematocrit (blood only) 46.8 % (42-52); Hemoglobin 15.4 g/dL (14.0-18.0); Mean Corpuscular Hemoglobin 32.2 pg (25-34); Mean Corpuscular Hgb Conc 32.9 g/dL (32-36); Mean Corpuscular Volume 97.7 fL (80-100); Mean Platelet Volume 11.4 fL (7.4-10.4); Nucleated RBC # (auto) 0.39 K/uL (0-0); Nucleated RBC % (auto) 8.1 %; Platelet Count 176 K/uL (130-400); RDW Coefficient of Variation 19.6 % (11.5-14.5); RDW Standard Deviation 65.1 fL (36.4-46.3); Red Blood Count 4.79 M/uL (4.7-6.1); White Blood Count 4.84 K/uL (4.8-10.8)
[2019-06-26 10:23] LABS: BUN Creatinine Ratio 17.8 (10-20); Calcium 8.8 mg/dl (8.5-10.1); Creatinine Clr Calc Pharmacy 13.5 ml/min; Est GFR (African American) 15.4; Est GFR (Non-African American) 13.3; Potassium 4.9 mmol/L (3.5-5.1)
--- NOTE | 2019-06-26 15:45 | Hospitalist Progress Note ---
Date of Service June 26, 2019 Assessment & Plan (1) Congestive heart failure: Acute on chronic systolic CHF, possibly worsened by return to atrial flutter. Echo this admission shows EF 15-20%. - Given Lasix IV x 1 by cardiology on 06/23 -> Monitor I&Os and weights Continue heart failure medications: Entresto, metoprolol, Imdur - Cardiology following - appreciate thoughts - Gave small bolus on 06/25 for increased Cr -> Still appears euvolemic to mildly dry. Will start gentle IV fluids; get renal ultrasound. Consult nephrology. (2) Acute kidney injury: Patient with baseline Cr. of ~2.4, though Cr has ranged as high as 4.2 recently. - On admission, Cr was 3.0. - Monitor Cr - Today it is 3.9; initially thought due to diuretic, but that has been held since. As above for ELIZABETH. (3) Paroxysmal atrial fibrillation: Patient presently in atrial flutter with variable AV block. Rate controlled at 89 bpm. He did not tolerate atrial fibrillation in the past and presented with dizziness and presyncope. Holding Eliquis due to epistaxis as above Continue metoprolol - Cardiology consider AVN ablation as above -> Likely earliest would be Friday. (4) Pneumonia: Chest x-ray with bilateral pleural effusions & extensive bibasilar consolidations. Continue CAP abx ceftriaxone and doxycycline (End date: 06/29/2019 for a 7- day course). - Supplemental oxygen as needed (5) Coronary artery disease: Patient with longstanding history of CAD status post multiple stents. Ischemic cardiomyopathy, biventricular AICD in place. Presently denies chest pain. EKG with no acute ischemic changes, atrial flutter is present. Continue Plavix, atorvastatin Continue Entresto (6) Epistaxis: Patient with bloody nose prior to arrival. No airway compromise. Had another bloody nose overnight after dislodging clot by blowing his nose. Hold Eliquis - No further epistaxis since 06/23 (7) Hypertension: Blood pressure stable today at 120/85. Continue metoprolol, Entresto (8) Pleural effusion: Patient with bilateral pleural effusions on CXR. Continue to monitor respiratory status (9) Hypothyroidism: Chronic. Stable. TSH was 1.3 in 03/2019 and had been stable for several priors. Continue Synthroid (10) Gout: No complaints of joint pain. Stable. Continue allopurinol (11) DVT prophylaxis: SCDs - Will hold heparin for epistaxis. Can restart Eliquis as able. Admission and Anticipated Discharge Date Admission Date: June 22, 2019 Subjective Doing well today. He feels he was "wiped out" by going to the restroom today, just using a lot of energy. Hoping that medications help. Reports no fevers/chills, chest pain, shortness of breath, abdominal pain, nausea, or vomiting. Physical Exam Constitutional: WD/WN, vitals as above Eyes: EOM intact bilaterally; no conjunctival abnormality ENMT: external ear and nose normal, oropharynx normal Neck: trachea midline, no thyromegaly normal visual inspection Respiratory: normal respiratory effort, lungs clear to auscultation no respiratory distress Cardiovascular: RRR, no murmur, no edema Vessels: no JVD (None seen, but wilson makes assessment difficult) Gastrointestinal (Abdomen): Inspection/Auscultation: abdomen normal to inspection; abdomen not distended Musculoskeletal: no cyanosis or clubbing, extremities motor strength 5/5 Skin: no rashes, warm and dry Neurologic: moves all extremities and awake Psychiatric: Orientation: alert, oriented to person and cooperative Results & Data ([facility]) Vital Signs (Past 12 Hours) Vital Signs Temp Pulse Pulse Resp BP Pulse Ox 06/26/19 15:14 36.3 C L 73 16 122/84 98 06/26/19 11:50 36.4 C L 85 16 123/82 93 06/26/19 07:43 37.3 C 102 H 16 132/91 90 06/26/19 05:30 71 PG Care Time/CCT Total # of Minutes Spent Total Time Spent with Patient: Total time spent is greater than 50% in coordination of care (as documented) at patient's floor/unit and/or counseling patient: Coding Level of Care Code 56070 Subseq Hosp Care Lvl 3 Diagnoses Congestive heart failure I50.23 Heart failure type: systolic Heart failure chronicity: acute on chronic Acute kidney injury N17.9 Paroxysmal atrial fibrillation I48.0 Pneumonia J18.9 Laterality: right Lung location: lower lobe of lung Pneumonia type: due to unspecified organism Coronary artery disease I25.10 Associated angina: angina presence unspecified Coronary Disease-Associated Artery/Lesion type: unspecified vessel or lesion type [place] vs. transplanted heart: unspecified whether [place] or transplanted heart Epistaxis R04.0 Hypertension I10 Hypertension type: essential hypertension Pleural effusion J90 Hypothyroidism E03.9 Hypothyroidism type: unspecified Gout M10.9 Gout site: unspecified site Gout etiology: unspecified cause Chronicity: unspecified DVT prophylaxis Z29.9 (1) Congestive heart failure Heart failure type: systolic Heart failure chronicity: acute on chronic Qualified Code(s): I50.23 - Acute on chronic systolic (congestive) heart failure (2) Pneumonia Laterality: right Lung location: lower lobe of lung Pneumonia type: due to unspecified organism Qualified Code(s): J18.9 - Pneumonia, unspecified organism (3) Coronary artery disease Associated angina: angina presence unspecified Coronary Disease-Associated Artery/Lesion type: unspecified vessel or lesion type [place] vs. transplanted heart: unspecified whether [place] or transplanted heart Qualified Code(s): I25.10 - Atherosclerotic heart disease of [place] coronary artery without angina pectoris (4) Hypertension Hypertension type: essential hypertension Qualified Code(s): I10 - Essential (primary) hypertension (5) Hypothyroidism Hypothyroidism type: unspecified Qualified Code(s): E03.9 - Hypothyroidism, unspecified (6) Gout Gout site: unspecified site Gout etiology: unspecified cause Chronicity: unspecified Qualified Code(s): M10.9 - Gout, unspecified
[2019-06-26] MEDS ORDERED: NORMOSOL-R 500 ML IV ONE (15:47)
[2019-06-26] MEDS: cefTRIAXone SODIUM 1,000 MG in DEXTROSE 5% 50 ML IV SCH (16:04)
[2019-06-26] MEDS: MIRTAZAPINE TAB 15 MG TAB PO SCH (20:56)
--- NOTE | 2019-06-26 21:34 | Ultrasound Report ---
US renal/blad retro comp HISTORY: Renal insufficiency Worsening Cr COMPARISON: 09/18/2018 FINDINGS: Right kidney: Maximum linear dimension 9.8 cm. No evidence for hydronephrosis. Cortical thinning and increased cortical echogenicity. Several very small subcentimeter cyst. To Left kidney: Maximum dimension 7.3 cm. No evidence for hydronephrosis. Cortical thinning and increas ed cortical echogenicity. Several small subcentimeter cysts. Bladder: No bladder wall thickening. The bilateral ureteral jets were identified. IMPRESSION: 1. Findings consistent with nonobstructive renal insufficiency. 2. No significant change as compared to the prior study. ACT 112: Negative or not required by law. The above report was generated using voice recognition software. It may contain grammatical, syntax or spelling errors. Electronically signed by: David Sánchez M.D. 06/26/2019 9:32 PM
[2019-06-26] MEDS: ISOSORBIDE MONO EXTENDED REL 60 MG TABCR PO SCH (21:39)
[2019-06-27] MEDS: LEVOTHYROXINE SODIUM 50 MCG TABLET PO SCH (05:59)
[2019-06-27 08:00] LABS: Hematocrit (blood only) 48.3 % (42-52); Hemoglobin 15.9 g/dL (14.0-18.0); Mean Corpuscular Hemoglobin 32.2 pg (25-34); Mean Corpuscular Hgb Conc 32.9 g/dL (32-36); Mean Corpuscular Volume 97.8 fL (80-100); Mean Platelet Volume 11.6 fL (7.4-10.4); Nucleated RBC # (auto) 0.34 K/uL (0-0); Nucleated RBC % (auto) 7.5 %; Platelet Count 150 K/uL (130-400); RDW Coefficient of Variation 19.8 % (11.5-14.5); RDW Standard Deviation 65.8 fL (36.4-46.3); Red Blood Count 4.94 M/uL (4.7-6.1); White Blood Count 4.53 K/uL (4.8-10.8)
[2019-06-27] MEDS: CLOPIDOGREL BISULFATE 75 MG TAB PO SCH (08:18)
[2019-06-27] MEDS: SODIUM CHLORIDE 0.65% NA SOLN 45 ML (OCEAN) SCH ×2 (08:18→20:38)
[2019-06-27] MEDS: DOXYCYCLINE HYCLATE 100 MG in DEXTROSE 5% 100 ML IV SCH ×2 (08:18→20:40)
[2019-06-27] MEDS: ATORVASTATIN 20 MG TAB PO SCH (08:18)
[2019-06-27] MEDS: METOPROLOL SUCC 50MG EXT REL TAB PO SCH (08:18)
[2019-06-27] MEDS: SACUBITRIL-VALSARTAN 24-26 MG TAB PO SCH ×2 (08:18→20:37)
[2019-06-27] MEDS: MAGNESIUM OXIDE 400 MG TAB PO SCH (08:18)
[2019-06-27] MEDS: ESCITALOPRAM OXALATE ORAL SOLN 5 MG/5 ML PO SCH (08:18)
[2019-06-27] MEDS: allopurinoL 100 MG TAB PO SCH (08:18)
[2019-06-27 08:35] LABS: BUN Creatinine Ratio 18.1 (10-20); Calcium 8.7 mg/dl (8.5-10.1); Creatinine Clr Calc Pharmacy 12.9 ml/min; Est GFR (African American) 14.6; Est GFR (Non-African American) 12.6; Phosphorus 5.2 mg/dl (2.5-4.9)
[2019-06-27 08:42] LABS: Appearance Urine Clear (Clear); Bacteria Urine Automated Negative (Negative); Bilirubin Urine Negative (Negative); Blood Urine Negative (Negative); Color Urine Dark Yellow; Epithelial Cell Urine Auto >30 /lpf (0-5); Glucose Urine UA Negative (Negative); Ketones Urine Trace (Negative); Leukocyte Esterase Urine Negative (Negative); Nitrite Urine Negative (Negative); Protein Urine 4+ (Negative); RBC Urine Automated 0-4 /hpf (0-4); Specific Gravity Urine 1.026 (1.000-1.030); Urobilinogen Urine Negative (Negative)
[2019-06-27] MEDS: DOCUSATE SODIUM 100 MG CAP PO SCH (09:19)
[2019-06-27 09:34] LABS: Magnesium 2.6 mg/dl (1.8-2.4)
--- NOTE | 2019-06-27 12:21 | Nephrology Consultation ---
Date of Consultation June 27, 2019 Assessment & Plan (1) Acute kidney injury: Clinical presentation suggestive of ATN in the setting of decompensated heart failure. Notable CKD at baseline. No current need for dialysis. Mr. Vivas suggested that he may refuse dialysis if it became indicated. At this time, BP and volume status are acceptable. Electrolytes are within normal limits. Supportive care is being provided. Renal US was reviewed. Medications are appropriately dosed for kidney function. Goal is to maintain an even fluid balance. Document I/O's. Repeat a metabolic profile tomorrow AM. (2) Congestive heart failure: Acute on chronic on admission in the setting of atrial fibrillation. Volume status currently appears acceptable. Avoid significantly positive fluid balance. Diuretics held. Remains on Entresto. (3) Chronic kidney disease, stage IV (severe): Baseline creatinine 2.4 mg/dL. Follows with Dr. Gonsalez as outpatient. A3 proteinuria and chronic hypoalbuminemia. Prior screening for paraprotein negative. 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 Mr. Vivas is aware of the advanced nature of his kidney dysfunction. (4) Paroxysmal atrial fibrillation: (5) CAD (coronary artery disease), [place] coronary artery: History of Present Illness Reason for Consultation: ELIZABETH/CKD Requesting Physician: Андрей Bradley MD Attending Physician: Андрей Bradley MD History of Present Illness Mr. López Vivas is an 83-year-old male with chronic kidney disease IV A3. Mr. Vivas follows in the nephrology clinic with Dr. Gonsalez. Baseline creatinine has been ~2.4 mg/dL. CKD has been attributed to vascular disease and cardiorenal syndrome. There have been multiple episodes of ELIZABETH but the patient has not required dialysis. Notably, there was an episode of ATN following NSTEMI in September 2018. Mr. Vivas's last year with ESRD while on hemodialysis. Based on his experience, Mr. Vivas stated that he would likely refuse dialysis for himself. Medical history is notable for an ischemic cardiomyopathy, coronary artery disease with prior WI and PCI with stent, dual chamber AICD, paroxysmal atrial fibrillation, hypertension. Recent history includes NSTEMI in 2019 followed by progressive weight loss and anorexia. Evaluation included EGD which demonstrated esophageal candidiasis and a hiatal hernia. There was also consideration that symptoms were associated with amiodarone. Mr. Vivas was admitted to [facility] on 06/22 with nausea and shortness of breath. He was found to be in acute decompensated CHF. CXR demonstrated bilateral pleural effusions as well as bibasilar consolidations concerning for pneumonia. Diuretics were provided. Ceftriaxone and doxycycline have been provided. Unfortunately, creatinine (which had been at baseline 2.46 mg/dL on 06/21) has been progressively rising. A fluid challenge was provided but creatinine continues to rise. Diuretics have been held. Creatinine is 4.12 mg/dL this morning. Electrolytes are otherwise acceptable. Mr. Vivas is non-oliguric. He feels well. Renal US did not demonstrate any obstruction. UA notable for protein. Urine microscopy acellular. Allergies Allergy/AdvReac Type Severity Reaction Status Date / Time Penicillins Allergy Intermediate HIVES. CAN Verified 06/17/19 13:[address] LUCERO peanut Allergy Mild SPOT Verified 06/17/19 13:35 SWELLING OF TONGUE shrimp Allergy Mild WHOLE Verified 06/17/19 13:35 SWELLING OF TONGUE Bactrim Allergy Unknown NAUSEA Verified 12/05/17 17:29 Cipro Allergy Unknown RASH Unverified 12/05/17 17:29 ciprofloxacin Allergy Unknown RASH Verified 06/17/19 13:35 coffee (Coffea arabica) AdvReac Mild VERTIGO Verified 06/17/19 13:35 Corticosteroids AdvReac Mild VOMITING Verified 06/17/19 13:35 (Glucocorticoids) hydrocortisone AdvReac Mild VOMITING Verified 06/17/19 13:35 Nitrate Analogues AdvReac Mild VOMITING Verified 06/17/19 13:35 Quinolones AdvReac Mild VOMITING Verified 06/17/19 13:35 tetracycline AdvReac Mild VOMITING Verified 06/17/19 13:35 nitrofurantoin AdvReac Unknown VOMITING Verified 06/23/19 11:00 sulfamethoxazole AdvReac Unknown NAUSEA Verified 06/23/19 11:00 trimethoprim AdvReac Unknown NAUSEA Verified 06/23/19 11:00 BANDAIDS Allergy Unknown . Uncoded 06/17/19 13:35 Home Medications Home Medications Medication Instructions Recorded Confirmed Type Eliquis 2.5 mg PO BID 09/17/18 06/22/19 History levothyroxine 50 mcg PO QAM 09/17/18 06/22/19 History metoprolol succinate 200 mg PO QAM 09/17/18 06/22/19 History clopidogrel 75 mg PO QAM #30 tab 09/25/18 06/22/19 Rx isosorbide mononitrate 30 mg 60 mg PO HS 12/09/18 06/22/19 History tablet,extended release 24 hr allopurinol 100 mg tablet 100 mg PO QAM 12/30/18 06/22/19 History magnesium oxide 400 mg (241.3 mg 400 mg PO QAM tab 12/30/18 06/22/19 History magnesium) tablet acetaminophen 325 mg tablet 650 mg PO Q4H PRN tab MDD 3000 MG 03/22/19 06/22/19 History APAP/24 HOURS Benefiber Clear SF (dextrin) 1 g PO BID 05/14/19 06/22/19 History docusate sodium [Colace] 100 mg PO QAM 05/14/19 06/22/19 History magnesium hydroxide [Milk of 30 ml PO Q48H PRN 05/14/19 06/22/19 History Magnesia] ondansetron HCl 4 mg tablet 4 mg PO Q6H PRN 05/27/19 06/22/19 History CPAP Machine #1 ea 06/14/19 06/17/19 Rx atorvastatin 80 mg tablet 20 mg PO QAM tab 06/14/19 06/22/19 History escitalopram oxalate 5 mg tablet 2.5 mg PO QAM 06/17/19 06/22/19 History sodium chloride 0.65 % nasal spray 1 sprays INTRANASAL DIRECTED PRN 06/17/19 06/22/19 History aerosol triamcinolone acetonide 0.1 % 1 appln TOP Q12H PRN 06/17/19 06/22/19 History topical cream bisacodyl [Dulcolax (bisacodyl)] 10 mg ID Q48H PRN 06/22/19 06/22/19 History mirtazapine 7.5 mg PO HS 06/22/19 06/22/19 History oxymetazoline [Afrin Sinus 2 spray INTRANASAL DIRECTED PRN 06/22/19 06/22/19 History (oxymetazoline)] sacubitril-valsartan [Entresto] 1 tab PO BID 06/22/19 06/22/19 History sodium chloride-aloe vera [[place] 1 spray INTRANASAL TID PRN 06/22/19 06/22/19 History Saline Gel] sodium phosphates [Fleet Enema] 118 ml ID Q72H PRN 06/22/19 06/22/19 History Patient History Medical History Acute coronary syndrome Acute kidney injury Cellulitis of arm (Inactive) Epistaxis Essential tremor Folliculitis History of migraine Hyperlipidemia Macular degeneration Major depressive disorder Myocardial infarction 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 Pulmonary HTN Syncope Surgical History Biventricular ICD (implantable cardioverter-defibrillator) in place History of cholecystectomy History of pacemaker History of transurethral resection of prostate S/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 - RCA 09/18/2018 - 2 EBONY to LAD Family History Unknown Heart disease Hypertension Social History Preferred Language: Thai Communication Ability: Effective Narrow Gauge Operator Required: No Beliefs That Will Affect Care: None marital status: / Current Living Situation: Care Home Current Living Situation Comment: [facility] current occupation: retired Other Information That Helps Us Care for You: No Feels Safe at Home: Yes Safety Concerns: Feels Safe At This Time Smoking Status: Never smoker Second Hand Exposure: No ; Hx Alcohol Use: No Hx Substance Use: No Review of Systems Review of Systems: All systems reviewed & are unremarkable except as noted in HPI & below Physical Exam Constitutional: well developed; no acute distress and not edematous Eyes: + anicteric sclerae; no conjunctival abnormality ENMT: Mouth: no oral mucosal abnormality and oral mucous membranes not dry Neck: normal visual inspection and trachea midline Respiratory: normal respiratory effort Auscultation: lungs clear to auscultation bilaterally Cardiovascular: Rate/Rhythm: regular rate Heart Sounds: normal S1 and normal S2 Vessels: no JVD Extremities: no edema Musculoskeletal: Extremities: no cyanosis and no clubbing Skin: normal turgor; no lesions Neurologic: Motor/Sensory: no tremor and no asterixis Psychiatric: Orientation: alert and oriented x 3 Results & Data Vital Signs (Past 12 Hours) Vital Signs Temp Pulse Pulse Resp BP BP Pulse Ox 02/23/20 11:35 36.3 C L 83 16 118/84 97 06/27/19 08:15 105/68 06/27/19 07:28 36.6 C 82 16 82/61 L 92 06/27/19 02:58 36.4 C L 71 18 105/71 91 06/27/19 02:31 76 Laboratory Results Laboratory Results - last 24 hr 06/27/19 06/27/19 06/27/19 07:51 07:51 08:30 WBC 4.53 L RBC 4.94 Hgb 15.9 Hct 48.3 MCV 97.8 MCH 32.2 MCHC 32.9 RDW Std Deviation 65.8 H RDW Coeff of Shelly 19.8 H Plt Count 150 MPV 11.6 H Absolute Nucleated RBC 0.34 H Nucleated RBC % (auto) 7.5 Sodium 136 Potassium Chloride 101 Carbon Dioxide 25 Anion Gap 10.0 BUN 75 H Creatinine 4.12 H Est Cr Clr Drug Dosing 12.9 Est GFR ( Amer) 14.6 Est GFR (Non-Af Amer) 12.6 BUN/Creatinine Ratio 18.1 Glucose 73 Calcium 8.7 Phosphorus 5.2 H Magnesium Urine Color Dark Yellow Urine Appearance Clear Urine pH 5.0 Ur Specific [place] 1.026 Urine Protein 4+ H Urine Glucose (UA) Negative Urine Ketones Trace H Urine Blood Negative Urine Nitrite Negative Urine Bilirubin Negative Urine Urobilinogen Negative Ur Leukocyte Esterase Negative Urine WBC (Auto) 1-5 Urine RBC (Auto) 0-4 U Hyaline Cast (Auto) 10-30 H U Epithel Cells (Auto) >30 H Urine Bacteria (Auto) Negative Ur Random Creatinine Ur Random Sodium 06/27/19 06/27/19 08:30 08:59 WBC RBC Hgb Hct MCV MCH MCHC RDW Std Deviation RDW Coeff of Shel[place] Plt Count MPV Absolute Nucleated RBC Nucleated RBC % (auto) Sodium Potassium 5.0 Chloride Carbon Dioxide Anion Gap BUN Creatinine Est Cr Clr Drug Dosing Est GFR ( Amer) Est GFR (Non-Af Amer) BUN/Creatinine Ratio Glucose Calcium Phosphorus Magnesium 2.6 H Urine Color Urine Appearance Urine pH Ur Specific [place] Urine Protein Urine Glucose (UA) Urine Ketones Urine Blood Urine Nitrite Urine Bilirubin Urine Urobilinogen Ur Leukocyte Esterase Urine WBC (Auto) Urine RBC (Auto) U Hyaline Cast (Auto) U Epithel Cells (Auto) Urine Bacteria (Auto) Ur Random Creatinine 144.0 Ur Random Sodium 8 PG Care Time/CCT Total # of Minutes Spent Total Time Spent with Patient: Total time spent is greater than 50% in coordination of care (as documented) at patient's floor/unit and/or counseling patient: Coding Level of Care Code 72091 Inpt Consult Level 4 Diagnoses Acute kidney injury N17.9 Congestive heart failure I50.23 Heart failure type: systolic Heart failure chronicity: acute on chronic Chronic kidney disease, stage IV (severe) N18.4 Paroxysmal atrial fibrillation I48.0 CAD (coronary artery disease), [place] coronary artery I25.10 (1) Congestive heart failure Heart failure type: systolic Heart failure chronicity: acute on chronic Qualified Code(s): I50.23 - Acute on chronic systolic (congestive) heart failure
--- NOTE | 2019-06-27 14:25 | Hospitalist Progress Note ---
Date of Service June 27, 2019 Assessment & Plan (1) Congestive heart failure: Acute on chronic systolic CHF, possibly worsened by return to atrial flutter. Echo this admission shows EF 15-20%. - Given Lasix IV x 1 by cardiology on 06/23 -> Monitor I&Os and weights Continue heart failure medications: Entresto, metoprolol, Imdur - Cardiology following - appreciate thoughts - Gave small bolus on 06/25 & 06/26 for increased Cr -> Still appears euvolemic to mildly dry, but weight is up 4 kg from admission. Nephrology recommends being net even which it seems like he generally is. - At this point, awaiting recommendations from Dr. Adams, Dr. Funes, and Slava Carter on Friday. Will not significantly adjust. Will get CXR and BNP with AM labs. Patient requests no further labs today. - Palliative care consult given his end stage heart failure and renal failure. (2) Acute kidney injury: Patient with baseline Cr. of ~2.4, though Cr has ranged as high as 4.2 recently. - On admission, Cr was 3.0. - Monitor Cr - Today it is 4.1. Initially, I thought it was due to diuretic on 06/23, but he has not responded to two fluid challenges of 250 mL & 500 mL on subsequent days. - Nephrology following - Appreciate recs. (3) Paroxysmal atrial fibrillation: Patient presently in atrial flutter with variable AV block. Rate controlled at 89 bpm. He did not tolerate atrial fibrillation in the past and presented with dizziness and presyncope. Holding Eliquis due to epistaxis as above Continue metoprolol - Plan had been to restart amiodarone (he had been on previously on it), but he did not tolerate it. Plan had then been to do sotalol, but with his declining renal function, this is contraindicated. - Cardiology consider AVN ablation -> Likely earliest would be Friday. (4) Pneumonia: Chest x-ray with bilateral pleural effusions & extensive bibasilar consolidations. Continue CAP abx ceftriaxone and doxycycline (End date: 06/29/2019 for a 7- day course). - Supplemental oxygen as needed (5) Coronary artery disease: Patient with longstanding history of CAD status post multiple stents. Ischemic cardiomyopathy, biventricular AICD in place. Presently denies chest pain. EKG with no acute ischemic changes, atrial flutter is present. Continue Plavix, atorvastatin Continue Entresto (6) Epistaxis: Patient with bloody nose prior to arrival. No airway compromise. Had another bloody nose the next night after dislodging clot by blowing his nose. Holding Eliquis with cardiology ok with this. - No further epistaxis since 06/23 (7) Hypertension: Blood pressure stable today at 120/85. Continue metoprolol, Entresto (8) Pleural effusion: Patient with bilateral pleural effusions on CXR. Continue to monitor respiratory status (9) Hypothyroidism: Chronic. Stable. TSH was 1.3 in 03/2019 and had been stable for several priors. Continue Synthroid (10) Gout: No complaints of joint pain. Stable. Continue allopurinol (11) DVT prophylaxis: SCDs - Will hold heparin for epistaxis. Can restart Eliquis as able. Admission and Anticipated Discharge Date Admission Date: June 22, 2019 Subjective Still feels "wiped out" when he just ambulates around the room. Reports no fevers/chills, chest pain, shortness of breath, abdominal pain, nausea, or vomiting. Physical Exam Constitutional: WD/WN, vitals as above Eyes: EOM intact bilaterally; no conjunctival abnormality ENMT: external ear and nose normal, oropharynx normal Neck: trachea midline, no thyromegaly normal visual inspection Respiratory: normal respiratory effort, lungs clear to auscultation no respiratory distress Cardiovascular: RRR, no murmur, no edema Vessels: no JVD (None seen, but wilson makes assessment difficult) Gastrointestinal (Abdomen): Inspection/Auscultation: abdomen normal to inspection; abdomen not distended Musculoskeletal: no cyanosis or clubbing, extremities motor strength 5/5 Skin: no rashes, warm and dry Neurologic: moves all extremities and awake Psychiatric: Orientation: alert, oriented to person and cooperative Results & Data ([facility]) Vital Signs (Past 12 Hours) Vital Signs Temp Pulse Pulse Resp BP BP Pulse Ox 06/27/19 11:35 36.3 C L 83 16 118/84 97 06/27/19 08:15 105/68 06/27/19 07:28 36.6 C 82 16 82/61 L 92 06/27/19 02:58 36.4 C L 71 18 105/71 91 06/27/19 02:31 76 PG Care Time/CCT Total # of Minutes Spent Total Time Spent with Patient: Total time spent is greater than 50% in coordination of care (as documented) at patient's floor/unit and/or counseling patient: Coding Level of Care Code 25144 Subseq Hosp Care Lvl 3 Diagnoses Congestive heart failure I50.23 Heart failure type: systolic Heart failure chronicity: acute on chronic Acute kidney injury N17.9 Paroxysmal atrial fibrillation I48.0 Pneumonia J18.9 Laterality: right Lung location: lower lobe of lung Pneumonia type: due to unspecified organism Coronary artery disease I25.10 Associated angina: angina presence unspecified Coronary Disease-Associated Artery/Lesion type: unspecified vessel or lesion type [place] vs. transplanted heart: unspecified whether [place] or transplanted heart Epistaxis R04.0 Hypertension I10 Hypertension type: essential hypertension Pleural effusion J90 Hypothyroidism E03.9 Hypothyroidism type: unspecified Gout M10.9 Gout site: unspecified site Gout etiology: unspecified cause Chronicity: unspecified DVT prophylaxis Z29.9 (1) Congestive heart failure Heart failure type: systolic Heart failure chronicity: acute on chronic Qualified Code(s): I50.23 - Acute on chronic systolic (congestive) heart failure (2) Pneumonia Laterality: right Lung location: lower lobe of lung Pneumonia type: due to unspecified organism Qualified Code(s): J18.9 - Pneumonia, unspecified organism (3) Coronary artery disease Associated angina: angina presence unspecified Coronary Disease-Associated Artery/Lesion type: unspecified vessel or lesion type [place] vs. transplanted heart: unspecified whether [place] or transplanted heart Qualified Code(s): I25.10 - Atherosclerotic heart disease of [place] coronary artery without angina pectoris (4) Hypertension Hypertension type: essential hypertension Qualified Code(s): I10 - Essential (primary) hypertension (5) Hypothyroidism Hypothyroidism type: unspecified Qualified Code(s): E03.9 - Hypothyroidism, unspecified (6) Gout Gout site: unspecified site Gout etiology: unspecified cause Chronicity: unspecified Qualified Code(s): M10.9 - Gout, unspecified
[2019-06-27] MEDS: cefTRIAXone SODIUM 1,000 MG in DEXTROSE 5% 50 ML IV SCH (16:22)
[2019-06-27] MEDS: MIRTAZAPINE TAB 15 MG TAB PO SCH (20:34)
[2019-06-27] MEDS: ISOSORBIDE MONO EXTENDED REL 60 MG TABCR PO SCH (20:36)
[2019-06-28] MEDS: ONDANSETRON INJ 2 MG/ML 2 ML VIAL IV PRN ×2 (02:33→15:40)
[2019-06-28] MEDS: LEVOTHYROXINE SODIUM 50 MCG TABLET PO SCH (05:57)
[2019-06-28 08:00] LABS: Hematocrit (blood only) 46.6 % (42-52); Hemoglobin 15.4 g/dL (14.0-18.0); Mean Corpuscular Hemoglobin 31.8 pg (25-34); Mean Corpuscular Volume 96.1 fL (80-100); Mean Platelet Volume 11.7 fL (7.4-10.4); Nucleated RBC % (auto) 8.4 %; Platelet Count 173 K/uL (130-400); RDW Coefficient of Variation 20.1 % (11.5-14.5); RDW Standard Deviation 66.1 fL (36.4-46.3); Red Blood Count 4.85 M/uL (4.7-6.1); White Blood Count 5.99 K/uL (4.8-10.8)
--- NOTE | 2019-06-28 08:11 | XRay Report ---
XR chest 2V PA/lateral HISTORY: 83 years-old Male Volume assessment follow-up study in a patient with reported pneumonia COMPARISON: Chest radiograph 06/23/2019 TECHNIQUE: AP and lateral views of the chest FINDINGS: Cardiac silhouette is enlarged, unchanged. Stable positioning of the right subclavian pacer/AICD. No pneumothorax. Pulmonary vascular congestion with interstitial coarsening is progressively worsened. T he bilateral pleural effusions also appear to have increased in size. Bibasilar opacities are noted w ith pulmonary hypoinflation. No pneumothorax. Bones appear grossly intact. Degenerative changes of th e shoulders and spine. IMPRESSION: 1. Cardiomegaly with mildly worsened pulmonary vascular congestion. 2. Bilateral pleural effusions with bibasilar consolidation has also mildly worsened from comparison. ACT 112: Negative or not required by law. The above report was generated using voice recognition software. It may contain grammatical, syntax o r spelling errors. Electronically signed by: Bang Murphy M.D. 06/28/2019 8:10 AM
[2019-06-28] MEDS: DOXYCYCLINE HYCLATE 100 MG in DEXTROSE 5% 100 ML IV SCH ×2 (08:18→20:05)
[2019-06-28] MEDS: ESCITALOPRAM OXALATE ORAL SOLN 5 MG/5 ML PO SCH (08:19)
[2019-06-28] MEDS: SACUBITRIL-VALSARTAN 24-26 MG TAB PO SCH (08:19)
[2019-06-28] MEDS: ATORVASTATIN 20 MG TAB PO SCH (08:19)
[2019-06-28] MEDS: MAGNESIUM OXIDE 400 MG TAB PO SCH (08:19)
[2019-06-28] MEDS: allopurinoL 100 MG TAB PO SCH (08:19)
[2019-06-28] MEDS: SODIUM CHLORIDE 0.65% NA SOLN 45 ML (OCEAN) SCH ×2 (08:19→20:20)
[2019-06-28] MEDS: METOPROLOL SUCC 50MG EXT REL TAB PO SCH (08:19)
[2019-06-28] MEDS: CLOPIDOGREL BISULFATE 75 MG TAB PO SCH (08:19)
[2019-06-28] MEDS: DOCUSATE SODIUM 100 MG CAP PO SCH (08:20)
[2019-06-28 09:10] LABS: BUN Creatinine Ratio 16.5 (10-20); Calcium 9.3 mg/dl (8.5-10.1); Est GFR (Non-African American) 10.3; Potassium 5.6 mmol/L (3.5-5.1)
--- NOTE | 2019-06-28 09:41 | Cardiology Progress Note ---
Date of Service June 28, 2019 Assessment & Plan (1) Cardiomyopathy: He has a severe cardiomyopathy, this admission his echocardiogram from June 23, 2019 shows an ejection fraction of 15 to 20% but a normal left ventricular size. There appears to be global hypokinesis with mild left ventricular hypertrophy. His ejection fraction was 35 to 40% by echocardiography February 03, 2019. 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 The cause is not clear, I do not know that just going into the current atrial arrhythmia at a controlled heart rate would be sufficient to explain this drop in ejection fraction. When he paces he has a wide-complex, but he paces relatively infrequently in this rhythm and his conducted complex have a right bundle branch block pattern with a QRS of less than 150 ms which may not contribute appreciably to his cardiomyopathy. Unfortunately we have not been able to titrate his medications to optimal therapy due to side effects. Under his current circumstances I do not think biventricular pacing would be of much benefit. (2) Congestive heart failure: At the moment he does not seem to be in a lot of heart failure, I think he is compensated and perhaps a little bit dry. (3) Paroxysmal atrial flutter: He is in atrial flutter for the most part (he may have some atrial fibrillation but appears to predominantly be atrial flutter) and although his heart rate is controlled he has not tolerated well in the past. The rate however is well controlled and the rhythm is fairly regular although not completely. I do not know how much benefit he will derive from conversion to sinus rhythm but in the past he did better in sinus rhythm, however his ejection fraction was better also. We had hoped that we could do that with medical therapy using amiodarone but that has failed due to side effects (assuming they are actually due to his arrhythmia). Sotalol may work although I do not find it it is generally very well tolerated with poor ejection fractions. There is little else we can do to get him back into sinus rhythm. Other options include creation of heart block and an upgrade to a biventricular device, I am not sure how much benefit he would derive from this and it would be potentially difficult and risky since we have to use dye and his creatinine is quite high. I do not think we should do it now. Conversion at this point is problematic since he does not seem to be on an anticoagulant. (4) CAD (coronary artery disease), [place] coronary artery: He has known coronary artery disease, he has had an infarction in the past. His troponin was negative this admission, I do not think he has had a recent ischemic event and his left ventricle has global hypokinesis. I suspect he has not had significant progression of coronary artery disease. (5) Chronic anticoagulation: He will need anticoagulation over the long run, currently I believe it is on hold for epistaxis. This is a problem if we are considering cardioversion, either chemically or by cardioversion. I would restart it (apixaban 2.5 mg twice daily) as soon as it is felt safe. (6) Cardiac defibrillator in place: He has a dual-chamber defibrillator on the right side. This was placed on the right side after he had an infected device on the left removed another institution. The right side implant was some years ago and it may be difficult to gain access on that side although we can tell with a dye injection but he also has renal insufficiency. Additionally a coronary sinus lead placement is difficult from the right. All these are issues with regard to upgrading him to a biventricular device, in addition to which I am not sure how much benefit he would derive since his rhythm is fairly regular and his intrinsically conducted complex have a right bundle pattern with a QRS duration of less than 150 ms. We can consider this, however at this point I did not feel it is justified. Admission and Anticipated Discharge Date Admission Date: June 22, 2019 Subjective He is still having some nausea, he tells me it is improved with discontinuation of amiodarone but he was only on it for short time this admission and I doubt it would linger. He had it last evening but no vomiting. He is laying supine in bed and does not have heart failure symptoms. No other cardiovascular symptoms. Physical Exam Physical Exam: Constitutional: Alert, cooperative and in no distress. HEENT: Unremarkable Neck: No jugular venous distention, carotid pulses are irregular but otherwise normal and equal bilaterally without bruits. Pulmonary: Clear to auscultation bilaterally. Cardiac: Irregular rhythm with no murmur, gallop or rub. Abdomen: Soft, nontender with normal bowel sounds. Extremities: No edema. Distal pulses intact. Neurologic: No focal findings. Gait is steady. Skin: No rash, ecchymoses or petechiae. Results & Data ([facility]) Vital Signs (Past 12 Hours) Vital Signs Temp Pulse Resp BP Pulse Ox 06/28/19 07:42 36.5 C 84 16 133/87 91 06/28/19 03:00 36.7 C 78 18 122/74 94 06/27/19 22:42 36.6 C 76 18 113/81 92 Laboratory Results CBC 06/28/19 Range/Units 07:51 WBC 5.99 (4.8-10.8) K/uL RBC 4.85 (4.7-6.1) M/uL Hgb 15.4 (14.0-18.0) g/dL Hct 46.6 (42-52) % Plt Count 173 (130-400) K/uL Comprehensive Metabolic Panel 06/28/19 06/28/19 Range/Units 07:51 08:29 Sodium Cancelled 135 L Potassium Cancelled 5.6 H Chloride Cancelled 100 Carbon Dioxide Cancelled 25 BUN Cancelled 78 H Creatinine Cancelled 4.85 H* D Glucose Cancelled 85 Calcium Cancelled 9.3 Intake and Output 06/27/19 06/28/19 06/28/19 22:59 06:59 14:59 Intake Total 370 / 930 Output Total 250 / 250 Balance 370 / 680 -250 / 680 Intake: IV 170 / 280 Vibramycin 100 mg In D5 100 ml 110 / 220 @ 50 mls/hr IV BID [facility] Rx#: [id number] Rocephin 1,000 mg In D5w 50 ml 60 / 60 @ 100 mls/hr IV Q24H [facility] Rx#: [id number] Oral 200 / 650 Output: Urine 250 / 250 Other: Weight 71.6 kg Diagnostic Findings Telemetry: Probably atrial flutter, reported as periods of sinus rhythm but I doubt that. Rate well controlled. PG Care Time/CCT Total # of Minutes Spent Total Time Spent with Patient: Total time spent is greater than 50% in coordination of care (as documented) at patient's floor/unit and/or counseling patient: Coding Level of Care Code 01677 Subseq Hosp Care Lvl 3 Diagnoses Cardiomyopathy I25.5 Cardiomyopathy type: ischemic Congestive heart failure I50.23 Heart failure type: systolic Heart failure chronicity: acute on chronic Paroxysmal atrial flutter I48.92 CAD (coronary artery disease), [place] coronary artery I25.10 Chronic anticoagulation Z79.[address] Z95.810 (1) Cardiomyopathy Cardiomyopathy type: ischemic Qualified Code(s): I25.5 - Ischemic cardiomyopathy (2) Congestive heart failure Heart failure type: systolic Heart failure chronicity: acute on chronic Qualified Code(s): I50.23 - Acute on chronic systolic (congestive) heart failure
[2019-06-28] MEDS ORDERED: FUROSEMIDE 80 MG in SYRINGE 0 ML IV ONE (09:45)
--- NOTE | 2019-06-28 10:31 | Palliative Care Consultation ---
Date of Consultation June 28, 2019 History of Present Illness Attending Physician: Fausto Chaparro Allergies Allergy/AdvReac Type Severity Reaction Status Date / Time Penicillins Allergy Intermediate HIVES. CAN Verified 06/17/19 13:[address] LUCERO peanut Allergy Mild SPOT Verified 06/17/19 13:35 SWELLING OF TONGUE shrimp Allergy Mild WHOLE Verified 06/17/19 13:35 SWELLING OF TONGUE Bactrim Allergy Unknown NAUSEA Verified 12/05/17 17:29 Cipro Allergy Unknown RASH Unverified 12/05/17 17:29 ciprofloxacin Allergy Unknown RASH Verified 06/17/19 13:35 coffee (Coffea arabica) AdvReac Mild VERTIGO Verified 06/17/19 13:35 Corticosteroids AdvReac Mild VOMITING Verified 06/17/19 13:35 (Glucocorticoids) hydrocortisone AdvReac Mild VOMITING Verified 06/17/19 13:35 Nitrate Analogues AdvReac Mild VOMITING Verified 06/17/19 13:35 Quinolones AdvReac Mild VOMITING Verified 06/17/19 13:35 tetracycline AdvReac Mild VOMITING Verified 06/17/19 13:35 nitrofurantoin AdvReac Unknown VOMITING Verified 06/23/19 11:00 sulfamethoxazole AdvReac Unknown NAUSEA Verified 06/23/19 11:00 trimethoprim AdvReac Unknown NAUSEA Verified 06/23/19 11:00 BANDAIDS Allergy Unknown . Uncoded 06/17/19 13:35 Home Medications Home Medications Medication Instructions Recorded Confirmed Type Eliquis 2.5 mg PO BID 09/17/18 06/22/19 History levothyroxine 50 mcg PO QAM 09/17/18 06/22/19 History metoprolol succinate 200 mg PO QAM 09/17/18 06/22/19 History clopidogrel 75 mg PO QAM #30 tab 09/25/18 06/22/19 Rx isosorbide mononitrate 30 mg 60 mg PO HS 12/09/18 06/22/19 History tablet,extended release 24 hr allopurinol 100 mg tablet 100 mg PO QAM 12/30/18 06/22/19 History magnesium oxide 400 mg (241.3 mg 400 mg PO QAM tab 12/30/18 06/22/19 History magnesium) tablet acetaminophen 325 mg tablet 650 mg PO Q4H PRN tab MDD 3000 MG 03/22/19 06/22/19 History APAP/24 HOURS Benefiber Clear SF (dextrin) 1 g PO BID 05/14/19 06/22/19 History docusate sodium [Colace] 100 mg PO QAM 05/14/19 06/22/19 History magnesium hydroxide [Milk of 30 ml PO Q48H PRN 05/14/19 06/22/19 History Magnesia] ondansetron HCl 4 mg tablet 4 mg PO Q6H PRN 05/27/19 06/22/19 History CPAP Machine #1 ea 06/14/19 06/17/19 Rx atorvastatin 80 mg tablet 20 mg PO QAM tab 06/14/19 06/22/19 History escitalopram oxalate 5 mg tablet 2.5 mg PO QAM 06/17/19 06/22/19 History sodium chloride 0.65 % nasal spray 1 sprays INTRANASAL DIRECTED PRN 06/17/19 06/22/19 History aerosol triamcinolone acetonide 0.1 % 1 appln TOP Q12H PRN 06/17/19 06/22/19 History topical cream bisacodyl [Dulcolax (bisacodyl)] 10 mg NH Q48H PRN 06/22/19 06/22/19 History mirtazapine 7.5 mg PO HS 06/22/19 06/22/19 History oxymetazoline [Afrin Sinus 2 spray INTRANASAL DIRECTED PRN 06/22/19 06/22/19 History (oxymetazoline)] sacubitril-valsartan [Entresto] 1 tab PO BID 06/22/19 06/22/19 History sodium chloride-aloe vera [Qulin 1 spray INTRANASAL TID PRN 06/22/19 06/22/19 History Saline Gel] sodium phosphates [Fleet Enema] 118 ml NH Q72H PRN 06/22/19 06/22/19 History Patient History Medical History Acute coronary syndrome Acute kidney injury Cellulitis of arm (Inactive) Epistaxis Essential tremor Folliculitis History of migraine Hyperlipidemia Macular degeneration Major depressive disorder Myocardial infarction 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 Pulmonary HTN Syncope Surgical History Biventricular ICD (implantable cardioverter-defibrillator) in place History of cholecystectomy History of pacemaker History of transurethral resection of prostate S/P percutaneous transluminal angioplasty (DRILLER HAND) with stent placement 2007 - RCA 09/18/2018 - 2 EBONY to LAD Family History Unknown Heart disease Hypertension Social History Preferred Language: [place] Communication Ability: Effective Strainer Tender Required: No Beliefs That Will Affect Care: None marital status: / Current Living Situation: Group Home Current Living Situation Comment: [facility] current occupation: retired Other Information That Helps Us Care for You: No Feels Safe at Home: Yes Safety Concerns: Feels Safe At This Time Smoking Status: Never smoker Second Hand Exposure: No ; Hx Alcohol Use: No Hx Substance Use: No Results & Data Vital Signs (Past 12 Hours) Vital Signs Temp Pulse Resp BP Pulse Ox 06/28/19 07:42 36.5 C 84 16 133/87 91 06/28/19 03:00 36.7 C 78 18 122/74 94 06/27/19 22:42 36.6 C 76 18 113/81 92 PG Care Time/CCT Total # of Minutes Spent Total Time Spent with Patient: Total time spent is greater than 50% in coordination of care (as documented) at patient's floor/unit and/or counseling patient: Coding
--- NOTE | 2019-06-28 10:45 | Nephrology Progress Note ---
Date of Service June 28, 2019 Assessment & Plan (1) Acute kidney injury: Clinical presentation suggestive of ATN in the setting of decompensated heart failure. Notable CKD at baseline. Again today, Mr. Vivas stated that he would likely refuse dialysis if it became indicated. However, he was not absolute. At this time, he is increasingly hypervolemic with worsening kidney function. Hyperkalemia noted. No response to furosemide 20 mg yesterday. Furosemide 80 mg IV provided this morning. Low potassium diet. Repeat metabolic profile this afternoon. Will hold Entresto due to hyperkalemia at this time. Renal US was reviewed. Medications are appropriately dosed for kidney function. Goal is to encourage a negative fluid balance. Document I/O's. Repeat a metabolic profile this afternoon and tomorrow AM. (2) Congestive heart failure: Acute on chronic on admission in the setting of atrial fibrillation. Cardiology consultation reviewed. (3) Chronic kidney disease, stage IV (severe): Baseline creatinine 2.4 mg/dL. Follows with Dr. Gonsalez as outpatient. A3 proteinuria and chronic hypoalbuminemia. Prior screening for paraprotein negative. 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 Mr. Vivas is aware of the advanced nature of his kidney dysfunction. (4) Paroxysmal atrial fibrillation: (5) CAD (coronary artery disease), [place] coronary artery: Subjective No acute events overnight. Increased work of breathing noted. Mild nausea persists but improved. No chest pain or palpitations. No fevers or chills. No lightheadedness, dizziness, syncope or presyncope. Review of Systems Review of Systems: All systems reviewed & are unremarkable except as noted in HPI & below Physical Exam Constitutional: well developed; no acute distress and not edematous Eyes: + anicteric sclerae; no conjunctival abnormality ENMT: Mouth: no oral mucosal abnormality and oral mucous membranes not dry Neck: normal visual inspection and trachea midline Respiratory: normal respiratory effort Auscultation: lungs clear to auscultation bilaterally Cardiovascular: Rate/Rhythm: regular rate Heart Sounds: normal S1 and normal S2 Vessels: no JVD Extremities: no edema Musculoskeletal: Extremities: no cyanosis and no clubbing Skin: normal turgor; no lesions Neurologic: Motor/Sensory: no tremor and no asterixis Psychiatric: Orientation: alert and oriented x 3 Results & Data Vital Signs (Past 12 Hours) Vital Signs Temp Pulse Resp BP Pulse Ox 02/24/20 07:42 36.5 C 84 16 133/87 91 06/28/19 03:00 36.7 C 78 18 122/74 94 06/27/19 22:42 36.6 C 76 18 113/81 92 Laboratory Results Laboratory Results - last 24 hr 06/28/19 06/28/19 06/28/19 07:51 07:51 08:29 WBC 5.99 RBC 4.85 Hgb 15.4 Hct 46.6 MCV 96.1 MCH 31.8 MCHC 33.0 RDW Std Deviation 66.1 H RDW Coeff of Shelly 20.1 H Plt Count 173 MPV 11.7 H Absolute Nucleated RBC 0.50 H Nucleated RBC % (auto) 8.4 Sodium Cancelled 135 L Potassium Cancelled 5.6 H Chloride Cancelled 100 Carbon Dioxide Cancelled 25 Anion Gap Cancelled 10.0 BUN Cancelled 78 H Creatinine Cancelled 4.85 H* D Est Cr Clr Drug Dosing Cancelled 11.0 Est GFR ( Amer) Cancelled 12.0 Est GFR (Non-Af Amer) Cancelled 10.3 BUN/Creatinine Ratio Cancelled 16.5 Glucose Cancelled 85 Calcium Cancelled 9.3 NT-Pro-B Natriuret Pep Cancelled 59382 H PG Care Time/CCT Total # of Minutes Spent Total Time Spent with Patient: Total time spent is greater than 50% in coordination of care (as documented) at patient's floor/unit and/or counseling patient: Coding Level of Care Code 63826 Subseq Hosp Care Lvl 3 Diagnoses Acute kidney injury N17.9 Congestive heart failure I50.23 Heart failure type: systolic Heart failure chronicity: acute on chronic Chronic kidney disease, stage IV (severe) N18.4 Paroxysmal atrial fibrillation I48.0 CAD (coronary artery disease), [place] coronary artery I25.10 (1) Congestive heart failure Heart failure type: systolic Heart failure chronicity: acute on chronic Qualified Code(s): I50.23 - Acute on chronic systolic (congestive) heart failure
[2019-06-28] MEDS ORDERED: SODIUM POLYSTYRENE SULFONATE 15G/60ML SUSP PO ONE (14:15)
[2019-06-28] MEDS: cefTRIAXone SODIUM 1,000 MG in DEXTROSE 5% 50 ML IV SCH ×2 (15:40→15:56)
[2019-06-28 15:46] LABS: BUN Creatinine Ratio 15.6 (10-20); Blood Urea Nitrogen 76 mg/dl (7-18); Calcium 9.1 mg/dl (8.5-10.1); Carbon Dioxide 24 mmol/L (21-32); Chloride 100 mmol/L (98-107); Creatinine Clr Calc Pharmacy 10.9 ml/min; Est GFR (African American) 11.9; Est GFR (Non-African American) 10.3; Glucose 99 mg/dl (70-99); Sodium 135 mmol/L (136-145)
--- NOTE | 2019-06-28 16:54 | Palliative Care Consultation ---
Date of Consultation June 28, 2019 Assessment & Plan (1) Palliative care encounter: Patient is an 83-year-old male known to me as an outpatient at [facility], where I took care of him as well as his partner. Patient presented to the hospital on 06/22 for increased shortness of breath, he had received 1 dose of Rocephin at his facility for pneumonia. Patient's chest x-ray in the emergency room was more consistent with CHF. Patient was admitted and seen by cardiology. Patient's past medical history is significant for CAD-status post inferior wall [place] in 2006, ICM status post AICD, chronic A. fib, NSTEMI s/p stent x2 in the mid LAD in September 2018 and CKD. Patient's echo in February showed an EF of 35 to 40%, repeat echo on 06/23 showed multiple areas of akinesis with an EF of 15 to 20%. Patient seen and examined at bedside, discussed his treatment options and goals of care at length. Patient stated he wants to go back to his home at [facility] with hospice care, and would like his AICD turned off. Patient states it has not fired in over 12 years, he sees no point in leaving it on. Patient's life partner in February 2018-patient has had steady decline and has transition from independent living to assisted, now in a jail level of care. Patient stated he would like to return home if possible tomorrow. Spoke with case management as well as his nurse regarding his current wishes and plan. -Goals of care-patient would like to return to his home at [facility] under hospice care tomorrow. Case management notified -CHF-improved, discharge medications per cardiology -CAD-status post RCA stent in 2006 as well as 2 stents in the mid LAD in September 2018, no current chest pain -Dyspnea on exertion-due to worsening ejection fraction, patient states taking a few steps to and from the bathroom causes shortness of breath, even notes shortness of breath with trying to reach items on his bedside table -AICD-patient would like AICD turned off, this can be done prior to discharge or after discharge at his facility -CKD stage IV-patient not interested in dialysis -A. fib-continue metoprolol for rate control, patient did not tolerate amiodarone well We will follow-up with the patient tomorrow if still hospitalized, patient requested a visit once he returns home. (2) Congestive heart failure: Heart failure type: systolic Heart failure chronicity: acute on c hronic Qualified Code(s): I50.23 - Acute on chronic systolic (congestive) heart failure (3) Coronary artery disease: Associated angina: angina presence unspecified Coronary Disease- Associated Artery/Lesion type: unspecified vessel or lesion type [place] vs. transplanted heart: unspecified whether [place] or transplanted heart Qualified Code(s): I25.10 - Atherosclerotic heart disease of [place] coronary artery without angina pectoris (4) Dyspnea on exertion: (5) Cardiac defibrillator in place: (6) Chronic kidney disease, stage IV (severe): (7) Paroxysmal atrial fibrillation: History of Present Illness Reason for Consultation: Discuss goals of care Patient's current CODE STATUS is DNR/DNI Requesting Physician: Dr. Chaparro Attending Physician: Fausto Chaparro History of Present Illness Patient is an 83-year-old male known to me as an outpatient at [facility], where I took care of him as well as his partner. Patient presented to the hospital on 06/22 for increased shortness of breath, he had received 1 dose of Rocephin at his facility for pneumonia. Patient's chest x-ray in the emergency room was more consistent with CHF. Patient was admitted and seen by cardiology. Patient's past medical history is significant for CAD-status post inferior wall [place] in 2006, ICM status post AICD, chronic A. fib, NSTEMI s/p stent x2 in the mid LAD in September 2018 and CKD. Patient's echo in February showed an EF of 35 to 40%, repeat echo on 06/23 showed multiple areas of akinesis with an EF of 15 to 20%. Patient seen and examined at bedside, discussed his treatment options and goals of care at length. Patient stated he wants to go back to his home at [facility] with hospice care, and would like his AICD turned off. Patient states it has not fired in over 12 years, he sees no point in leaving it on. Patient's life partner in February 2018-patient has had steady decline and has transition from independent living to assisted, now in a jail level of care. Patient stated he would like to return home if possible tomorrow. Spoke with case management as well as his nurse regarding his current wishes and plan. Allergies Allergy/AdvReac Type Severity Reaction Status Date / Time Penicillins Allergy Intermediate HIVES. CAN Verified 06/17/19 13:[address] LUCERO peanut Allergy Mild SPOT Verified 06/17/19 13:35 SWELLING OF TONGUE shrimp Allergy Mild WHOLE Verified 06/17/19 13:35 SWELLING OF TONGUE Bactrim Allergy Unknown NAUSEA Verified 12/05/17 17:29 Cipro Allergy Unknown RASH Unverified 12/05/17 17:29 ciprofloxacin Allergy Unknown RASH Verified 06/17/19 13:35 coffee (Coffea arabica) AdvReac Mild VERTIGO Verified 06/17/19 13:35 Corticosteroids AdvReac Mild VOMITING Verified 06/17/19 13:35 (Glucocorticoids) hydrocortisone AdvReac Mild VOMITING Verified 06/17/19 13:35 Nitrate Analogues AdvReac Mild VOMITING Verified 06/17/19 13:35 Quinolones AdvReac Mild VOMITING Verified 06/17/19 13:35 tetracycline AdvReac Mild VOMITING Verified 06/17/19 13:35 nitrofurantoin AdvReac Unknown VOMITING Verified 06/23/19 11:00 sulfamethoxazole AdvReac Unknown NAUSEA Verified 06/23/19 11:00 trimethoprim AdvReac Unknown NAUSEA Verified 06/23/19 11:00 BANDAIDS Allergy Unknown . Uncoded 06/17/19 13:35 Home Medications Home Medications Medication Instructions Recorded Confirmed Type Eliquis 2.5 mg PO BID 09/17/18 06/22/19 History levothyroxine 50 mcg PO QAM 09/17/18 06/22/19 History metoprolol succinate 200 mg PO QAM 09/17/18 06/22/19 History clopidogrel 75 mg PO QAM #30 tab 09/25/18 06/22/19 Rx isosorbide mononitrate 30 mg 60 mg PO HS 12/09/18 06/22/19 History tablet,extended release 24 hr allopurinol 100 mg tablet 100 mg PO QAM 12/30/18 06/22/19 History magnesium oxide 400 mg (241.3 mg 400 mg PO QAM tab 12/30/18 06/22/19 History magnesium) tablet acetaminophen 325 mg tablet 650 mg PO Q4H PRN tab MDD 3000 MG 03/22/19 06/22/19 History APAP/24 HOURS Benefiber Clear SF (dextrin) 1 g PO BID 05/14/19 06/22/19 History docusate sodium [Colace] 100 mg PO QAM 05/14/19 06/22/19 History magnesium hydroxide [Milk of 30 ml PO Q48H PRN 05/14/19 06/22/19 History Magnesia] ondansetron HCl 4 mg tablet 4 mg PO Q6H PRN 05/27/19 06/22/19 History CPAP Machine #1 ea 06/14/19 06/17/19 Rx atorvastatin 80 mg tablet 20 mg PO QAM tab 06/14/19 06/22/19 History escitalopram oxalate 5 mg tablet 2.5 mg PO QAM 06/17/19 06/22/19 History sodium chloride 0.65 % nasal spray 1 sprays INTRANASAL DIRECTED PRN 06/17/19 06/22/19 History aerosol triamcinolone acetonide 0.1 % 1 appln TOP Q12H PRN 06/17/19 06/22/19 History topical cream bisacodyl [Dulcolax (bisacodyl)] 10 mg SC Q48H PRN 06/22/19 06/22/19 History mirtazapine 7.5 mg PO HS 06/22/19 06/22/19 History oxymetazoline [Afrin Sinus 2 spray INTRANASAL DIRECTED PRN 06/22/19 06/22/19 History (oxymetazoline)] sacubitril-valsartan [Entresto] 1 tab PO BID 06/22/19 06/22/19 History sodium chloride-aloe vera [[place] 1 spray INTRANASAL TID PRN 06/22/19 06/22/19 History Saline Gel] sodium phosphates [Fleet Enema] 118 ml SC Q72H PRN 06/22/19 06/22/19 History Patient History Medical History Acute coronary syndrome Acute kidney injury Cellulitis of arm (Inactive) Epistaxis Essential tremor Folliculitis History of migraine Hyperlipidemia Macular degeneration Major depressive disorder Myocardial infarction 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 Pulmonary HTN Syncope Surgical History Biventricular ICD (implantable cardioverter-defibrillator) in place History of cholecystectomy History of pacemaker History of transurethral resection of prostate S/P percutaneous transluminal angioplasty ([employer]) with stent placement 2007 - RCA 09/18/2018 - 2 EBONY to LAD Family History Unknown Heart disease Hypertension Social History Preferred Language: Italian Communication Ability: Effective 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 Positive for shortness of breath with minimal exertion. Physical Exam Physical Exam: PE: Patient awake and alert, no acute distress at rest. Patient able to carry on a full conversation HEENT: EOMI Respiratory: Unlabored CV: Irregular rhythm Abdomen: Soft, nontender Extremities: Full range of motion Neuro: Alert and oriented x4 Psych: Appropriate mood and affect Results & Data Vital Signs (Past 12 Hours) Vital Signs Temp Pulse Resp BP Pulse Ox 06/28/19 15:35 97.3 F L 151 H 20 126/93 93 06/28/19 12:32 97.3 F L 84 16 93/68 L 06/28/19 07:42 97.7 F 84 16 133/87 91 PG Care Time/CCT Total # of Minutes Spent Total Time Spent with Patient: Total time spent 55 minutes with greater than 50% of the time spent at bedside discussing goals of care as well as developing a plan in line with patient's wishes. Coding Level of Care Code 76137 Inpt Consult Level 2 Diagnoses Palliative care encounter Z51.5 Congestive heart failure I50.23 Heart failure type: systolic Heart failure chronicity: acute on chronic Coronary artery disease I25.10 Associated angina: angina presence unspecified Coronary Disease-Associated Artery/Lesion type: unspecified vessel or lesion type [place] vs. transplanted heart: unspecified whether [place] or transplanted heart Dyspnea on exertion R06.[address] Z95.810 Chronic kidney disease, stage IV (severe) N18.4 Paroxysmal atrial fibrillation I48.0 Time Spent (min) 55
[2019-06-28] MEDS: MIRTAZAPINE TAB 15 MG TAB PO SCH (20:20)
[2019-06-28] MEDS: ISOSORBIDE MONO EXTENDED REL 60 MG TABCR PO SCH (20:20)
--- NOTE | 2019-06-28 21:28 | Hospitalist Progress Note ---
Date of Service June 28, 2019 Assessment & Plan (1) Congestive heart failure: Acute on chronic systolic CHF, possibly worsened by return to atrial flutter. Echo this admission shows EF 15-20%. - Given Lasix IV x 1 by cardiology on 06/23 -> Monitor I&Os and weights - Patient today is hyperkalemic, creatinine is worse Continue heart failure medications: Entresto, metoprolol, Imdur - Cardiology following - appreciate thoughts -Nephro ordered 80 mg of IV furosemide. Patient did not improve with fluid bolus over weekend. Patient also appears to have ATN -Will get CXR and BNP with AM labs. Patient requests no further labs today. - Palliative care consult given his end stage heart failure and renal failure. -Ordered kayexalate. - Later in the day, patient asked to be converted to hospice and wants to be discharged after an extensive discussion with palliative care. (2) Acute kidney injury: Patient with baseline Cr. of ~2.4, though Cr has ranged as high as 4.2 recently. - On admission, Cr was 4.8 - Monitor Cr - Today it is 4.1. Initially, I thought it was due to diuretic on 06/23, but he has not responded to two fluid challenges of 250 mL & 500 mL on subsequent days. - Nephrology following - Appreciate recs. (3) Paroxysmal atrial fibrillation: Patient presently in atrial flutter with variable AV block. Rate controlled at 89 bpm. He did not tolerate atrial fibrillation in the past and presented with dizziness and presyncope. Holding Eliquis due to epistaxis as above Continue metoprolol - Plan had been to restart amiodarone (he had been on previously on it), but he did not tolerate it. Plan had then been to do sotalol, but with his declining renal function, this is contraindicated. - Cardiology consider AVN ablation, Postponed due to being placed on hospice. (4) Pneumonia: Chest x-ray with bilateral pleural effusions & extensive bibasilar consolidations. Continue CAP abx ceftriaxone and doxycycline (End date: 06/29/2019 for a 7- day course). - Supplemental oxygen as needed (5) Coronary artery disease: Patient with longstanding history of CAD status post multiple stents. Ischemic cardiomyopathy, biventricular AICD in place. Presently denies chest pain. EKG with no acute ischemic changes, atrial flutter is present. Continue Plavix, atorvastatin Continue Entresto (6) Epistaxis: Patient with bloody nose prior to arrival. No airway compromise. Had another bloody nose the next night after dislodging clot by blowing his nose. Holding Eliquis with cardiology ok with this. - No further epistaxis since 06/23 (7) Hypertension: Blood pressure stable today at 120/85. Continue metoprolol, Entresto (8) Pleural effusion: Patient with bilateral pleural effusions on CXR. Continue to monitor respiratory status (9) Hypothyroidism: Chronic. Stable. TSH was 1.3 in 03/2019 and had been stable for several priors. Continue Synthroid (10) Gout: No complaints of joint pain. Stable. Continue allopurinol (11) DVT prophylaxis: SCDs - Will hold heparin for epistaxis. Can restart Eliquis as able. Admission and Anticipated Discharge Date Admission Date: June 22, 2019 Subjective No acute events overnight. Patient reports no new changes. No chest pain or palpitations. No fevers or chills. No lightheadedness, dizziness, syncope or presyncope. Review of Systems Review of Systems: All systems reviewed & are unremarkable except as noted in HPI & below Physical Exam Physical Exam: Constitutional: WD/WN, vitals as above Eyes: EOM intact bilaterally; no conjunctival abnormality ENMT: external ear and nose normal, oropharynx normal Neck: trachea midline, no thyromegaly normal visual inspection Respiratory: normal respiratory effort, lungs clear to auscultation no respiratory distress Cardiovascular: RRR, no murmur, no edema Vessels: no JVD (None seen, but wilson makes assessment difficult) Gastrointestinal (Abdomen): Inspection/Auscultation: abdomen normal to inspection; abdomen not distended Musculoskeletal: no cyanosis or clubbing, extremities motor strength 5/5 Skin: no rashes, warm and dry Neurologic: moves all extremities and awake Psychiatric: Orientation: alert, oriented to person and cooperative Results & Data ([facility]) Vital Signs (Past 12 Hours) Vital Signs Temp Pulse Resp BP BP Pulse Ox 06/28/19 18:59 36.3 C L 82 20 119/82 93 06/28/19 18:21 80 06/28/19 15:35 36.3 C L 151 H 20 126/93 93 06/28/19 12:32 36.3 C L 84 16 93/68 L PG Care Time/CCT Total # of Minutes Spent Total Time Spent with Patient: Total time spent is greater than 50% in coordination of care (as documented) at patient's floor/unit and/or counseling patient: Coding Level of Care Code 92878 Subseq Hosp Care Lvl 3 Diagnoses Congestive heart failure I50.23 Heart failure chronicity: acute on chronic Heart failure type: systolic Acute kidney injury N17.9 Paroxysmal atrial fibrillation I48.0 Pneumonia J18.9 Laterality: right Lung location: lower lobe of lung Pneumonia type: due to unspecified organism Coronary artery disease I25.10 Associated angina: angina presence unspecified Coronary Disease-Associated Artery/Lesion type: unspecified vessel or lesion type [place] vs. transplanted heart: unspecified whether [place] or transplanted heart Epistaxis R04.0 Hypertension I10 Hypertension type: essential hypertension Pleural effusion J90 Hypothyroidism E03.9 Hypothyroidism type: unspecified Gout M10.9 Chronicity: unspecified Gout etiology: unspecified cause Gout site: unspecified site DVT prophylaxis Z29.9 Time Spent (min) 35 (1) Gout Chronicity: unspecified Gout etiology: unspecified cause Gout site: unspecified site Qualified Code(s): M10.9 - Gout, unspecified (2) Coronary artery disease Associated angina: angina presence unspecified Coronary Disease-Associated Artery/Lesion type: unspecified vessel or lesion type [place] vs. transplanted heart: unspecified whether [place] or transplanted heart Qualified Code(s): I25.10 - Atherosclerotic heart disease of [place] coronary artery without angina pectoris (3) Congestive heart failure Heart failure chronicity: acute on chronic Heart failure type: systolic Qualified Code(s): I50.23 - Acute on chronic systolic (congestive) heart failure (4) Hypothyroidism Hypothyroidism type: unspecified Qualified Code(s): E03.9 - Hypothyroidism, unspecified (5) Hypertension Hypertension type: essential hypertension Qualified Code(s): I10 - Essential (primary) hypertension (6) Pneumonia Laterality: right Lung location: lower lobe of lung Pneumonia type: due to unspecified organism Qualified Code(s): J18.9 - Pneumonia, unspecified organism
[2019-06-29] MEDS: LEVOTHYROXINE SODIUM 50 MCG TABLET PO SCH (06:23)
[2019-06-29] MEDS: DOCUSATE SODIUM 100 MG CAP PO SCH (08:04)
[2019-06-29] MEDS: ESCITALOPRAM OXALATE ORAL SOLN 5 MG/5 ML PO SCH (08:05)
[2019-06-29] MEDS: CLOPIDOGREL BISULFATE 75 MG TAB PO SCH (08:05)
[2019-06-29] MEDS: ATORVASTATIN 20 MG TAB PO SCH (08:05)
[2019-06-29] MEDS: allopurinoL 100 MG TAB PO SCH (08:05)
[2019-06-29] MEDS: METOPROLOL SUCC 50MG EXT REL TAB PO SCH (08:06)
[2019-06-29] MEDS: MAGNESIUM OXIDE 400 MG TAB PO SCH (08:08)
[2019-06-29] MEDS: SODIUM CHLORIDE 0.65% NA SOLN 45 ML (OCEAN) SCH (08:09)
[2019-06-29] MEDS: DOXYCYCLINE HYCLATE 100 MG in DEXTROSE 5% 100 ML IV SCH (08:09)
--- NOTE | 2019-06-29 10:13 | Cardiology Progress Note ---
Date of Service June 29, 2019 Assessment & Plan (1) Cardiomyopathy: He has a severe cardiomyopathy, this admission his echocardiogram from June 23, 2019 shows an ejection fraction of 15 to 20% but a normal left ventricular size. There appears to be global hypokinesis with mild left ventricular hypertrophy. His ejection fraction was 35 to 40% by echocardiography February 03, 2019. 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 The cause is not clear, I do not know that just going into the current atrial arrhythmia at a controlled heart rate would be sufficient to explain this drop in ejection fraction. When he paces he has a wide-complex, but he paces relatively infrequently in this rhythm and his conducted complex have a right bundle branch block pattern with a QRS of less than 150 ms which may not contribute appreciably to his cardiomyopathy. Unfortunately we have not been able to titrate his medications to optimal therapy due to side effects. Under his current circumstances I do not think biventricular pacing would be of much benefit. He understands this, I think it is conceivable that his left ve ntricular function will spontaneously improve since we do not have any reversible cause identified for the recent decline, and he has never received an ICD shock. Going forward he would prefer not to be resuscitated from a life- threatening arrhythmia. (2) Congestive heart failure: At the moment he does not seem to be in a lot of heart failure, I think he is compensated and perhaps a little bit dry. He is lying supine in bed and is not short of breath. I do not know how active he has been during this hospitalization, I do not believe very active at all. (3) Paroxysmal atrial flutter: He is in atrial flutter for the most part (he may have some atrial fibrillation but appears to predominantly be atrial flutter) and although his heart rate is controlled he has not tolerated well in the past. The rate however is well controlled and the rhythm is fairly regular although not completely. I do not know how much benefit he will derive from conversion to sinus rhythm but in the past he did better in sinus rhythm, however his ejection fraction was better also. We had hoped that we could do that with medical therapy using amiodarone but that has failed due to side effects (assuming they are actually due to his arrhythmia). Sotalol may work although I do not find it it is generally very well tolerated with poor ejection fractions. There is little else we can do to get him back into sinus rhythm. Other options include creation of heart block and an upgrade to a biventricular device, I am not sure how much benefit he would derive from this and it would be potentially difficult and risky since we have to use dye and his creatinine is quite high. I do not think we should do it now. Cardioversion at this point is problematic since he does not seem to be on an anticoagulant and he would have a substantial stroke risk. (4) CAD (coronary artery disease), [place] coronary artery: He has known coronary artery disease, he has had an infarction in the past. His troponin was negative this admission, I do not think he has had a recent ischemic event and his left ventricle has global hypokinesis. I suspect he has not had significant progression of coronary artery disease to explain his decline in ejection fraction. (5) Chronic anticoagulation: He will need anticoagulation over the long run, currently I believe it is on hold for epistaxis. This is a problem if we are considering cardioversion, either chemically or electrically. I would restart anticoagulation (apixaban 2.5 mg twice daily) as soon as it is felt safe. (6) Cardiac defibrillator in place: He has a dual-chamber [employer] defibrillator on the right side. This was placed on the right side after he had an infected device on the left removed at another institution. The right side implant was some years ago and it may be difficult to gain access on that side although we can tell with a dye injection but he also has significant renal insufficiency. Additionally a coronary sinus lead placement is difficult from the right. All these are issues with regard to upgrading him to a biventricular device, in addition to which I am not sure how much benefit he would derive since his rhythm is fairly regular and his intrinsically conducted complex have a right bundle pattern with a QRS duration of less than 150 ms. We can consider this, however at this point I did not feel it is justified. He has requested that we turn off ICD therapy as he is going to be on palliative care, but when I went to his room he had already left therefore I could not turn it off here. That can be done at his place of residence. Admission and Anticipated Discharge Date Admission Date: June 22, 2019 Subjective He is feeling well today in general, he does not have a lot of heart failure symptoms. He is anxious to go home (which he thinks might be today) and I did discuss plans for turning off his ICD so he will not receive it shock and he did does want to do that. Physical Exam Physical Exam: Constitutional: Alert, cooperative and in no distress. HEENT: Unremarkable Neck: No jugular venous distention, carotid pulses are irregular but otherwise normal and equal bilaterally without bruits. Pulmonary: Clear to auscultation bilaterally. Cardiac: Irregular rhythm with no murmur, gallop or rub. Abdomen: Soft, nontender with normal bowel sounds. Extremities: No edema. Distal pulses intact. Neurologic: No focal findings. Gait is steady. Skin: No rash, ecchymoses or petechiae. Results & Data ([facility]) Vital Signs (Past 12 Hours) Vital Signs Temp Pulse Pulse Resp BP BP Pulse Ox 06/29/19 08:41 73 06/29/19 07:25 36.5 C 71 20 95/60 L 90 06/29/19 03:38 36.3 C L 84 20 123/69 96 06/29/19 00:00 84 06/28/19 23:42 36.3 C L 87 20 106/67 94 Diagnostic Findings Comprehensive Metabolic Panel 06/28/19 Range/Units 14:48 Sodium 135 L (136-145) mmol/L Potassium TNP Chloride 100 (98-107) mmol/L Carbon Dioxide 24 (21-32) mmol/L BUN 76 H (7-18) mg/dl Creatinine 4.88 H* (0.6-1.4) mg/dl Glucose 99 (70-99) mg/dl Calcium 9.1 (8.5-10.1) mg/dl Intake and Output 06/28/19 06/29/19 06/29/19 22:59 06:59 14:59 Intake Total 50 / 260 100 / 260 Balance 50 / 160 100 / 160 Intake: Oral 50 / 150 100 / 150 Other: # Unmeasured Voids 1 Weight 69.9 kg PG Care Time/CCT Total # of Minutes Spent Total Time Spent with Patient: Total time spent is greater than 50% in coordination of care (as documented) at patient's floor/unit and/or counseling patient: Coding Level of Care Code 74484 Subseq Hosp Care Lvl 2 Diagnoses Cardiomyopathy I25.5 Cardiomyopathy type: ischemic Congestive heart failure I50.23 Heart failure chronicity: acute on chronic Heart failure type: systolic Paroxysmal atrial flutter I48.92 CAD (coronary artery disease), [place] coronary artery I25.10 Chronic anticoagulation Z79.[address] Z95.810 (1) Congestive heart failure Heart failure chronicity: acute on chronic Heart failure type: systolic Qualified Code(s): I50.23 - Acute on chronic systolic (congestive) heart failure (2) Cardiomyopathy Cardiomyopathy type: ischemic Qualified Code(s): I25.5 - Ischemic cardiomyopathy
--- NOTE | 2019-06-29 10:18 | Nephrology Progress Note ---
Date of Service June 29, 2019 Assessment & Plan (1) Acute kidney injury: Clinical presentation suggestive of ATN. Plan to transition home with hospice. Symptoms well controlled. Nephrology will sign off. Please call with questions or concerns. (2) Congestive heart failure: (3) Chronic kidney disease, stage IV (severe): Baseline creatinine 2.4 mg/dL. Follows with Dr. Gonsalez as outpatient. A3 proteinuria and chronic hypoalbuminemia. Prior screening for paraprotein negative. 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 Mr. Vivas is aware of the advanced nature of his kidney dysfunction. (4) Paroxysmal atrial fibrillation: (5) CAD (coronary artery disease), [place] coronary artery: Subjective López was very lethargic this morning. He denied pain. He affirmed desire to be discharged with hospice. He wishes to return home. Review of Systems Review of Systems: All systems reviewed & are unremarkable except as noted in HPI & below Physical Exam Constitutional: well developed; no acute distress and not edematous Eyes: + anicteric sclerae; no conjunctival abnormality ENMT: Mouth: no oral mucosal abnormality and oral mucous membranes not dry Neck: normal visual inspection and trachea midline Respiratory: normal respiratory effort Auscultation: lungs clear to auscultation bilaterally Cardiovascular: Rate/Rhythm: regular rate Heart Sounds: normal S1 and normal S2 Vessels: no JVD Extremities: no edema Musculoskeletal: Extremities: no cyanosis and no clubbing Skin: normal turgor; no lesions Neurologic: Motor/Sensory: no tremor and no asterixis Psychiatric: Orientation: alert and oriented x 3 Results & Data Vital Signs (Past 12 Hours) Vital Signs Temp Pulse Pulse Resp BP BP Pulse Ox 06/29/19 08:41 73 06/29/19 07:25 36.5 C 71 20 95/60 L 90 06/29/19 03:38 36.3 C L 84 20 123/69 96 06/29/19 00:00 84 06/28/19 23:42 36.3 C L 87 20 106/67 94 Laboratory Results Laboratory Results - last 24 hr 06/28/19 14:48 Sodium 135 L Potassium TNP Chloride 100 Carbon Dioxide 24 Anion Gap 12.0 H BUN 76 H Creatinine 4.88 H* Est Cr Clr Drug Dosing 10.9 Est GFR ( Amer) 11.9 Est GFR (Non-Af Amer) 10.3 BUN/Creatinine Ratio 15.6 Glucose 99 Calcium 9.1 PG Care Time/CCT Total # of Minutes Spent Total Time Spent with Patient: Total time spent is greater than 50% in coordination of care (as documented) at patient's floor/unit and/or counseling patient: Coding Level of Care Code 77344 Subseq Hosp Care Lvl 3 Diagnoses Acute kidney injury N17.9 Congestive heart failure I50.23 Heart failure type: systolic Heart failure chronicity: acute on chronic Chronic kidney disease, stage IV (severe) N18.4 Paroxysmal atrial fibrillation I48.0 CAD (coronary artery disease), [place] coronary artery I25.10 (1) Congestive heart failure Heart failure type: systolic Heart failure chronicity: acute on chronic Qualified Code(s): I50.23 - Acute on chronic systolic (congestive) heart failure
== END 2019-06-29 13:32 | disposition hospice, inpatient (51) | DRG 193 ==
LOC: ED 15:06 → SUATTDRO 18:11 → 2W 18:12 → 2S 06-24 11:18 → 2W 06-25 18:33